=== PATIENT | male | born 1960 | race Caucasian/White ===

== ENCOUNTER 2019-01-23 01:47 | Outpatient (CLI) | payer MEDICAID, SELFPAY ==
[2019-01-23 07:59] LABS: HCT 40.9 % (40.0-50.0); HGB 13.8 g/dL (13.5-17.5); Mean Corp. HGB Concentration 33.7 g/dL (32.0-36.0); Mean Corpuscular Hemoglobin 29.7 pg (27.0-33.0); Platelet Count 353 x1000/uL (130-400); RBC 4.65 m/cumm (4.50-6.00); RBC Distribution Width 12.8 % (11.8-14.1); White Blood Cell Count 6.07 k/cumm (4.4-10.8)
[2019-01-23 09:28] LABS: Hemoglobin A1C 6.3 % (4.5-6.2)
[2019-01-23 10:13] LABS: ALT 30 U/L (12-78); AST 17 U/L (15-37); Albumin 3.8 g/dL (3.4-5.0); Alkaline Phosphatase 75 U/L (46-116); Anion Gap 8.6 mmol/L (3-11); BUN 21 mg/dL (7-18); Bilirubin, Total 0.2 mg/dL (0.2-1.0); CO2 28.4 mmol/L (21.0-32.0); CREATININE 0.87 mg/dL (0.70-1.30); Calcium 8.9 mg/dL (8.5-10.1); Calculated LDL 123 mg/dL; Chloride 105 mmol/L (98-107); Cholesterol 199 mg/dL (50-200); Glucose 112 mg/dL (70-100); HDL Cholesterol 61 mg/dL (40-60); Potassium 4.5 mmol/L (3.5-5.1); Sodium 142 mmol/L (136-145); TSH 1.73 uIU/mL (0.36-3.74); Total Protein 6.9 g/dL (6.4-8.2); Triglyceride 77 mg/dL (30-150)
[2019-01-24 10:11] LABS: PSA, Screening 0.4 ng/ml (0-3.5)
== END 2019-01-23 02:07 ==
PROVIDERS: Physician Assistant Medical; PCP Family Medicine; Visit Provider Family Medicine
DX: E78.5 Hyperlipidemia, unspecified (principal); E11.9 Type 2 diabetes mellitus without complications; R39.11 Hesitancy of micturition
CPT/HCPCS: 36415; 80053; 80061; 83721; 84153; 85027; 83036; 84443

== ENCOUNTER 2019-08-16 16:47 | Emergency (ER) | payer OTHER, SELFPAY ==
[2019-08-16 16:53] VITALS: BP 122/63; PULSE 65; RESP 18; TEMP 36.6; O2SAT 98
[2019-08-16] MEDS: Acetaminophen 500 MG TAB 1000 MG PO (17:20)
--- NOTE | 2019-08-16 17:22 | ED.GENADUL_ITS ---
Discharge Plan Disposition Patient Disposition: HOME Condition: Stable Discharge Details Chief Complaint: Orthopedic Clinical Impression: Knee sprain Primary Care Provider: Eddie Hills ED Provider: Sharon Maxwell Home Meds and New Rx's Prescriptions: No Action lamotrigine 200 mg tablet 200 mg PO DAILY RF: 0 atorvastatin 10 mg tablet 10 mg PO DAILY RF: 0 metoprolol succinate 50 mg tablet extended release 24 hr 25 mg PO DAILY RF: 0 methylphenidate HCl 20 mg tablet 20 mg PO TID RF: 0 enalapril maleate 20 mg tablet 20 mg PO .COMPLEX RF: 0 pantoprazole 40 mg tablet,delayed release (DR/EC) 40 mg PO DIRECTED RF: 0 gabapentin 300 mg capsule 300 mg PO .COMPLEX RF: 0 ibuprofen 600 mg tablet 600 mg PO .As directed PRNRF: 0 oxycodone 10 mg tablet 10 mg PO Q6H RF: 0 Discharge Instructions Instructions: Knee Sprain (ED) Additional Instructions: Rest. Activities as tolerated. Elevate injury to prevent swelling. Ice to the area of discomfort for 15 min. 3-5 times daily. Motrin every 8 hours with food or Tylenol every 6 hours for soreness if needed over the counter for comfort. Followup with orthopedic doctor as discussed if not improving in one week. Return for any worsening or concerns sooner if needed. Stand Alone Forms: Work Release Referrals: Mohsen Monroe MD [ [facility] STAFF PHYSICIAN] - Discharge Data Discharge Date/Time-TO BE ENTERED AT DEPARTURE: 08/16/19 18:07 Medical Decision Making 58-year-old patient status post trip and fall. Patient reports he tripped over a large hose and twisted his right knee beneath his body when it fell. Patient denies striking his head or his neck. He does report striking his back as well as injuring his right knee and does report mild pain to his left second digit. Patient reports he is only concerned with right knee pain. Patient does not have midline tenderness of his back or focal tenderness of his finger. He declines x-rays or evaluation of these areas. Patient would like imaging of the right knee. Obvious knee effusion present. Patient has some limitation to flexion on exam. Straight leg raise intact. No obvious weakness. No distal injury noted on exam. X-ray reveals total knee replacement with no acute abnormality identified. Discussed x-rays findings with the patient. Patient declines any bracing but will consent to an Eriberto wrap. Offered crutches and he reports he has assistive devices at home which he can use. [place] encouraged for 1 week. 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 Patient would prefer local referral, local referral provided for any persistence of symptoms. Patient reports his understanding and agrees with plan of care. HPI General Date/Time Provider Initiated Documentation: 08/16/19 17:16 . HPI Narrative: Is a 58-year-old patient who is years status post a total knee replacement on the right who yesterday tripped over a hose and fell twisting his right knee underneath him. Patient reports persistent knee pain since that time. Patient also notes a moderate right knee effusion. Patient reports mild clicking with range of motion and limited flexion of the knee. Patient did report a baseline of some limitation to range of motion on his right leg however increase in limitation of flexion reported. No obvious laxity. Patient denies any other concerns or complaints at this time. Patient does note he struck his back as well as his left second finger examination of these areas do not reveal any bony tenderness. Patient does not feel x-rays are required of these complaints at this time only the right knee. Patient does report mild tingling in the foot after injuring knee. Sensation is intact distally. No obvious weakness distally. X-rays ordered. Tylenol provided for discomfort. Patient is on daily oxycodone. Related Data Home Medications Medication Instructions Recorded Confirmed atorvastatin 10 mg tablet 10 mg PO DAILY 04/26/18 08/16/19 enalapril maleate 20 mg tablet 20 mg PO .COMPLEX 04/26/18 08/16/19 gabapentin 300 mg capsule 300 mg PO .COMPLEX 04/26/18 08/16/19 ibuprofen 600 mg tablet 600 mg PO .As directed PRN tab 04/26/18 08/16/19 lamotrigine 200 mg tablet 200 mg PO DAILY 04/26/18 08/16/19 methylphenidate HCl 20 mg tablet 20 mg PO TID 04/26/18 08/16/19 metoprolol succinate 50 mg 25 mg PO DAILY 04/26/18 08/16/19 tablet,extended release 24 hr oxycodone 10 mg tablet 10 mg PO Q6H tab 04/26/18 08/16/19 pantoprazole 40 mg tablet,delayed 40 mg PO DIRECTED tab 04/26/18 08/16/19 release Allergies Allergy/AdvReac Type Severity Reaction Status Date / Time No Known Allergies Allergy Unverified 08/16/19 17:00 General Stated Complaint: Orthopedic EDD: 4 Review of Systems All systems reviewed & are unremarkable except as noted in HPI and below Constitutional Constitutional: Denies frequent falls and Denies headache(s) ENT Ears, Nose, Mouth, and Throat: Denies headache(s) and Denies neck pain Musculoskeletal Musculoskeletal: Reports back pain, Denies deformity, Reports joint swelling, Reports limited range of motion, Denies neck pain, Denies numbness and Reports tingling Integumentary/Breasts Skin/Breast: Denies wounds Neurologic Neurologic: Denies frequent falls, Denies headache(s), Denies numbness and Reports tingling [facility] Medical History Abscess of hand (Acute) ADHD (Chronic) Anemia (Chronic) Carpal tunnel syndrome of right wrist (Acute) Cervical radiculopathy (Chronic) Closed fracture of proximal phalanx of finger (Acute) Complication of internal prosthetic device (Acute) Causing pain Depressive disorder (Chronic) Derangement of knee (Acute) Epidermoid cyst of skin (Acute) Hyperlipidemia (Chronic) Hypertensive disorder (Chronic) Knee pain (Acute) Osteoarthritis of knee (Chronic) Otitis media, purulent (Acute) Pain in right knee (Acute) Pneumonia (Acute) Primary localized osteoarthritis (Chronic) Restless legs (Chronic) Shoulder injury (Acute) Shoulder joint pain (Acute) Strain of tendon of upper extremity (Acute) Type 2 diabetes mellitus without complication (Chronic) Urinary hesitancy (Chronic) Wrist joint effusion (Acute) Family History (Updated 04/26/18 @ 11:01 by Malou Lopez) Father DVT (deep vein thrombosis) in Hypertension Social History Smoking/Tobacco Use Status: Never Alcohol Intake: current Alcohol Intake frequency: holidays/special occasions only Substance use type: does not use Do you feel safe at home: Yes Exam Narrative Exam Narrative: CONST: Healthy appearing patient, in no acute distress. Well hydrated. Alert and oriented. NECK: Normal visual inspection. FROM. Trachea midline. No Midline tenderness. CHEST: Normal insepection of the chest. RESP: Normal respiratory effort. Speaking full sentences. No cough. No audible wheezing. No retractions. MUSCULOSKELETAL: Limping gait. Right leg. No hip pain with palpation and, thigh pain with palpation. Straight leg raise intact. Obvious right knee effusion with medial and lateral joint line tenderness as well as posterior knee pain. Posterior swelling present consistent with Tyson's cyst. No significant patella tendon tenderness. Patella motion is smooth. Patella midline. No obvious laxity. No pain distal to the knee. No foot drop. Sensation intact distally. Left leg exam benign SKIN: Normal. Dry. No rashes. No wounds NEURO: Alert and awake. Speech clear. PSYCH: Normal affect. Cooperative. Course Vital Signs Vital signs: Vital Signs Temperature 36.6 C 08/16/19 16:53 Pulse 65 08/16/19 16:53 Respiratory Rate 18 08/16/19 16:53 Blood Pressure 122/63 08/16/19 16:53 Pulse Oximetry 98 08/16/19 16:53 Temperature 36.6 C 08/16/19 16:53 Temperature Source Skin 08/16/19 16:53 Pulse 65 08/16/19 16:53 Respiratory Rate 18 08/16/19 16:53 Respiratory Effort Non-Labored 08/16/19 16:58 Blood Pressure 122/63 08/16/19 16:53 Blood Pressure Position Sitting 08/16/19 16:53 Pulse Oximetry 98 08/16/19 16:53 Oxygen Delivery Method Room Air 08/16/19 16:53 Oxygen Flow Rate 0 08/16/19 16:53 Pain Level 6 08/16/19 16:53
--- NOTE | 2019-08-16 17:33 | DI.RAD_ITS ---
EXAM: XR KNEE RT 4V AP,LAT,XIOMARA,PAT INDICATION: pain, injury. COMPARISON: XR KNEE COMPLETE MIN 4V RT from 09/26/2016 TECHNIQUE: 2D digital imaging was performed. FINDINGS: Patient has a right total knee replacement. No evidence of hardware failure is seen. No acute fract ure or dislocation is present. There is mild soft tissue swelling about the knee. IMPRESSION: No acute fracture or dislocation.
--- NOTE | 2019-08-16 17:42 | DI.VRAD_ITS ---
PROCEDURE INFORMATION: Exam: XR Left Knee Exam date and time: 08/16/2019 5:33 PM Age: 58 years old Clinical indication: Other: Pain, injury; Prior surgery; Surgery date: 6+ months; Surgery type: S/P knee replacement TECHNIQUE: Imaging protocol: XR Left knee. Views: 4 or more views. COMPARISON: No relevant prior studies available. FINDINGS: Bones/joints: Total knee arthroplasty. No evidence for acute bony injury. No significant joint effusion. Soft tissues: Soft tissue swelling over the medial aspect of the knee. Soft tissue swelling in the infrapatellar region. IMPRESSION: Total knee arthroplasty. Dictated and Authenticated by: Bettye Ji MD. Ordering:DYLAN Herrera MD
[2019-08-16 17:57] VITALS: BP 107/68; PULSE 84; RESP 15; TEMP 36.9; O2SAT 98
--- NOTE | 2019-08-16 18:04 | NUR.NOTE ---
Nursing Note: Eriberto wrap applied to right knee.
== END 2019-08-16 18:07 | disposition home or self-care (01) ==
PROVIDERS: Emergency Provider Physician Assistant; PCP Family Medicine
DX: S83.8X1A Sprain of other specified parts of right knee, initial encounter (principal); W01.0XXA Fall on same level from slipping, tripping and stumbling without subsequent striking against object, initial encounter; Z96.651 Presence of right artificial knee joint; I10 Essential (primary) hypertension; E11.9 Type 2 diabetes mellitus without complications
CPT/HCPCS: 99283; 73564

== ENCOUNTER 2022-02-05 03:36 | Emergency (ER) | payer MEDICAID, SELFPAY ==
[2022-02-05 03:41] VITALS: BP 125/71; PULSE 72; RESP 16; TEMP 36.5; O2SAT 99
--- OUTSIDE RECORDS SUMMARY | 2022-02-05 03:42 | XMS_ITS | Encounter Summary ---
:1960 Author Organization [facility] [place] [address] Care Team Providers Name Role Phone Florina Thomas Primary Care Provider Encounter Details Date Type Department Care Team Description 12/19/2021 [place] [facility] [place] Granda Pain in right hip; [address] [facility] [address] Ana Paula MD Status post total knee replacement, unsp ecified laterality [facility] [id number] [place] [phone] ORTHOPAEDIC SURGERY [place] [id number] Social History Tobacco Use Types Packs/Day Years Used Date Never Smoker Smokeless Tobacco: Never Used Alcohol Use Standard Drinks/Week Comments Yes 3 (1 standard drink = 0.6 oz pure alcoho l) Sex Assigned at Date Recorded Not on file documented as of this encounter Medications at Time of Discharge Medication Sig Dispensed Refills Start Date End Date gabapentin (NEURONTIN) 600 as needed. 0 1 mg Tablet oxyCODONE (Roxicodone) 5 mg TAKE 1 TABLET BY 0 Tablet MOUTH FOUR TIMES DAILY FOR 7 DAYS celecoxib (CeleBREX) 400 mg TAKE 1 CAPSULE BY 0 0 07/14/2020 Capsule MOUTH EVERY DAY acetaminophen (Tylenol) 500 Take 2 tablets by 0 0 03/29/2020 mg Tablet mouth every 8 hours. Continue the Tylenol around the clock for 10 days after surgery, (04/05/2020). Then may take if needed per package insert. Do not take more than 3,000 mg of Tylenol in 24 hours. lamoTRIgine (LaMICtal) 200 Take 200 mg by mouth 0 11/23/2019 mg Tablet daily. atorvastatin (LIPITOR) 10 take 1 tablet by 0 12/31 mg Tablet mouth once daily enalapril (VASOTEC) 20 mg take 1 tablet by 0 12/31 Tablet mouth once daily methylphenidate HCl take 1 tablet by 0 01/30/2019 (RITALIN) 20 mg Tablet mouth three times a day metoprolol succinate take 1 tablet by 0 9 (TOPROL-XL) 50 mg Tablet mouth once daily Sustained Release 24 hr pantoprazole (PROTONIX) 40 Take 40 mg by mouth 0 mg Tablet, Delayed Release Daily. (E.C.) documented as of this encounter Plan of Treatment Not on filedocumented as of this encounter Procedures Procedure Name Priority Date/Time Associated Diagnosis Comme nts XR KNEE AP & LAT Routine 12/19/2021 1:30 PM Status post total Results for this RIGHT EDT knee replacement, procedure are in unspecified the results laterality section. XR PELVIS AND HIP 2 Routine 12/19/2021 1:30 PM Pain in right h ip Results for this VIEWS RIGHT EDT procedure are i n the results section. documented in this encounter Results XR Knee 1-2 Views Right (Generic) (12/19/2021 1:30 PM EDT) Anatomical Region Laterality Modality Knee Right Digital Radiography Specimen (Source) Anatomical Location Collection Method / Collectio n Time Received Time / Laterality Volume Impressions 12/19/2021 1:34 PM EDT Similar appearance and alignment of right total knee arthroplasty. Thank you for letting us participate in the care of this patient. ??If you are a health care provider and have any questi ons regarding this report, please contact the number below. ??For patients who have questions please contact the health school child care attendant that requested your imaging first. ? Electronically signed by: Patel Santamaria MD , [facility] ([phone]), at 12/19/2021 1:34 PM Narrative 12/19/2021 1:34 PM EDT EXAMINATION: XR KNEE 1-2 VIEWS RIGHT (GENERIC) CLINICAL HISTORY: AP And Lateral TECHNIQUE: 3 views of the right knee COMPARISON: 10/11/2021 FINDINGS: There is a right total knee arthroplasty with a small joint effusion. Alignment is unchanged. Thin lucency adjacent to t he tibial trays and the femoral stem are unchanged compared to prior. No peripros thetic fracture. Frontal and sunrise views of the left kn ee demonstrates a bipartite patella and marginal osteophytes and mild narrowing at the medial compartment joint space. Procedure Note Patel Santamaria MD - 12/19/2021Formatting o f this note might be different from the original. EXAMINATION: XR KNEE 1-2 VIEWS RIGHT (GE NERIC) CLINICAL HISTORY: AP And Lateral TECHNIQUE: 3 views of the right knee COMPARISON: 10/11/2021 FINDINGS: There is a right total knee arthroplasty with a small joint effusion. Alignment is unchanged. Thin lucency adjacent to t he tibial trays and the femoral stem are unchanged compared to prior. No peripros thetic fracture. Frontal and sunrise views of the left kn ee demonstrates a bipartite patella and marginal osteophytes and mild narrowing at the medial compartment joint space. IMPRESSION Similar appearance and alignment of righ t total knee arthroplasty. Thank you for letting us participate in the care of this patient. If you are a health care provider and have any questi ons regarding this report, please contact the number below. For patients w ho have questions please contact the health school child care attendant that requested your imaging first. Electronically signed by: Patel Santamaria MD , [facility] ([phone]), at 12/19/2021 1:34 PM Stehpen Granda MD IMG DX ORDERABLES XR Pelvis and Hip 2 Views Right (12/19/2021 1:30 PM EDT) Anatomical Region Laterality Modality Pelvis, Hip Right Digital Radiography Specimen (Source) Anatomical Location Collection Method / Collectio n Time Received Time / Laterality Volume Impressions 12/19/2021 1:37 PM EDT Moderate right and mild left hip osteoarthropathy. Thank you for letting us participate in the care of this patient. ??If you are a health care provider and have any questi ons regarding this report, please contact the number below. ??For patients who have questions please contact the health school child care attendant that requested your imaging first. ? Electronically signed by: Patel Santamaria MD , [facility] ([phone]), at 12/19/2021 1:37 PM Narrative 12/19/2021 1:37 PM EDT EXAMINATION: XR PELVIS AND HIP 2 VIEWS RIGHT CLINICAL HISTORY: Eval for hip DJD. TECHNIQUE: 3 views of the pelvis and hips COMPARISON: None FINDINGS: No visible pelvic fracture. No fracture or dislocation of the right hip. There are osteophytes of both hips. There is m ild left hip and moderate right hip central joint space narrowing. Procedure Note Patel Santamaria MD - 12/19/2021Formatting o f this note might be different from the original. EXAMINATION: XR PELVIS AND HIP 2 VIEWS R IGHT CLINICAL HISTORY: Eval for hip DJD. TECHNIQUE: 3 views of the pelvis and hips COMPARISON: None FINDINGS: No visible pelvic fracture. No fracture or dislocation of the right hip. There are osteophytes of both hips. There is m ild left hip and moderate right hip central joint space narrowing. IMPRESSION Moderate right and mild left hip osteoar thropathy. Thank you for letting us participate in the care of this patient. If you are a health care provider and have any questi ons regarding this report, please contact the number below. For patients w ho have questions please contact the health school child care attendant that requested your imaging first. Electronically signed by: Patel Santamaria MD , [facility] ([phone]), at 12/19/2021 1:37 PM Stephen Granda MD IMG DX ORDERABLES documented in this encounter Visit Diagnoses Diagnosis Pain in right hip Pain in joint, pelvic region and thigh Status post total knee replacement, unsp ecified laterality documented in this encounter Care Teams Home Health Care Physician Relationship Specialty Start Date End Date Florina Thomas PA PCP - General Family Medicine 02/03/19 [address] [place] [address] documented as of this encounter
--- OUTSIDE RECORDS SUMMARY | 2022-02-05 03:42 | XMS_ITS | Encounter Summary ---
:1960 Author Organization [facility] [place] [address] Care Team Providers Name Role Phone Florina Thomas Primary Care Provider Reason for Visit Reason Onset Date Comments Questions 12/19/2021 Encounter Details Date Type Department Care Team Description 12/19/2021 Telephone Orthopaedics at [facility] [place] Stephen Granda MD Questions [facility] [place] [address] ORTHOPAEDIC SURGERY [phone] [place] [id number] (Wo rk) Social History Tobacco Use Types Packs/Day Years Used Date Never Smoker Smokeless Tobacco: Never Used Alcohol Use Standard Drinks/Week Comments Yes 3 (1 standard drink = 0.6 oz pure alcoho l) Sex Assigned at Date Recorded Not on file documented as of this encounter Miscellaneous Notes Telephone Encounter - Melody Shay RN - 12/19/2021 1:12 PM EDT Contacted the patient at this time. He is currently at XR. Nothing further needed. Telephone Encounter - Antonio Colon - 12/19/2021 11:09 AM EDT Name of person calling: Patient What is the question: Patient is having car problems and is waiting for his transmission to cool down. He is concerned he may miss the XR appt before his appt with Jesus Alberto. If so he is wondering if the XR will be required before appt if he has to cancel it. He is going to try to make it for the XR. Best number to reach the caller: [phone] documented in this encounter Plan of Treatment Not on filedocumented as of this encounter Visit Diagnoses Not on filedocumented in this encounter Care Teams Continuing Education Instructor Relationship Specialty Start Date End Date Florina Thomas PA PCP - General Family Medicine 02/03/19 [address] [place] [address] documented as of this encounter
--- OUTSIDE RECORDS SUMMARY | 2022-02-05 03:42 | XMS_ITS | Encounter Summary ---
:1960 Author Organization [facility] Address [address] [place] [address] Care Team Providers Name Role Phone Florina Thomas Primary Care Provider Encounter Details Date Type Department Care Team Description 12/19/2021 [place] [facility] [place], 03/26/2020 S/P revision [facility] PT of right total knee Drive (Dr. Ortiz) [place] [phone] Social History Tobacco Use Types Packs/Day Years Used Date Never Smoker Smokeless Tobacco: Never Used Alcohol Use Standard Drinks/Week Comments Yes 3 (1 standard drink = 0.6 oz pure alcoho l) Sex Assigned at Date Recorded Not on file documented as of this encounter Miscellaneous Notes Initial Evaluation - Siomara Vaughan, PT - 12/19/2021 2:30 PM EDT PHYSICAL THERAPY INITIAL EVALUATION Date of Initial Evaluation: 12/19/2021 Referring Provider: Stephen Granda MD Referring Diagnosis: left Total Knee replacement followed by revision ICD-10-CM 1. 03/26/2020 S/P revision of right total knee (Dr. Ortiz) Z96.651 History of Present Illness: Yg Leal is a 61 y.o. male with continued left knee pain following a TKR and revision. He c/o pain along the posterior knee which he refers to as nerve pain. The pain is shooting in nature and shoots from the posterior knee to the lower leg into the toes - primarily the lateral toes but notes that it progresses to all the toes. PMHx: Patient Active Problem List Diagnosis Code ??? Sprain of right knee S83.91XA ??? Type 2 diabetes mellitus, without long-term current use of insulin E11.9 ??? HLD (hyperlipidemia) E78.5 ??? Anemia D64.9 ??? Depression F32.A ??? ADHD (attention deficit hyperactivity disorder), combined type F90.2 ??? Restless legs G25.81 ??? HTN (hypertension) I10 ??? Cervical radiculopathy M54.12 ??? Chronic prescription opiate use Z79.891 ??? Presence of right artificial knee joint Z96.651 ??? Postoperative stiffness of total knee replacement T84.89XA, M25.669, Z96.659 ??? 03/26/2020 S/P revision of right total knee (Dr. Ortiz) Z96.651 ??? Postoperative anemia due to acute blood loss D62 ??? Status post total right knee replacement Z96.651 ??? 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 Pain: at best: 0/10; at worst: 9/10 Primary Complaints: - Decreased ROM, states constant pain, decreased stability, stairs, getting out of his car, golfing, playing basketball Alleviating factors: - rest, gentle motion Patient Goals: - Return to PLOF CLINICAL FINDINGS: Gait: -mild deviation only due to decreased knee extension at mid stance Lower Extremity PROM: Knee Flexion ~90 Knee Extension ~10 Patellar Mobility: Severe hypomobility in all directions Lower Extremity Manual Muscle Testing: Hip flexion in siting 5 Iliopsoas in supine 4+ Hip abduction 4+ Hip IR 5 Hip ER 5 Knee flexion 4- with pain Knee extension 5 DF 5 PF 5 Special Testing: SLR for sciatic nerve involvement: negative Ant drawer/post drawer: negative for laxity at the tib/fem joint Varus stress test 0/30: neg/neg Valgus stress test 0/30: neg/neg Palpation: Tender to Palpation: Generalized joint line tenderness ASSESSMENT: Pt is a 61 y.o. male presenting with left knee pain following a total knee replacement and revision surgery. Significant limitation in ROM as well as severe hypomobility of the patella. He does demonstrate good strength. No laxity of the joint. He continues to complain of nerve pain in the posteriorknee into the lower leg and into the toes. SLR testing was negative. He will be following up with neurology. Pt to continue with an independent HEP at this time and follow up with formal PT at a clinicof his choice. INITIAL TREATMENT INCLUDED: Seated Nerve glides Seated hamstring stretch Gastroc/Soleus stretch Supine SLRs Bridges Sustained wall sit GOALS: Therapy Short Term Goals (4 wks): 1. Pt will demonstrate independence with home exercise program 2. Increase strength in all limited planes by 1/2 mm grade 3. Perform all transfers and bed mobility without compensatory mechanics or pain Therapy Acid Loader Goals (8 wks): 1. Be able to return to a full work day with less than 5/10 pain 2. Be able to walk on level surfaces without restriction from pain 3 Be able to perform all ADLs without pain PLAN: Frequency and duration: 1 -2x per week for 6-10 weeks Treatment: Manual Techniques, Soft Tissue Mobilization, Stretching, Therapeutic Exercise, Patient/Family Education, Body Mechanics, Posture, Home Exercise Program, Aquatic Program, Balance and Gait Training and Pain Science Education Total Treatment time: 30 minutes Timed Code Time: 0 min The plan has been discussed with the patient and Yg Leal has agreed with the planned treatment. Siomara Vaughan PT documented in this encounter Plan of Treatment Not on filedocumented as of this encounter Visit Diagnoses Diagnosis 03/26/2020 S/P revision of right total kn ee (Dr. Ortiz) documented in this encounter Care Teams Security Operations Manager Relationship Specialty Start Date End Date Florina Thomas PA PCP - General Family Medicine 02/03/19 [address] [place] [address] documented as of this encounter
--- OUTSIDE RECORDS SUMMARY | 2022-02-05 03:42 | XMS_ITS | Encounter Summary ---
:1960 Author Organization [facility] [place] [address] Care Team Providers Name Role Phone Florina Thomas Primary Care Provider Reason for Visit Consultation (Routine) - Closed Specialty Diagnoses / Procedures Referred By Contact Refer red To Contact Neurology Diagnoses Status post total right knee replacement Eddie Batista PA [facility] Neurology 3c [facility] D R [facility] [place] [address] [place] [address] Referral ID Status Reason Start Date Expiration Date Visits V isits Requested Authorized [id number] Closed Consult, 10/11/2021 10/11/2022 1 1 Test & Treat Encounter Details Date Type Department Care Team Description 01/23/2022 Office Visit Neurology at [facility] Sung Boss MD [facility] [place] [address] 03/26/2020 S/P revision of right total kn ee (Dr. Ortiz); [facility] Kev Lee MD [facility] [place] [address] Injury of right sciatic nerve[place] [address] Social History Tobacco Use Types Packs/Day Years Used Date Never Smoker Smokeless Tobacco: Never Used Alcohol Use Standard Drinks/Week Comments Yes 3 (1 standard drink = 0.6 oz pure alcoho l) Sex Assigned at Date Recorded Not on file documented as of this encounter Last Filed Vital Signs Vital Sign Reading Time Taken Comments Blood Pressure 136/86 01/23/2022 2:25 PM EDT Pulse 68 01/23/2022 2:25 PM EDT Temperature - - Respiratory Rate - - Oxygen Saturation - - Inhaled Oxygen Concentration - - Weight 75 kg (165 lb 4.8 oz) 01/23/2022 2:25 PM EDT Height 170.2 cm (5' 7) 01/23/2022 2:25 PM EDT Body Mass Index 25.89 01/23/2022 2:25 PM EDT documented in this encounter Progress Notes Kev Lee MD - 01/23/2022 2:30 PM EDT Patient name: Yg Leal Date of : 1960 CC: Behind the Knee pain on Rt HPI: 61 yom pmh of TKA per patient 20 months ago of the rt knee comes for persistent Behind the knee painsince the procedure. Patient mentions the sx started since the surgery and are persistent since. Mentions they got slightly better initially but now they are about the same. Mentions tingling as well on the back and numbness. Mentions the front portions seems fairly without any issues to him. Mentionsthe sx limits his activities. Says he feels this clunky/ popping feeling in the rt knee. Sees ortho for the complaint. No other neurological sx in other extremities. Past Medical History: Diagnosis Date ??? Anemia 02/19/2020 ??? Gastroesophageal reflux i take meds for this to control ??? Heart valve disease murmur - i've had test for this and it was fine ??? High blood pressure on medication ??? Mental health problem i take meds for depression bipolar2 ??? Motion sickness in the ocean [place] a [place] No family history on file. Social History Social History Narrative ??? Not on file Outpatient Encounter Medications as of 01/23/2022 Medication Sig Dispense Refill ??? gabapentin (NEURONTIN) 600 mg Tablet as needed. ??? oxyCODONE (Roxicodone) 5 mg Tablet TAKE 1 TABLET BY MOUTH FOUR TIMES DAILY FOR 7 DAYS ??? celecoxib (CeleBREX) 400 mg Capsule TAKE 1 CAPSULE BY MOUTH EVERY DAY ??? acetaminophen (Tylenol) 500 mg Tablet Take 2 tablets by mouth every 8 hours. Continue the Tylenol around the clock for 10 days after surgery, (04/05/2020). Then may take if needed per package insert. Do not take more than 3,000 mg of Tylenol in 24 hours. (Patient not taking: Reported on 12/19/2021) ??? lamoTRIgine (LaMICtal) 200 mg Tablet Take 200 mg by mouth daily. ??? atorvastatin (LIPITOR) 10 mg Tablet take 1 tablet by mouth once daily 0 ??? enalapril (VASOTEC) 20 mg Tablet take 1 tablet by mouth once daily 0 ??? methylphenidate HCl (RITALIN) 20 mg Tablet take 1 tablet by mouth three times a day 0 ??? metoprolol succinate (TOPROL-XL) 50 mg Tablet Sustained Release 24 hr take 1 tablet by mouth once daily 0 ??? pantoprazole (PROTONIX) 40 mg Tablet, Delayed Release (E.C.) Take 40 mg by mouth Daily. No facility-administered encounter medications on file as of 01/23/2022. No Known Allergies Review of systems: Constitutional: No fevers or chills Eyes: No vision changes, no diplopia, no blurry vision ENT: No rhinorrhea or pharyngitis, no meningismus CV: No chest pain or palpitations Resp: No cough, no shortness of breath GI: No nausea, vomiting, diarrhea or constipation : No dysuria, no incontinence Heme: No bleeding or bruising Endo: No diabetes or thyroid disease Neuro: See HPI Psych: No depression, normal sleep [x] Review of systems otherwise negative Objective: Vitals: Temp: -- Heart Rate: -- Resp: -- BP: ()/() SpO2: -- Heart Rate from SpO2: -- Constitutional: Patient of apparent stated age, well nourished, well developed, no acute distress Neck: Supple, no meningismus, no carotid bruit CV: RRR, S1, S2, no murmur Resp: CTAB Abd: Soft, nontender, nondistended Ext: No edema. No bony deformity Neuro: MS: Alert, oriented, clear language, no dysarthria CN: PERRL, EOMI, visual atwood full, trigeminal sensation intact, no facial asymmetry, hearing intact to whisper, palate elevates symmetrically, tongue protrudes midline, SCM and trap strength intact Motor: Normal bulk and tone. 5/5 strength in bilateral upper and lower extremities Sensation:decreased to light touch/pinprick on the back side of right knee, mildly decreased on medial and lateral aspect of front of leg. Normal sensation on thigh Reflexes: 1+ Achilles b/l. 1+ patellar left, absent rt 2/2 surgery, downgoing toes. Coordination: Finger to nose intact, rapid alternating movements intact and symmetric Gait: Stable, steady Diagnostic Tests and Images: EMG done today 01/23: no radiculopathic findings or distal nerve neuropathic findings. Assessment: 61 yom pmh of TKA per patient 20 months ago of the rt knee comes for persistent Behind the knee painsince the procedure. Nerve conduction/EMG done today were not consistent with any radiculopathic findings, or any neuropathic findings. It is possible there is a local sensory nerve branch damage after the surgery which would not be able to picked up on NCS or other structural knee issues. Recommend taking gabapentin daily instead of prn and if feasible to decreased opioid intake and follow up with Orthopedics for other possible structural issues Plan: - Recommend taking gabapentin daily instead of PRN - Follow up with ortho - Follow up in neurology as needed Neurology Staff Note I have reviewed the above fellows's history during the visit and I agree with the details as written. My physical examination confirms the fellow's findings. The assessment and plan were formulated in discussion with me at the time of the visit and I agree with them as documented. I participated in the EDX studies. Sung Boss MD documented in this encounter Plan of Treatment Scheduled Referrals Name Type Priority Associated Diagnoses Order S chedule Referral to Outpatient Referral Routine Status post total Ord ered: Neurology right knee 10/11/2021 replacement documented as of this encounter Visit Diagnoses Diagnosis 03/26/2020 S/P revision of right total kn ee (Dr. Ortiz) Injury of right sciatic nerve, initial e ncounter documented in this encounter Care Teams Speeder Hand Relationship Specialty Start Date End Date Florina Thomas PA PCP - General Family Medicine 02/03/19 [address] [place] [address] documented as of this encounter
--- OUTSIDE RECORDS SUMMARY | 2022-02-05 03:42 | XMS_ITS | Encounter Summary ---
:1960 Author Organization [facility] [place] [address] Care Team Providers Name Role Phone Florina Thomas Primary Care Provider Reason for Visit Reason Onset Date Comments Questions 12/20/2021 Encounter Details Date Type Department Care Team Description 12/20/2021 Telephone Orthopaedics at [facility] Stephen Granda MD Questions [facility] [place] [address] ORTHOPAEDIC SURGERY [phone] [place] [id number] (Wo rk) Social History Tobacco Use Types Packs/Day Years Used Date Never Smoker Smokeless Tobacco: Never Used Alcohol Use Standard Drinks/Week Comments Yes 3 (1 standard drink = 0.6 oz pure alcoho l) Sex Assigned at Date Recorded Not on file documented as of this encounter Miscellaneous Notes Telephone Encounter - Praful Osorio - 12/22/2021 3:44 PM EDT LVM for patient stating that the XRs were reviewed again and it was confirmed that here are no findings in the radiographs that indicate any problems with the implants. I advised the patient to cointinue conservative management of rest and encouraged him to strengthen the muscles above and below the knee in an effort to better stabilize the joint. I also left our office number if he continues to have any additional questions or concerns or if any new problems arise. Telephone Encounter - Praful Osorio - 12/20/2021 3:54 PM EDT Patient called back to discuss his concerns further. Patient states that his knee is loose and is uncomfortable to walk up and down hills. He was recently seen in clinic by dr. Granda and had updated XRs. He is curious as to whether or not Dr. Granda evaluated the space in the joint as he believes this is the root of the problem. He asked may times if Dr. Granda looked at all of his knee imaging since the most recent revision surgery. I assured the patient that all radiographs were reviewed. Patient would like Dr. Pisano to weigh in on his XRays at his convenience to see if there has been anything that the radiologists or Dr. Granda have missed. I advised that a physical evaluation is more important and that I'd be happy to help arrange this visit for a 2nd opinion, so that a physical exam could be completed along with reviews of the XRs. Patient states that he would just like to have Dr. Granda speak with Dr. Pisano to see if there is anything that may indicate a problem with his implant. Patient went on to talk about how he was able to walk 18 holes of golf last fall and is now having difficulty walking 4. Patient reports clunking and shifting that wasn't there before and feels like his tendons are loose. I reiterated the importance of a physical evaluation for this as an xray will not be able to show joint laxity. I advised the patient that I would speak with Dr. Granda as to how he would recommend the patientproceed. In the mean time, I encouraged the patient to continue to do Physical Therapy exercises to aid in regaining the stability of the knee. He appreciates the time and awaits my call with how Dr. Granda would like to proceed. Telephone Encounter - Praful Osorio - 12/20/2021 1:28 PM EDT LVM on identifiable VMB passing information along from Dr. Granda. After close examination of theXR imaging, Dr. granda does not see any indication of hardware changes or any indication of failure. I encouraged him to call if he would like to discuss any of his concerns further. I left the office phone number with instructions to ask for me and I will take the call if I am available. Telephone Encounter - Beckie Shea - 12/20/2021 8:20 AM EDT Name of person calling: Patient What is the question: Patient called in requesting clarification on the findings on his right knee XRAY. He stated that his right knee feels loose. He also requested to have Dr. Pisano take a look at the xrays. Please speak to patient Best number to reach the caller: [phone] documented in this encounter Plan of Treatment Not on filedocumented as of this encounter Visit Diagnoses Not on filedocumented in this encounter Care Teams Radiographer Cardiac Catheterization Relationship Specialty Start Date End Date Florina Thomas PA PCP - General Family Medicine 02/03/[address] [place] [id number] documented as of this encounter
--- OUTSIDE RECORDS SUMMARY | 2022-02-05 03:42 | XMS_ITS | Clinical Summary ---
:1960 Author Organization [facility] [place] [address] Care Team Providers Name Role Phone Florina Thomas Primary Care Provider Allergies No known active allergies Medications Medication Sig Dispensed Refills Start Date End Date Status atorvastatin (LIPITOR) take 1 tablet by 0 01/22/2019 Active 10 mg Tablet mouth once daily enalapril (VASOTEC) 20 take 1 tablet by 0 01/27/2019 Active mg Tablet mouth once daily methylphenidate HCl take 1 tablet by 0 01/30/2019 Active (RITALIN) 20 mg Tablet mouth three times a day metoprolol succinate take 1 tablet by 0 02/09/2019 Active (TOPROL-XL) 50 mg Tablet mouth once daily Sustained Release 24 hr pantoprazole (PROTONIX) Take 40 mg by 0 Active 40 mg Tablet, Delayed mouth Daily. Release (E.C.) lamoTRIgine (LaMICtal) Take 200 mg by 0 11/23/2019 Active 200 mg Tablet mouth daily. acetaminophen (Tylenol) Take 2 tablets 0 03/29/2020 Active 500 mg Tablet by mouth every 8 hours. Continue the Tylenol around the clock for 10 days after surgery, (04/05/2020). Then may take if needed per package insert. Do not take more than 3,000 mg of Tylenol in 24 hours. Additional Information Patient taking differently: 1,000 mg Oral EVERY 8 HOURS, Continue the Tylenol around the clock for 10 days after surgery, (04/05/2020). Then may take if needed per package insert. Do not take more than 3,000 mg of Tylenol in 24 hours. , Reported on 01/23/2022 celecoxib (CeleBREX) 400 mg TAKE 1 CAPSULE BY MOUTH EVERY 0 07/14/2020 Active Capsule DAY oxyCODONE (Roxicodone) 5 mg TAKE 1 TABLET BY MOUTH FOUR 0 12/06/2020 Active Tablet TIMES DAILY FOR 7 DAYS gabapentin (NEURONTIN) 600 mg as needed. 0 1 Active Tablet Active Problems Problem Noted Date Pain due to total right knee replacement 12/19/2021 Status post total right knee replacement 10/11/2021 03/26/2020 S/P revision of right total knee (Dr. Hill ar) 03/29/2020 Postoperative anemia due to acute blood loss 0 Postoperative stiffness of total knee replacement 01/31 Type 2 diabetes mellitus, without long-term current us e of insulin 02/19/2020 HLD (hyperlipidemia) 02/19/2020 Anemia 02/19/2020 Depression 02/19/2020 ADHD (attention deficit hyperactivity disorder), combi guanako type 02/19/2020 Overview: Per PDMP Feb 19, 2020: methylphenidate 2 0 mg tid prescribed by his PCP. Restless legs 02/19/2020 HTN (hypertension) 02/19/2020 Cervical radiculopathy 02/19/2020 Chronic prescription opiate use 02/19/2020 Overview: Per PDMP Feb 19, 2020: Oxycodone 10 mg q id prescribed by his PCP. Presence of right artificial knee joint 02/19/2020 Sprain of right knee 09/04/2019 Encounters Date Type Specialty Care Team Description 01/23/2022 Office Visit Neurology Sung Boss, 03/26/2020 S/P revision of right total knee (Dr. Ortiz); Injury of right sciatic nerve, initial e Kev Chu MD 01/23/2022 External Results Neurology Sung Boss MD 12/20/2021 Telephone Orthopaedics Stephen Granda, Question s 12/19/2021 Office Visit Orthopaedics Siomara Vaughan, PT 0 S/P revision of right total knee (Dr. Ortiz) 12/19/2021 Office Visit Orthopaedics Stephen Granda, Status p ost total knee replacement, unspecified laterality; 03/26/2020 S/P r evision of right total knee (Dr. Ortiz); Pain due to tot al right knee replacement, initial encounter 12/19/2021 Hospital Encounter Radiology Stephen Granda Pa in in right hip; Status post tot al knee replacement, unspecified laterality 12/19/2021 Telephone Orthopaedics Stephen Granda Question s 11/17/2021 Telephone Orthopaedics Eddie Batista PA 11/09/2021 Hospital Encounter Radiology Ghulam Amos MD 11/09/2021 Hospital Encounter Radiology Ghulam Amos, St atus post total right MD knee replacemen t from Last 3 Months Social History Tobacco Use Types Packs/Day Years Used Date Never Smoker Smokeless Tobacco: Never Used Alcohol Use Standard Drinks/Week Comments Yes 3 (1 standard drink = 0.6 oz pure alcoho l) Sex Assigned at Date Recorded Not on file Last Filed Vital Signs Vital Sign Reading Time Taken Comments Blood Pressure 136/86 01/23/2022 2:25 PM EDT Pulse 68 01/23/2022 2:25 PM EDT Temperature 36.8 ??C (98.2 ??F) 03/29/2020 11:49 AM EDT Respiratory Rate 17 03/29/2020 11:49 AM EDT Oxygen Saturation 98% 03/29/2020 11:49 AM EDT Inhaled Oxygen Concentration - - Weight 75 kg (165 lb 4.8 oz) 01/23/2022 2:25 PM EDT Height 170.2 cm (5' 7) 01/23/2022 2:25 PM EDT Body Mass Index 25.89 01/23/2022 2:25 PM EDT Plan of Treatment Health Maintenance Due Date Last Done Comments Covid-19 Vaccine (#1) 10/05/1967 Pneumococcal Vaccine: At-Risk 1968 5-64yrs (1 - PCV) DM Hemoglobin A1c 1972 DM Opthalmology Exam 1972 DM Urine Microalbumin yearly 1972 HIV screen 1980 Hepatitis C Screening 1980 Tdap adult 1981 Tetanus vaccine 1981 Colonoscopy 10/05/2007 Zoster vaccine (1 of 2) 2012 Advance Directive 2017 DM Creatinine yearly 03/29/2021 03/29/2020, 03/28/2020, 03/27/2020, Additional history exists Influenza (Flu) vaccine (1 of - 03/02/2022 Influenza standard series) Medical Devices Implanted Type Area Central Sterile Technician Device Identifier Shelf Model / Expiration Serial / Date Lot Insert,Gale Raman,12mm,S ([id number]) (Autoreq) - [id number] IMPLANTS Right: [employer] [facility] - [id number] 08/25/2023 [id number] / Implanted: Qty: 1 on 03/26/2020 by Eddie Ortiz MD at [facility] Knee [employer] / [id number] Procedures Procedure Name Priority Date/Time Associated Diagnosis Comme nts EMG WITH F-WAVE Routine 01/23/2022 XR KNEE AP & LAT Routine 12/19/2021 1:30 PM Status post total Results for this RIGHT EDT knee replacement, procedure are in unspecified the results laterality section. XR PELVIS AND HIP 2 Routine 12/19/2021 1:30 PM Pain in right h ip Results for this VIEWS RIGHT EDT procedure are i n the results section. NM BONE SCAN 3 Routine 11/09/2021 12:59 PM Status post total R esults for this PHASE EDT right knee procedure are i n replacement the results section. from Last 3 Months Results EMG WITH F-WAVE (01/23/2022) Narrative This result has an attachment that is no t available. Sung Boss MD NEUROLOGY ORDERABLES XR Knee 1-2 Views Right (Generic) (12/19/2021 [...] who have questions please contact the health care transitions manager that requested your imaging first. ? Electronically signed by: Patel Santamaria MD , [facility] ([phone]), at 12/19/2021 1:34 PM Narrative 12/19/2021 1:34 [...] ho have questions please contact the health care transitions manager that requested your imaging first. Electronically signed by: Patel Santamaria MD , [facility] ([phone]), at 12/19/2021 1:34 PM Stephen Granda MD IMG DX ORDERABLES XR Pelvis [...] who have questions please contact the health care transitions manager that requested your imaging first. ? Electronically signed by: Patel Santamaria MD , [facility] ([phone]), at 12/19/2021 1:37 PM Narrative 12/19/2021 1:37 [...] ho have questions please contact the health care transitions manager that requested your imaging first. Electronically signed by: Patel Santamaria MD , [facility] ([phone]), at 12/19/2021 1:37 PM Stephen Granda MD IMG DX ORDERABLES NM Bone Scan 3 Phase (11/09/2021 12:59 PM EDT) Anatomical Region Laterality Modality Nuclear Medicine Specimen (Source) Anatomical Location Collection Method / Collectio n Time Received Time / Laterality Volume Impressions 11/10/2021 4:20 PM EDT 1. ??Moderate degree of periprosthetic activity adjacent to the tibial tray and distal aspect of the tibial stem are guy picious for prosthetic loosening. 2. ??Moderate degree of periprosthetic a ctivity along the lateral side of the condylar component, is of questionable s ignificance. 3. ??Diffusely increased activity in the patella may represent a problem related to the patellofemoral joint. Please dickson elate with clinical exam. I have personally reviewed the image(s) and the resident's interpretation and agree with the findings, Tiffany Hughes at 11/10/2021 4:20 PM Thank you for letting us participate in the care of this patient. ??If you are a health care provider and have any questi ons regarding this report, please contact the number below. ??For patients who have questions please contact the health care transitions manager that requested your imaging first. ? Electronically signed by: Silviano Negrete MD, [facility] ([phone]), at 11/10/2021 4:20 PM Narrative 11/10/2021 4:20 PM EDT EXAMINATION: NM BONE SCAN 3 PHASE CLINICAL HISTORY: Orthopedic implant, kn ee, complication suspected (adult). Continued pain in revision right total k nee arthroplasty. Revision TKA performed 03/26/2020 TECHNIQUE: Immediately following the intravenous ad ministration of 26 mCi of Tc-99m MDP, sequential images of perfusion to the kn ees were obtained at 2 second intervals for 60 seconds in the anterior and poste rior projections. Five minutes later, blood pool images we re obtained of the knees in the anterior, posterior and lateral projecti ons. Three hours later, a bone scan of the kn ees was performed with images obtained in the anterior, posterior and lateral p rojections. COMPARISON: Radiographs 10/11/2021 FINDINGS: Early flow and blood flow phase images: Normal. Delayed bone phase images: Right knee prosthesis: Moderately increased MDP uptake adjacent to the medial and lateral tibial tray as well as the distal aspect of the tibi al stem. Moderately increased MDP uptake adjacent along the lateral side of the condylar component is of questionable significanc e. Diffusely increased MDP uptake in the pa tella. Procedure Note Silviano Negrete MD - 11/10/2021Formatti ng of this note might be different from the original. EXAMINATION: NM BONE SCAN 3 PHASE CLINICAL HISTORY: Orthopedic implant, kn ee, complication suspected (adult). Continued pain in revision right total k nee arthroplasty. Revision TKA performed 03/26/2020 TECHNIQUE: Immediately following the intravenous ad ministration of 26 mCi of Tc-99m MDP, sequential images of perfusion to the kn ees were obtained at 2 second intervals for 60 seconds in the anterior and poste rior projections. Five minutes later, blood pool images we re obtained of the knees in the anterior, posterior and lateral projecti ons. Three hours later, a bone scan of the kn ees was performed with images obtained in the anterior, posterior and lateral p rojections. COMPARISON: Radiographs 10/11/2021 FINDINGS: Early flow and blood flow phase images: Normal. Delayed bone phase images: Right knee prosthesis: Moderately increased MDP uptake adjacent to the medial and lateral tibial tray as well as the distal aspect of the tibi al stem. Moderately increased MDP uptake adjacent along the lateral side of the condylar component is of questionable significanc e. Diffusely increased MDP uptake in the pa tella. IMPRESSION 1. Moderate degree of periprosthetic act ivity adjacent to the tibial tray and distal aspect of the tibial stem are guy picious for prosthetic loosening. 2. Moderate degree of periprosthetic act ivity along the lateral side of the condylar component, is of questionable s ignificance. 3. Diffusely increased activity in the p atella may represent a problem related to the patellofemoral joint. Please dickson elate with clinical exam. I have personally reviewed the image(s) and the resident's interpretation and agree with the findings, Tiffany Hughes at 11/10/2021 4:20 PM Thank you for letting us participate in the care of this patient. If you are a health care provider and have any questi ons regarding this report, please contact the number below. For patients w ho have questions please contact the health care transitions manager that requested your imaging first. Electronically signed by: Silviano Negrete MD, [facility] ([phone]), at 11/10/2021 4:20 PM Ghulam Amos MD IMG NM ORDERABLES from Last 3 Months Insurance Payer Benefit Plan / Subscriber ID Effective Phone Address T ype Group Dates [facility] [id number] 2019-Pres [phone] [address] [facility] [address] [place] [address] [place] [id number] 2019-Prese [phone] [address] [facility] [place] [id number] [address] (Home) [place] [phone] [id number] Workers Comp Employer 1960 [address] [place] (Home) [place] [id number] Advance Directives Documents on File Type Date Recorded 

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
--- OUTSIDE RECORDS SUMMARY | 2022-02-05 03:43 | XMS_ITS | Encounter Summary ---
:1960 Author Organization [facility] [address] Care Team Providers Name Role Phone Florina Thomas Primary Care Provider Reason for Visit Reason Onset Date Comments Physical Therapy 04/01/2020 Encounter Details Date Type Department Care Team Description 04/01/2020 Telephone Orth[place] [facility] [place] Ortiz MD Physical Therapy [facility] [place] [address] ORTHOPAEDICS [phone] [place] [phone] (Wo rk) Social History Tobacco Use Types Packs/Day Years Used Date Never Smoker Smokeless Tobacco: Never Used Alcohol Use Standard Drinks/Week Comments Yes 3 (1 standard drink = 0.6 oz pure alcoho l) Sex Assigned at Date Recorded Not on file documented as of this encounter Miscellaneous Notes Telephone Encounter - Allie Keyes - 04/05/2020 8:44 AM EDT Requested a PT referral be sent to [facility] in [place], [place]. A referral was generated and faxed via [employer] at 8:44 AM on 04/05/2020 No further questions/concerns. Telephone Encounter - Linsey Zayas - 04/01/2020 4:33 PM EDT Mr. Leal is not getting Home PT He is going to [facility] in [facility] and has his assessment on SundayApril 06. They do not have the referral or PT instructions. documented in this encounter Plan of Treatment Not on filedocumented as of this encounter Visit Diagnoses Not on filedocumented in this encounter Care Teams Pumper Gager Relationship Specialty Start Date End Date Florina Thomas PA PCP - General Family Medicine 02/03/[address] [place] [id number] documented as of this encounter
--- OUTSIDE RECORDS SUMMARY | 2022-02-05 03:43 | XMS_ITS | Encounter Summary ---
:1960 Author Organization [place] [address] Care Team Providers Name Role Phone Florina Thomas Primary Care Provider Reason for Visit Reason Comments Follow-up 03/26/20 R TKA Rev Encounter Details Date Type Department Care Team Description 06/17/2020 Office Visit Orthopaedics at [facility] Jose Cruz Foster, 03/26/2020 S/P [facility] revision of right Drive [address] [place] [address] ORTHOPAEDIC SURGERY Jevsevar) [phone] [place] [address] (Wo rk) Social History Tobacco Use Types Packs/Day Years Used Date Never Smoker Smokeless Tobacco: Never Used Alcohol Use Standard Drinks/Week Comments Yes 3 (1 standard drink = 0.6 oz pure alcoho l) Sex Assigned at Date Recorded Not on file documented as of this encounter Last Filed Vital Signs Vital Sign Reading Time Taken Comments Blood Pressure 132/83 06/17/2020 11:24 AM EST Pulse 63 06/17/2020 11:24 AM EST Temperature - - Respiratory Rate - - Oxygen Saturation - - Inhaled Oxygen Concentration - - Weight 74.8 kg (164 lb 14.5 oz) 06/17/2020 11:24 AM EST Height 170.2 cm (5' 7.01) 06/17/2020 11:24 AM EST Body Mass Index 25.82 06/17/2020 11:24 AM EST documented in this encounter Progress Notes Jose Cruz Foster MD - 06/17/2020 11:30 AM EST Arthroplasty/Orthopaedic History: 1. Right TKA 2016 ([facility]) 2. Right revision TKA 03/26 ([facility]) HPI: Yg Leal is a very pleasant 59 y.o. year-old male who is approximately 3 months status post his right revision total knee arthroplasty. He presents today for scheduled follow-up. He statesthat overall he is doing well. He continues to work with physical therapy. He is seeing improvement in his range of motion. He does have some discomfort along the posterior aspect of his knee with certain movements. However, he does feel this is been improving as well with time and physical therapy exercises. He denies any numbness or tingling in his right lower extremity. He denies any other recent acute changes in his health. He did have some concern for wound drainage immediately subsequent to his surgery, and was on a short course of Keflex. His wound has gone on to heal without further difficulty or issue. He has no concerns about the wound at this time. ROS: Denies: fever, chills, night sweats, nausea, or vomiting BP 132/83 Pulse 63 Ht 170.2 cm (5' 7.01) Wt 74.8 kg (164 lb 14.5 oz) BMI 25.82 kg/m?? Physical Exam: Well-appearing male in no acute distress. Alert and Oriented x 3 and answers all questions appropriately. The incision is well healed, with no signs of infection. Post Op Right Knee Exam: Knee ROM: Extension:0 Flexion: 100 Alignment: 0-4 degrees Neutral Stability: A/P Translation <5mm. Varus <5mm Valgus <5mm Extension La degrees or less Patella Tracking: Normal Pulses Palpable: Right PT: Yes Right DP:Yes Motor/Sensory: Distal Motor: Normal Distal Sensory: Normal Quadriceps Strength: 5 X-RAYS: Multiple radiographic views were obtained at my request and reviewed with the patient. X-rays show a well-placed prosthesis with no evidence of fracture, subsidence, loosening, or periprosthetic complication. Questionnaire Responses: [facility] Surgical Postop Visit 06/17/2020 PROMIS-10 General Health Good PROMIS-10 Quality of Life Good PROMIS-10 Physical Health Good PROMIS-10 Mental Health Good PROMIS-10 Social Activity Good PROMIS-10 Everyday Activities Mostly PROMIS-10 Pain 5 PROMIS-10 Fatigue Mild PROMIS-10 Social Roles Good PROMIS-10 Anxious or Depressed Sometimes PROMIS PHYSICAL HEALTH SCORE 44.9 PROMIS MENTAL HEALTH SCORE 43.5 KOOS JR Scores - Problems with surgical incision/wound after surgery Yes Problems with incision Discharge or drainage Prescribed antibiotics Yes Caregiver after your surgical incision problem Other doctor Gone to ER since knee surgery No Admitted to hospital since recent ortho surgery - Additional surgery on same body part - TKA Grade 6 Pain in other KNEE None Back pain at this moment None Satisfaction with Treatment Satisfied Choose Same Treatment Again Definitely yes Orthope[facility] Response 03/23/2020 KOOS JR Scores 42.28 Spine [facility] Response 03/23/2020 KOOS JR Scores 42.28 ASSESSMENT/PLAN: Mr. Leal is a 59 y.o. year old male status post right revision total knee arthroplasty. He is doing well overall. He still does have some stiffness, and some pain with certain movements, however both of these do appear to be improving. I discussed with him at length that it is not entirely unexpected that he would have some stiffness and mild discomfort at this point. I discussed that the recovery after a revision arthroplasty is often more difficult and recovery after primary arthroplasty. I further discussed that he can likely expect to continue to see some improvements in motion, function, and pain up to a year to 18 months after surgery. He expressed understanding. His Worker's Compensation forms were completed for him today. We will plan to have him follow-up in approximately 3 months. No new imaging will be present at that time. If Yg has any changes in health status we recommend he contact our office prior to dental procedures for updated recommendations All questions were answered. Signed: Jose Cruz Foster MD 06/17/2020 documented in this encounter Plan of Treatment Not on filedocumented as of this encounter Visit Diagnoses Diagnosis 03/26/2020 S/P revision of right total kn ee (Dr. Ortiz) documented in this encounter Care Teams Lean Leader Relationship Specialty Start Date End Date Florina Thomas PA PCP - General Family Medicine 02/03/19 [address] [place] [address] documented as of this encounter
--- OUTSIDE RECORDS SUMMARY | 2022-02-05 03:43 | XMS_ITS | Encounter Summary ---
:1960 Author Organization [facility] [place] [address] Care Team Providers Name Role Phone Florina Thomas Primary Care Provider Reason for Referral Diagnostic Test (Routine) - Closed Specialty Diagnoses / Procedures Referred By Contact Refer red To Contact Radiology Diagnoses Status post total right knee replacement Eddie Batista PA [facility] Rad Nuclear Med Procedures NM Bone Scan 3 [facility] [place] [address] [place] [address] Referral ID Status Reason Start Date Expiration Date Visits V isits Requested Authorized [id number] Closed Specialty 10/11/2021 04/12/2023 1 1 Service Requested Consultation (Routine) - Closed Specialty Diagnoses / Procedures Referred By Contact Refer red To Contact Neurology Diagnoses Status post total right knee replacement Eddie Batista PA [facility] [place] [address] [place] [address] Referral ID Status Reason Start Date Expiration Date Visits V isits Requested Authorized [id number] Closed Consult, 10/11/2021 10/11/2022 1 1 Test & Treat Reason for Visit Reason Comments Follow-up Right TKA rev 03/26/2020 Encounter Details Date Type Department Care Team Description 10/11/2021 Office Visit Orthopaedics at [facility] Eddie Batista, Status post total [facility] right knee [address] [facility] ([place] [id number] Choi) [phone] ORTHOPAEDIC SURGERY [place], [place] [address] Social History Tobacco Use Types Packs/Day Years Used Date Never Smoker Smokeless Tobacco: Never Used Alcohol Use Standard Drinks/Week Comments Yes 3 (1 standard drink = 0.6 oz pure alcoho l) Sex Assigned at Date Recorded Not on file documented as of this encounter Last Filed Vital Signs Vital Sign Reading Time Taken Comments Blood Pressure 138/70 10/11/2021 11:08 AM EDT Pulse 54 10/11/2021 11:08 AM EDT Temperature - - Respiratory Rate - - Oxygen Saturation - - Inhaled Oxygen Concentration - - Weight 74.8 kg (165 lb) 10/11/2021 11:08 AM EDT Height 170.2 cm (5' 7) 10/11/2021 11:08 AM EDT Body Mass Index 25.84 10/11/2021 11:08 AM EDT documented in this encounter Progress Notes Eddie Batista, PA - 10/11/2021 11:20 AM EDT Arthroplasty/Orthopaedic History: 1. Right TKA 2017 ([facility]) 2. Right revision TKA 03/26/2020??([facility]) HPI: Yg Leal is a very pleasant 61 y.o. year-old male and is now 19 months post right totalknee revision. The patient has been doing poorly, with continued pain. Which is intermittent. He notes this continued catching, this intense and sharp burning pain from the back of the knee down the go. He notes his knee is fine in full extension, it is fine in knee flexion, but it is symptomatic throughout the flexion arc, and something is catching or pinching in the back of the knee. He denies any F/C/NS. He denies any incision site changes, redness, or opening and drainage. He denies any instability. This symptom was not present prior to the revision, and has been present since his most recent knee surgery. He presents today for routine follow up. He has full control and function of his go and foot. Pain is controlled without any medications.. No fevers, chills, nausea, vomiting, or symptoms of infection. Yg has been ambulating with no assistive device. He inquires if anything can be done for this knee pain. ROS: Denies: fever, chills, night sweats, nausea, or vomiting BP 138/70 Pulse 54 Ht 170.2 cm (5' 7) Wt 74.8 kg (165 lb) BMI 25.84 kg/m?? Physical Exam: Well-appearing male in no acute distress. Alert and Oriented x 3 and answers all questions appropriately. The incision is well healed, with no signs of infection. Post Op Right Knee Exam: Knee ROM: Extension:0 Flexion: 120 Alignment: 0-4 degrees Neutral Stability: A/P Translation [...] of fracture, subsidence, loosening, or periprosthetic complication. No evidence of interval change. Questionnaire Responses: [facility] Surgical Postop Visit 09/09/2020 PROMIS-10 General Health Very Good PROMIS-10 Quality of Life Fair PROMIS-10 Physical Health Good PROMIS-10 Mental Health Fair PROMIS-10 Social Activity Fair PROMIS-10 Everyday Activities Moderately PROMIS-10 Pain 3 PROMIS-10 Fatigue Moderate PROMIS-10 Social Roles Fair PROMIS-10 Anxious or Depressed Sometimes PROMIS PHYSICAL HEALTH SCORE 42.3 PROMIS MENTAL HEALTH SCORE 36.3 KOOS JR Scores 61.58 Problems with surgical incision/wound after surgery Yes Problems with incision Discharge or drainage Prescribed antibiotics Yes Caregiver after your surgical incision problem Other doctor Gone to ER since knee surgery No Admitted to hospital since recent ortho surgery No Additional surgery on same body part No TKA Grade 6 Pain in other KNEE None Back pain at this moment Very mild Satisfaction with Treatment Satisfied Choose Same Treatment Again Definitely yes Orthopeadics [facility] Response 09/09/2020 KOOS JR Scores 61.58 [facility] Response 09/09/2020 KOOS JR Scores 61.58 ASSESSMENT/PLAN: Mr. Leal is a 61 y.o. year old male status post right total knee revision. Postoperative course complicated by continued pain. Consider tibial neuropathy vs, impingement of posterior TKA.. We discussed that this point postoperatively, he should be fully improved from his knee revision. Wediscussed that he is still having pain. His pain is intermittent, and seems really positional. In extension, his knee is fine, in deep flexion, his knee is fine. Where he notes problems is throughout the arc of flexion, and this does not occur every time, but he will have a sharp stab of pain that starts in the back of his knee on the right side which radiates down the back of his go. It is sharp, it is severe, and it is short-lived. He notes an accompanying burning sensation with this. He denies any mechanical catching or locking in his knee or instability. He just notes pain which is intermittent throughout the flexion arc. There is concern if this is densely neuropathic. This is a possibility, but a low likelihood. I would defer to him having a consultation with a neurologist where they would consider EMGs or any other imaging that they can think of to evaluate his tibial nerve to make sureit is competent. If normal, I would entertain the thought of a painful total knee replacement work-up with labs: CBC, ESR, CRP, and a bone scan. The bone scan is hot, which I do not suspect it is loosewe can have him have a consultation with one of our orthopedic surgeons is Dr. Ortiz has recentlyleft the practice. We discussed the bone scan skull, we can continue his work-up with a CT scan. An M RI could help look at the soft tissue in the back of the knee, but I would only consider this if he has had a negative bone scan and CT scan and work-up today. He is back to work, and is overall doing well, but he is limited by this pain and overall frustrated with this after his knee revision as he was not having this symptom preoperatively. All questions were answered. Signed: MIKE CAMARILLO 10/11/2021 documented in this encounter Plan of Treatment Scheduled Orders Name Type Priority Associated Diagnoses Order S chedule CBC (with Diff) Lab STAT Status post total right E xpected: 10/11/2021, knee replacement Expires: CRP, acute inflammation Lab STAT Status post total right Expected: 10/11/2021, knee replacement Expires: Sedimentation rate Lab STAT Status post total righ t Expected: 10/11/2021, knee replacement Expires: Scheduled Referrals Name Type Priority Associated Diagnoses Order S chedule Referral to Outpatient Referral Routine Status post total Ord ered: Neurology right knee 10/11/2021 replacement documented as of this encounter Results NM Bone Scan 3 Phase (11/09/2021 12:59 [...] who have questions please contact the health career and technology education teacher that requested your imaging first. ? Electronically signed by: Silviano Negrete MD, [facility] ([phone]), at 11/10/2021 4:20 PM Narrative 11/10/2021 4:20 [...] ho have questions please contact the health career and technology education teacher that requested your imaging first. Electronically signed by: Silviano Negrete MD, [facility] ([phone]), at 11/10/2021 4:20 PM Ghulam Amos MD IMG NM ORDERABLES XR Knee 1-2 Views Right (Generic) (10/11/2021 10:31 AM EDT) Anatomical Region Laterality Modality Knee Right Digital Radiography Specimen (Source) Anatomical Location Collection Method / Collectio n Time Received Time / Laterality Volume Addenda Addendum by Rosy Rangel MD on 09/30 1:28 PM EDT --------ADDENDUM #1-------- The report is revised to reflect the cor rection of typographic error(s). The correction is indicated by. IMPRESSION: Unchanged and Uncomplicated RIGHT total *knee* arthroplasty Thank you for letting us participate in the care of this patient. ??If you are a health care provider and have any questi ons regarding this report, please contact the number below. ??For patients who have questions please contact the health career and technology education teacher that requested your imaging first. ? Electronically signed by: Rosy Rangel MD, [facility] ([phone]), at 10/11/2021 1:23 PM --------ORIGINAL REPORT -------- EXAMINATION: XR KNEE 1-2 VIEWS RIGHT (GE NERIC) CLINICAL HISTORY: S/P TKA TECHNIQUE: 2 views RIGHT knee Standing AP both knees and lateral view of RIGHT knee COMPARISON: Examinations since March 2020. FINDINGS: RIGHT A constrained total knee arthroplasty is present. Alignment: The prosthesis is unchanged i n alignment. Complication: There is no loosening or f racture. ??A 1.8 mm radiolucency surrounding the femoral stem is unchange d from March 2021, representing evolving postsurgical change. Soft tissues: There is a small RIGHT kne e effusion. LEFT knee, one view Bipartite patella redemonstrated. The kn ee joint space is preserved. IMPRESSION: Unchanged and Uncomplicated RIGHT total hip arthroplasty Thank you for letting us participate in the care of this patient. ??If you are a health care provider and have any questi ons regarding this report, please contact the number below. ??For patients who have questions please contact the health career and technology education teacher that requested your imaging first. ? Electronically signed by: Rosy Rangel MD, [facility] ([phone]), at 10/11/2021 11:00 AM Impressions 10/11/2021 11:00 AM EDT Unchanged and Uncomplicated RIGHT total hip arthroplasty Thank you for letting us participate in the care of this patient. ??If you are a health care provider and have any questi ons regarding this report, please contact the number below. ??For patients who have questions please contact the health career and technology education teacher that requested your imaging first. ? Electronically signed by: Rosy Rangel MD, [facility] ([phone]), at 10/11/2021 11:00 AM Narrative 10/11/2021 11:00 AM EDT EXAMINATION: XR KNEE 1-2 VIEWS RIGHT (GENERIC) CLINICAL HISTORY: S/P TKA TECHNIQUE: 2 views RIGHT knee Standing AP both knees and lateral view of RIGHT knee COMPARISON: Examinations since March 2020. FINDINGS: RIGHT A constrained total knee arthroplasty is present. Alignment: The prosthesis is unchanged i n alignment. Complication: There is no loosening or f racture. ??A 1.8 mm radiolucency surrounding the femoral stem is unchange d from March 2021, representing evolving postsurgical change. Soft tissues: There is a small RIGHT kne e effusion. LEFT knee, one view Bipartite patella redemonstrated. The kn ee joint space is preserved. Procedure Note Rosy Rangel MD - 10/11/2021Formatt ing of this note might be different from the original. EXAMINATION: XR KNEE 1-2 VIEWS RIGHT (GE NERIC) CLINICAL HISTORY: S/P TKA TECHNIQUE: 2 views RIGHT knee Standing AP both knees and lateral view of RIGHT knee COMPARISON: Examinations since March 2020. FINDINGS: RIGHT A constrained total knee arthroplasty is present. Alignment: The prosthesis is unchanged i n alignment. Complication: There is no loosening or f racture. A 1.8 mm radiolucency surrounding the femoral stem is unchange d from March 2021, representing evolving postsurgical change. Soft tissues: There is a small RIGHT kne e effusion. LEFT knee, one view Bipartite patella redemonstrated. The kn ee joint space is preserved. IMPRESSION Unchanged and Uncomplicated RIGHT total hip arthroplasty Thank you for letting us participate in the care of this patient. If you are a health care provider and have any questi ons regarding this report, please contact the number below. For patients w ho have questions please contact the health career and technology education teacher that requested your imaging first. Electronically signed by: Rosy Rangel MD, [facility] ([phone]), at 10/11/2021 11:00 AM Neptali Sousa MD IMG DX ORDERABLES documented in this encounter Visit Diagnoses Diagnosis Status post total right knee replacement - Primary Status post total right knee replacement Status post total right knee replacement documented in this encounter Care Teams Mutton Puncher Relationship Specialty Start Date End Date Florina Thomas PA PCP - General Family Medicine 02/03/[address] [place] [id number] documented as of this encounter
--- OUTSIDE RECORDS SUMMARY | 2022-02-05 03:43 | XMS_ITS | Encounter Summary ---
:1960 Author Organization [facility] [place] [address] Care Team Providers Name Role Phone Florina Thomas Primary Care Provider Encounter Details Date Type Department Care Team Description 03/10/2021 Hospital Encounter XRay at [facility] Stephen Granda S/P revision of [address] Ana Paula MD total knee, right [facility] [address] [place] [phone] [place] [address] Social History Tobacco Use Types Packs/Day Years [...] 0 1 mg Tablet oxyCODONE (Roxicodone) 5 TAKE 1 TABLET BY 0 12/06 mg Tablet MOUTH FOUR TIMES DAILY FOR 7 DAYS celecoxib (CeleBREX) 400 TAKE 1 CAPSULE BY 0 07/02 mg Capsule MOUTH EVERY DAY acetaminophen (Tylenol) Take 2 tablets by 0 03/29 500 mg Tablet mouth every 8 hours. Continue the Tylenol around the clock for 10 days after surgery, (04/05/2020). Then may take if needed per package insert. Do not take more than 3,000 mg of Tylenol in 24 hours. lamoTRIgine (LaMICtal) 200 Take 200 mg by 0 11/22 mg Tablet mouth daily. atorvastatin (LIPITOR) 10 take 1 tablet [...] 0 mg Tablet, Delayed Release Daily. (E.C.) cephALEXin (Keflex) 500 mg TK 1 C PO QID FOR 0 10/11/2021 Capsule 10 DAYS promethazine (PHENERGAN) TK 1 TO 2 TS PO Q 6 0 10/11/2021 12.5 mg Tablet H FOR 5 DAYS aspirin EC 81 mg Tablet, Take 1 tablet by 60 tablet 0 03/2910/11/2021 Delayed Release (E.C.) mouth 2 times daily. Take with food for 30 days after surgery. Last day = 04/25/2020. naproxen (NAPROSYN) 500 mg Take 1 tablet by 84 tablet 0 10/11/2021 Tablet mouth 2 times daily (with meals). Take with food for up to 6 weeks after surgery. polyethylene glycoL Take 17 g by mouth 0 03/29/20 20 10/11/2021 (Miralax) 17 gram Powder 2 times daily. in Packet senna-docusate Take 2 tablets by 0 03/29/202006/2022 (Pericolace) 8.6-50 mg mouth 2 times Tablet daily. documented as of this encounter Plan of Treatment Not on filedocumented as of this encounter Procedures Procedure Name Priority Date/Time Associated Diagnosis Comme nts XR KNEE AP & LAT Routine 03/10/2021 4:02 PM S/P revision of Re sults for this RIGHT EDT total knee, right procedure are in the results section. documented in this encounter Results XR Knee 1-2 Views Right (Generic) (03/10/2021 4:02 PM EDT) Anatomical Region Laterality Modality Knee Right Digital Radiography Specimen (Source) Anatomical Location Collection Method / Collectio n Time Received Time / Laterality Volume Impressions 03/10/2021 4:36 PM EDT New thin lucency adjacent to the stems of the revised right total knee arthroplasty. Attention on future follow -up. Alignment remains normal. I have personally reviewed the image(s) and the resident's interpretation and agree with the findings, Patel Santamaria MD at 03/10/2021 4:36 PM Thank you for letting us participate in the care of this patient. ??If you are a health care provider and have any questi ons regarding this report, please contact the number below. ??For patients who have questions please contact the health cardiac care nurse that requested your imaging first. ? Electronically signed by: Patel Santamaria MD , [facility] ([phone]), at 03/10/2021 4:36 PM Narrative 03/10/2021 4:36 PM EDT EXAMINATION: XR KNEE 1-2 VIEWS RIGHT (GENERIC) CLINICAL HISTORY: s/p RIGHT TKA w/ mag marker, please. TECHNIQUE: 2 views RIGHT knee COMPARISON: 06/17/2020, 04/22/2020 FINDINGS: There is a revised right total knee arth roplasty. On the lateral view there is new thin lucency, 1 to 2 mm, adjacent to the femoral stem and the tibial stem. Alignment is normal. Small joint effusio n. No fracture. Frontal evaluation of the left knee demonstrates preserved rocco nt space. Procedure Note Patel Santamaria MD - 03/10/2021Formatting o f this note might be different from the original. EXAMINATION: XR KNEE 1-2 VIEWS RIGHT (GE NERIC) CLINICAL HISTORY: s/p RIGHT TKA w/ mag marker, please. TECHNIQUE: 2 views RIGHT knee COMPARISON: 06/17/2020, 04/22/2020 FINDINGS: There is a revised right total knee arth roplasty. On the lateral view there is new thin lucency, 1 to 2 mm, adjacent to the femoral stem and the tibial stem. Alignment is normal. Small joint effusio n. No fracture. Frontal evaluation of the left knee demonstrates preserved rocco nt space. IMPRESSION New thin lucency adjacent to the stems o f the revised right total knee arthroplasty. Attention on future follow -up. Alignment remains normal. I have personally reviewed the image(s) and the resident's interpretation and agree with the findings, Patel Santamaria MD at 03/10/2021 4:36 PM Thank you for letting us participate in the care of this patient. If you are a health care provider and have any questi ons regarding this report, please contact the number below. For patients w ho have questions please contact the health cardiac care nurse that requested your imaging first. Electronically signed by: Patel Santamaria MD , [facility] ([phone]), at 03/10/2021 4:36 PM Stephen Granda MD IMG DX ORDERABLES documented in this encounter Visit Diagnoses Diagnosis S/P revision of total knee, right documented in this encounter Care Teams Fabric Stretcher Relationship Specialty Start Date End Date Florina Thomas PA PCP - General Family Medicine 02/03/[address] [place] [address] documented as of this encounter
--- OUTSIDE RECORDS SUMMARY | 2022-02-05 03:43 | XMS_ITS | Encounter Summary ---
:1960 Author Organization [facility] [place] [address] Care Team Providers Name Role Phone Florina Thomas Primary Care Provider Reason for Visit Diagnostic Test (Routine) - Closed Specialty Diagnoses / Procedures Referred By Contact Refer red To Contact Radiology Diagnoses Status post total right knee replacement Eddie Batista PA [facility] Rad Nuclear Med Procedures NM Bone Scan 3 [facility] [place] [address] [place] [address] Referral ID Status Reason Start Date Expiration Date Visits V isits Requested Authorized [id number] Closed Specialty 10/11/2021 04/12/2023 1 1 Service Requested Encounter Details Date Type Department Care Team Description 11/09/2021 Hospital Encounter Nuclear Medicine at [facility], Chely Osullivan MD [facility] [place] [address] ORTHOPAEDIC SURGERY [phone] [place], [place] [address] (Wo rk) Social History Tobacco Use Types [...] Name Priority Date/Time Associated Diagnosis Comme nts NM BONE SCAN 3 Routine 11/09/2021 12:59 PM Status post total R esults for this PHASE EDT right knee procedure are i n replacement the results section. documented in this encounter Results NM Bone Scan 3 [...] who have questions please contact the health wound care rn that requested your imaging first. ? Electronically signed by: Silviano Negrete MD, [facility] ([phone]), at 11/10/2021 4:20 PM Narrative 11/10/2021 4:20 [...] ho have questions please contact the health wound care rn that requested your imaging first. Electronically signed by: Silviano Negrete MD, [facility] ([phone]), at 11/10/2021 4:20 PM Ghulam Amos MD [facility] NM ORDERABLES documented in this encounter Visit Diagnoses Not on filedocumented in this encounter Care Teams Surfacing Machine Operator Relationship Specialty Start Date End Date Florina Thomas PA PCP - General Family Medicine 02/03/19 [address] [place] [address] documented as of this encounter
--- OUTSIDE RECORDS SUMMARY | 2022-02-05 03:43 | XMS_ITS | Encounter Summary ---
:1960 [place] [address] Care Team Providers Name Role Phone Florina Thomas Primary Care Provider Reason for Visit Reason Comments Follow-up Right TKA Revision WC DOI 08.15.19 Encounter Details Date Type Department Care Team Description 09/09/2020 Office Visit Orthopaedics at [facility] Jose Cruz Foster, 03/26/2020 S/P [facility] MD revision of right Drive [address] [place] [address] ORTHOPAEDIC SURGERY [place]) [phone] [place] [address] (Wo rk) Social History Tobacco Use Types Packs/Day Years Used Date Never Smoker Smokeless Tobacco: Never Used Alcohol Use Standard Drinks/Week Comments Yes 3 (1 standard drink = 0.6 oz pure alcoho l) Sex Assigned at Date Recorded Not on file documented as of this encounter Last Filed Vital Signs Vital Sign Reading Time Taken Comments Blood Pressure 129/68 09/09/2020 9:57 AM EST Pulse 58 09/09/2020 9:57 AM EST Temperature - - Respiratory Rate - - Oxygen Saturation - - Inhaled Oxygen Concentration - - Weight 74.4 kg (164 lb) 09/09/2020 9:57 AM EST reported Height 170.2 cm (5' 7.01) 09/09/2020 9:57 AM EST repor ravindra Body Mass Index 25.68 09/09/2020 9:57 AM EST documented in this encounter Progress Notes Jose Cruz Foster MD - 09/09/2020 10:00 AM EST Arthroplasty/Orthopaedic History: 1. Right TKA 2016 ([facility]) 2. Right revision [facility]KA 03/26 [facility] HPI: Yg Leal is a very pleasant 59 y.o. year-old male and is now 6 months status post revision right total knee arthroplasty. Overall he is doing quite well. He has been working with physical therapy and has been making impressive improvements in his strength and function. He still does report some discomfort in the back of the knee. He states this is sharp and precipitated by certain motions such as deep flexion. He does state this has been getting better somewhat but there is persistent. He says this is frustrating, as he otherwise feels he is making very good progress. He denies any recent or acute changes in his health. He denies any other acute concerns ROS: Denies: fever, chills, night sweats, nausea, or vomiting BP 129/68 (BP Location (NBP): Right arm, Patient Position: Sitting, BP Cuff Sizes: Adult (25-34 cm)) Pulse 58 Ht 170.2 cm (5' 7.01) Comment: reported Wt 74.4 kg (164 lb) Comment: reported BMI25.68 kg/m?? Physical Exam: Well-appearing male in no acute distress. Alert and Oriented x 3 and answers all questions appropriately. The incision is well healed, with no signs of infection. Post Op Right Knee Exam: ?? Mild tenderness to deep palpation in the popliteal fossa Knee ROM: Extension:0 Flexion: 100 Alignment: 0-4 degrees Neutral Stability: A/P Translation <5mm. Varus <5mm Valgus <5mm Extension La degrees or less Patella Tracking: Normal Pulses Palpable: Right PT: Yes Right DP:Yes Motor/Sensory: Distal Motor: Normal Distal Sensory: Normal Quadriceps Strength: 5 ?? X-RAYS: Multiple radiographic views were obtained at my request and reviewed with the patient. X-rays show a well-placed prosthesis with no evidence of fracture, subsidence, loosening, or periprosthetic complication. Questionnaire Responses: [facility] Surgical Postop Visit 09/09/2020 PROMIS-10 General Health [...] Treatment Again Definitely yes [facility] Response 09/09/2020 KOOS JR Scores 61.58 Spine [facility] Response 09/09/2020 KOOS JR Scores 61.58 ASSESSMENT/PLAN: Mr. Leal is a 59 y.o. year old male status post Right revision total knee arthroplasty. Overall, he is doing quite well. His progress with physical therapy is very good. I discussedwith him that he will likely continue to see some progress over the next 6 months to a year, as it is quite common for people after this kind of procedure to continue to improve up to that far out after their surgery With regard to the intermittent pain in the posterior aspect of his knee, the etiology of this is somewhat unclear at this time. It seems to bother him only with deep squatting. I would advise that he continue to squatting, particularly repetitive deep squatting as it seems to increase the pain the most per his report. Fortunately, this issue does appear to be improving at this point I would recommend continuing to observe and continue to work with physical therapy with the hope that this will resolve without issue. He was in agreement with this plan. All questions were answered satisfactorily. Worker's Compensation forms were completed and were returned to the patient. We will plan to see her back in approximately 3 months. She has any questions, issues, concerns in the interim he may contact the clinic anytime and arrange to be seen in clinic sooner. According to the AAOS Appropriate Use Criteria we do not recommend antibiotic use prior to dental procedures for Yg. If Yg has any changes in health status we recommend he contact our office prior to dental procedures for updated recommendations All questions were answered. Signed: Jose Cruz Foster MD 09/09/2020 documented in this encounter Plan of Treatment Not on filedocumented as of this encounter Visit Diagnoses Diagnosis 03/26/2020 S/P revision of right total kn ee (Dr. Ortiz) documented in this encounter Care Teams Medication Aid Relationship Specialty Start Date End Date Florina Thomas PA PCP - General Family Medicine 02/03/[address] [place] [address] documented as of this encounter
--- OUTSIDE RECORDS SUMMARY | 2022-02-05 03:43 | XMS_ITS | Encounter Summary ---
:1960 [place] [address] Care Team Providers Name Role Phone Florina Thomas Primary Care Provider Reason for Referral Physical Therapy (Routine) - Closed Specialty Diagnoses / Procedures Referred By Contact Refer red To Contact Physical Therapy Diagnoses Presence of right artificial knee joint Postoperative stiffness of total knee replacement, initial encounter Pain due to total right knee replacement, initial encounter Jose Cruz Foster MD [facility] [place] [address] Referral ID Status Reason Start Date Expiration Date Visits V isits Requested Authorized [id number] Closed Evaluate and 04/05/2020 10/02/2020 12 12 Treat Encounter Details Date Type Department Care Team Description 04/05/2020 Orders Only Orthopaedics at [facility] Jose Cruz Foster, Presence of right artificial knee joint; [facility] Postoperative stiffness of total knee re placement, initial encounter; [address] Pain due to total right knee replacement , [place] [address] ORTHOPAEDIC [phone] [place] [address] Social History Tobacco Use Types Packs/Day Years Used Date Never Smoker Smokeless Tobacco: Never Used Alcohol Use Standard Drinks/Week Comments Yes 3 (1 standard drink = 0.6 oz pure alcoho l) Sex Assigned at Date Recorded Not on file documented as of this encounter Plan of Treatment Scheduled Referrals Name Type Priority Associated Diagnoses Order S chetiffanyle Referral to Outpatient Referral Routine Presence of right Ord ered: Physical Therapy artificial knee 04/05/20 20 joint Postoperative stiffness of total knee replacement, initial encounte r Pain due to total right knee replacement, initial encounter documented as of this encounter Visit Diagnoses Diagnosis Presence of right artificial knee joint Knee joint replacement by other means Postoperative stiffness of total knee re placement, initial encounter Pain due to total right knee replacement , initial encounter documented in this encounter Care Teams Dermatology Physician Assistant Relationship Specialty Start Date End Date Florina Thomas PA PCP - General Family Medicine 02/03/[address] [place] [address] documented as of this encounter
--- OUTSIDE RECORDS SUMMARY | 2022-02-05 03:43 | XMS_ITS | Encounter Summary ---
:1960 Author Organization [facility] [place] [address] Care Team Providers Name Role Phone Florina Thomas Primary Care Provider Reason for Visit Reason Onset Date Comments Disability Paperwork 04/21/2020 Encounter Details Date Type Department Care Team Description 04/21/2020 Telephone Orthopaedics at [facility] Rudy, Joanna Allen Disability Paperwork [facility] [place] [address] [facility] [phone] DR ORTHOPAEDIC SURG [place], [place] [address] (Wo rk) Social History Tobacco Use Types Packs/Day Years Used Date Never Smoker Smokeless Tobacco: Never Used Alcohol Use Standard Drinks/Week Comments Yes 3 (1 standard drink = 0.6 oz pure alcoho l) Sex Assigned at Date Recorded Not on file documented as of this encounter Miscellaneous Notes Telephone Encounter - Susi Subramanian - 05/03/2020 9:21 AM EST Completed by: SUSI To provider for review/signature: N/A Faxed/Mailed/MY PORTAL/Pick-up Date: FAXED Telephone Encounter - Susi Subramanian - 04/21/2020 10:03 AM EDT Date Received: 04/21/20 Insurance/Disability Company Name: [employer] documented in this encounter Plan of Treatment Not on filedocumented as of this encounter Visit Diagnoses Not on filedocumented in this encounter Care Teams Precision Lens Generator Relationship Specialty Start Date End Date Florina Thomas PA PCP - General Family Medicine 02/03/19 [address] [place] [address] documented as of this encounter
--- OUTSIDE RECORDS SUMMARY | 2022-02-05 03:43 | XMS_ITS | Encounter Summary ---
:1960 Author Organization [facility] [place] [address] Care Team Providers Name Role Phone Florina Thomas Primary Care Provider Reason for Visit Reason Comments Follow-up R TKA Rev 03/26/20 W/C DOI 08/15/19 Encounter Details Date Type Department Care Team Description 03/10/2021 Office Visit Orthopaedics at [facility] Eddie Batista, S/P revision of total [facility]KE knee, right ([address] [facility] [place] [place] [address] CENTER [phone] ORTHOPAEDIC SURGERY [place] [id number] Social History Tobacco Use Types Packs/Day Years Used Date Never Smoker Smokeless Tobacco: Never Used Alcohol Use Standard Drinks/Week Comments Yes 3 (1 standard drink = 0.6 oz pure alcoho l) Sex Assigned at Date Recorded Not on file documented as of this encounter Last Filed Vital Signs Vital Sign Reading Time Taken Comments Blood Pressure 123/74 03/10/2021 4:10 PM EDT Pulse 59 03/10/2021 4:10 PM EDT Temperature - - Respiratory Rate - - Oxygen Saturation - - Inhaled Oxygen Concentration - - Weight 74.4 kg (164 lb 0.4 oz) 03/10/2021 4:10 PM EDT Height 170.2 cm (5' 7.01) 03/10/2021 4:10 PM EDT Body Mass Index 25.68 03/10/2021 4:10 PM EDT documented in this encounter Progress Notes Eddie Batista PA - 03/10/2021 4:00 PM EDT Arthroplasty/Orthopaedic History: 1. Right TKA 2017 ([facility]) 2. Right revision TKA 03/26/2020 [facility] HPI: Yg Leal is a very pleasant 60 y.o. year-old male and is now 1 year post right total knee revision The patient has been doing overall well, however does have some persistent pain in the posterior aspect of the knee. He appreciates continued stabbing of a knife pain in the back of the knee during certain positions. This is when he hyperflexes the knee such as during a squat, so he typically avoids these positions. Pain is controlled without any medications.. No fevers, chills, nausea, vomiting, or symptoms of infection. Yg has been ambulating with no assistive device. ROS: Denies: fever, chills, night sweats, nausea, or vomiting BP 123/74 Pulse 59 Ht 170.2 cm (5' 7.01) Wt 74.4 kg (164 lb 0.4 oz) BMI 25.68 kg/m?? Physical Exam: Well-appearing male in no [...] Normal Distal Sensory: Normal Quadriceps Strength: 5 No TTP to deep palpation about the posterior knee. No palpable mass. No reproduction of knee pain with resisted knee flexion. X-RAYS: Multiple radiographic views were obtained at my request and reviewed with the patient. X-rays show a well-placed prosthesis with no evidence of fracture, subsidence, loosening, or periprosthetic complication. Consider new lucencies: femoral and tibial stems, with no subsidence of the femoral or tibial components. Otherwise stable films. Questionnaire Responses: [facility] Surgical Postop Visit 09/09/2020 PROMIS-10 General Health [...] Scores 61.58 ASSESSMENT/PLAN: Mr. Leal is a 60 y.o. year old male status post right total knee revision. Postoperative course complicated by continued pain s/p TKA Revision 1 year out. Continue weightbearing as tolerated and working on range of motion. We will see him back in 6 months for repeat examination. X-rays will be needed at that time. Patient may return to normal activities as his pain and function allow. We had a lengthy discussion today in regards to his history, his clinical exam today, and his radiographs. Overall, his radiographs show stable alignment of his knee revision components. No evidence ofsubsidence. You could consider some new interval progression of lucencies about the femoral and tibial stems of uncertain significance. We discussed that he is having pain in the posterior knee, not about his proximal go or tibia, or his distal thigh, nor does he have any weightbearing pain. His pain seems to be upon impingement when he is hyperflexing his knee in a dynamic manner. I am unable to reproduce it today, nor do I appreciate any pain generators posteriorly about the knee. We discussed he could be impinging on his poly-, there could be some scar tissue, or there could be even be some involvement of the tibial nerve as he describes a sharp and searing knifelike pain with radiation of pain down his whole leg into his foot and ankle. We discussed working his knee up at the 18-month apolinar with labs: CBC, ESR, CRP, and a bone scan to evaluate for any pain generators. If negative, we would likely said the knee is not the source of this pain we can consider a work-up with neurology. Could also consider a CT scan to evaluate alignment of the components if the bone scan is negative. If he is still having pain, he will follow up at the 18-month postop apolinar which we would expect him to be fully recovered after the surgery. We discussed the concept of a painful total knee, and that the revisions can sometimes continue with pain and limitations. Overall he endorses that his knee is functional and does well, just has issues with certain maneuvers. This very well could persist, as it has not improved since our last follow up despite continued RICES, NSAID, and PT. We discussed the appropriate precautions surrounding dental prophylaxis; according to the AAOS Appropriate Use Criteria we do not recommend antibiotic use prior to dental procedures for Yg. Recommended antibiotic: N/A If Yg has any changes in health status we recommend he contact our office prior to dental procedures for updated recommendations We also discussed maintaining good foot care and giving prompt attention to any source of infection throughout the body including foot ulcers and urinary tract infections. All questions were answered. Signed: MIKE CAMARILLO 03/10/2021 documented in this encounter Plan of Treatment Not on filedocumented as of this encounter Results XR Knee 1-2 Views [...] who have questions please contact the health outdoor emergency care technician that requested your imaging first. ? Electronically signed by: Patel Santamaria MD , [facility] ([phone]), at 03/10/2021 4:36 PM Narrative 03/10/2021 4:36 [...] ho have questions please contact the health outdoor emergency care technician that requested your imaging first. Electronically signed by: Patel Santamaria MD , [facility] ([phone]), at 03/10/2021 4:36 PM Stephen Granda MD IMG DX ORDERABLES documented in this encounter Visit Diagnoses Diagnosis S/P revision of total knee, right - Prim xiomara S/P revision of total knee, right documented in this encounter Care Teams Fire Chief'S Aide Relationship Specialty Start Date End Date Flornia Thomas PA PCP - General Family Medicine 02/03/[address] [place] [phone] documented as of this encounter
--- OUTSIDE RECORDS SUMMARY | 2022-02-05 03:43 | XMS_ITS | Encounter Summary ---
:1960 [place] [address] Care Team Providers Name Role Phone Florina Thomas Primary Care Provider Encounter Details Date Type Department Care Team Description 11/17/2021 Telephone Orthopaedics at [facility] Eddie Batista [place] [address] ORTHOPAEDIC SURGERY [phone] [place], [place] [address] (Wo rk) Social History Tobacco Use Types Packs/Day Years Used Date Never Smoker Smokeless Tobacco: Never Used Alcohol Use Standard Drinks/Week Comments Yes 3 (1 standard drink = 0.6 oz pure alcoho l) Sex Assigned at Date Recorded Not on file documented as of this encounter Miscellaneous Notes Telephone Encounter - Yudi Crum - 11/17/2021 10:34 AM EDT Pt scheduled. Telephone Encounter - Eddie Batista PA - 11/17/2021 10:20 AM EDT I did call the patient to review his most recent study. He had a bone scan in regards to his right knee. In short, this patient had a right knee replacement in 2016. There was concern for loosening after this knee replacement as he was having continued pain. This was revised by Dr. Ortiz in March 2020. He has had nothing but pain and problems with his knee since it was put in. He was hoping itwould get better, we given this 18 months, yet he is still having symptoms. His bone scan shows increasing up take specifically about the tibial component circumferentially. This is concerning for potential loosening. We discussed there is also increasing uptake about the patella, and a mild degree oftracer activity in the femur. Most certainly, the tibial uptake is most concerning. We discussed work-up at this point time, he should be seen by one of our surgical providers with labs prior. We wouldconsider an aspiration with a local anesthetic challenge. Of note, he also has right hip osteoarthritis, it would not be unreasonable to consider a diagnostic and therapeutic injection into his hip andsee if any of his knee pain improves. Regardless, he would like to talk about his options before we do any intervention, which I think is reasonable. I will set him up with a follow-up with one of our surgeons documented in this encounter Plan of Treatment Not on filedocumented as of this encounter Results XR Pelvis and Hip 2 Views Right [...] who have questions please contact the health animal care assistant that requested your imaging first. ? Electronically signed by: Patel Santamaria MD , [facility] ([phone]), at 12/19/2021 1:37 PM Narrative 12/19/2021 1:37 [...] ho have questions please contact the health animal care assistant that requested your imaging first. Stephen Granda MD IMG DX ORDERABLES documented in this encounter Visit Diagnoses Diagnosis Pain in right hip - Primary Pain in joint, pelvic region and thigh Pain in right hip Pain in joint, pelvic region and thigh Status post total knee replacement, unsp ecified laterality documented in this encounter Care Teams Customer Service Cashier Relationship Specialty Start Date End Date Florina Thomas PA PCP - General Family Medicine 02/03/19 [address] [place] [address] documented as of this encounter
--- OUTSIDE RECORDS SUMMARY | 2022-02-05 03:43 | XMS_ITS | Encounter Summary ---
:1960 Author Organization [place] [address] Care Team Providers Name Role Phone Florina Thomas Primary Care Provider Reason for Visit Reason Comments Medication Refill Encounter Details Date Type Department Care Team Description 05/07/2020 Refill Orth[place] [facility] [place] Jerome APRN [facility] D [facility] [place] [address] ORTHOPAEDIC SURGERY [phone] [place] [address] (Wo rk) Social History Tobacco Use Types [...] on filedocumented in this encounter Care Teams Perinatal Social Worker Relationship Specialty Start Date End Date Florina Thomas PA PCP - General Family Medicine 02/03/19 [address] [place], [place] [id number] documented as of this encounter
--- OUTSIDE RECORDS SUMMARY | 2022-02-05 03:43 | XMS_ITS | Encounter Summary ---
:1960 Author Organization [place] [address] Care Team Providers Name Role Phone Florina Thomas Primary Care Provider Reason for Visit Reason Onset Date Comments Appointment 10/13/2021 Encounter Details Date Type Department Care Team Description 10/13/2021 Telephone [place] [facility] [place] Batista [place] Appointment [facility] [place] [address] ORTHOPAEDIC SURGERY [phone] [place] [id number] (Wo rk) Social History Tobacco Use Types Packs/Day Years Used Date Never Smoker Smokeless Tobacco: Never Used Alcohol Use Standard Drinks/Week Comments Yes 3 (1 standard drink = 0.6 oz pure alcoho l) Sex Assigned at Date Recorded Not on file documented as of this encounter Miscellaneous Notes Telephone Encounter - Moon Kinney - 10/13/2021 4:01 PM EDT Left detailed message, ok per batch scheduling instructions, for patient to arrive at location 3 for their Bone scan scheduled on 10/27/21 with an arrival time of 7:45AM. Left [phone] as a call back if date and time does not work. documented in this encounter Plan of Treatment Not on filedocumented as of this encounter Visit Diagnoses Not on filedocumented in this encounter Care Teams Aircraft Maintenance Manager Relationship Specialty Start Date End Date Florina Thomas PA PCP - General Family Medicine 02/03/19 [address] [place] [address] documented as of this encounter
--- OUTSIDE RECORDS SUMMARY | 2022-02-05 03:43 | XMS_ITS | Encounter Summary ---
:1960 Author Organization [facility] [place] [address] Care Team Providers Name Role Phone Florina Thomas Primary Care Provider Reason for Visit Reason Comments Follow-up Right TKA revision DOS W/C DOI 08.15.19 Encounter Details Date Type Department Care Team Description 04/22/2020 Office Visit Orthopaedics at [facility] Status post revision of One [facility] total knee replacement, [place] [address] unspecified laterality [phone] Social History Tobacco Use Types Packs/Day Years Used Date Never Smoker Smokeless Tobacco: Never Used Alcohol Use Standard Drinks/Week Comments Yes 3 (1 standard drink = 0.6 oz pure alcoho l) Sex Assigned at Date Recorded Not on file documented as of this encounter Last Filed Vital Signs Vital Sign Reading Time Taken Comments Blood Pressure 117/66 04/22/2020 3:57 PM EDT Pulse 53 04/22/2020 3:57 PM EDT Temperature - - Respiratory Rate - - Oxygen Saturation - - Inhaled Oxygen Concentration - - Weight 74.8 kg (165 lb) 04/22/2020 3:57 PM EDT reported Height 170.2 cm (5' 7) 04/22/2020 3:57 PM EDT reported Body Mass Index 25.84 04/22/2020 3:57 PM EDT documented in this encounter Patient Instructions Patient InstructionsRudolph Bhat MD - 04/22/2020 3:45 PM EDT Orthopaedic Discharge Instructions Below are general guidelines. You will need to be aware that these guidelines are only general, eachperson???s recovery may vary. If you have any questions after reading this sheet, please call us. 1. Problem: Wound check 2. Recommendations: ?? We examined your incision today and it is healing well. Please continue to take your antibiotic course to completion and let us know if you have any increasing redness around your incision, pus/drainage from your incision, or you start having increased pain in your knee. ?? You are Weight bearing as tolerated in the right lower extremity. 3. Precautions: ?? Please contact your physician or present to the emergency department if you have any of the following: Fevers, redness, drainage, excessive pain, new numbness, new, weakness 4. Follow-up: ?? You will follow up in 2 months for your next appointment. We will contact you to set up this follow up. 5. Contact Info: ?? If you have any questions or concerns, please call the following: Orthopaedic Clinic Sunday thru Sunday 8am - 5pm: [phone] Orthopaedic Physician reconciliation coordinator - After 5pm and Weekends: [phone] Your care today was provided by Rudolph Bhat MD documented in this encounter Progress Notes Rudolph Bhat MD - 04/22/2020 3:45 PM EDT Images from the original note were not included. ORTHOPAEDIC SURGERY CLINIC NOTE ATTENDING: Dr. Ortiz CHIEF COMPLAINT: Right revision TKA wound check, follow up HPI: Yg Leal is a 59 y.o. male s/p Revision TKA 03/26/20 ([facility]) who presents today for wound check. Patient says that he has been progressing well after surgery, and has been surprising his physical therapist with how fast he has improved. He denies wound drainage, pus, erythema, wound breakdown. He denies fevers, chills, nausea/vomiting. He has been ambulating without excessive pain. He was previously prescribed oral Keflex due to some concerns about wound drainage, which he is taking as prescribed. There has been no further drainage since he started antibiotics. FOCUSED REVIEW OF SYSTEMS: as above. FAMILY HISTORY: Negative for bleeding/clotting disorders or anesthetic complications. SOCIAL HISTORY: Social History Tobacco Use Smoking Status Never Smoker Smokeless Tobacco Never Used Social History Substance and Sexual Activity Alcohol Use Yes ??? Alcohol/week: 3.0 standard drinks ??? Types: 3 Cans of beer per week MEDICATIONS: ??? cephALEXin (Keflex) 500 mg Capsule ??? promethazine (PHENERGAN) 12.5 mg Tablet ??? oxyCODONE (ROXICODONE) 15 mg Tablet ??? aspirin EC 81 mg Tablet, Delayed Release (E.C.) ??? naproxen (NAPROSYN) 500 mg Tablet ??? lamoTRIgine (LaMICtal) 200 mg Tablet ??? atorvastatin (LIPITOR) 10 mg Tablet ??? enalapril (VASOTEC) 20 mg Tablet ??? methylphenidate HCl (RITALIN) 20 mg Tablet ??? metoprolol succinate (TOPROL-XL) 50 mg Tablet Sustained Release 24 hr ??? pantoprazole (PROTONIX) 40 mg Tablet, Delayed Release (E.C.) ??? acetaminophen (Tylenol) 500 mg Tablet ??? polyethylene glycoL (Miralax) 17 gram Powder in Packet ??? senna-docusate (Pericolace) 8.6-50 mg Tablet ??? gabapentin (NEURONTIN) 300 mg Capsule OBJECTIVE: Body mass index is 25.84 kg/m??. PHYSICAL EXAM: Gen: NAD, resting comfortably, AOx3 HEENT: NC, AT CV: RRR assessed peripherally Pulm: No incr WOB on RA Skin: Intact Psych: Nl mood and affect Right Lower Extremity Exam: Incision without drainage, without surrounding erythema, healing well (see photo) No TTP pelvis, hip, femur, knee, tib/fib, ankle, foot Painless range of motion of Hip / knee / ankle. Patient 20 degrees from full knee extension. No effusion in knee / ankle No ecchymosis, erythema, or overlying skin changes. Sensation intact to light touch in Saphenous/Sural/LFC/Femoral/MP/LP/T/DP/SP distributions Motor intact (5/5) hip flexion/extension, knee flexion/extension, ankle flexion/extension, EHL/FHL/TA Brisk capillary refill distally 2+ DP/PT pulses LABS: Lab Results Component Value Date NA 137 03/29/2020 K 4.9 03/29/2020 CL 100 03/29/2020 CO2 28 03/29/2020 BUN 12 03/29/2020 CREATININE 0.84 03/29/2020 GLUCOSE 166 03/29/2020 CALCIUM 9.4 03/29/2020 Lab Results Component Value Date WBC 7.1 03/29/2020 HGB 9.2 (L) 03/29/2020 HCT 28.0 (L) 03/29/2020 MCV 87.5 03/29/2020 PLATELET 208 03/29/2020 Lab Results Component Value Date INR 1.0 02/19/2020 Lab Results Component Value Date CRP 1.3 02/19/2020 IMAGING: XR Knee Standing AP Lat Alignment 04/22/20: S/p R TKA Revision. No evidence of complication. Right mechanical axis with normal alignment. ASSESSMENT/RECOMMENDATIONS: 59 y.o. male who presents with 1 month s/p R TKA revision for follow up XR and wound check. He is progressing well. -Incision healing well, routine postop course -Recommend patient continue course of antibiotics to completion -Patient doing well with PT, will continue sessions -He may follow up as regularly scheduled in 2 months - Activity- WBAT RLE - Antibiotics: Keflex 500 mg qid - Follow-up- 2 months with x-rays prior to appt Ariane Bhat MD P. [phone] 04/22/20 11:49 PM documented in this encounter Plan of Treatment Not on filedocumented as of this encounter Results XR Knee Standing Alignment & 1-2 views Bilat (06/17/2020 11:08 AM EST) Anatomical Region Laterality Modality Knee Bilateral Digital Radiography Specimen (Source) Anatomical Location Collection Method / Collectio n Time Received Time / Laterality Volume Impressions 06/17/2020 11:13 AM EST 1. ??No complication or change involving the right knee prosthesis. 2. ??Mild osteoarthritis of the left kne e. Thank you for letting us participate in the care of this patient. For questions regarding this report, please contact e number below. ? Electronically signed by: Tiffany Frank, [facility] ([phone]), at 06/17/2020 11:13 AM Narrative 06/17/2020 11:13 AM EST EXAMINATION: XR KNEE STANDING ALIGNMENT AND 1-2 VIEWS BILAT CLINICAL HISTORY: S/p Revision TKA TECHNIQUE: Separate images of the pelvis , knees and feet were acquired in the AP projection with the patient standing. Th sabra images were stitched together to form a composite image of the pelvis and legs allowing for evaluation of lower extremity alignment in the weight bearin g position. Also taken or AP and lateral views of each knee. COMPARISON: April 22, 2020 FINDINGS: Right knee There is a long stemmed, constrained rev ision total right knee prosthesis. The prosthesis is well-positioned without, s ubsidence, periprosthetic lucency or fracture. There is no change in appearan ce of the prosthesis since the prior study. Left knee There is mild narrowing of the medial brice int compartment. The appearance is unchanged. 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 Standing alignment Both legs are normally aligned. Procedure Note Carl Aden MD - 06/17/2020 EXAMINATION: XR KNEE STANDING ALIGNMENT AND 1-2 VIEWS BILAT CLINICAL HISTORY: S/p Revision TKA TECHNIQUE: Separate images of the pelvis , knees and feet were acquired in the AP projection with the patient standing. Th sabra images were stitched together to form a composite image of the pelvis and legs allowing for evaluation of lower extremity alignment in the weight bearin g position. Also taken or AP and lateral views of each knee. COMPARISON: April 22, 2020 FINDINGS: Right knee There is a long stemmed, constrained rev ision total right knee prosthesis. The prosthesis is well-positioned without, s ubsidence, periprosthetic lucency or fracture. There is no change in appearan ce of the prosthesis since the prior study. Left knee There is mild narrowing of the medial brice int compartment. The appearance is unchanged. 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 Standing alignment Both legs are normally aligned. IMPRESSION 1. No complication or change involving t he right knee prosthesis. 2. Mild osteoarthritis of the left knee. Thank you for letting us participate in the care of this patient. For questions regarding this report, please contact e number below. Electronically signed by: Tiffany Frank, [facility] ([phone]), at 06/17/2020 11:13 AM Eddie Ortiz MD IMG DX ORDERABLES documented in this encounter Visit Diagnoses Diagnosis Status post revision of total knee repla cement, unspecified laterality Status post revision of total knee repla cement, unspecified laterality documented in this encounter Care Teams Long Term Care Administrator Relationship Specialty Start Date End Date Florina Thomas PA PCP - General Family Medicine 02/03/[address] [place] [id number] documented as of this encounter
--- OUTSIDE RECORDS SUMMARY | 2022-02-05 03:43 | XMS_ITS | Encounter Summary ---
:1960 Author Organization [facility] [place] [address] Care Team Providers Name Role Phone Florina Thomas Primary Care Provider Reason for Visit Reason Comments Follow-up 03/26/20 RIGHT TKA REVISION, W/C DOI 08/15/19 Encounter Details Date Type Department Care Team Description 12/09/2020 Office Visit Orthopaedics at [facility] Eddie Batista, 03/26/2020 S/P [facility] MIKE revision of right Drive [facility] [place] [address] [place] [address] DR Ortiz) [phone] ORTHOPAEDIC SURGERY [place], [place] [address] Social History Tobacco Use Types Packs/Day Years Used Date Never Smoker Smokeless Tobacco: Never Used Alcohol Use Standard Drinks/Week Comments Yes 3 (1 standard drink = 0.6 oz pure alcoho l) Sex Assigned at Date Recorded Not on file documented as of this encounter Last Filed Vital Signs Vital Sign Reading Time Taken Comments Blood Pressure 130/75 12/09/2020 10:06 AM EDT Pulse 53 12/09/2020 10:06 AM EDT Temperature - - Respiratory Rate - - Oxygen Saturation - - Inhaled Oxygen Concentration - - Weight 74.4 kg (164 lb 0.4 oz) 12/09/2020 10:06 AM EDT Height 170.2 cm (5' 7.01) 12/09/2020 10:06 AM EDT Body Mass Index 25.68 12/09/2020 10:06 AM EDT documented in this encounter Progress Notes Eddie Batista PA - 12/09/2020 10:00 AM EDT Arthroplasty/Orthopaedic History: 1. Right [facility]KA 2017 ([facility] 2. [facility] HPI: Yg Leal is a very pleasant 60 y.o. year-old male and is now 9 months post right total knee revision The patient has been doing okay, as he notes he is overall improving, but feels a little set back after returning to work. He notes pain with deep knee flexion exercises, such as deep squats, getting down on his left knee. He denies instability, but feels the knee clicking and clunking. He has stopped out-patient PT. He denies swelling, redness. He denies any wound problems. He notes nerve pain the front of his knee, and in the back of the knee. It is really only bothersome during thesedeep squats. Pain is managed with activity modfication. No fevers, chills, nausea, vomiting, or symptoms of infection. Yg has been ambulating with no assistive device. ROS: Denies: fever, chills, night sweats, nausea, or vomiting BP 130/75 Pulse 53 Ht 170.2 cm (5' 7.01) Wt 74.4 [...] Distal Sensory: Normal Quadriceps Strength: 5 X-RAYS: None new. Questionnaire Responses: [facility] Surgical Postop Visit 09/09/2020 PROMIS-10 General Health [...] male status post right total knee revision. Doingwell postoperatively. Continue weightbearing as tolerated and working on range of motion. We will see him back in 3 months for repeat examination. X-rays will be needed at that time. Patient may returnto normal activities as his pain and function allow. Reassurance provided today. His clinical exam appears stable when reviewing his last clinic note, and discussing with him, as this has been a problem for him for quite some time. We reviewed RICES, NSAID, activity modification, stretching would be recommended. For the nerve pain, I would consider gabapentin, but he is already on this. Otherwise, a referral to neurology vs. A geniculate nerve block could be considered. I would however wait, as we reviewed it can take 12-18 months to fully recover after a knee revision. Worker's compensation notes filled out today. We discussed the appropriate precautions surrounding dental [...] All questions were answered. Signed: MIKE CAMARILLO 12/09/2020 documented in this encounter Plan of Treatment Not on filedocumented as of this encounter Visit Diagnoses Diagnosis 03/26/2020 S/P revision of right total kn ee (Dr. Ortiz) documented in this encounter Care Teams Training Technician Relationship Specialty Start Date End Date Florina Thomas PA PCP - General Family Medicine 02/03/[address] [place] [id number] documented as of this encounter
--- OUTSIDE RECORDS SUMMARY | 2022-02-05 03:43 | XMS_ITS | Encounter Summary ---
:1960 Author Organization [facility] Address [address] [place] [address] Care Team Providers Name Role Phone Florina Thomas Primary Care Provider Encounter Details Date Type Department Care Team Description 10/11/2021 Hospital Encounter XRay at [facility] [place] Neptali Pressley, Status post total [address] MUNGUIA [facility] [phone], [place] [address] Social History Tobacco Use Types [...] (LIPITOR) 10 take 1 tablet by 0 2 09/2018 mg Tablet mouth once daily enalapril (VASOTEC) [...] nts XR KNEE AP & LAT Routine 10/11/2021 10:31 AM Status post total Results for this RIGHT EDT right knee procedure are i n replacement the results section. documented in this encounter Results XR Knee 1-2 Views Right (Generic) (10/11/2021 [...] who have questions please contact the health customer care specialist that requested your imaging first. ? --------ORIGINAL REPORT -------- EXAMINATION: XR KNEE 1-2 [...] who have questions please contact the health customer care specialist that requested your imaging first. ? Impressions 10/11/2021 11:00 AM EDT Unchanged and Uncomplicated RIGHT total hip arthroplasty Thank you for letting us participate in the care of this patient. ??If you are a health care provider and have any questi ons regarding this report, please contact the number below. ??For patients who have questions please contact the health customer care specialist that requested your imaging first. ? Narrative 10/11/2021 11:00 AM EDT EXAMINATION: XR [...] ho have questions please contact the health customer care specialist that requested your imaging first. Neptali Sousa MD IMG DX ORDERABLES documented in this encounter Visit Diagnoses Diagnosis Status post total right knee replacement documented in this encounter Care Teams Harbor Tug Captain Relationship Specialty Start Date End Date Florina Thomas PA PCP - General Family Medicine 02/03/[address] [place] [id number] documented as of this encounter
--- OUTSIDE RECORDS SUMMARY | 2022-02-05 03:43 | XMS_ITS | Encounter Summary ---
:1960 Author Organization [facility] Address [address] [place] [address] Care Team Providers Name Role Phone Florina Thomas Primary Care Provider Encounter Details Date Type Department Care Team Description 04/22/2020 [place] [facility] [place]iz Presence of right [address] [facility] [address] Koby MD artificial knee [place], [place] [facility] [id number] [place] [phone] [place] [address] Social History Tobacco Use Types Packs/Day Years Used Date Never Smoker Smokeless Tobacco: Never Used Alcohol Use Standard Drinks/Week Comments Yes 3 (1 standard drink = 0.6 oz pure alcoho l) Sex Assigned at Date Recorded Not on file documented as of this encounter Medications at Time of Discharge Medication Sig Dispensed Refills Start Date End Date acetaminophen (Tylenol) Take 2 tablets by 0 [...] 12.5 mg Tablet H FOR 5 DAYS oxyCODONE (ROXICODONE) 15 Take 1 tablet by 45 tablet 0 03/0312/09/2020 mg Tablet mouth every 4 hours as needed for Pain (acute post-op surgical pain). aspirin EC 81 mg Tablet, Take 1 [...] 8.6-50 mg mouth 2 times Tablet daily. gabapentin (NEURONTIN) 300 TAKE 1 TO 3 0 01/30/20 19 03/10/2021 mg Capsule CAPSULES BY MOUTH AT BEDTIME NEEDED documented as of this encounter Plan of Treatment Not on filedocumented as of this encounter Procedures Procedure Name Priority Date/Time Associated Diagnosis Comme nts XR KNEE STANDING Routine 04/22/2020 3:42 PM Presence of right Results for this ALIGNMENT AP LAT EDT artificial knee procedur e are in SKYLINE RIGHT joint the results section. documented in this encounter Results XR Knee Standing Alignment AP Lat [place] Right (04/22/2020 3:42 PM EDT) Anatomical Region Laterality Modality Knee Right Digital Radiography Specimen (Source) Anatomical Location Collection Method / Collectio n Time Received Time / Laterality Volume Impressions 04/22/2020 3:54 PM EDT As noted previously, post RIGHT total knee arthroplasty. No evidence of complication. Trace joint effusion. Standing alignment views: Normal alignment of RIGHT mechanical axi s. Slight medial displacement of LEFT mechanical axis. Thank you for letting us participate in the care of this patient. For questions regarding this report, please contact e number below. ? Electronically signed by: Graham durham MD, [facility] ([phone]), at 04/22/2020 3:54 PM Narrative 04/22/2020 3:54 PM EDT EXAMINATION: XR KNEE STANDING ALIGNMENT AP LAT SKYLINE RIGHT CLINICAL HISTORY: S/P right TKA TECHNIQUE: Separate images of the pelvis , knees and feet were acquired in the AP projection with the patient standing. Th sabra images were stitched together to form a composite image of the pelvis and legs allowing for evaluation of lower extremity alignment in the weight bearin g position. Standing alignment views COMPARISON: 03/26/2020 FINDINGS: As noted previously, post RIGHT total kn ee arthroplasty. No evidence of complication. Trace joint effusion. Standing alignment views: Normal alignment of RIGHT mechanical axi s. Slight medial displacement of LEFT mechanical axis. Procedure Note Graham Green MD - 04/22/2020Form atting of this note might be different from the original. EXAMINATION: XR KNEE STANDING ALIGNMENT AP LAT SKYLINE RIGHT CLINICAL HISTORY: S/P right TKA TECHNIQUE: Separate images of the pelvis , knees and feet were acquired in the AP projection with the patient standing. Th sabra images were stitched together to form a composite image of the pelvis and legs allowing for evaluation of lower extremity alignment in the weight bearin g position. Standing alignment views COMPARISON: 03/26/2020 FINDINGS: As noted previously, post RIGHT total kn ee arthroplasty. No evidence of complication. Trace joint effusion. Standing alignment views: Normal alignment of RIGHT mechanical axi s. Slight medial displacement of LEFT mechanical axis. IMPRESSION As noted previously, post RIGHT total kn ee arthroplasty. No evidence of complication. Trace joint effusion. Standing alignment views: Normal alignment of RIGHT mechanical axi s. Slight medial displacement of LEFT mechanical axis. Thank you for letting us participate in the care of this patient. For questions regarding this report, please contact e number below. Electronically signed by: Graham durham MD, [facility] ([phone]), at 04/22/2020 3:54 PM Eddie Ortiz MD IMG DX ORDERABLES documented in this encounter Visit Diagnoses Diagnosis Presence of right artificial knee joint Knee joint replacement by other means documented in this encounter Care Teams Pellet Post Inspector Relationship Specialty Start Date End Date Florina Thomas PA PCP - General Family Medicine 02/03/[address] [place] [address] documented as of this encounter
--- OUTSIDE RECORDS SUMMARY | 2022-02-05 03:43 | XMS_ITS | Encounter Summary ---
:1960 Author Organization [facility] [place] [address] Care Team Providers Name Role Phone Florina Thomas Primary Care Provider Reason for Visit Reason Onset Date Comments Bumped Appointment 2020 Encounter Details Date Type Department Care Team Description 2020 Telephone Orthopa[place] [facility] [place] Cruz Foster MD Bumped Appointment [address] [phone] ORTHOPAEDIC SURGERY [phone] [place], [place] [address] (Wo rk) Social History Tobacco Use Types Packs/Day Years Used Date Never Smoker Smokeless Tobacco: Never Used Alcohol Use Standard Drinks/Week Comments Yes 3 (1 standard drink = 0.6 oz pure alcoho l) Sex Assigned at Date Recorded Not on file documented as of this encounter Miscellaneous Notes Telephone Encounter - Toshia Blanchard - 2020 1:28 PM EDT LM #1 to call to reschedule bued 12/[address] Foster-reschedule to clinic on , 12/02 Telephone Encounter - Toshia Blanchard - 2020 1:28 PM EDT Patient rescheduled. documented in this encounter Plan of Treatment Not on filedocumented as of this encounter Visit Diagnoses Not on filedocumented in this encounter Care Teams Electrician Helper Relationship Specialty Start Date End Date Florina Thomas PA PCP - General Family Medicine 02/03/19 [address] [place] [address] documented as of this encounter
--- OUTSIDE RECORDS SUMMARY | 2022-02-05 03:43 | XMS_ITS | Encounter Summary ---
:1960 Author Organization [facility] [place] [address] Care Team Providers Name Role Phone Florina Thomas Primary Care Provider Encounter Details Date Type Department Care Team Description 06/17/2020 Hospital Encounter [place] [facility] [place] Eddie Status post revision [address] Koby MD of total knee [place], [place] [facility], [id number] prajapati [phone] [place] [address] Social History Tobacco Use Types Packs/Day Years [...] Diagnosis Comme nts XR KNEE STANDING Routine 06/17/2020 11:08 AM Status post chirag ion Results for this ALIGNMENT AND 1-2 EST of total knee procedure are in VIEWS BILAT replacement, the results unspecified section. laterality documented in this encounter Results XR Knee [...] below. ? Electronically signed by: Tiffany Frank, [facility] ([phone]), at 06/17/2020 11:13 AM Narrative 06/17/2020 11:13 [...] For questions regarding this report, please contact th e number below. Electronically signed by: Tiffany Frank, [facility] ([phone]), at 06/17/2020 11:13 AM Eddie Ortiz MD IMG DX ORDERABLES documented in this encounter Visit Diagnoses Diagnosis Status post revision of total knee repla cement, unspecified laterality documented in this encounter Care Teams Steward/Stewardess Third Relationship Specialty Start Date End Date Florina Thomas PA PCP - General Family Medicine 02/03/19 [address] [place] [address] documented as of this encounter
--- OUTSIDE RECORDS SUMMARY | 2022-02-05 03:44 | XMS_ITS | Encounter Summary ---
:1960 Author Organization [place] [address] Care Team Providers Name Role Phone Florina Thomas Primary Care Provider Reason for Visit Reason Onset Date Comments Pre Procedure Call 11/05/2019 Encounter Details Date Type Department Care Team Description 11/05/2019 Telephone Orthopaedics at [facility] [place] Delfin Pisano [place] [address] ORTHOPAEDIC SURG [place] [phone] (Wo rk) Social History Tobacco Use Types Packs/Day Years Used Date Never Smoker Smokeless Tobacco: Never Used Alcohol Use Standard Drinks/Week Comments Yes 3 (1 standard drink = 0.6 oz pure alcoho l) Sex Assigned at Date Recorded Not on file documented as of this encounter Miscellaneous Notes Telephone Encounter - Yudi Candelario - 11/05/2019 2:15 PM EDT I called and left a message for patient to call [phone] directly and schedule surgery with Dr. Pisano. documented in this encounter Plan of Treatment Not on filedocumented as of this encounter Visit Diagnoses Not on filedocumented in this encounter Care Teams Oil Dipper Relationship Specialty Start Date End Date Florina Thomas PA PCP - General Family Medicine 02/03/19 [address] [place], [place] [id number] documented as of this encounter
--- OUTSIDE RECORDS SUMMARY | 2022-02-05 03:44 | XMS_ITS | Encounter Summary ---
:1960 [place] [address] Care Team Providers Name Role Phone Florina Thomas Primary Care Provider Reason for Visit Reason Onset Date Comments Triage 02/23/2020 COVID pre-op Encounter Details Date Type Department Care Team Description 02/23/2020 Telephone [facility] Tricia Banerjee Triag e (COVID pre-op) [place] [address] Social History Tobacco Use Types Packs/Day Years Used Date Never Smoker Smokeless Tobacco: Never Used Alcohol Use Standard Drinks/Week Comments Yes 3 (1 standard drink = 0.6 oz pure alcoho l) Sex Assigned at Date Recorded Not on file documented as of this encounter Miscellaneous Notes Telephone Encounter - Tricia Banerjee RN - 02/23/2020 10:41 AM EDT Pt called, re: COVID testing pre-op. Pt lives 2+ hours away and is having surgery 02/25/[address] Delfin Pisano. Pt did not receive call last week to schedule pre-op testing. Email sent to [facility]Op scheduling to see if this is possible. Pt aware, and vocalized understanding of and agreement with thisplan. documented in this encounter Plan of Treatment Not on filedocumented as of this encounter Visit Diagnoses Not on filedocumented in this encounter Care Teams Restorative Rehab Aide Relationship Specialty Start Date End Date Florina Thomas PA PCP - General Family Medicine 02/03/19 [address] [place] [address] documented as of this encounter
--- OUTSIDE RECORDS SUMMARY | 2022-02-05 03:44 | XMS_ITS | Encounter Summary ---
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 Procedures PRO REVISE KNEE JOINT REPLACE, ALL PARTS @TOTAL KNEE REVISION ARTHROPLASTY, COMPLETE (WRVU 27.11) MODIFIER TC3 ROTATING PLATFORM DEPUY Referral ID Status Reason Start Date Expiration Date Visits Requ ested Visits Authorized [id number] 1 1 Encounter Details Date Type Department Care Team Description 02/25/2020 Anesthesia Event Main Operating Room Graham Kc MD [facility] [place] [address] [facility] Joanna Reagan CRNA [facility] [place] [address] [place] [address] Anesthesia Record Procedure Summary Procedure Name Responsible Anesthesia Start Anesthesia Stop Time Anesthesiologist Time @TOTAL KNEE REVISION ARTHROPLASTY, COMPLETE (WRVU 27.11) (Right Knee) Events Date Time Event Comment 02/25/2020 0922 No medications on file. Agents No agents on file. Blood No blood administrations on file. Lines, Drains, and Airways Type Details Placement Removal Incision 03/26/20; knee 03/26/20 0000 by Siomara Pandey RN documented in this encounter Social History Tobacco Use Types Packs/Day Years Used Date Never Smoker Smokeless Tobacco: Never Used Alcohol Use Standard Drinks/Week Comments Yes 3 (1 standard drink = 0.6 oz pure alcoho l) Sex Assigned at Date Recorded Not on file documented as of this encounter OR Notes Anesthesia Preprocedure Evaluation - Graham Hendrix MD - 02/25/2020 9:16 AM EDT Pre-Anesthesia Evaluation for: Yg Leal a 59 y.o. male. Procedure(s): @TOTAL KNEE REVISION ARTHROPLASTY, COMPLETE (WRVU 27.11) MODIFIER TC3 ROTATING PLATFORM DEPUY Patient Active Problem List Diagnosis ??? Type 2 diabetes mellitus, without long-term current use of insulin ??? HLD (hyperlipidemia) ??? Anemia ??? Depression ??? ADHD (attention deficit hyperactivity disorder), combined type Per PDMP Feb 19, 2020: methylphenidate 20 mg tid prescribed by his PCP. ??? Restless legs ??? HTN (hypertension) ??? Cervical radiculopathy ??? Chronic prescription opiate use Per PDMP Feb 19, 2020: Oxycodone 10 mg qid prescribed by his PCP. ??? Presence of right artificial knee joint ??? Sprain of right knee Past Medical History: Diagnosis Date ??? Anemia 02/19/2020 ??? Gastroesophageal reflux i take meds for this to control ??? Heart valve disease murmur - i've had test for this and it was fine ??? High blood pressure on medication ??? Mental health problem i take meds for depression bipolar2 ??? Motion sickness in the ocean on a [place] Past Surgical History: Procedure Laterality Date ??? JOINT REPLACEMENT right knee - revision scheduled to be done here Social History Tobacco Use ??? Smoking status: Never Smoker ??? Smokeless tobacco: Never Used Substance Use Topics ??? Alcohol use: Yes Alcohol/week: 3.0 standard drinks Types: 3 Cans of beer per week Social History Substance and Sexual Activity Drug Use Yes ??? Types: Opioids No Known Allergies Medications: MAR and/or home medications have been reviewed. Physical Exam: Patient Vitals for the past 24 hrs: Temp Pulse Resp BP SpO2 02/25/20 0852 37 ??C (98.6 ??F) 53 18 138/87 98 % Body mass index is 25.82 kg/m??. Weight: 74.8 kg (164 lb 14.5 oz) Airway Assessment: Mallampati: I TM distance: >3 FB Neck ROM: full Cardiovascular Assessment: cardiovascular exam normal Pulmonary Assessment: pulmonary exam normal Dental Assessment: - normal exam Misc Assessment: IV access: Peripheral line Anesthesia Plan: ASA 3 spinal, with a(n) intravenous induction 59 yo presents for RIGHT revision total knee replacement Chronic pain 10mg oxycodone 1-4 per day BP 2 (lamictal) S/p Cervical spine surgery with retained FROM GERD well controlled HLD RLS Hx of motion sickness NPO No hx of anesthesia complications Denies recent CP SOB URI ECG: SB at 44, took beta ronal this am Discussed GA, spinal and block Patient is in agreement with peripheral block and spinal with GA back-up (He was informed that spinal with sedation is not GA and he may have recall of the OR) GRAHAM HENDRIX MD Region - Other Informed Consent: Anesthetic plan and risks discussed with patient. Plan discussed with FIXED INCOME MANAGER. PAT Clinic Note documented in this encounter Plan of Treatment Not on filedocumented as of this encounter Visit Diagnoses Not on filedocumented in this encounter Care Teams Ve Teacher Relationship Specialty Start Date End Date Florina Thomas PA PCP - General Family Medicine 02/03/[address] [place] [address] documented as of this encounter
--- OUTSIDE RECORDS SUMMARY | 2022-02-05 03:44 | XMS_ITS | Encounter Summary ---
:1960 [place] [address] Care Team Providers Name Role Phone Florina Thomas Primary Care Provider Encounter Details Date Type Department Care Team Description 03/18/2020 [facility] [place] [address] Social History Tobacco Use Types Packs/Day Years Used Date Never Smoker Smokeless Tobacco: Never Used Alcohol Use Standard Drinks/Week Comments Yes 3 (1 standard drink = 0.6 oz pure alcoho l) Sex Assigned at Date Recorded Not on file documented as of this encounter Miscellaneous Notes Telephone Encounter - Price, Catrachita Tanner - 03/18/2020 1:43 PM EDT 1. ASK: TRAVEL ???Have you travelled outside of [place] ([place], [place], [place], [place], [place], [place]) in the past 14 days??? 2. ASK: EXPOSURE Have you been in contact with anyone suspected or confirmed to have COVID-19 in the past 14 days??? 3. ASK: SYMPTOMS Do you have any new or worsening symptoms on this list that are not related to another medical condition? Fever or chills ?? Cough ?? Shortness of breath or difficulty breathing ?? Fatigue ?? Muscle or body aches ?? Headache ?? Loss of taste or smell ?? Sore throat ?? Congestion or runny nose ?? Nausea or vomiting ?? Diarrhea If 'Yes' to any of the questions above Transfer patient to the Covid-19 Hotline Number ([phone]) for further instructions. If 'No' to all of the questions above Is this the first test for Covid 19 Yes If no, please list date of previous test, result, and type of test (Molecular, Antigen, Antibody or unknown): Resides in congregate care setting No Employee or Household Member of Employee No Healthcare Worker No Schedule appointment: Give directions to testing facility. Please advise patient that all passengersin the vehicle must wear a mask and to please either leave their dogs at home or have them crated/behind a net. Telephone call placed/received to schedule Covid 19 testing with patient. Ordering provider: Dr Patel Testing Facility: [facility] Date of Testin/22 Time of Testin:00am Symptoms: no Telephone Encounter - Ana Marina - 03/18/2020 8:55 AM EDT Left message to schedule preop covid 19 test for procedure 03/26 documented in this encounter Plan of Treatment Not on filedocumented as of this encounter Visit Diagnoses Not on filedocumented in this encounter Care Teams Synthetic Soil Blocks Pulper Relationship Specialty Start Date End Date Florina Thomas PA PCP - General Family Medicine 02/03/[address] [place] [id number] documented as of this encounter
--- OUTSIDE RECORDS SUMMARY | 2022-02-05 03:44 | XMS_ITS | Encounter Summary ---
:1960 Author Organization [facility] Address [facility] [place] [address] Care Team Providers Name Role Phone Florina Thomas Primary Care Provider Encounter Details Date Type Department Care Team Description 10/09/2019 TH Visit Orthopaedics at [facility] Delfin Pisano, Postoperative (TeleHealth) [facility] stiffness of total Drive [facility], [facility] initial encounter [id number] ORTHOPAEDIC [phone] [place] [address] Social History Tobacco Use Types Packs/Day Years Used Date Never Smoker Smokeless Tobacco: Never Used Alcohol Use Standard Drinks/Week Comments Yes 3 (1 standard drink = 0.6 oz pure alcoho l) Sex Assigned at Date Recorded Not on file documented as of this encounter Progress Notes Delfin Pisano MD - 10/09/2019 8:30 AM EDT Telephone consult okayed by patient for billing this is a Workmen's Comp. conversation Interval history: Patient is a 59-year-old male well-known to me who had a work- related fall onto his right knee in the setting of a right total knee arthroplasty. This is certainly exacerbated his underlying right knee symptoms. He has a history of right knee performed in November 2016. His knee was wellfor a period of time and then he developed stiffness and pain. He had a work-up that showed loosening of the tibial component and possibly the femoral component. Since his fall his knee has become unbearable. His pain is significantly worse. He has been working with PT his motion is still about 0 to 90 degrees. He is 8 weeks out from his recent injury. At this point, I think he has certainly failed conservative management with regards to his right knee aseptic loosening. Has been worked up for infection with a very reassuring cell count of 200 on knee aspiration. I discussed with him today at length the role of revision total knee for aseptic loosening with possible tibial versus complete revision. I discussed the risks and benefits of surgery including infection, bleeding, damage of blood vesselnerves, fracture, stiffness, implant loosening, wearing way or failing. I discussed the potential for further surgery. I discussed medical and anesthetic risk including heart attack, stroke, allergic reaction medicines, pneumonia, , blood clots. Patient certainly understands all these risk. He feels that he cannot continue on the way his knee is functioning currently. He like to get back to workand golf with his dad. I discussed that we will get him scheduled and on the schedule for after the COVID 19 and epidemic will allow us to move forward. Of note, patient has Moshe knee implants we will obtain stickers. This was a 10-minute telephone conversation. documented in this encounter Plan of Treatment Not on filedocumented as of this encounter Procedures Procedure Name Priority Date/Time Associated Diagnosis Comme nts TOTAL KNEE REVISION Routine 10/09/2019 8:57 AM Postoperative s tiffness ARTHROPLASTY, EDT of total knee COMPLETE replacement, initial encounter documented in this encounter Results Sedimentation rate (02/19/2020 1:26 PM EDT) P athologist Signature Sed Rate 10 2 - 37 [facility] mm/hr [facility] Comment: Effective June 11, 2019 new capillar y photometric technology has resulted in a change in reference ranges. It is r ecommended that each ESR result be reviewed with its own age appropriate re ference range. Specimen Anatomical Collection Method Collection Time Receive d Time (Source) Location / / Volume Laterality Blood specimen 02/19/2020 1:26 PM 020 1:34 (specimen) EDT PM EDT Resulting Agency Comment Spec In Lab Delfin Pisano MD HEMATOLOGY ORDERABLES Performing Organization Address City/State/[place] [address] CRP, acute inflammation (02/19/2020 1:26 PM EDT) athologist Signature CRP 1.3 <=4.9 mg/L [facility] Specimen Anatomical Collection Method Collection Time Receive d Time (Source) Location / / Volume Laterality Blood specimen 02/19/2020 1:26 PM 020 1:34 (specimen) EDT PM EDT Resulting Agency Comment Spec In Lab Delfin Pisano MD CHEMISTRY ORDERABLES Performing Organization Address City/[facility]/ZIP Code Phon e Number [address] APTT (02/19/2020 1:26 PM EDT) athologist Signature PTT 34 25 - 37 sec [facility] Comment: The PTT is NOT appropriate for heparin m onitoring. Use the Anti-Xa level for heparin monitoring (HEP UFH) or LMWH mon itoring (HEP LMW). A PTT less than 37 seconds generally indicates adequate hem ostasis. Specimen Anatomical Collection Method Collection Time Receive d Time (Source) Location / / Volume Laterality Blood specimen 02/19/2020 1:26 PM 020 1:34 (specimen) EDT PM EDT Resulting Agency Comment Spec In Lab Delfin Pisano MD HEMATOLOGY ORDERABLES Performing Organization Address City/[facility]/[place] [address] Prothrombin Time (02/19/2020 1:26 PM EDT) athologist Signature PT 11.1 9.4 - 12.5 [facility] LABORATORY INR 1.0 [facility] Comment: An INR <2.0 indicates adequate procoagul ant activity for hemostasis in most patients without underlying bleeding dis orders, though the INR may not adequately reflect hemostatic capacity i n patients with liver disease and synthetic impairment. The recommended ta rget INR range for therapeutic anticoagulation is 2.0 ? 3.0 for most applications, though lower and higher ranges may be appropriate depending on c linical circumstances. Specimen Anatomical Collection Method Collection Time Receive d Time (Source) Location / / Volume Laterality Blood specimen 02/19/2020 1:26 PM 020 1:34 (specimen) EDT PM EDT Resulting Agency Comment Spec In Lab Delfin Pisano MD HEMATOLOGY ORDERABLES Performing Organization Address City/State/[place] [address] Basic Metabolic Panel (non-fasting) (02/19/2020 1:26 PM EDT) athologist Signature Glucose Lvl 129 65 - 199 [facility] mg/dL [facility] Comment: Diabetes: >=200 mg/dL plus symp toms BUN 19 10 - 20 mg/dL [facility] Creatinine 0.90 0.80 - 1.50 mg/dL [facility] Sodium 137 135 - 145 mmol/L [facility] Potassium 4.5 3.5 - 5.0 mmol/L [facility] Comment: Please note: ??Patients with WBC >100,00 0 may have falsely elevated Potassium levels. ??For accurate Potassium quantif ication in these patients send serum separator tube (gold top) for subsequent determinations. ??Contact the Clinical Chemistry Laboratory if there are any qu estions. Chloride 100 98 - 107 mmol/L [facility] CO2 27 22 - 31 mmol/L [facility] Anion Gap 10 5 - 15 mmol/L [facility] Calcium 9.6 8.5 - 10.5 mg/dL [facility] Estimated GFR 94 >=60 mL/min/1.73 m?? [facility] Comment: The eGFR was calculated using the CKD-EP I equation. As with all creatinine based estimates of kidney function, eGFR values calculated with the CKD-EPI equation are not accurate in patients wi th acute kidney failure, extremes of body mass or the acutely ill. [email or web address] eGFR 110 >=60 mL/min/1.73 m?? [facility] Comment: The eGFR was calculated using the CKD-EP I equation. As with all creatinine based estimates of kidney function, eGFR values calculated with the CKD-EPI equation are not accurate in patients wi th acute kidney failure, extremes of body mass or the acutely ill. [email or web address] Specimen Anatomical Collection Method Collection Time Receive d Time (Source) Location / / Volume Laterality Blood specimen 02/19/2020 1:26 PM 020 1:34 (specimen) EDT PM EDT Resulting Agency Comment Spec In Lab Delfin Pisano MD CHEMISTRY ORDERABLES Performing Organization Address City/State/[facility] [place] [address] documented in this encounter Visit Diagnoses Diagnosis Postoperative stiffness of total knee re placement, initial encounter documented in this encounter Care Teams Store Detective Relationship Specialty Start Date End Date Florina Thomas PA PCP - General Family Medicine 02/03/[address] [place] [id number] documented as of this encounter
--- OUTSIDE RECORDS SUMMARY | 2022-02-05 03:44 | XMS_ITS | Encounter Summary ---
:1960 Author Organization [facility] [place] [address] Care Team Providers Name Role Phone Florina Thomas Primary Care Provider Encounter Details Date Type Department Care Team Description 02/19/2020 Office Visit Orthopaedics at [facility] Delfin Pisano, Presence of right [facility] [address] [place] [address] ORTHOPAEDIC SURGERY [place] [address] Social History Tobacco Use Types Packs/Day Years Used Date Never Smoker Smokeless Tobacco: Never Used Alcohol Use Standard Drinks/Week Comments Yes 3 (1 standard drink = 0.6 oz pure alcoho l) Sex Assigned at Date Recorded Not on file documented as of this encounter Last Filed Vital Signs Vital Sign Reading Time Taken Comments Blood Pressure 144/79 02/19/2020 2:29 PM EDT Pulse 61 02/19/2020 2:29 PM EDT Temperature - - Respiratory Rate - - Oxygen Saturation 96% 02/19/2020 2:29 PM EDT Inhaled Oxygen Concentration - - Weight 74.8 kg (165 lb) 02/19/2020 2:29 PM EDT Height 170.2 cm (5' 7.01) 02/19/2020 2:29 PM EDT Body Mass Index 25.84 02/19/2020 2:29 PM EDT documented in this encounter Progress Notes Delfin Pisano MD - 02/19/2020 2:30 PM EDT Arthroplasty History/Previous Orthopaedic Surgery: 1. Right TKA 12/18/16 Dr. Alfonso This note is recorded by RICHIE [place] [facility], [facility] acting as a scribe for Dr. Dover. PREOPERATIVE VISIT Interval History: Yg Leal is a pleasant 59 y.o. year old male being seen today to discuss a right total knee revision . His history was once again discussed and is outlined in a previous note. They have reviewed their options and at this point are expressing a desire to proceed with surgery. Physical Exam: Exam is previously documented in a note and is essentially unchanged. Knee Exam: Range of motion 0-90o. Inspection of his skin on the operative side demonstrates No skin breakdown or open wounds. Significant Medical Comorbidities Patient Active Problem List Diagnosis Code ??? Sprain of right knee S83.91XA ??? Type 2 diabetes mellitus, without long-term current use of insulin E11.9 ??? HLD (hyperlipidemia) E78.5 ??? Anemia D64.9 ??? Depression F32.9 ??? ADHD (attention deficit hyperactivity disorder), combined type F90.2 ??? Restless legs G25.81 ??? HTN (hypertension) I10 ??? Cervical radiculopathy M54.12 ??? Chronic prescription opiate use Z79.891 VITALS: BP Readings from Last 1 Encounters: 02/19/20 144/79 Pulse Readings from Last 1 Encounters: 02/19/20 61 There is no height or weight on file to calculate BMI. Relevant Lab Studies Lab Results Component Value Date WBC 7.6 03/04/2019 HGB 12.7 (L) 03/04/2019 HCT 38.8 (L) 03/04/2019 PLATELET 318 03/04/2019 CRP 1.1 03/04/2019 SEDRATE 7 03/04/2019 No results for input(s): HA1C in the last 7068 hours. No results for input(s): ALBUMIN in the last 168 hours. CrCl cannot be calculated (No successful lab value found.). TJA Assessment and Plan: This is a pleasant 59 y.o. year-old male who presents for a preoperative appointment today for consideration of a right total knee revision . We had a discussion regarding the risks and benefits of surgery. I indicated that in my opinion, this is a treatment option most likely to restore a more normal, pain- free level of function and that we have exhausted reasonable non-operative alternatives. I discussed how I perform the procedure and all of their questions were answered. We discussed the risks of a total knee arthroplasty: Bleeding, infection, scar formation, dislocation, leg length inequality, persistent pain, stiffness, bursitis, failure/wear/loosening/breakage of implants, implant malposition, need for additional/future surgery, fracture, clot formation, embolus, stroke, nerve palsy, blood vessel injury, skin numbness, anesthetic and/or medical complications, . We reviewed options for postoperative DVT prophylaxis, based on AAOS guidelines. We discussed the pros and cons of different anticoagulants in terms of effectiveness and clot / embolus preventions vs. risks of bleeding and wound complications. We also reviewed their preferences regarding use of blood products and confirmed that while we wouldendeavor to minimize the risks of needing any transfusions, if circumstances were such that one or more were indeed required, he would NOT refuse a blood transfusion. Yg Leal will be prescribed a prescription opioid for the treatment of acute post-operative pain related to orthopedic surgery. Yg Leal was advised to take the smallest dose possible to control their pain and as their pain improves to take smaller doses and increase the time between doses. Patient has a chronic opioid agreement signed with Florina Thomas PA-C, and post operative pain management plan has been discussed with the patient and prescriber. The Acute Opioid Therapy Informed Consent form has been completed and sent to medical records for scanning to chart. No flowsheet data found. In addition to this medication, non-opioid medications will be prescribed for adjunct treatment of their pain. Non-pharmacological treatment such as ice, elevation and activity modification was recommended as appropriate. Yg Leal was instructed to administer Mupirocin into the nares twice daily starting 5 days prior to surgical date. Additional instructions were given to him at the time the medication was dispensed. He was also given chlorhexidine soap to use the night before and the morning of surgery. We discussed with the patient the possible discharge scenarios. The patient will require VNA services post-op: yes, patient/caregivers were educated about their right to choose where referrals are placed patient lives in [place], no preference on VNA. The patient prefers two-wheeled walker to help with post-operative ambulation. The patient has a walker and will bring it to surgery. Recommendations from Alonso Lazaro PA-C: pending Post operative orthopaedic anti-coagulation plan: ASA 81 mg BID for 30 days Chronic anti-coagulation: no Does patient have metal allergy? No Expedited Discharge Candidate?: NO We discussed using Celebrex while in house. Upon discharge we will give the patient Naprosyn to takefor 6 weeks after surgery for post-operative pain management. Any remaining questions were solicited from the patient and answered. Mr. Leal wishes to proceed accordingly and informed consent was subsequently obtained for a right total knee revision . I have personally evaluated the patient and agree with the above note as recorded by RICHIE Minor, [place] [facility] KMD Malachi 02/19/2020 Natalia Castro - 02/19/2020 2:30 PM EDT TJA Clotting and Bleeding Assessment Genetic predisposition or history of DVT or PE: No Hypercoaguable state?: No History of bleeding disorder?: No GI bleed or history of hemorrhagic stroke within the past 2 years: No Patient on lifelong anticoagulant for other reasons: No Discharge anticoagulation plan: ASA 81mg BID for 30 days Infection Prevention Patient demonstrated appropriate skin integrity/infection knowledge level after instructions provided: Yes Patient demonstrated appropriate dental prophylaxis knowledge level after instructions provided: Yes Patient demonstrated appropriate understanding of chlorhexideine wash and mupirocin ointment: Yes General Assessment Total joint preparedness for surgery: Force Online Patient understands when to call the office pre-op and post-op: Verbalizes understanding Assistive device(s) used pre-op: None Patient currently on narcotics: Yes Patient has narcotic agreement signed: Yes (see comment for prescriber information)(Florina Thomas PA-C) Prep for Surgery Advance Directive: Would like to complete at another time Recommend referral to Patient Financial Services: No(billed under w/c) Living arrangement: Apartment Home layout: One level, Stairs to enter w/ rails Number of stairs within home: 3 Who will provide post-op care and support: GF: Radha Who will provide transportation home: GF: Radha Patient's desired discharge disposition: home Top 3 nursing choice facilities: n/a VNA preference: no preference [facility] [place], [place] Discharge barriers and challenges: none Natalia Castro - 02/19/2020 2:30 PM EDT I spoke with Florina Thomas PA-C, PCP who prescribes his baseline pain medication. [facility] Ortho will prescribe post op meds for the first 7 days after surgery, and then it will be takenback over by Florina Thomas PA-C. documented in this encounter Plan of Treatment Not on filedocumented as of this encounter Visit Diagnoses Diagnosis Presence of right artificial knee joint Knee joint replacement by other means documented in this encounter Care Teams Building Components Designer Relationship Specialty Start Date End Date Florina Thomas PA PCP - General Family Medicine 02/03/[address] [place] [id number] documented as of this encounter
--- OUTSIDE RECORDS SUMMARY | 2022-02-05 03:44 | XMS_ITS | Encounter Summary ---
:1960 [place] [address] Care Team Providers Name Role Phone Florina Thomas Primary Care Provider Encounter Details Date Type Department Care Team Description 03/23/2020 Public [facility] [place] COVID-[place] [address] Social History Tobacco Use Types Packs/Day [...] Name Priority Date/Time Associated Diagnosis Comme nts COVID-19 PCR STAT 03/23/2020 1:36 PM Results f or this EDT procedure are i n the results section . documented in this encounter Results COVID-19 PCR (03/23/2020 1:36 PM EDT) [facility] Method Time Signature SARS-CoV-2 Not Detected Not Detected [facility] Comment: This result should be interpreted in com bination with the clinical observations, patient history and epidem iological information in making a final diagnosis. For testing of asymptomatic i ndividuals, assay performance characteristics and clinical utility hav e not been evaluated. Testing for SARS-CoV-2 (Severe acute respiratory syn drome coronavirus 2, formerly known as 2019 novel coronavirus or 2019-nCoV) to aid in the diagnosis of COVID-19 is performed using the [employer] RealTime SARS -CoV-2 Assay as authorized by the FDA Emergency Use Authorization (EUA). This EUA assay is intended for In-vitro Diagnostic (IVD) use with respiratory sp ecimens such as nasopharyngeal swabs collected from individuals during the ac jamie phase of infection. This assay is performed based on the instructions for use provided by [employer] and additional guidance provided by CDC and FDA. Testing is performed in the Clinical Genomics and Advanced Technolog y Laboratory within the Department of Pathology and Laboratory Medicine at [facility], certified under the Clinical Laboratory Improvement Amendments of 1988 (CLIA), 42 U.S.C. 263a, to perform high complexi ty tests. Assay performance has been verified according to clinical laborator y regulatory requirements for use with specimens collected from individuals guy pected of COVID-19. Test results are provided above. A result of ? Not Detected? indicates that the viral RNA target is not present above the limit of detect ion, but does not preclude SARS-CoV-2 infection. False negative results may oc cur if a specimen is improperly collected, transported or handled; if am plification inhibitors are present; or if inadequate numbers of viral particles are present in the specimen. When a diagnostic test is negative, the possibi lity of a false negative result should be considered in the context of a patien t? s recent exposures and the presence of clinical signs and symptoms consisten t with COVID-19. A result of ? Detected? indicates that RNA from SARS-CoV-2 was d etected and the patient is infected. As required or requested by public health a uthorities, positive specimens may be sent for additional testing. Positive an d negative predictive values for this test are highly dependent on disease pre valence. A result of ? Invalid? indicates that neither the viral RNA tar gets nor the internal control target was detected. An invalid result suggests the presence of inhibitors. Recollection and re-testing is recommend ed in the case of an invalid result. CDC COVID-19 criteria for testing on hum an specimens and clinical management guidance information are available at th e CDC Coronavirus Disease 2019 (COVID-19) webpage under ? Information for Healthcare Professionals? (https://www.cdc.gov/coronavirus/2019-nc ov/hcp/index.html) Additional information about this and ot her EUA tests can be found in provider and patient fact sheets at the following FDA website: https://www.fda.gov/medical-devices/tgvsgwougbu-earsbhm-1459-rmexz-06-fuunhvkqm- lbn-mdrzgkzmyquwdi-crpzwut-devices/hnxty-mvipibuvryt-homo SARS-Cov-2 RNA Source ASSISTANT PROFESSOR OF ARCHAEOLOGY Swab [facility] Specimen (Source) Anatomical Collection Method Collection Time Re ceived Time Location / / Volume Laterality Nasopharyngeal swab Other / Unknown 03/23/2020 1:36 (specimen) PM EDT 1:36 PM EDT Comment: Symptoms->Asymptomatic Resulting Agency Comment Spec In Lab Eddie Ortiz MD MICROBIOLOGY - GENERAL ORDER RADHA Performing Organization Address City/State/[place] [address] documented in this encounter Visit Diagnoses Diagnosis COVID-19 ruled out documented in this encounter Care Teams Leaf Blender Relationship Specialty Start Date End Date Florina Thomas PA PCP - General Family Medicine 02/03/[address] [place] [id number] documented as of this encounter
--- OUTSIDE RECORDS SUMMARY | 2022-02-05 03:44 | XMS_ITS | Encounter Summary ---
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 Ortiz) [facility] [place] [id number] [phone] Social History Tobacco Use Types Packs/Day Years Used Date Never Smoker Smokeless Tobacco: Never Used Alcohol Use Standard Drinks/Week Comments Yes 3 (1 standard drink = 0.6 oz pure alcoho l) Sex Assigned at Date Recorded Not on file documented as of this encounter Last Filed Vital Signs Vital Sign Reading Time Taken Comments Blood Pressure 108/66 03/29/2020 11:49 AM EDT Pulse 73 03/29/2020 11:49 AM EDT Temperature 36.8 ??C (98.2 ??F) 03/29/2020 11:49 AM EDT Respiratory Rate 17 03/29/2020 11:49 AM EDT Oxygen Saturation 98% 03/29/2020 11:49 AM EDT Inhaled Oxygen Concentration - - Weight 74.8 kg (165 lb) 03/26/2020 9:46 AM EDT Height 170.2 cm (5' 7) 03/26/2020 9:46 AM EDT Body Mass Index 25.84 03/26/2020 9:46 AM EDT documented in this encounter Discharge Summaries Diana Jerome P, [employer] - 03/26/2020 3:58 PM EDT Discharge Summary Patient Name: Yg Leal Patient Age: 59 y.o. Language: Hebrew Race: White Ethnicity: Not nor Admit date: 03/26/2020 Discharge date and time: 03/29/2020 Attending Physician: Eddie Ortiz MD Discharge Physician: Eddie Ortiz MD Follow-up Recommendations for Providers: 1. Has an appointment with his PCP for 03/31/2020 for a post-hospital check. See discharge instructions for additional details. Future Appointments Date Time Provider Department Center 04/22/2020 12:00 PM [facility] DX ROOM 1 Xray [facility] Rad 04/22/2020 1:00 PM Rudy, MIKE Dee [facility] ORTH 3D [facility] Inpatient Provider Contact Information: Eddie Ortiz MD Orthopedics: [phone] After hours and weekends, call [facility] [employer], , and have the Orthopedic resident paged. Discharge Diagnoses (Hospital Problems) and Secondary Diagnoses (Chronic Problems): Active Hospital Problems Diagnosis ??? 03/26/2020 S/P revision of right total knee (Dr. Ortiz) ??? Postoperative anemia due to acute blood loss ??? Postoperative stiffness of total knee replacement Resolved Hospital Problems No resolved problems to display. Active Non-Hospital Problems Diagnosis ??? Type 2 diabetes mellitus, without long-term current use of insulin ??? HLD (hyperlipidemia) ??? Anemia ??? Depression ??? ADHD (attention deficit hyperactivity disorder), combined type ??? Restless legs ??? HTN (hypertension) ??? Cervical radiculopathy ??? Chronic prescription opiate use ??? Presence of right artificial knee joint ??? Sprain of right knee Operations/Major Procedures: 03/26/2020 Surgeon(s) and Role: * Eddie Ortiz MD - Primary * Jose Cruz Foster MD - Fellow Procedure(s): RIGHT TOTAL KNEE REVISION ARTHROPLASTY, COMPLETE MODIFIER,GMK REVISION KNEE,MEDACTA Findings: Loose tibial and femoral component, no gross purulence, extensive synovitis. Femoral and tibial components removed. Revision TKA performed. ?? History of Presentation: Yg Leal is a 59 y.o. male who presents with??Right knee pain and physical exam indicative of aseptic loosening. ??After discussing treatment options the patient desired to proceed with surgery. A detailed conversation regarding the risks and benefits of knee REVISION arthroplasty was had withthe patient. The risks discussed included but were not limited to: bleeding (which may or may not require transfusion), infection, damage to nerves or blood vessels, deep venous thrombosis, pulmonary embolus, prosthetic failure, loosening, prosthetic fracture, femur patella or tibia fracture, persistent pain, need for future surgery, medical complications (including cardiac, respiratory and neurologic complications), anesthetic complications, and . ??Subsequent to this conversation, all of the patient???s questions were answered in great detail and informed consent was obtained for a??left??total knee arthroplasty revision. ??He??received preoperative medical clearance and was felt optimized for surgery. ??Today, the patient identified the Right knee as the correct operative side. ?? Hospital Course: The patient was admitted via Same Day Surgery for the above operation. DVT prophylaxis: ASA 81mg BIDfor 30 days . Patient began rehab on POD#1 w/ weight bearing as tolerated of right leg remembering to use protection at all times for balance and protection. The patient was voiding spontaneously without difficulty. The right knee silver Mepilex dressing to remain in place 7 days, was inspected on POD#3 and was dry and intact. Pain was well controlled with oral pain medications. The patient is on oxycodone 10 mg 4 times a day at baseline, followed by his PCP. Orthopaedics will prescribe his oxycodone for one week after surgery. He will then be referred back to his PCP for ongoing pain management. He has an appointment on 03/31/2020. Patient did have a bowel movement prior to discharge and was passing flatus and taking PO without difficulty . Prior to discharge, the patient's hemoglobin was 9.2 down from 12.9 on 02/19/2020 pre-op, indicating hemoglobin drop associated with anemia from a combination of acute blood loss from surgeryand hemodilution as expected. The patient was monitored with no intervention warranted.By POD#3 the patient was medically stable and was cleared for safe discharge to home. Of Note: In PACU the patient had a vaso-vagal episode with associated chest pain and c/o visual fuzziness. Resolution after a few minutes. He received a bolus. Troponin neg X 3. EKG showed SB with no changes. He was placed on telemetry. Hospital Medicine was consulted and suspected dehydration in setting of . He had an echo done on POD#3 and will f/u with his PCP on 03/31/2020. Hospital Medicine Note: 03/27/2020 Attestation signed by Clinton Payton DO at 03/28/2020 9:11 AM (Updated) Hospital Medicine Attending Attestation: Patient seen and examined independently. Available diagnostic testing reviewed. Management and plan for today reviewed with Dr. Pace. I agree with the findings and plans as documented in their note with any additions and/or corrections noted below. Suspected dehydration in setting of causing presyncope. Improved today. Troponins negative. TTE to better assess current . Unclear to me the indication for B-blockers as BP could be managed with other agents without chronotropic depression. Clinton Payton DO Pager [phone] 03/27/2020 4:53 PM Assessment: Mr. Leal is a 59 yo male who seeks routine medical care w/ PMH to include bipolar T2 (well controlled on Lamictal), ADHD (on Ritalin TID), NIDDMT2, GERD,??cardiac valvulopathy NOS in our system, HTNand DJD s/p R TKA 11/2016 requiring multiple revisions since who presented for planned R total knee re vision today and 3 hours post operatively had pre-syncopal event for which medicine has been asked to??further clarify and work-up. His story seems most consistent with a vagal episode vs orthostasis due to dehydration. The later isfurther supported by the fact that his symptoms resolved with positional changes and fluid administration. Furthermore his history of aortic stenosis puts him a higher risk for hypotension during a dehy drated state as he is likely to be pre-load dependent. The chest pressure during the episode is certainly concerning but 3 negative troponins are very reassuring against any ischemic event. I wonder ifthe chest pressure may have been GERD as the episode occurred immediately after the patient ate dinner and he was tipped into trendelenburg for his hypotension.?? Recommendations: - recommend TTE (inpatient or outpatient to evaluate degree of valvular pathology) - encourage good PO - obtain orthostatic vital signs Nereida Pace MD Internal Medicine - PGY3 Medicine Consults #[phone] X Recommendations discussed with primary treating team. Medicine Consult service will continue to follow. ?? Recommendations are above. Medicine Consult service will sign off. If clinical changes occur or new questions arise, page [phone]. Case discussed with Dr. Dr. Payton Vital Signs at Discharge: Weight: Wt Readings from Last 1 Encounters: 03/26/20 74.8 kg (165 lb) Height: Ht Readings from Last 1 Encounters: 03/26/20 170.2 cm (5' 7) HC: HC Readings from Last 1 Encounters: No data found for HC BMI: Body mass index is 25.84 kg/m??. Last value Range last 24 hrs Temperature Temp: 36.8 ??C (98.2 ??F) Temp: [36.8 ??C (98.2 ??F)-37 ??C (98.6 ??F)] Heart Rate Heart Rate: 73 Heart Rate: [69-73] Blood Pressure BP: 108/66 BP: (103-131)/(55-69) Respiratory Rate Resp: 17 Resp: [16-18] SpO2 SpO2: 98 % SpO2: [95 %-99 %] Functional and Cognitive Status: Patient mobilizing with a walker, cognitively intact at baseline mental status at time of discharge. Important Lab Data: Last 3 wbc, hgb, hct plt Recent Labs 03/29/20 0519 03/28/20 0502 03/27/20 0213 WBC 7.1 6.7 6.4 HGB 9.2* 9.4* 10.0* HCT 28.0* 29.0* 29.8* PLATELET 208 202 215 Last 3 Lytes Recent Labs 03/29/20 0519 03/28/20 0502 03/27/20 0213 NA 137 140 140 K 4.9 4.1 4.1 CL 100 106 105 CO2 28 28 25 BUN 12 14 15 CREATININE 0.84 0.89 0.90 Last 3 LFTs No results for input(s): AST, ALT, ALKPHOS, BILITOT, BILIDIR in the last 7068 hours. Last Ca, Mg, Phos Recent Labs 03/29/20 05 CALCIUM 9.4 Important Lab Data: Last 3 ProBNP, Trop, CK Recent Labs 03/27/20 0828 03/27/20 0213 03/26/20 1949 TROPONINT <0.01 <0.01 <0.01 Studies: Echocardiogram: 03/28/2020 SUMMARY: 1. The left ventricular chamber size is normal. There is normal global left ventricular systolic function. The quantitative left ventricular ejection fraction by biplane Watts's method is 58%. There are no left ventricular segmental wall motion abnormalities. 2. The aortic valve is not well visualized. The mean trans-valvular gradient across the aortic valve is 12 mmHg (sclerosis without significant stenosis). There is no evidence of aortic regurgitation. 3. There is trace mitral regurgitation present. 4. Other details as below. Xray Knee 1-2 Views Right (generic) Result Date: 03/26/2020 EXAMINATION: XR KNEE 1-2 VIEWS RIGHT (GENERIC) CLINICAL HISTORY: s/p revision R TKA. Need AP and lateral. Thanks! TECHNIQUE: 2 views knee COMPARISON: 08/16/2019 FINDINGS: Since the prior study the RIGHTtotal knee arthroplasty has been removed and replaced with one with long stemmed tibial and femoral components and interlocking bar. This is in appropriate position and alignment with no evidence of immediate periprocedural complication. Expected postoperative changes within the soft tissues. No largeeffusion Expected postoperative appearance Thank you for letting us participate in the care of this patient. For questions regarding this report, please contact the number below. Pending Studies and Lab Data at Discharge: None Transfusions: No Discharge Conditions/Prognosis: Stable, awake, and alert. Mobilizing as noted above, pain controlledon oral medications. Discharge to: Home with VNA. Updated Allergies/ADRs: No Known Allergies Immunizations Given this Hospitalization: There is no immunization history on file for this patient. Discharge Medications: Your Medications New Medications Dose Details acetaminophen 500 mg Tab Commonly known as: Tylenol Take 2 tablets by mouth every 8 hours. Continue the Tylenol around the clock for 10 days after surgery, (04/05/2020). Then may take if needed per package insert. Do not take more than 3,000 mg of Tylenol in 24 hours. 1,000 mg Refills: 0 aspirin EC 81 mg Tbec Take 1 tablet by mouth 2 times daily. Take with food for 30 days after surgery. Last day = 04/25/2020. 81 mg Quantity: 60 tablet Refills: 0 naproxen 500 mg Tab Commonly known as: NAPROSYN Take 1 tablet by mouth 2 times daily (with meals). Take with food for up to 6 weeks after surgery. 500 mg Quantity: 84 tablet Refills: 0 polyethylene glycoL 17 gram Pwpk Commonly known as: Miralax Take 17 g by mouth 2 times daily. 17 g Refills: 0 senna-docusate 8.6-50 mg Tab Commonly known as: Pericolace Take 2 tablets by mouth 2 times daily. 2 tablet Refills: 0 Continued medications with new dosing Dose Details oxyCODONE 15 mg Tab Commonly known as: ROXICODONE Take 1 tablet by mouth every 4 hours as needed for Pain (acute post-op surgical pain). What changed: ?? medication strength ?? how much to take ?? when to take this ?? reasons to take this 15 mg Quantity: 45 tablet Refills: 0 Continued medications, unchanged Dose Details atorvastatin 10 mg Tab Commonly known as: Lipitor take 1 tablet by mouth once daily Refills: 0 enalapriL 20 mg Tab Commonly known as: VASOTEC take 1 tablet by mouth once daily Refills: 0 gabapentin 300 mg Cap Commonly known as: Neurontin TAKE 1 TO 3 CAPSULES BY MOUTH AT BEDTIME NEEDED Refills: 0 lamoTRIgine 200 mg Tab Commonly known as: LaMICtal Take 200 mg by mouth daily. 200 mg Refills: 0 methylphenidate 20 mg Tab Commonly known as: RITALIN take 1 tablet by mouth three times a day Refills: 0 metoprolol succinate XL 50 mg Tablet sr Commonly known as: Toprol-XL take 1 tablet by mouth once daily Refills: 0 pantoprazole EC 40 mg Tbec Commonly known as: Protonix Take 40 mg by mouth Daily. 40 mg Refills: 0 STOPPED Medications ibuprofen 600 mg Tab Commonly known as: Advil;Motrin Smoking Status at Discharge: Social History Tobacco Use Smoking Status Never Smoker Smokeless Tobacco Never Used Instructions Given to Patient at Discharge: Patient Instructions Activity: 1. Your weight-bearing status is - weight bearing as tolerated of right leg. 2. Remember to use a walker or crutches at all times for balance and protection. Your physical therapist may progress you to using a cane when appropriate. 3. Flexion AND extension are important to work on at home. You should NOT place a pillow under your operative knee. To help with extension you can place a pillow under your heel or lower leg or placed lengthwise along the operative leg. Again DO NOT place a pillow under the operated knee for comfort. Anticoagulation: Aspirin - You are being discharged on enteric-coated Aspirin 81 mg by mouth twice aday. Continue this for 30 days after surgery. After your dose on 04/25/2020 stop the Aspirin, unlessyou are told otherwise by your Orthopedic surgeon. Take this medication with food or large amounts (240 mL) of water or milk to minimize GI irritation. Diet: Resume your usual carb control diet but increase your intake of fluids and fiber while you areon narcotic pain meds to prevent constipation. Driving: None until you are cleared to do so by your Orthopedic surgeon. You should not drive while you are on narcotic pain meds as they can affect your judgment and reaction time. Call your surgeon with any questions/concerns. Medications: 1. The pain medication you are on can cause constipation so increase your intake of fluids and fiberwhile you are on them. The stool softener, Pericolace, that has been prescribed can also be taken tofacilitate a bowel movement. You can also take an oxub-rak-oqskwrh medication, Miralax if needed to combat constipation. 2. If you need a renewal on your narcotic pain medication, you need to give the Orthopedic clinic enough time to process your request. This can take up to three days, so plan accordingly. 3. Continue acetaminophen (Tylenol) 1,000mg every 8 hours around the clock until 04/05/2020 (for ten days after your surgery). This can be effective in controlling pain along with your other medications. After that you can take Tylenol as needed per package insert. Do not take more than 3,000mg of aceta minophen in a 24 hour period. 4. You have been discharged on a short acting narcotic, oxycodone. You will be on this medication for a limited period of time only. Take only enough pain medication to control your pain. As your pain lessens, taper down and off this medication as tolerated. Orthopaedics will prescribe narcotics/oxycodone for the first week. You will then need to follow-up with your Primary Care Provider, Jarad Thomas, for ongoing pain management. 5. You are being discharged on prescription strength naproxen (Aleve). This medication is a type of nonsteroidal anti-inflammatory (NSAID). This will help with your pain and inflammation. Take this twice a day for the next 6 weeks. Your last dose will be on 05/07/2020. If you no longer are requiring the narcotic pain medication you may change the way you take the prescribed naproxen and instead take twice a day as needed. 6. You are being discharged on your usual proton pump inhibitor (Protonix). This will decrease stomach irritation that may be caused by NSAIDs-naproxen. Take this daily for the next 6 weeks while you are taking naproxen. 7. You are being discharged on your usual prescription gabapentin (Neurontin), a non-narcotic medication that will help with your pain at night and allow you to sleep better. 8. Prior to taking your lisinopril and metoprolol, take your blood pressure. If your blood pressure systolic (top number) is less than 105, do not take your medication. If you need to hold your medication because your blood pressure is too low for 2 days in a row, contact your Primary Care Provider for further evaluation and management. Shower (ellis/sutures): 1. You can shower but remember your activity limitations and always have a chair available for balance and protection. DO NOT submerge the dressing/incision. 2. (Mepilex) Do not let water run over the operative dressing. If it becomes wet lightly pat the dressing dry. DO NOT submerge the incision. 3. You have ellis/sutures. Always cover them with a waterproof dressing or plastic bag when showering until they are removed. 4. After ellis/sutures are removed you can let water run gently over the incision. Wound (Mepilex): 1. Staple/suture removal 2 weeks after surgery (approximately 04/09/2020). This can be done by the VNA. 2. Do not lift the edge of the Mepilex dressing to inspect the incision, it will not re-adhere. Remove your operative dressing 7 days from your surgery (04/02/2020). When it is removed you can leave theincision open to air or cover it with a light dressing. 3. If you have lots of drainage when you get home (and it is before 04/02/2020), remove this operative dressing and replace it with dry sterile gauze. Continue with daily dressing changes (and as needed) until the drainage stops, then remove the dressing and leave the incision open to air or lightly covered. Misc: Remember that ICE and elevation are very important after surgery to help decrease swelling andcontrol pain. Use ICE for 20-30 minutes at a time and keep your leg elevated as much as possible. Call your doctor ([phone]) if you develop: 1. Fever greater than 100.5 2. Severe nausea or vomiting 3. Increasing pain that is not controlled by pain medications 4. Increasing redness, swelling, or drainage from incisions 5. Change in sensation FOLLOW-UP APPOINTMENTS: 1. Because you had chest pain and were feeling light-headed after surgery, you will need to follow-up with your Primary Care Provider for an after hospital check. Keep your appointment as scheduled. 2. Orthopaedics will prescribe narcotics/oxycodone for the first week. You will then need to follow-up with your Primary Care Provider, Jarad Thomas, for ongoing pain management. 3. You will have follow-up appointments at [facility] as indicated below in Future Appointment and Orders. 4 You will need to have x-rays prior to your follow-up appointment on 04/22/2020. Please come to Radiology, desk 3T, 1 hour BEFORE that appointment for those x-rays. Future Appointments Date Time Provider Department Center 04/22/2020 12:00 PM [facility] DX ROOM 1 Xray [facility] Rad 04/22/2020 1:00 PM RudyJoanna PA [facility] ORTH 3D [facility] If you have questions or concerns: Sunday through Sunday, 8 AM - 5 PM, please call Dr. Eddie Ortiz MD's office at . If it is after 5 PM, the weekend, or holidays, please call and ask to speak with the Orthopedic resident on-call. General Instructions None Future Appointments and Orders Future Appointments and Orders Future Appointments Provider Department Dept Phone 04/22/2020 12:00 PM [facility] DX ROOM 1 XRay at [facility] Arrive at: Information Strategist Area 3T [phone] Please go to Information Strategist Area 3T ([place] Location). 04/22/2020 1:00 PM RudyJoanna PA Orthopaedics at [facility] Arrive at: Information Strategist Area 3D [phone] Future Orders Complete By Expires Referral to Home Health - at DISCHARGE [XFT4364 CPT(R)] As directed Process Instructions: Scheduling Instructions: Comments: DOCUMENTATION FOR VNA SERVICES (INCLUDING THOSE PATIENTS WITH MEDICARE COVERAGE REQUIRING HOME VNA SERVICES AND/OR HOSPICE SERVICES) PATIENT'S LOCATION: Yg Leal [address] [facility] [phone] (home) Cell: Telephone Information: Mail Weigher's Name: Self In discussion with the attending physician, it is certified that this patient is under their care and that they, or a Nurse Practitioner,Clinical Nurse specialist or Physician Judicial Clerk who is working directly with them, had a face to face encounter that meets the physician face to face encounter requirements with this patient on 03/29/20. The encounter with the patient was in whole, or in part, for the following medical condition, which is the primary reason for home health care services: Right total knee arthroplasty revision 03/26/2020. In discussion with the provider, it is certified that, based on their findings, the following services are medically necessary for home health services. To provide the following care/treatments with the clinical findings supporting the need for servicesas follows: HOME CARE ORDERS: VNA please remove ellis 14 days after surgery ~04/09/2020 PT ORDERS: Continue rehab for endurance, gait stability and strength with mobility and transfers. Home safety evaluation. Home exercise program if appropriate. OT: assess and continue rehab for managing ADL's. HOME HEALTH CARE AGENCY: [facility] PHONE: [phone] FAX: [phone] Start of care: 24-48 hours In discussion with the attending physician, it is certified that the clinical findings support that this patient is homebound because absences from home require considerable and taxing effort due to: Absence from home would require considerable and taxing effort due to mobility. Please note that any additional orders needs or changes will need to be obtained from this patient'sPCP: MIKE Vargas [address] [facility] [id number] All VNA agencies which cover the area of patient's residence have been reviewed, either verbally or in writing, and patient/family have chosen the home health care agency noted Questions: Agency name and contact information: [facility] Patient location post discharge: Home What services are requested: Physical Therapy Occupational Therapy Start date: 03/30/2020 Responsible MD post discharge contact info: PCP Primary Care Provider: MIKE Vargas [phone] Discharge References/Attachments None documented in this encounter Discharge Instructions Patient InstructionsSaDiana cota, [employer] - 03/26/2020 3:59 PM EDT Activity: 1. Your weight-bearing status is - weight bearing as tolerated of right leg. 2. Remember to use a walker or crutches at all times for balance and protection. Your physical therapist may progress you to using a cane when appropriate. 3. Flexion AND extension are important to work on at home. You should NOT place a pillow under your operative knee. To help with extension you can place a pillow under your heel or lower leg or placed lengthwise along the operative leg. Again DO NOT place a pillow under the operated knee for comfort. Anticoagulation: Aspirin - You are being discharged on enteric-coated Aspirin 81 mg by mouth twice aday. Continue this for 30 days after surgery. After your dose on 04/25/2020 stop the Aspirin, unlessyou are told otherwise by your Orthopedic surgeon. Take this medication with food or large amounts (240 mL) of water or milk to minimize GI irritation. Diet: Resume your usual carb control diet but increase your intake of fluids and fiber while you areon narcotic pain meds to prevent constipation. Driving: None until you are cleared to do so by your Orthopedic surgeon. You should not drive while you are on narcotic pain meds as they can affect your judgment and reaction time. Call your surgeon with any questions/concerns. Medications: 1. The pain medication you are on can cause constipation so increase your intake of fluids and fiberwhile you are on them. The stool softener, Pericolace, that has been prescribed can also be taken tofacilitate a bowel movement. You can also take an tnwa-zai-lmnmopr medication, Miralax if needed to combat constipation. 2. If you need a renewal on your narcotic pain medication, you need to give the Orthopedic clinic enough time to process your request. This can take up to three days, so plan accordingly. 3. Continue acetaminophen (Tylenol) 1,000mg every 8 hours around the clock until 04/05/2020 (for ten days after your surgery). This can be effective in controlling pain along with your other medications. After that you can take Tylenol as needed per package insert. Do not take more than 3,000mg of aceta minophen in a 24 hour period. 4. You have been discharged on a short acting narcotic, oxycodone. You will be on this medication for a limited period of time only. Take only enough pain medication to control your pain. As your pain lessens, taper down and off this medication as tolerated. Orthopaedics will prescribe narcotics/oxycodone for the first week. You will then need to follow-up with your Primary Care Provider, Jarad Thomas, for ongoing pain management. 5. You are being discharged on prescription strength naproxen (Aleve). This medication is a type of nonsteroidal anti-inflammatory (NSAID). This will help with your pain and inflammation. Take this twice a day for the next 6 weeks. Your last dose will be on 05/07/2020. If you no longer are requiring the narcotic pain medication you may change the way you take the prescribed naproxen and instead take twice a day as needed. 6. You are being discharged on your usual proton pump inhibitor (Protonix). This will decrease stomach irritation that may be caused by NSAIDs-naproxen. Take this daily for the next 6 weeks while you are taking naproxen. 7. You are being discharged on your usual prescription gabapentin (Neurontin), a non-narcotic medication that will help with your pain at night and allow you to sleep better. 8. Prior to taking your lisinopril and metoprolol, take your blood pressure. If your blood pressure systolic (top number) is less than 105, do not take your medication. If you need to hold your medication because your blood pressure is too low for 2 days in a row, contact your Primary Care Provider for further evaluation and management. Shower (ellis/sutures): 1. You can shower but remember your activity limitations and always have a chair available for balance and protection. DO NOT submerge the dressing/incision. 2. (Mepilex) Do not let water run over the operative dressing. If it becomes wet lightly pat the dressing dry. DO NOT submerge the incision. 3. You have ellis/sutures. Always cover them with a waterproof dressing or plastic bag when showering until they are removed. 4. After ellis/sutures are removed you can let water run gently over the incision. Wound (Mepilex): 1. Staple/suture removal 2 weeks after surgery (approximately 04/09/2020). This can be done by the [facility]. 2. Do not lift the edge of the Mepilex dressing to inspect the incision, it will not re-adhere. Remove your operative dressing 7 days from your surgery (04/02/2020). When it is removed you can leave theincision open to air or cover it with a light dressing. 3. If you have lots of drainage when you get home (and it is before 04/02/2020), remove this operative dressing and replace it with dry sterile gauze. Continue with daily dressing changes (and as needed) until the drainage stops, then remove the dressing and leave the incision open to air or lightly covered. Misc: Remember that ICE and elevation are very important after surgery to help decrease swelling andcontrol pain. Use ICE for 20-30 minutes at a time and keep your leg elevated as much as possible. Call your doctor ([phone]) if you develop: 1. Fever greater than 100.5 2. Severe nausea or vomiting 3. Increasing pain that is not controlled by pain medications 4. Increasing redness, swelling, or drainage from incisions 5. Change in sensation FOLLOW-UP APPOINTMENTS: 1. Because you had chest pain and were feeling light-headed after surgery, you will need to follow-up with your Primary Care Provider for an after hospital check. Keep your appointment as scheduled. 2. Orthopaedics will prescribe narcotics/oxycodone for the first week. You will then need to follow-up with your Primary Care Provider, Jarad Thomas, for ongoing pain management. 3. You will have follow-up appointments at [facility] as indicated below in Future Appointment and Orders. 4 You will need to have x-rays prior to your follow-up appointment on 04/22/2020. Please come to Radiology, desk , 1 hour BEFORE that appointment for those x-rays. Future Appointments Date Time Provider Department Center 04/22/2020 12:00 PM [facility] DX ROOM 1 Xray [facility] Rad 04/22/2020 1:00 PM Rudy, MIKE Dee [facility] ORTH [address] [place] [address] If you have questions or concerns: Sunday through Sunday, 8 AM - 5 PM, please call Dr. Eddie Ortiz MD's office at . If it is after 5 PM, the weekend, or holidays, please call and ask to speak with the Orthopedic resident on-call. documented in this encounter Medications at Time of Discharge [...] 0 mg Tablet, Delayed Release Daily. (E.C.) oxyCODONE (ROXICODONE) 15 Take 1 tablet by [...] BEDTIME NEEDED documented as of this encounter Progress Notes Diana Johnson RN - 03/29/2020 2:41 PM EDT Patient assessed at start of shift, assessment WNL. Pt R knee drsg - no change. Pain controlled withscheduled Tylenol and Oxycodone 15mg - last admin at 1340. Pt ambulating with crutches, independently to BR and SBA in hallway. Pt with adequate UOP, +BM overnight and has good appetite and PO intake. AVS/Summary reviewed, questions answered, pt stated understanding. PIV removed by LAURA Ellison. [facility]faxed to [facility], pt d/c Home with services. Pt escorted via w/c by [facility] to meet personal transportation, pt stated he had all personal belongings. Report called [phone]. Gianni Hermosillo - 03/29/2020 10:35 AM EDT Regional Anesthesia Progress Note Patient is 59 y.o. male s/p TKA revision who received AC block. Block has worn off appropriately, normal motor and sensory function. Pain adequately controlled. Regional team will sign off. Gianni Hermosillo MD 03/29/20 Jose Cruz Foster MD - 03/29/2020 7:23 AM EDT ORTHOPAEDIC SURGERY INPATIENT PROGRESS NOTE Patient Name: Yg Leal Age: 59 y.o. Surgery/Issue: Right Total Knee Arthroplasty, revision Attending: Eddie Ortiz MD Date of surgery: 03/26/2020 SUBJECTIVE / INTERVAL HISTORY: No acute events overnight. AFVSS this AM. Pain well controlled with current regimen. No numbness or tingling in RLE this AM. Has been working with PT, reports this has been going well. Does report a sensation of clunking in the knee with some movements. No other acute concerns or complaints. FOCUSED REVIEW OF SYSTEMS: as above. Active Hospital Problems Diagnosis ??? Postoperative stiffness of total knee replacement Resolved Hospital Problems No resolved problems to display. Active Non-Hospital Problems Diagnosis ??? Type 2 diabetes mellitus, without long-term current use of insulin ??? HLD (hyperlipidemia) ??? Anemia ??? Depression ??? ADHD (attention deficit hyperactivity disorder), combined type ??? Restless legs ??? HTN (hypertension) ??? Cervical radiculopathy ??? Chronic prescription opiate use ??? Presence of right artificial knee joint ??? Sprain of right knee MEDICATIONS: ??? BUpivacaine (PF) (MARCAINE) 0.25 % (2.5 mg/mL) injection ??? atorvastatin (Lipitor) tablet 10 mg ??? enalapriL (Vasotec) tablet 20 mg ??? lamoTRIgine (LaMICtal) tablet 200 mg ??? methylphenidate (Ritalin) tablet 20 mg ??? metoprolol succinate XL (Toprol-XL) tablet 50 mg ??? pantoprazole EC (Protonix) tablet 40 mg ??? sodium chloride 0.9 % (flush) flush 5 mL ??? sodium chloride 0.9 % (flush) flush 5-20 mL ??? lidocaine (XYLOCAINE) 10 mg/mL (1 %) injection 3 mg ??? polyethylene glycoL (Miralax) packet 17 g ??? senna-docusate (Pericolace) 8.6-50 mg per tablet 2 tablet ??? lactulose (Chronulac) (0.67 gram/mL) oral liquid 10 g ??? bisacodyl EC (Dulcolax) tablet 10 mg ??? bisacodyL (Dulcolax) suppository 10 mg ??? acetaminophen (Tylenol) tablet 1,000 mg ??? [COMPLETED] gabapentin (Neurontin) capsule 600 mg FOLLOWED BY gabapentin (Neurontin) [id number] mg ??? celecoxib (CeleBREX) capsule 200 mg ??? ondansetron (Zofran) tablet 4 mg OR ondansetron (ZOFRAN) injection 4 mg ??? aspirin EC tablet 81 mg ??? oxyCODONE (Roxicodone) tablet 15 mg OBJECTIVE: Temp: [36.9 ??C (98.4 ??F)-37 ??C (98.6 ??F)] Heart Rate: [72] Resp: [16-18] BP: (95-131)/(55-67) Intake/Output Summary (Last 24 hours) at 03/29/2020 0723 Last data filed at 03/29/2020 0300 Gross per 24 hour Intake 1090 ml Output 875 ml Net 215 ml Body mass index is 25.84 kg/m??. Exam: General: NAD, awake/alert CV: regular rate assessed peripherally Resp: Breathing comfortably on RA RLE: Mepilex with mild SS staining at inferior aspect but no further saturation. R leg moderately edematous Motor intact to EHL, FHL, TA. Sensation intact in foot/calf. Diminished in saph distribution. Brisk capillary refill distally. Lab Results Component Value Date NA 137 03/29/2020 K 4.9 03/29/2020 CL 100 03/29/2020 CO2 28 03/29/2020 BUN 12 03/29/2020 CREATININE 0.84 03/29/2020 GLUCOSE 166 03/29/2020 CALCIUM 9.4 03/29/2020 Lab Results Component Value Date WBC 7.1 03/29/2020 HGB 9.2 (L) 03/29/2020 HCT 28.0 (L) 03/29/2020 MCV 87.5 03/29/2020 PLATELET 208 03/29/2020 Lab Results Component Value Date INR 1.0 02/19/2020 Radiology: No interval ortho imaging ASSESSMENT / PLAN: Yg Leal is a 59 y.o. male 3 Days Post-Op s/p R TKA revision. Progressingwell with stable vitals this am. Pre-syncopal episode in PACU. Work up for cardiac event negative sofar. Appreciate medicine recs. TTE ordered, to be completed here vs outpatient. Continue to work with PT/OT. Hgb this AM 9.2 which likely represents a combination of acute surgical blood loss anemia and hemodilution - patient asymptomatic, will continue to monitor. Activity: WBAT Closure: Ellis (remove 14-21days) Dressing: Mepilex Ag x 7 days Anticoagulation: ASA 81 mg BID for 30 days Antibiotics: Periop ancef Consults: PT/OT Dispo: Home vs rehab per PT Follow-up: as scheduled Jose Cruz Foster MD 03/29/2020 Future Appointments Date Time Provider Department Center 04/22/2020 12:00 PM [facility] DX ROOM 1 MH Xray [facility] Rad 04/22/2020 1:00 PM Rudy, MIKE Dee [facility] ORTH 3D [facility] Nereida Pace MD - 03/28/2020 9:31 AM EDT Medicine Consults Progress Note Consult Team/Pager: ID: Mr. Leal is a 59 yo male who seeks routine medical care w/ PMH to include bipolar T2 (well controlled on Lamictal), ADHD (on Ritalin TID), NIDDMT2, GERD, cardiac valvulopathy NOS in our system, HTN and DJD s/p R TKA 11/2016 requiring multiple revisions since who presented for planned R total knee revision today and 3 hours post operatively had pre-syncopal event for which medicine has been asked tofurther clarify and work-up. 24 Hour Events/Subjective: - troponins negative x3 - no repeat pre-syncopal/syncopal events - orthostatic vital signs negative Lying - BP - 122/63, HR - 78, RR- 18, O2 sat 97% room air Sitting - BP - 129/69; HR - 75, RR- 18, O2sat 95% room air Standing - BP - 113/69, HR - 91, RR- 18, O2 sat 95% room air Vitals: Patient Vitals for the past 24 hrs: Temp Heart Rate From SP02 Pulse Resp BP SpO2 O2 Device 03/27/20 1203 36.9 ??C (98.4 ??F) 80 bpm 81 20 100/54 96 % RA 03/27/20 1512 36.9 ??C (98.4 ??F) 72 bpm -- 20 108/49 97 % RA 03/27/20 1725 -- 78 bpm -- 18 122/63 97 % RA 03/27/20 1729 -- 75 bpm -- 18 129/69 95 % RA 03/27/20 1732 -- 91 bpm -- 18 113/69 95 % -- 03/27/202015 37.1 ??C (98.8 ??F) -- -- 17 131/73 -- RA 03/27/20 2143 -- 77 bpm -- -- -- 97 % -- 03/27/209 37.1 ??C (98.8 ??F) 75 bpm -- 16 139/69 -- RA 03/28/20 0436 36.6 ??C (97.9 ??F) 63 bpm -- 17 140/70 98 % RA 03/28/20 0722 36.5 ??C (97.7 ??F) 78 bpm 78 18 116/72 95 % RA Ins/Outs: Intake/Output Summary (Last 24 hours) at 03/28/2020 0931 Last data filed at 03/28/2020 0727 Gross per 24 hour Intake 2986 ml Output 3350 ml Net -364 ml Weights: Admit weight: 74.84 kg Patient Vitals for the past 168 hrs: Weight 03/26/20 0946 74.8 kg (165 lb) Physical Exam: General: Pleasant, alert, appropriate, in NAD. HEENT: EOMI, nonicteric. Oropharynx clear w/o erythema, plaques or exudates or other lesions. No thrush; MMMs Neck: No LAD. JVD ~ not visualized Cardiac: Normal S1 and S2, Regular rate and rhythm; late paking 3/6 holosystolic murmor heard at LUSB that radiated to carotids. Respiratory: Nonlabored. Clear to auscultation bilaterally; No wheezes or crackles Abd: + BS; soft, non-tender, non-distended, no masses, no HSM Ext: No edema, cyanosis, clubbing, Radial and distal pedal pulses 2+ bilaterally Neuro: II-XII grossly intact. Alert and orientated, no-focal deficits, sensation intact to crude touch, motor strength 5/5 throughout Skin: No rashs, no lesions, no petechiae Labs: Recent Labs 03/28/20 0502 03/27/2021203/26/201948 WBC 6.7 6.4 11.7* HGB 9.4* 10.0* 11.2* HCT 29.0* 29.8* 34.0* PLATELET 202 215 273 Recent Labs 03/28/20 0502 03/27/2021203/26/201948 NA 140 140 142 K 4.1 4.1 4.1 CL 106 105 107 CO2 28 25 26 BUN 14 15 12 CREATININE 0.89 0.90 1.03 No results for input(s): AST, ALT, ALKPHOS, BILITOT, BILIDIR in the last 168 hours. Recent Labs 03/28/20 0502 03/27/2021203/26/201948 CALCIUM 8.7 8.6 8.9 No results for input(s): INR, PT, PTT in the last 168 hours. Recent Labs 03/27/20 0828 03/27/20 0213 03/26/20 1949 TROPONINT <0.01 <0.01 <0.01 Recent Labs 03/26/20 1632 POCGLU 94 Microbiology: Microbiology Results (Last 30 days) Procedure Component Value Units Date/Time Prosthetic Joint Culture, Extended Hold Joint Fluid; Knee, Right [[id number]] Collected: 03/26/20 1245 Lab Status: Preliminary result Specimen: Joint Fluid from Knee, Right Updated: 03/27/20 1438 Joint Culture [[id number]] Collected: 03/26/20 124 Lab Status: Preliminary result Specimen: Joint Fluid from Knee, Right Updated: 03/27/20 0735 Joint Culture -- No growth to date. Incubation time extended to 14 days. Gram Stain -- Cytocentrifuge Gram Stain performed No Neutrophils seen. No microorganisms seen. Anaerobic Culture [[id number]] Collected: 03/26/20 124 Lab Status: Preliminary result Specimen: Joint Fluid from Knee, Right Updated: 03/27/20 1438 Anaerobic Culture No anaerobic organisms isolated to date COVID-19 PCR [[id number]] Collected: 03/23/20 1336 Lab Status: Final result Specimen: Nasopharyngeal Swab Updated: 03/24/20 1708 SARS-CoV-2 RNA Not Detected Comment: This result should be interpreted in combination with the clinical observations, patient history and epidemiological information in making a final diagnosis. For testing of asymptomatic individuals, assay performance characteristics and clinical utility have not been evaluated. Testing for SARS-CoV-2 (Severe acute respiratory syndrome coronavirus 2, formerly known as 2019 novel coronavirus or 2019-nCoV) to aid in the diagnosis of COVID-19 is performed using the [employer] RealTime SARS-CoV-2 Assay as authorized by the FDA Emergency Use Authorization (EUA). This EUA assay is intended for In-vitro Diagnostic (IVD) use with respiratory specimens such as nasopharyngeal swabs collected from individuals during the acute phase of infection. This assay is performed based on the instructions for use provided by [employer] and additional guidance provided by CDC and FDA. Testing is performed in the [facility] within the Department of Pathology and Laboratory Medicine at [facility], certified under the Clinical Laboratory Improvement Amendments of 1988 (CLIA), 42 U.S.C. 263a, to perform high complexity tests. Assay performance has been verified according to clinical laboratory regulatory requirements for use with specimens collected from individuals suspected of COVID-19. Test results are provided above. A result of ???Not Detected?? indicates that the viral RNA target is not present above the limit of detection, but does not preclude SARS-CoV-2 infection. False negative results may occur if a specimen is improperly collected, transported or handled; if amplification inhibitors are present; or if inadequate numbers of viral particles are present in the specimen. When a diagnostic test is negative, the possibility of a false negative result should be considered in the context of a patient???s recent exposures and the presence of clinical signs and symptoms consistent with COVID-19. A result of ???Detected?? indicates that RNA from SARS-CoV-2 was detected and the patient is infected. As required or requested by public health authorities, positive specimens may be sent for additional testing. Positive and negative predictive values for this test are highly dependent on disease prevalence. A result of ???Invalid?? indicates that neither the viral RNA targets nor the internal control target was detected. An invalid result suggests the presence of inhibitors. Recollection and re-testing is recommended in the case of an invalid result. CDC COVID-19 criteria for testing on human specimens and clinical management guidance information are available at the CDC Coronavirus Disease 2019 (COVID-19) webpage under ???Information for Healthcare Professionals?? (https://www.cdc.gov/coronavirus/2019-ncov/hcp/index.html) Additional information about this and other EUA tests can be found in provider and patient fact sheets at the following FDA website: https://www.fda.gov/medical-devices/fvmiwhhxjan-psaziqb-5902-viqre-88-pcnsgvplj- dns-lmtdyoizhhkcjl-ifbvjmv-devices/jnrph-ztantvjolpl-nilg SARS-Cov-2 RNA Source [employer] Swab Diagnostic Studies: EKG Sinus bradycardia Inpatient Medications: Scheduled Meds: ??? atorvastatin 10 mg Oral QPM ??? enalapriL 20 mg Oral Daily ??? lamoTRIgine 200 mg Oral Daily ??? methylphenidate 20 mg Oral TID WC ??? metoprolol succinate XL 50 mg Oral Daily ??? pantoprazole EC 40 mg Oral Daily ??? sodium chloride 0.9 % (flush) 5 mL Intravenous BID ??? polyethylene glycoL 17 g Oral BID ??? senna-docusate 2 tablet Oral BID ??? acetaminophen 1,000 mg Oral Q8H GEORGE ??? gabapentin 300 mg Oral Nightly ??? celecoxib 200 mg Oral BID ??? aspirin EC 81 mg Oral BID Continuous Infusions: PRN Meds: BUpivacaine (PF), sodium chloride 0.9 % (flush), lidocaine, lactulose, bisacodyl EC, bisacodyL, ketorolac, ondansetron OR ondansetron, oxyCODONE Assessment: Mr. Leal is a 59 yo male who seeks routine medical care w/ PMH to include bipolar T2 (well controlled on Lamictal), ADHD (on Ritalin TID), NIDDMT2, GERD, cardiac valvulopathy NOS in our system, HTN and DJD s/p R TKA 11/2016 requiring multiple revisions since who presented for planned R total knee revision today and 3 hours post operatively had pre-syncopal event for which medicine has been asked tofurther clarify and work-up. His story seems most consistent with a vagal episode vs orthostasis due to dehydration. The later isfurther supported by the fact that his symptoms resolved with positional changes and fluid administration. Furthermore his history of aortic stenosis puts him a higher risk for hypotension during a dehy drated state as he is likely to be pre-load dependent. The chest pressure during the episode is certainly concerning but 3 negative troponins are very reassuring against any ischemic event. I wonder ifthe chest pressure may have been GERD as the episode occurred immediately after the patient ate dinner and he was tipped into trendelenburg for his hypotension. He has been eating and drinking well, has not had any recurrence of lightheadedness/dizziness. Her has been working with PT and his orthostatic vital signs are negative. He should have an echo to follow-up on his aortic stenosis, this can be done inpatient if he will still be in the hospital on or outpatient if he is discharged before then. Recommendations: - recommend TTE (inpatient or outpatient to evaluate degree of valvular pathology) - continue good PO intake and appropriate hydration Nereida Pace MD Internal Medicine - PGY3 Medicine Consults #[id number] Recommendations discussed with primary treating team. Medicine Consult service will continue to follow. X Recommendations are above. Medicine Consult service will sign off. If clinical changes occur or new questions arise, page [phone]. Case discussed with Dr. Dr. Payton Associated attestation - Clinton Payton DO - 03/28/2020 2:04 PM EDT Hospital Medicine Attending Attestation: Patient seen and examined independently. Available diagnostic testing reviewed. Management and plan for today reviewed with Dr. Pace. I agree with the findings and plans as documented in their note with any additions and/or corrections noted below. Doing well overall and pushing himself too hard after surgery. Needs to be more careful with recently placed hardware as overexerting himself so soon after surgery. No further presyncope symptoms and orthostatics now negative. Will sign off today. Please do not hesitate to call if further or new questions arise. Thank you. Clinton Payton DO Pager [phone] 03/28/2020 2:02 PM Lopez Rainey MD - 03/28/2020 6:39 AM EDT ORTHOPAEDIC SURGERY INPATIENT PROGRESS NOTE Patient Name: Yg Leal Age: 59 y.o. Surgery/Issue: Right Total Knee Arthroplasty, revision Attending: Eddie Ortiz MD Date of surgery: 03/26/2020 SUBJECTIVE / INTERVAL HISTORY: Presyncopal episode in PACU worked up by anesthesia/medicine - appreciate recs. Low likelihood of ischemia given negative trops x 3. Will plan TTE to further eval his . Doing well this am. Was able to work with PT yesterday, but will require additional session to clear stairs today. No f/c/cp/sob. No dizziness. AVSS o/n. FOCUSED REVIEW OF SYSTEMS: as above. Active Hospital Problems Diagnosis ??? Postoperative stiffness of total knee replacement Resolved Hospital Problems No resolved problems to display. Active Non-Hospital Problems Diagnosis ??? Type 2 diabetes mellitus, without long-term current use of insulin ??? HLD (hyperlipidemia) ??? Anemia ??? Depression ??? ADHD (attention deficit hyperactivity disorder), combined type ??? Restless legs ??? HTN (hypertension) ??? Cervical radiculopathy ??? Chronic prescription opiate use ??? Presence of right artificial knee joint ??? Sprain of right knee MEDICATIONS: ??? BUpivacaine (PF) (MARCAINE) 0.25 % (2.5 mg/mL) injection ??? atorvastatin (Lipitor) tablet 10 mg ??? enalapriL (Vasotec) tablet 20 mg ??? lamoTRIgine (LaMICtal) tablet 200 mg ??? methylphenidate (Ritalin) tablet 20 mg ??? metoprolol succinate XL (Toprol-XL) tablet 50 mg ??? pantoprazole EC (Protonix) tablet 40 mg ??? sodium chloride 0.9 % (flush) flush 5 mL ??? sodium chloride 0.9 % (flush) flush 5-20 mL ??? lidocaine (XYLOCAINE) 10 mg/mL (1 %) injection 3 mg ??? polyethylene glycoL (Miralax) packet 17 g ??? senna-docusate (Pericolace) 8.6-50 mg per tablet 2 tablet ??? lactulose (Chronulac) (0.67 gram/mL) oral liquid 10 g ??? bisacodyl EC (Dulcolax) tablet 10 mg ??? bisacodyL (Dulcolax) suppository 10 mg ??? acetaminophen (Tylenol) tablet 1,000 mg ??? [COMPLETED] gabapentin (Neurontin) capsule 600 mg FOLLOWED BY gabapentin (Neurontin) mg ??? ketorolac (TORADOL) injection 15 mg ??? celecoxib (CeleBREX) capsule 200 mg ??? ondansetron (Zofran) tablet 4 mg OR ondansetron (ZOFRAN) injection 4 mg ??? aspirin EC tablet 81 mg ??? oxyCODONE (Roxicodone) tablet 15 mg OBJECTIVE: Temp: [36.6 ??C (97.9 ??F)-37.1 ??C (98.8 ??F)] Heart Rate: [67-81] Resp: [16-20] BP: (100-140)/(49-73) Intake/Output Summary (Last 24 hours) at 03/28/2020 0639 Last data filed at 03/28/2020 0500 Gross per 24 hour Intake 3995 ml Output 2975 ml Net 1020 ml Body mass index is 25.84 kg/m??. Exam: General: NAD, awake/alert CV: regular rate assessed peripherally Resp: Breathing comfortably on RA RLE: In cryocuff. Mepilex with mild SS staining at inferior aspect but no further saturation. R leg edematous comparedto contralateral side Motor intact to EHL, FHL, TA. Sensation intact in foot/calf. Diminished in saph distribution. Brisk capillary refill distally. Lab Results Component Value Date NA 140 03/28/2020 K 4.1 03/28/2020 CL 106 03/28/2020 CO2 28 03/28/2020 BUN 14 03/28/2020 CREATININE 0.89 03/28/2020 GLUCOSE 164 03/28/2020 CALCIUM 8.7 03/28/2020 Lab Results Component Value Date WBC 6.7 03/28/2020 HGB 9.4 (L) 03/28/2020 HCT 29.0 (L) 03/28/2020 MCV 89.5 03/28/2020 PLATELET 202 03/28/2020 Lab Results Component Value Date INR 1.0 02/19/2020 Radiology: No interval ortho imaging ASSESSMENT / PLAN: Yg Leal is a 59 y.o. male 2 Days Post-Op s/p R TKA revision. Progressingwell with stable vitals this am. Pre-syncopal episode in PACU. Work up for cardiac event negative sofar. Appreciate medicine recs. TTE ordered. Will complete here vs outpatient pending progress with PT and ability to dc. PT/OT. dispo planning. Activity: WBAT Closure: [place] (remove 14-21days) Dressing: Mepilex Ag x 7 days Anticoagulation: ASA 81 mg BID for 30 days Antibiotics: Periop ancef Consults: PT/OT Dispo: Home vs rehab per PT Follow-up: as scheduled Lopez Rainey MD 03/28/2020 Future Appointments Date Time Provider Department Center 04/22/2020 12:30 PM [facility] DX ROOM 3 MH Xray [facility] Rad 04/22/2020 1:30 PM Delfin Pisano MD [facility] [place] ORTH 3C [facility] [place] Chayito Rodriguez RN - 03/27/2020 5:37 PM EDT @1737 Orthostatic vital signs Lying - BP - 122/63, HR - 78, RR- 18, O2 sat 97% room air Sitting - BP - 129/69; HR - 75, RR- 18, O2 sat 95% room air Standing - BP - 113/69, HR - 91, RR- 18, O2 sat 95% room air Nereida Pace MD - 03/27/2020 4:14 PM EDT Medicine Consults Progress Note Consult Team/Pager: ID: Mr. Leal is a 59 yo male who seeks routine medical care w/ PMH to include bipolar T2 (well controlled on Lamictal), ADHD (on Ritalin TID), NIDDMT2, GERD, cardiac valvulopathy NOS in our system, HTN and DJD s/p R TKA 11/2016 requiring multiple revisions since who presented for planned R total knee revision today and 3 hours post operatively had pre-syncopal event for which medicine has been asked tofurther clarify and work-up. 24 Hour Events/Subjective: - consult received - troponins negative x3 Vitals: Patient Vitals for the past 24 hrs: Temp Heart Rate From SP02 Pulse Resp BP SpO2 O2 Device 03/26/20 1630 -- (!) 45 bpm (!) 44 11 123/70 100 % -- 03/26/20 1645 36.7 ??C (98.1 ??F) (!) 47 bpm (!) 46 16 139/68 100 % RA 03/26/20 1700 -- 55 bpm 56 17 -- 100 % -- 03/26/20 1800 -- (!) 48 bpm (!) 44 16 116/74 100 % -- 03/26/20 1900 -- 56 bpm -- -- 118/64 100 % -- 03/26/201932 -- 53 bpm -- -- (!) 61/32 100 % -- 03/26/201934 -- (!) 49 bpm -- -- 97/52 100 % -- 03/26/201938 -- 54 bpm -- -- 94/54 100 % -- 03/26/201944 -- 52 bpm (!) 49 -- 98/53 100 % -- 03/26/201954 -- 54 bpm 50 -- 109/61 99 % -- 03/26/201999 -- 50 bpm 50 -- 107/62 100 % -- 03/26/202014 -- 52 bpm (!) 48 -- 108/58 100 % -- 03/26/202029 -- (!) 49 bpm (!) 49 -- 113/59 99 % -- 03/26/202044 -- 67 bpm 68 -- 108/69 98 % -- 03/26/202099 -- 61 bpm 61 -- 107/59 99 % -- 03/26/202114 -- 61 bpm 62 -- 133/64 99 % -- 03/26/202148 36.8 ??C (98.2 ??F) 67 bpm -- 18 116/55 98 % RA 03/27/20 0004 36.9 ??C (98.4 ??F) 64 bpm -- 16 104/59 98 % RA 03/27/20 0250 -- 61 bpm -- 16 101/50 98 % RA 03/27/20 0341 36.9 ??C (98.4 ??F) 60 bpm -- 14 95/51 97 % RA 03/27/20 0738 36.7 ??C (98.1 ??F) 64 bpm 67 20 113/63 97 % RA 03/27/20 0841 -- -- -- -- 110/61 -- -- 03/27/20 0844 -- 66 bpm 67 -- 110/61 -- -- 03/27/20 1203 36.9 ??C (98.4 ??F) 80 bpm 81 20 100/54 96 % RA 03/27/20 1512 36.9 ??C (98.4 ??F) 72 bpm -- 20 108/49 97 % RA Ins/Outs: Intake/Output Summary (Last 24 hours) at 03/27/2020 1614 Last data filed at 03/27/2020 1300 Gross per 24 hour Intake 3506 ml Output 425 ml Net 3081 ml Weights: Admit weight: 74.84 kg Patient Vitals for the past 168 hrs: Weight 03/26/20 0946 74.8 kg (165 lb) Physical Exam: General: Pleasant, alert, appropriate, in NAD. HEENT: EOMI, nonicteric. Oropharynx clear w/o erythema, plaques or exudates or other lesions. No thrush; MMMs Neck: No LAD. JVD ~ not visualized Cardiac: Normal S1 and S2, Regular rate and rhythm; late paking 3/6 holosystolic murmor heard at LUSB that radiated to carotids. Respiratory: Nonlabored. Clear to auscultation bilaterally; No wheezes or crackles Abd: + BS; soft, non-tender, non-distended, no masses, no HSM Ext: No edema, cyanosis, clubbing, Radial and distal pedal pulses 2+ bilaterally Neuro: II-XII grossly intact. Alert and orientated, no-focal deficits, sensation intact to crude touch, motor strength 5/5 throughout Skin: No rashs, no lesions, no petechiae Labs: Recent Labs 03/27/2021203/26/201948 WBC 6.4 11.7* HGB 10.0* 11.2* HCT 29.8* 34.0* PLATELET 215 273 Recent Labs 03/27/2021203/26/201948 NA 140 142 K 4.1 4.1 CL 105 107 CO2 25 26 BUN 15 12 CREATININE 0.90 1.03 No results for input(s): AST, ALT, ALKPHOS, BILITOT, BILIDIR in the last 168 hours. Recent Labs 03/27/2021203/26/201948 CALCIUM 8.6 8.9 No results for input(s): INR, PT, PTT in the last 168 hours. Recent Labs 03/27/20 0828 03/27/2021203/26/201948 TROPONINT <0.01 <0.01 <0.01 Recent Labs 03/26/20 1632 POCGLU 94 Microbiology: Microbiology Results (Last 30 days) Procedure Component Value Units Date/Time Prosthetic Joint Culture, Extended Hold Joint Fluid; Knee, Right [[id number]] Collected: 03/26/20 1245 Lab Status: Preliminary result Specimen: Joint Fluid from Knee, Right Updated: 03/27/20 1438 Joint Culture [[id number]] Collected: 03/26/20 1245 Lab Status: Preliminary result Specimen: Joint Fluid from Knee, Right Updated: 03/27/20 0735 Joint Culture -- No growth to date. Incubation time extended to 14 days. Gram Stain -- Cytocentrifuge Gram Stain performed No Neutrophils seen. No microorganisms seen. Anaerobic Culture [[id number]] Collected: 03/26/20 1245 Lab Status: Preliminary result Specimen: Joint Fluid from Knee, Right Updated: 03/27/20 1438 Anaerobic Culture No anaerobic organisms isolated to date COVID-19 PCR [[id number]] Collected: 03/23/20 1336 Lab Status: Final result Specimen: Nasopharyngeal Swab Updated: 03/24/20 1708 SARS-CoV-2 RNA Not Detected Comment: This result should be interpreted in combination with the clinical observations, patient history and epidemiological information in making a final diagnosis. For testing of asymptomatic individuals, assay performance characteristics and clinical utility have not been evaluated. Testing for SARS-CoV-2 (Severe acute respiratory syndrome coronavirus 2, formerly known as 2019 novel coronavirus or 2019-nCoV) to aid in the diagnosis of COVID-19 is performed using the [employer] RealTime SARS-CoV-2 Assay as authorized by the FDA Emergency Use Authorization (EUA). This EUA assay is intended for In-vitro Diagnostic (IVD) use with respiratory specimens such as nasopharyngeal swabs collected from individuals during the acute phase of infection. This assay is performed based on the instructions for use provided by [employer] and additional guidance provided by CDC and FDA. Testing is performed in the [facility] within the Department of Pathology and Laboratory Medicine at [facility], certified under the Clinical Laboratory Improvement Amendments of 1988 (CLIA), 42 U.S.C. 263a, to perform high complexity tests. Assay performance has been verified according to clinical laboratory regulatory requirements for use with specimens collected from individuals suspected of COVID-19. Test results are provided above. A result of ???Not Detected?? indicates that the viral RNA target is not present above the limit of detection, but does not preclude SARS-CoV-2 infection. False negative results may occur if a specimen is improperly collected, transported or handled; if amplification inhibitors are present; or if inadequate numbers of viral particles are present in the specimen. When a diagnostic test is negative, the possibility of a false negative result should be considered in the context of a patient???s recent exposures and the presence of clinical signs and symptoms consistent with COVID-19. A result of ???Detected?? indicates that RNA from SARS-CoV-2 was detected and the patient is infected. As required or requested by public health authorities, positive specimens may be sent for additional testing. Positive and negative predictive values for this test are highly dependent on disease prevalence. A result of ???Invalid?? indicates that neither the viral RNA targets nor the internal control target was detected. An invalid result suggests the presence of inhibitors. Recollection and re-testing is recommended in the case of an invalid result. CDC COVID-19 criteria for testing on human specimens and clinical management guidance information are available at the CDC Coronavirus Disease 2019 (COVID-19) webpage under ???Information for Healthcare Professionals?? (https://www.cdc.gov/coronavirus/2019-ncov/hcp/index.html) Additional information about this and other EUA tests can be found in provider and patient fact sheets at the following FDA website: https://www.fda.gov/medical-devices/dqhshriqqul-uzyiqsl-5520-hgwuy-74-bjgceydwu- kna-axsynweobwefpe-funukjd-devices/bowfn-ptityrjbzsf-nibz SARS-Cov-2 RNA Source [employer] Swab Diagnostic Studies: EKG Sinus bradycardia Inpatient Medications: Scheduled Meds: ??? atorvastatin 10 mg Oral QPM ??? enalapriL 20 mg Oral Daily ??? lamoTRIgine 200 mg Oral Daily ??? methylphenidate 20 mg Oral TID WC ??? metoprolol succinate XL 50 mg Oral Daily ??? pantoprazole EC 40 mg Oral Daily ??? sodium chloride 0.9 % (flush) 5 mL Intravenous BID ??? polyethylene glycoL 17 g Oral BID ??? senna-docusate 2 tablet Oral BID ??? acetaminophen 1,000 mg Oral Q8H GEORGE ??? gabapentin 600 mg Oral Nightly Followed by ??? [START ON 03/28/2020] gabapentin 300 mg Oral Nightly ??? celecoxib 200 mg Oral BID ??? aspirin EC 81 mg Oral BID Continuous Infusions: PRN Meds: BUpivacaine (PF), sodium chloride 0.9 % (flush), lidocaine, lactulose, bisacodyl EC, bisacodyL, ketorolac, ondansetron OR ondansetron, oxyCODONE Assessment: Mr. Leal is a 59 yo male who seeks routine medical care w/ PMH to include bipolar T2 (well controlled on Lamictal), ADHD (on Ritalin TID), NIDDMT2, GERD, cardiac valvulopathy NOS in our system, HTN and DJD s/p R TKA 11/2016 requiring multiple revisions since who presented for planned R total knee revision today and 3 hours post operatively had pre-syncopal event for which medicine has been asked tofurther clarify and work-up. His story seems most consistent with a vagal episode vs orthostasis due to dehydration. The later isfurther supported by the fact that his symptoms resolved with positional changes and fluid administration. Furthermore his history of aortic stenosis puts him a higher risk for hypotension during a dehy drated state as he is likely to be pre-load dependent. The chest pressure during the episode is certainly concerning but 3 negative troponins are very reassuring against any ischemic event. I wonder ifthe chest pressure may have been GERD as the episode occurred immediately after the patient ate dinner and he was tipped into trendelenburg for his hypotension. Recommendations: - recommend TTE (inpatient or outpatient to evaluate degree of valvular pathology) - encourage good PO - obtain orthostatic vital signs Nereida Pace MD Internal Medicine - PGY3 Medicine Consults #[phone] X Recommendations discussed with primary treating team. Medicine Consult service will continue to follow. Recommendations are above. Medicine Consult service will sign off. If clinical changes occur or newquestions arise, page [phone]. Case discussed with Dr. Dr. Payton Associated attestation - Clinton Payton DO - 03/28/2020 9:11 AM EDT Hospital Medicine Attending Attestation: Patient seen and examined independently. Available diagnostic testing reviewed. Management and plan for today reviewed with Dr. Pace. I agree with the findings and plans as documented in their note with any additions and/or corrections noted below. Suspected dehydration in setting of causing presyncope. Improved today. Troponins negative. TTE to better assess current . Unclear to me the indication for B-blockers as BP could be managed with other agents without chronotropic depression. Clinton Payton DO Pager [phone] 03/27/2020 4:53 PM Leonard thompsonuel - 03/27/2020 3:13 PM EDT [facility] Encounter Note Patient Name: Yg Leal : [id number] MR#: [id number] Admit Date: 03/26/2020 9:18 AM Hospital Day 1 day Narrative: Visited to introduce and assess acceptance of [facility] services. Pt was not available for visit and I will visit an other time as pt on cell phone. Assessment: Intervention and Outcome Follow-up: Time in Direct Care: Jose Cruz Morel 03/27/2020 Lopez Rainey MD - 03/27/2020 7:27 AM EDT ORTHOPAEDIC SURGERY INPATIENT PROGRESS NOTE Patient Name: Yg Leal Age: 59 y.o. Surgery/Issue: Right Total Knee Arthroplasty, revision Attending: Eddie Ortiz MD Date of surgery: 03/26/2020 SUBJECTIVE / INTERVAL HISTORY: Presyncopal episode in PACU post-op yesterday worked up by anesthesia/medicine - appreciate recs. Doing well this am. No f/c/cp/sob. No dizziness. AVSS Troponin negative x 2, third pending FOCUSED REVIEW OF SYSTEMS: as above. Active Hospital Problems Diagnosis ??? Postoperative stiffness of total knee replacement Resolved Hospital Problems No resolved problems to display. Active Non-Hospital Problems Diagnosis ??? Type 2 diabetes mellitus, without long-term current use of insulin ??? HLD (hyperlipidemia) ??? Anemia ??? Depression ??? ADHD (attention deficit hyperactivity disorder), combined type ??? Restless legs ??? HTN (hypertension) ??? Cervical radiculopathy ??? Chronic prescription opiate use ??? Presence of right artificial knee joint ??? Sprain of right knee MEDICATIONS: ??? BUpivacaine (PF) (MARCAINE) 0.25 % (2.5 mg/mL) injection ??? atorvastatin (Lipitor) tablet 10 mg ??? enalapriL (Vasotec) tablet 20 mg ??? lamoTRIgine (LaMICtal) tablet 200 mg ??? methylphenidate (Ritalin) tablet 20 mg ??? metoprolol succinate XL (Toprol-XL) tablet 50 mg ??? pantoprazole EC (Protonix) tablet 40 mg ??? sodium chloride 0.9 % (flush) flush 5 mL ??? sodium chloride 0.9 % (flush) flush 5-20 mL ??? lidocaine (XYLOCAINE) 10 mg/mL (1 %) injection 3 mg ??? polyethylene glycoL (Miralax) packet 17 g ??? senna-docusate (Pericolace) 8.6-50 mg per tablet 2 tablet ??? lactulose (Chronulac) (0.67 gram/mL) oral liquid 10 g ??? bisacodyl EC (Dulcolax) tablet 10 mg ??? bisacodyL (Dulcolax) suppository 10 mg ??? acetaminophen (Tylenol) tablet 1,000 mg ??? gabapentin (Neurontin) capsule 600 mg FOLLOWED BY [START ON 03/28/2020] gabapentin (Neurontin) capsule 300 mg ??? ketorolac (TORADOL) injection 15 mg ??? celecoxib (CeleBREX) capsule 200 mg ??? sodium chloride 0.9% infusion ??? ceFAZolin (Ancef) 2 g in dextrose 5% 100 mL infusion ??? ondansetron (Zofran) tablet 4 mg OR ondansetron (ZOFRAN) injection 4 mg ??? aspirin EC tablet 81 mg ??? oxyCODONE (Roxicodone) tablet 15 mg ??? PHENYLephrine HCl in NS 0.8 mg/10 mL (80 mcg/mL) Syrg ??? sodium chloride 0.9% 100 mL/hr (03/26/20 5901) OBJECTIVE: Temp: [36.3 ??C (97.3 ??F)-36.9 ??C (98.4 ??F)] Heart Rate: [44-68] Resp: [11-22] BP: (61-142)/(32-88) Intake/Output Summary (Last 24 hours) at 03/27/2020 0727 Last data filed at 03/27/2020 0219 Gross per 24 hour Intake 2637 ml Output 1150 ml Net 1487 ml Body mass index is 25.84 kg/m??. Exam: General: NAD, awake/alert CV: regular rate assessed peripherally Resp: Breathing comfortably on RA RLE: In cryocuff. Mepilex with mild SS staining at inferior aspect but no saturation or susie drainage. Motor intact to EHL, FHL, TA. Sensation intact in foot/calf. Brisk capillary refill distally. Lab Results Component Value Date NA 140 03/27/2020 K 4.1 03/27/2020 CL 105 03/27/2020 CO2 25 03/27/2020 BUN 15 03/27/2020 CREATININE 0.90 03/27/2020 GLUCOSE 115 03/27/2020 CALCIUM 8.6 03/27/2020 Lab Results Component Value Date WBC 6.4 03/27/2020 HGB 10.0 (L) 03/27/2020 HCT 29.8 (L) 03/27/2020 MCV 87.9 03/27/2020 PLATELET 215 03/27/2020 Lab Results Component Value Date INR 1.0 02/19/2020 Radiology: No interval ortho imaging ASSESSMENT / PLAN: Yg Leal is a 59 y.o. male 1 Day Post-Op s/p R TKA revision. Progressing well with stable vitals this am. Pre-syncopal episode yesterday in PACU. Work up for cardiac event negative so far. Appreciate medicine recs. Will trial OOB w/ PT today. Activity: WBAT Closure: [place] (remove 14-21days) Dressing: Mepilex Ag x 7 days Anticoagulation: ASA 81 mg BID for 30 days Antibiotics: Periop ancef Consults: PT/OT Dispo: Home vs rehab per PT Follow-up: as scheduled Lopez Rainey MD 03/27/2020 Future Appointments Date Time Provider Department Center 04/22/2020 12:30 PM [facility] DX ROOM 3 MH Xray [facility] Rad 04/22/2020 1:30 PM Delfin Pisano MD [facility] [place] ORTH 3C [facility] [place] Thomas Bonilla MD - 03/26/2020 8:04 PM EDTSummary: Stat anesthesia page summary Brief Event Note Subjective Stat anesthesia page at 7:30pm due to patient having abrupt onset dizziness and vision change. Just prior to event, patient was eating and sitting up. BP at this time were 60/30s. Fluids were opened,he was repositioned supine, and recheck BP after these interventions was 90/50s. Please see note from Kelsie Rai RN for additional detail. Objective S1 S2 faint pansystolic murmur loudest at apex, no radiation to neck Breath sounds clear, equal bilaterally Cap refill brisk Alert, conversational Assessment and plan 59M with NIDDM, HTN, GERD, bipolar, h/o motion sickness, anemia who is 3hrs s/p knee revision surgery today with spinal at 12noon who had acute onset most likely vagal episode vs r/o cardiac event. Discussed with primary team ECG obtained: consistent with prior from 02/19/2020 CBC Troponin BMP Thomas Bonilla MD 03/26/2020 8:10pm Kelsie Rai RN - 03/26/2020 8:01 PM EDT RN Break Coverage 193 - Pt was sitting up eating supper when he became dizzy, pale and c/o loss of vision. Pt was laid flat, BP 61/32. Stat anesthesia paged, to bedside to assess. Pt c/o chest pressure, Labs drawn, stat EKG and one time dose of ASA given. BP recovered on its own. 1949 - pt states he is feeling better. Appears anxious. Ortho paged and updated on patient condition. 1999- Patients vitals back to baseline and feeling much better. Marielle Solorio RN - 03/26/2020 7:40 PM EDT Patient reports pain is adequately controlled. Denies nausea, chest pressure, and dizziness. Small amount of drainage on R knee mepilex. Cold cuff in use. Report called to SHANNON Leonardo. Patient transported to [facility] by 2RNs. Shelley Martinez MD - 03/26/2020 6:43 PM EDT ORTHOPAEDIC SURGERY INPATIENT PROGRESS NOTE Patient Name: Yg Leal Age: 59 y.o. Surgery/Issue: Right Total Knee Arthroplasty, revision Attending: Eddie Ortiz MD Date of surgery: 03/26/2020 SUBJECTIVE / INTERVAL HISTORY: Denies CP, SOB, nausea, vomiting, numbness/weakness. Endorses pain that is escalating and admits he will be difficult to control from pain perspective d/t chronic narcotics at baseline (10mg oxycodone QID at home). FOCUSED REVIEW OF SYSTEMS: as above. Active Hospital Problems Diagnosis ??? Postoperative stiffness of total knee replacement Resolved Hospital Problems No resolved problems to display. Active Non-Hospital Problems Diagnosis ??? Type 2 diabetes mellitus, without long-term current use of insulin ??? HLD (hyperlipidemia) ??? Anemia ??? Depression ??? ADHD (attention deficit hyperactivity disorder), combined type ??? Restless legs ??? HTN (hypertension) ??? Cervical radiculopathy ??? Chronic prescription opiate use ??? Presence of right artificial knee joint ??? Sprain of right knee MEDICATIONS: ??? sodium chloride 0.9 % (flush) flush 5-20 mL ??? lidocaine (XYLOCAINE) 10 mg/mL (1 %) injection 3 mg ??? lactated ringers infusion ??? midazolam (PF) (VERSED) injection 1 mg ??? fentaNYL (PF) 50 mcg/mL injection ??? fentaNYL (PF) 50 mcg/mL injection ??? acetaminophen (Tylenol) tablet 1,000 mg ??? gabapentin (Neurontin) capsule 300 mg ??? BUpivacaine (PF) (MARCAINE) 0.25 % (2.5 mg/mL) injection ??? sodium chloride 0.9 % (flush) flush 5 mL ??? sodium chloride 0.9 % (flush) flush 5-20 mL ??? lidocaine (XYLOCAINE) 10 mg/mL (1 %) injection 3 mg ??? acetaminophen (Tylenol) tablet 1,000 mg ??? ketorolac (TORADOL) injection 15 mg ??? sodium chloride 0.9% infusion ??? ceFAZolin (Ancef) 2 g in dextrose 5% 100 mL infusion ??? ondansetron (Zofran) tablet 4 mg OR ondansetron (ZOFRAN) injection 4 mg ??? oxyCODONE (Roxicodone) tablet 15 mg ??? lactated Ringers 1,000 mL (03/26/20 1000) ??? sodium chloride 0.9% 100 mL/hr (03/26/20 1621) OBJECTIVE: Temp: [36.3 ??C (97.3 ??F)-36.7 ??C (98.1 ??F)] Heart Rate: [44-65] Resp: [11-22] BP: (70-142)/(49-88) Intake/Output Summary (Last 24 hours) at 03/26/2020 1827 Last data filed at 03/26/2020 1541 Gross per 24 hour Intake 1100 ml Output 1000 ml Net 100 ml Body mass index is 25.84 kg/m??. Exam: General: NAD, awake/alert CV: RRR assessed peripherally Resp: Breathing comfortably on RA RLE: In cryocuff. Mepilex with mild SS staining at inferior aspect but no saturation or susie drainage. Motor intact to EHL, FHL, TA. Sensation intact in foot/calf. Brisk capillary refill distally. Lab Results Component Value Date NA 137 02/19/2020 K 4.5 02/19/2020 CL 100 02/19/2020 CO2 27 02/19/2020 BUN 19 02/19/2020 CREATININE 0.90 02/19/2020 GLUCOSE 129 02/19/2020 CALCIUM 9.6 02/19/2020 Lab Results Component Value Date WBC 5.6 02/19/2020 HGB 12.9 (L) 02/19/2020 HCT 39.3 (L) 02/19/2020 MCV 89.3 02/19/2020 PLATELET 323 02/19/2020 Lab Results Component Value Date INR 1.0 02/19/2020 Radiology: XR Knee 2 view R: S/p new Revision R TKA with no evidence of immediate hardware complications. ASSESSMENT / PLAN: Yg Leal is a 59 y.o. male Day of Surgery s/p R TKA revision. Progressingwell with stable vitals. Will change medication from dilaudid here to 15mg oxycodone q4h PRN as homeregimen is 10mg q6h daily and he feels dilaudid isn't as helpful. Activity: WBAT Closure: [place] (remove 14-21days) Dressing: Mepilex Ag x 7 days Anticoagulation: ASA 81 mg BID for 30 days Antibiotics: Periop ancef Consults: PT/OT Dispo: Home vs rehab per PT Follow-up: as scheduled Shelley Martinez MD 03/26/2020 Future Appointments Date Time Provider Department Center 04/22/2020 12:30 PM [facility] DX ROOM 3 MH Xray [facility] Rad 04/22/2020 1:30 PM Delfin Pisano MD [facility] ORTH 3C [facility] documented in this encounter H&P Notes Jose Cruz Foster MD - 03/26/2020 11:06 AM EDT PRE-OPERATIVE HISTORY AND PHYSICAL for ADMISSION, OBSERVATION OR PROCEDURE Date of : 1960 Age: 59 y.o. PCP: MIKE Vargas Presenting Diagnosis/Chief Complaint: No chief complaint on file. History of Present Illness: Yg Leal is a 59 y.o. male who presents for pre-operative examination. Please see Dr. Ortiz note for full details of the patient's specific problem. PMHx: Patient Active Problem List Diagnosis Code [...] of total knee replacement T84.89XA, M25.669, Z96.659 Past Medical History: Diagnosis Date ??? Anemia [...] - revision scheduled to be done here Home Medications: Facility-Administered Medications Prior to Admission Medication Dose Route Frequency Provider Last Rate Last Dose ??? mupirocin (BACTROBAN) 2 % ointment 1 each 1 each Topical (Top) BID Eddie Ortiz MD Medications Prior to Admission Medication Sig Dispense Refill Last Dose ??? atorvastatin (LIPITOR) 10 mg Tablet take 1 tablet by mouth once daily 0 03/26/2020 at Unknown time ??? methylphenidate HCl (RITALIN) 20 mg Tablet take 1 tablet by mouth three times a day 0 03/26/2020 at Unknown time ??? metoprolol succinate (TOPROL-XL) 50 mg Tablet Sustained Release 24 hr take 1 tablet by mouth once daily 0 03/26/2020 at Unknown time ??? lamoTRIgine (LaMICtal) 200 mg Tablet Take 200 mg by mouth daily. ??? enalapril (VASOTEC) 20 mg Tablet take 1 tablet by mouth once daily 0 ??? gabapentin (NEURONTIN) 300 mg Capsule TAKE 1 TO 3 CAPSULES BY MOUTH AT BEDTIME NEEDED 0 ??? ibuprofen (ADVIL;MOTRIN) 600 mg Tablet Take 600 mg by mouth every 8 hours as needed. 4 ??? oxyCODONE (ROXICODONE) 10 mg Tablet Take by mouth 4 times daily as needed. ??? pantoprazole (PROTONIX) 40 mg Tablet, Delayed Release (E.C.) Take 40 mg by mouth Daily. Allergies: No Known Allergies Family History: Non contributory No family history on file. Social History: Social History Socioeconomic History ??? Marital status: Single Spouse name: Not on file ??? Number of children: Not on file ??? Years of education: Not on file ??? Highest education level: Not on file Occupational History ??? Not on file Social Needs ??? Financial resource strain: Not on file ??? Food insecurity Worry: Not on file Inability: Not on file ??? Transportation needs Medical: Not on file Non-medical: Not on file Tobacco Use ??? Smoking status: Never Smoker ??? Smokeless tobacco: Never Used Substance and Sexual Activity ??? Alcohol use: Yes Alcohol/week: 3.0 standard drinks Types: 3 Cans of beer per week ??? Drug use: Yes Types: Opioids ??? Sexual activity: Not on file Lifestyle ??? Physical activity Days per week: Not on file Minutes per session: Not on file ??? Stress: Not on file Relationships ??? Social connections Talks on phone: Not on file Gets together: Not on file Attends latter-day service: Not on file Active member of club or organization: Not on file Attends meetings of clubs or organizations: Not on file Relationship status: Not on file ??? Intimate partner violence Fear of current or ex partner: Not on file Emotionally abused: Not on file Physically abused: Not on file Forced sexual activity: Not on file Other Topics Concern ??? Not on file Social History Narrative ??? Not on file Review of Systems: Negative except as reported in HPI Physical Exam: VITALS: Temperature Temp: 36.5 ??C (97.7 ??F) Heart Rate Heart Rate: 59 Blood Pressure BP: 126/68 Respiratory Rate Resp: 19 SpO2 SpO2: 100 % No intake/output data recorded. General: alert, appears stated age and cooperative Pulmonary: Normal, equal, clear breath sounds bilaterally and no crepitus Cardiovascular: Regular rate and rhythm Assessment and Plan: 59 y.o. male with the above problem, plan to proceed to OR with Dr. Ortiz for revision Right total knee arthroplasty. documented in this encounter Miscellaneous Notes Plan of Care - Alonso Erickson, PT - 03/29/2020 2:48 PM EDT Physical Therapy Note Treatment Number PT: 3 Patient profile: Per Ortho MD: Yg Danielle Leal is a 59 y.o. male 1 Day Post-Op s/p R TKA revision.Progressing well with stable vitals this am. Pre-syncopal episode yesterday in PACU. Work up for cardiac event negative so far. Appreciate medicine recs. Social History: Home set-up: Lives with his girlfriend and son (27 y.o) in a 2 level home with 4 TIEN (no rails). Plans to stay on the 1st level. Bathroom Set-up: refer to OT note Baseline Mobility: Independent without an AD. Was working (now on [employer] comp). Drives. Equipment at home: FWW (from prior knee surgery) Precautions/Special Considerations: WBAT RLE Mobility and Positioning Recommendations: ?? Pt. to utilize FWW or crutches for transfers with nursing. ?? Ambulate in siegel with FWW vs crutches with supervision for safety while here ?? Please encourage up to chair for meal times as able. ?? Apply ice frequently to R knee. Encourage elevation while in bed and chair. ?? Pt encouraged to ambulate frequently with staff, getting into the bathroom for toileting and walking out in the siegel >/= 3 times daily as able. Subjective: ???I still get lightheaded The knee feels loose Objective: Pt seen for PT treatment and continuation of POC today and demonstrated the following: Pain: tolerable, refilled cryocuff with new ice and applied to knee after treatment Vital Signs: BP taken sitting EOB 114/65 with HR Mental Status: alert, oriented to person, place, and time. Easily distracted and tangential, reluctant to heed cues Skin: R knee dressing CDI, swollen Bed Mobility: Supine to Sit: indep Sit to supine: indep Transfers: Sit to Stand: indep with crutches Stand to Sit: indep with crutches Gait: Distance: 150' Device used: FWW then crutches Level of assist: capable of indep Stairs: ascended/descended 4 steps with bilat crutches, no cues needed, with supervision Balance: Sitting Static: good Sitting Dynamic: good Standing Static:good Standing Dynamic / Gait: Good with crutches Education: importance of assistive device, use of ice, compliance with HEP, elevation, positioning, stairs and safety Patient status, treatment, and mobility recommendations discussed with nursing. Assessment: Yg Leal was seen today for physical therapy treatment. Pt continues to mobilizegenerally well with fairly good stability, no appreciable LOB today. Presents with pain, swelling, dec ROM, impulsivitiy, reluctance to heed cues, all impacting his functional mobility, ambulation, safety, and ability to manage his own needs. Recommend assist at home for first few days and home PT. Discharge Recommendations: Based on the current findings, Anticipated Discharge Disposition: home with assist, home with home health when medically ready for hospital discharge. Consult Recommendations: No other consults recommended at this time. Equipment needs: Patient has all necessary equipment Goals: To be achieved by 03/29: 1. Pt. to demonstrate knowledge of safety limitations and precautions and will appropriately requestassistance for functional activities and to mobilize. 2. Pt. to demonstrate understanding of appropriate RLE exercises. 3. Pt. to perform bed mobility independently. 4. Pt. to perform ALL transfers with modified independence using a front wheeled walker and or LRAD. 5. Pt. to ambulate 160 feet with supervision using a a front wheeled walker and or LRAD. 6. Pt. to ambulate up/down 4 step/stairs using axillary crutches with supervision. 7. Family or caregiver to demonstrate understanding of therapeutic interventions to support the careof the patient. Plan: Therapy Frequency: monitor for as outlined in initial evaluation. Patient agrees with plan as stated. Time IN / OUT: 2332-8776 Total Evaluation Minutes, Physical Therapy: 25(2 TA) Alonso Erickson, PT Pager: [phone] Physical Therapy Inpatient Rehabilitation Department Plan of Care - Shaniqua Steel RN - 03/29/2020 3:20 AM EDT OUTCOME EVALUATION NOTE: OUTCOME SUMMARY: Yg had a decent night. VSS on RA, A&Ox4. Pain controlled with scheduled and PRN meds q4 hours. Pt voiding in BR, pt reminded to use urinal so that staff can measure urine output. One BM this shift, pt stated it was very loose. Pt c/o nausea around 0030, zofran given. Dressing for incision to right knee, c/d/i w/ some swelling. Pt ambulating in room with crutches independently. Q4 hour neurovascular checks remain unchanged. Will continue to monitor. PLAN MOVING FORWARD: Pain management Encourage fluid and nutritional intake INDIVIDUALIZED FALL PREVENTION INTERVENTIONS: Patient-specific fall risk factors per assessment: [current deficits]: Recent knee surgery Assistance [level of assistance required for transfers and ambulation]: Stand by Supervision [direct monitoring required during toileting and ADLs]: independent Surveillance [continuous indirect monitoring]: Masimo, telemetery, safety checks Patient-specific fall prevention interventions for sensory deficits provided, if applicable: [X] N/A CPG GOAL OUTCOME EVALUATION: Ongoing Plan of Care - Nena Mendieta RN - 03/28/2020 3:28 PM EDT Problem: Fall Risk, (Adult,Obstetrics,Pediatric) Goal: Identify Related Risk Factors and Signs and Symptoms Related risk factors and signs and symptoms are identified upon initiation of Human Response Clinical Practice Guideline (CPG) Outcome: Ongoing (Interventions Implemented as Appropriate) OUTCOME EVALUATION NOTE: OUTCOME SUMMARY: Pt had a good day. A&Ox4. VSS. Afebrile. RA, Pt denies nausea. Pain well controlled with PRN andscheduled meds. Pt voiding adequate amounts. Pt passing gas; pt had no BM this shift. Incision to right knee dressing CDI. Pt ambulated in halls with physical therapy. Will continue to monitor. PLAN MOVING FORWARD: Encourage independence. Encourage ambulation. Encourage fluids/nutrition. Maintain pain control. INDIVIDUALIZED FALL PREVENTION INTERVENTIONS: Patient-specific fall risk factors per assessment: [current deficits]: Recent knee surgery Assistance [level of assistance required for transfers and ambulation]: Stand by Supervision [direct monitoring required during toileting and ADLs]: independent Surveillance [continuous indirect monitoring]: Masimo, purposeful rounding, call bass in reach Patient-specific fall prevention interventions for sensory deficits provided, if applicable: [X] Yes, environmental modifications, lights adjusted to task, non- skid socks CPG GOAL OUTCOME EVALUATION: Ongoing Initial Assessments - Maggie Calvo RN - 03/28/2020 2:34 PM EDT Office of Care Management Initial Assessment Maggie Calvo RN reviewed record and discussed patient with Care Team. Source of Information: Patient Introduced self/reviewed role; services accepted. Reason for Hospitalization: Right total knee arthroplasty. Past Medical History: Diagnosis Date ??? Anemia 02/19/2020 ??? Gastroesophageal reflux i take meds for this to control ??? Heart valve disease murmur - i've had test for this and it was fine ??? High blood pressure on medication ??? Mental health problem i take meds for depression bipolar2 ??? Motion sickness in the ocean on a boat Hospitalizations Within the Past 30 Days: No Anticipated Length Of Stay (If known): 2-3 days Current Decision-Making Capacity: Independent Advance Care Planning: No advance directives on file. If AD's have not been completed then surrogate decision maker per [place] would be surrogate decision making law. Any patient receiving care at [facility] must abide by [place] law. The hierarchy for surrogate decision making is: (a) Patient???s spouse, or civil union partner or common law spouse unless there is a divorce proceeding, separation agreement, or restraining order limiting that person???s relationship with the patient. (b) Any adult son or daughter of the patient. (c) Either parent of the patient. (d) Any adult brother or sister of the patient. (e) Any adult grandchild of the patient. (f) Any grandparent of the patient. (g) Any adult aunt, uncle, niece, or nephew of the patient. (h) A close friend of the patient. (i) The agent with financial power of erisa attorney or a conservator appointed in accordance with RSA 464-A. (j) The guardian of the patient???s estate. Current Coping/Education/Information Needs: Family support Current Functional Ability: Ambulates with FWW and also has crutches for stairs. Functional Status Prior to Admission: Was independent prior to admission was able to drive. Currently out of work and on workers compensation. Home Environment: Lives in two story home with 4 steps to enter. He can live on the main floor if needed for a little while. He does not have a railing on the steps but will have his son add one for him. Social & Family Supports/Community Resources: Lives with girlfriend of 29 years and 27 year old son. Behavioral Health History: History of ADHD, anxiety. Substance Use/Abuse: Non smoker, drinks approx 3 beers a week. Denies illegal drugs. Other Pertinent/Service Specific Information: Patient currently out of work on workers compensation Health/Prescription Coverage: Primary Insurance: JOSSIE DARNELL Secondary Insurance: N/A Prescription Coverage: Yes [facility]erred Pharmacy: [facility] ID Other: N/A Primary Care Provider: MIKE Vargas [phone] Patient/Caregiver Goals of Treatment: To have improved mobility, return to work when able. Potential Needs for Transition of Care: Rehab/SNF: N/A Home Health: [facility] DME: [facility], bird - patient has own Dialysis: N/A Community Resources: N/A Transportation: GF or son to transport home. Other: N/A Anticipated Barriers to Discharge/Special Considerations: Patient to see if son can assist putting up a rail going into the house. Assessment: Patient is anxious to go home. He lives with his girlfriend of 29 years and son who is 27 years old[address] He does drive and was independent prior to coming to hospital. He comes for right total knee arthroplasty. He will go home with walker and crutches. He has a two story home but states he can stay on the first floor for a little while until he is able to do stairs better. He said he is out of work at this time and is out on workers comp. His family will come to hospital to transport him home once he is medically cleared. Plan: Patient is agreeable to home PT as recommended by therapy. Referral placed Discussed with patient a list of Home Health Agencies which serve their preferred geographic area. Patient requests referral to [facility] Expected date of discharge: 03/29/20. Referral routed to the [employer] Assistant Teacher for matching with agency/vendor and to provide any required information. A member of the Care Management team will continue to monitor progress, follow for continuity of care and assist with transition of care planning. Maggie Calvo RN Pager: [phone] Plan of Care - Tatum Yen, PLANT INSPECTOR - 03/28/2020 10:05 AM EDT Physical Therapy Note Treatment Number PT: 2 Patient profile: Per Ortho MD: Yg Leal is a 59 y.o. male 1 Day Post-Op s/p R TKA revision.Progressing well with stable vitals this am. Pre-syncopal episode yesterday in PACU. Work up for cardiac event negative so far. Appreciate medicine recs. Interval History: LAVERN, orthostatics negative Social History: Home set-up: Lives with his girlfriend and son (27 y.o) in a 2 level home with 4 TIEN (no rails). Plans to stay on the 1st level. Bathroom Set-up: refer to OT note Baseline Mobility: Independent without an AD. Was working (now on work[employer] comp). Drives. Equipment at home: FWW (from prior knee surgery) Fall history: none Precautions/Special Considerations: WBAT RLE; high fall risk, impulsive, anxious; monitor BP (soft) Lines: peripheral IV Mobility and Positioning Recommendations: ?? Pt. to utilize FWW vs crutches and Ax1 for transfers with nursing. ?? Ambulate in siegel with FWW vs crutches, Ax1 ?? Please encourage up to chair for meal times as able. ?? Apply ice frequently to R knee. Encourage elevation while in bed and chair. ?? Pt encouraged to ambulate frequently with staff, getting into the bathroom for toileting and walking out in the siegel >/= 3 times daily as able. Subjective: ???My knee feels clunky. and I think I overdid it yesterday. I was doing the exercisesand pulling on it a little Objective: Pt seen for PT treatment and continuation of POC today and demonstrated the following: Pain: tolerable throughout, did not impair mobility -assessed clunky knee, no apparent laxity with gentle assessment while supine but clunkiness palpable with movement. Pt reports and observation reported to RN following visit. Per pt clunkiness notpainful. Vital Signs: stable Mental Status: alert, oriented to person, place, and time. Follows 1 step commands ~50-75% of the time. Impulsive. Anxious, easily distracted and tangential. Vision: WFL, wearing contacts Skin: R knee dressing CDI, swollen, warm to touch Musculoskeletal: ROM: R hip limited by knee pain, knee flexion up to ~95-100 degrees, lacks full knee extension by ~10 deg, ankle WFL; LLE WFL, BUE WFL Strength: RLE grossly 3/5, LLE WFL. BUE WFL Sensation: R thigh numbness, reports down to toes Bed Mobility: Supine to Sit: SBA towards R. Impulsive. Repeatedly attempts to or does stand without an AD in frontof him requiring cues for safety. Transfers: Sit to Stand: CGA progressed to close supervision with FWW in place. Performed from EOB and toilet. Stand to Sit: Close supervision with FWW Gait: Distance: 150' X2 Device used: FWW then crutches Level of assist: Close supervision Gait mechanics: more normalized keshia although intermittently increases his pace requiring cues toslow down for safety; cues for more equalized step length to normalize pattern requiring extensive cues and repetition of education as well as demo for proper carryover. Slight R knee flexion. No buckling or LOB. Stairs: ascended/descended 4 steps with bilat crutches CGA, no rail, extensive cues for safety and sequencing throughout. Mildly unsteady with descent but without overt LOB. Recommended CGA of second person at home for safety, verbalized understanding. Education reinforced second time at end of tx. Balance: Sitting Static: good Sitting Dynamic: good Standing Static: good, at start of tx pt found in bathroom getting cleaned up, was standing unsupported to use sink and reach into his duffel bag, no appreciable LOB although impulsive and quick with movements Standing Dynamic / Gait: Fair+ with fww/crutches Education: Extensive education on safety and activity pacing, pt very impulsive and with ~50% returndemo. Verbalizes understanding, though will need reinforcement 2/2 impulsive behavior and poor ability to demonstrate understanding. RN aware and attempting to reinforce as well. Provided with handout on proper techniques for stair negotiation with crutches. Patient status, treatment, and mobility recommendations discussed with nursing. Pt left in bathroom continuing his self care, RN aware. Assessment: Yg Leal was seen today for physical therapy treatment. Pt continues to mobilizegenerally well with fairly good stability, no appreciable LOB today. Continues to be very impulsive and quick, poor attention throughout for education and repetition needed throughout for continued carryover. Anticipate will need support of family for safety. Issued crutches for stair negotiation today, was able to manage with CGA. Pt has RW at home and anticipate could use either walker or crutches for mobility. May benefit from 1 more treatment if for CG training due to safety concerns, otherwise can mobilize with nsg on the unit and appropriate for d/c to home when MR with home PT. Discharge Recommendations: Based on the current findings, Anticipated Discharge Disposition: home with assist, home with home health when medically ready for hospital discharge. Consult Recommendations: No other consults recommended at this time. Equipment needs: Patient has all necessary equipment Goals: To be achieved by 03/29: 1. Pt. to demonstrate knowledge of safety limitations and precautions and will appropriately requestassistance for functional activities and to mobilize. 2. Pt. to demonstrate understanding of appropriate RLE exercises. 3. Pt. to perform bed mobility independently. MET 4. Pt. to perform ALL transfers with modified independence using a front wheeled walker and or LRAD. 5. Pt. to ambulate 160 feet with supervision using a a front wheeled walker and or LRAD. 6. Pt. to ambulate up/down 4 step/stairs using axillary crutches with supervision. 7. Family or caregiver to demonstrate understanding of therapeutic interventions to support the careof the patient. Plan: Therapy Frequency: 1-3 more visits for as outlined in initial evaluation. Patient agrees with plan as stated. Time IN / OUT: 9103-0552 Total Evaluation Minutes, Physical Therapy: 55(TEF 4) Tatum Yen PTA Pager: [phone] Physical Therapy Inpatient Rehabilitation Department Plan of Care - Chayito Rodriguez RN - 03/27/2020 6:50 PM EDT OUTCOME EVALUATION NOTE: OUTCOME SUMMARY: Pt right leg swelling got worst this morning. Pt also reported feeling numbness and tingling. Incision with old bloody drainage.Dr. Fall was at bedside this afternoon, reassuring the pt that it is not compartment syndrome. Pt got anxious when in pain, lifting his right leg up and down. RN advised the ptto let his leg rested. Pt ambulated with PT/OT at the hallway, 2 assist with a walker, no issue. Pt UO via urinal, adequate amount. Pt pain controlled with oxycodone. VSS, afebrile. AO x4. Cryocuff in place. No BM this shift. Will continue to monitor PLAN MOVING FORWARD: Pain management, encourage ambulation INDIVIDUALIZED FALL PREVENTION INTERVENTIONS: Patient-specific fall risk factors per assessment: [current deficits]: Pain, right leg impairment, narcotics, impulsive Assistance [level of assistance required for transfers and ambulation]: 2 assist with walker Supervision [direct monitoring required during toileting and ADLs]: Hands on Surveillance [continuous indirect monitoring]: Bed alarm, call bass in reach, purposeful rounding Patient-specific fall prevention interventions for sensory deficits provided, if applicable: [X] Yes Bed alarm, call bass CPG GOAL OUTCOME EVALUATION: On going Plan of Care - Randy Tejada OT - 03/27/2020 3:01 PM EDT Occupational Therapy Evaluation Patient profile: Yg Leal is a 59 y.o. male admitted on 03/26/2020 for s/p R TKA revision. ??Progressing well with stable vitals this am. ??Pre- syncopal episode yesterday in PACU. ??Work up for cardiac event negative so far. Past Medical History: Diagnosis Date ??? Anemia [...] revision scheduled to be done here Social History: Patient lives with his girlfriend and son (27 y/o) who does not work. Home Setup: 2 level home with 4 TIEN (no rails). Plans to stay on the 1st floor. Tub/shower with 1 step up and then step up and over into the tub/shower. Plans to install a grab bar. 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 Independent with mobility without a device and ADL's. Difficulty managing the stairs due to inability to bend R knee. Precautions/Special Considerations: WBAT R LE; high risk to fall; extremely impulsive; anxious; monitor BP (soft); bed and chair alarm Subjective: I know I need to slow down. I think it is because I was anxious. Objective: Seen today for OT evaluation and ADL instruction in collaboration with PT. Cognitive Status/Behavior: ?? Behavior / Mood: alert, cooperative and anxious ?? Alert and oriented to: person, place, time and situation ?? Follows commands: 1 step, 50% of the time, 75% of the time and requires repetition ?? Attention: distractible ?? Safety awareness: impulsive Vision & Perception: ?? WNL/WFL Communication: WFL Range of motion, strength, coordination: Hand dominance: right Bilateral UEs are within functional limitations LE limitations: Decreased ROM and strength R knee; swollen and warm to touch Sensation: intact UE's; R thigh numbness down to toes per pt report Activities of Daily Living: Self-feeding: independent Grooming: set-up at bedside Dressing: instructed in dressing techniques; pt demonstrated ability to don shorts and socks seated EOB with v cues for safety due to impulsivity Bathing: instructed in shower transfer; rec. (S) for transfer and shower using a seat; reviewed options to use for a seat Toileting: Transfer: (S) Hygiene: (I) Functional Mobility: Supine to sit: supervision going to R; v cues due to impulsivity Sit to stand: supervision and v cues for hand placement with FWW Ambulation: close supervision with v cues for walker management Stand to sit: supervision and v cues for hand placement Sit to supine: NT; had pt sit in recliner in reclined position with chair alarm Balance: Sitting balance: good Standing balance:fair dynamic with FWW Vitals: RA; stable throughout Pain: 5/10 Skin: dressing intake R knee; swollen and warm to touch Education: patient have been educated on Role of occupational therapy/rehabilitation, Transfers, Assistive device/technique, ADL, Safety, Precautions/Protocol, Functional Mobility, Home Management, Balance, Recommendations and Discharge planning and verbalize understanding. Patient status, treatment, and mobility recommendations discussed with nursing. Assessment: Pt has been seen for occupational therapy evaluation. Yg Leal presents with thefollowing performance skill deficits and client factors: increased pain, decreased activity tolerance, decreased flexibility/ROM, decreased strength, decreased sitting/standing balance and impulsivity.These performance deficits have led to activity limitations and participation restrictions in the following areas of occupation: dressing, bathing, grooming, toileting, transfers/mobility, home management, leisure and community mobility. However, despite the deficits listed above pt demonstrates the ability to perform ADL's seated with the use of adaptive techniques. Pt will require (S) with showering at home due to impulsivity and need for a seat. Pt reports his son and SO will be able to provide assistance with all IADL's and showering. He is aware where he can borrow a shower seat or other alternatives in the home. Anticipate that pt will return home with assistance once medically ready. Do notanticipate further OT needs while hospitalized and post discharge. Equipment needs at discharge: shower seat Anticipated Discharge Disposition: home with assist Other Recommendations: ?? Utilize upright chair position using bed features or transfer to recliner chair as appropriate with FWW and (S), ambulate as tolerated ?? Encourage participation in ADL's by providing set up A on tray table and physical assist only as needed; encourage ambulating with (S) with FWW to the bathroom for toileting Other Recommendations: No other consults recommended at this time Goals: n/a Plan: OT: Therapy Frequency: evaluation only Planned OT interventions: Discharge planning. Total Evaluation Minutes, Occupational Therapy: 25(evaluation & SCHM x 1) 2017 OT Evaluation Code Rationale: ?? Diagnosis & Pertinent Co-Morbidities affecting Plan of Care: see PMHx ?? Occupational Profile & Client History: Brief Expanded Extensive x ?? Assessment of Occupational Performance: 1-3 performance deficits 3-5 performance deficits x 5 + performance deficits ?? Clinical Decision Making: Low Moderate High x Clinical decision making of low complexity using standardized patient assessment instrument and measurable assessment of functional outcome. Pager: [phone] RANDY TEJADA OT 03/27/2020 Occupational Therapy Rehabilitation Department Plan of Care - Yvette Whitman, PT - 03/27/2020 12:31 PM EDT Physical Therapy Evaluation Patient profile: Per Ortho MD: Yg Leal is a 59 y.o. male 1 Day Post-Op s/p R TKA revision.Progressing well with stable vitals this am. Pre-syncopal episode yesterday in PACU. Work up for cardiac event negative so far. Appreciate medicine recs. Patient with the following active problems: Past Medical History: Diagnosis Date ??? Anemia [...] - revision scheduled to be done here Active Non-Hospital Problems Diagnosis ??? Type 2 diabetes mellitus, without long-term current use of insulin ??? HLD (hyperlipidemia) ??? Anemia ??? Depression ??? ADHD (attention deficit hyperactivity disorder), combined type ??? Restless legs ??? HTN (hypertension) ??? Cervical radiculopathy ??? Chronic prescription opiate use ??? Presence of right artificial knee joint ??? Sprain of right knee Social History: Home set-up: Lives with his girlfriend and son (27 y.o) in a 2 level home with 4 TIEN (no rails). Plans to stay on the 1st level. Bathroom Set-up: refer to OT note Baseline Mobility: Independent without an AD. Was working (now on workman's comp). Drives. Equipment at home: FWW (from prior knee surgery) Fall history: none Precautions/Special Considerations: WBAT RLE; high fall risk, impulsive, anxious; monitor BP (soft) Lines: peripheral IV Mobility and Positioning Recommendations: ?? Pt. to utilize FWW and Ax1 for transfers with nursing. ?? Ambulate in siegel with FWW, Ax1 + chair follow 3x/day ?? Please encourage up to chair for meal times as able. ?? Apply ice frequently to R knee. Encourage elevation while in bed and chair. ?? Pt encouraged to ambulate frequently with staff, getting into the bathroom for toileting and walking out in the siegel >/= 3 times daily as able. Subjective: ???I'm sorry, I know I need to slow down. I get anxious?? - repeatedly t/o Objective: Pt seen for evaluation today with OT . Pain: tolerable at rest, sore with activity Vital Signs: At Rest With Activity SpO2 (RA) 95% 94% BP (MAP) 100/53mmHg HR 77bpm 88bpm Mental Status: alert, oriented to person, place, and time. Follows 1 step commands ~50-75% of the time. Impulsive. Anxious. Vision: WFl Skin: R knee dressing CDI, swollen, warm to touch Musculoskeletal: ROM: R hip limited by knee pain, knee flexion up to 90 degrees, lacks full knee extension, ankle WFL; LLE WFL, BUE WFL Strength: RLE grossly 3/5, LLE WFL. BUE WFL Sensation: R thigh numbness, reports down to toes Bed Mobility: Supine to Sit: SBA towards R. Impulsive., attempted to stand without an AD in front of him requiringcues for safety. Transfers: Sit to Stand: CGA progressed to close supervision with FWW in place. Performed from EOB and toilet. Stand to Sit: Close supervision with FWW Gait: Distance: 10 ft (bed-toilet), 170 ft (in siegel, stopped 2x for pacing/impuslivity) Device used: FWW Level of assist: Close supervision Gait mechanics: decreased keshia, minimal step through on R d/t pain. Slight R knee flexion. No buckling or LOB. Intermittently increases his pace requiring frequent cues to slow down for safety. Stairs: NT today d/t impulsivity Balance: Sitting Static: good Sitting Dynamic: good Standing Static: good with fww Standing Dynamic / Gait: Fair+ with fww Therex: reviewed LE exercises (glute sets, quad sets, hip abd/add, heel slides, LAQ), applying ice, precautions/safety with mobility Education: patient has been educated on Bed mobility, Transfers, Assistive device/technique, Exercise, Positioning, Safety , Precautions/protocol, Gait , Activity pacing/Energy conservation, Home program, Role of therapy, Balance and Discharge planning and verbalizes understanding, though may need reinforcement 2/2 impulsive behavior. Patient status, treatment, and mobility recommendations discussed with nursing. Pt left in recliner chair with chair alarm active. Assessment: Yg Leal was seen today for physical therapy evaluation. Presents with post-op pain, decreased strength ,decreased ROM, decreased activity tolerance, impulsivity, anxiety, impaired balance, impaired mobility and new precautions. Pleasant and cooperative, though very impulsive at times. Extensively educated on precautions and to use a FWW with mobility at all times for safety. He was able to perform transfers and ambulate long distances with very little assist; however deferred stairs today d/t safety concerns/impulsivity (? baseline behavior, as he reports he gets anxious and und erstands he needs to slow down). Anticipate he will progress to d/c to home, but would benefit from 1 more session to review stairs and safety with mobility prior to d/c. The pt would benefit from skilled therapy services while in the hospital to maximize functional abilities. Discharge Recommendations: Based on the current findings, Anticipated Discharge Disposition: home with assist, home with home health(would recommend 24/7 S for a few days, home PT) when medically ready for hospital discharge. Consult Recommendations: No other consults recommended at this time. Equipment needs: Patient has all necessary equipment Goals: To be achieved by 03/29: 1. Pt. to demonstrate knowledge of safety limitations and precautions and will appropriately requestassistance for functional activities and to mobilize. 2. Pt. to demonstrate understanding of appropriate RLE exercises. 3. Pt. to perform bed mobility independently. 4. Pt. to perform ALL transfers with modified independence using a front wheeled walker and or LRAD. 5. Pt. to ambulate 160 feet with supervision using a a front wheeled walker and or LRAD. 6. Pt. to ambulate up/down 4 step/stairs using axillary crutches with supervision. 7. Family or caregiver to demonstrate understanding of therapeutic interventions to support the careof the patient. Plan: Therapy Frequency: 1-3 more visits for therapy including balance training, bed mobility training, gait training, home exercise program, patient/family education, stair training, strengthening andtransfer training. Patient/family understand and agree with plan as stated above. 2017 PT Evaluation Code Rationale: ?? Diagnosis & Pertinent Co-Morbidities, personal factors, and present illness affecting Plan ofCare: (see above); Additional personal factors or co- morbidities that impact plan: ?? Total # of Factors: 0 1-2 3+ x ?? Examination of body system impairments, functional limitations and behaviors, and/or participation restrictions. Addressing 1-2 elements Addressing 3 + elements Addressing 4 + elements x ?? Clinical presentation: See assessment above. Stable/Uncomplicated Evolving/Fluctuating Symptoms Unstable/Unpredictable x ?? Clinical decision making of moderate complexity based on pt's functional performance as outlined in this evaluation. Time IN / OUT: 8245-5639 Total Evaluation Minutes, Physical Therapy: 30(duke, gt) Yvette Whitman PT Pager: [phone] Physical Therapy Inpatient Rehabilitation Department Consult Note - AmbrosejhonRinku E - 03/26/2020 8:50 PM EDT Images from the original note were not included. Internal Medicine Initial Consult Note Admit date: Hospital day: Service: Primary Attending Consult Attending 03/26/[address] Javier Pereira MD Reason for Consult: Post operative pre-syncope HPI: Mr. Leal is a 59 yo male who seeks routine medical care w/ PMH to include bipolar T2 (well controlled on Lamictal), ADHD (on Ritalin TID), NIDDMT2, GERD, cardiac valvulopathy NOS in our system,HTN and DJD s/p R TKA 11/2016 requiring multiple revisions since who presented for planned R total knee revision today and 3 hours post operatively had pre-syncopal event for which medicine has been asked to further clarify and work-up. Pt reports he was in his usual state of health through presentation this morning for the TKR. As instructed he did not take ACEi but did take his am Ritalin, metoprolol and Lamictal per his regular routine. Aside from chronic R knee pain he denies any other symptoms as reviewed below prior to today. Per report and documentation the procedure was without complication and EBL was 250 cc. He was recovering in the pacu well, and around 2 hours post op was given 15 mg po oxycodone (regularly takes 10 mg QID PRN for pain). Around the 3 hours post-op apolinar he was finishing dinner when the nurse describes his as becoming very wan and the pt endorsed feeling woozy, and lightheaded. This lasted for the better part of a minute and progressed to include complete fuzziness of his visual [place]. He denies anysensation of a curtain closing over his vision, and it was around this time that DIRECTOR HEARTbar staff laid pt back in trendelenburg and administered a small bolus of fluid. Vitals at this time were as follows: HR 40s, BP 60/30, sating > 95% ORA, afebrile. He notes that as his dizziness and visual fogginess improved he felt as if someone was pushing on his chest, and he had associated SOB. This discomfortlasted a minute or so, and abated to leave him with residual knee pain as his only lingering symptoms. On my interview, 2 hours after his event, pt remains in usual state of health. He affirms the above to be true, and joseph notes that he has never had any symptoms of lightheadedness, dizziness, visualchange, CP, SOB, palpitations, exertional symptoms prior. He denies family history fo [place] or early cardiac . He further notes never having seen a control panel operator, just his PCP obtaining routine echo'sto track his known valvular condition (unsure exactly what it is). At time of this note pt is in NSRon bedside monitor w/ rate in mid 60's, and BP was 120s over 60s on repeat cuff measurements. During this event anesthesia was paged, and workup per them included EKG which showed SB without regional ischemic changes, ASA load of 325, BMP, CBC and troponin (reviewed below, all WNL aside from mild leukocytosis and mild drop in Hgb to 11.2 from 12.9 1 mo prior). ROS: Positive findings are BOLDED. GEN: Fever, chills, fatigue HEENT: Change in vision, hearing, smell, taste. Pharyngodynia, rhinorrhea. CV: chest pain, palpitations, orthopnea, paroxysmal noctural dyspnea, claudication PULM: dyspnea, cough, wheezing, sputum production ABD: abdominal pain, dysphagia, odynophagia, nausea, vomiting, diarrhea, constipation, melena, hematochezia. : dysuria, hematuria NEURO: anesthesia, paresthesia, asymmetric weakness, headache, photophobia, or phonophobia. SKIN: rashes, ulcers HEM: Bleeding, bruising, history of blood clots MSK: arthralgia, arthritis, myalgia Past Medical History/Problem List Patient Active Problem List Diagnosis Code ??? [...] of total knee replacement T84.89XA, M25.669, Z96.659 Past Medical History: Diagnosis Date ??? Anemia 02/19/2020 ??? Gastroesophageal reflux i take meds for this to control ??? Heart valve disease murmur - i've had test for this and it was fine ??? High blood pressure on medication ??? Mental health problem i take meds for depression bipolar2 ??? Motion sickness in the ocean on a boat Meds: No current facility-administered medications on file prior to encounter. Current Outpatient Medications on File Prior to Encounter Medication Sig Dispense Refill ??? atorvastatin (LIPITOR) 10 mg Tablet take 1 tablet by mouth once daily 0 ??? methylphenidate HCl (RITALIN) 20 mg Tablet take 1 tablet by mouth three times a day 0 ??? metoprolol succinate (TOPROL-XL) 50 mg Tablet Sustained Release 24 hr take 1 tablet by mouth once daily 0 ??? lamoTRIgine (LaMICtal) 200 mg Tablet Take 200 mg by mouth daily. ??? enalapril (VASOTEC) 20 mg Tablet take 1 tablet by mouth once daily 0 ??? gabapentin (NEURONTIN) 300 mg Capsule TAKE 1 TO 3 CAPSULES BY MOUTH AT BEDTIME NEEDED 0 ??? ibuprofen (ADVIL;MOTRIN) 600 mg Tablet Take 600 mg by mouth every 8 hours as needed. 4 ??? oxyCODONE (ROXICODONE) 10 mg Tablet Take by mouth 4 times daily as needed. ??? pantoprazole (PROTONIX) 40 mg Tablet, Delayed Release (E.C.) Take 40 mg by mouth Daily. Allergies: No Known Allergies Past Surgical History Past Surgical History: Procedure Laterality Date ??? JOINT REPLACEMENT right knee - revision scheduled to be done here Family History: No family history on file. Social History: Social History Tobacco Use ??? Smoking status: Never Smoker ??? Smokeless tobacco: Never Used Substance Use Topics ??? Alcohol use: Yes Alcohol/week: 3.0 standard drinks Types: 3 Cans of beer per week ??? Drug use: Yes Types: Opioids Social History Social History Narrative ??? Not on file Vitals: Last value Range last 24 hrs Temperature Temp: 36.7 ??C (98.1 ??F) Temp: [36.3 ??C (97.3 ??F)-36.7 ??C (98.1 ??F)] Heart Rate Heart Rate: (!) 48 Heart Rate: [44-65] Blood Pressure BP: 108/58 BP: (61-142)/(32-88) Respiratory Rate Resp: 16 Resp: [11-22] SpO2 SpO2: 100 % SpO2: [98 %-100 %] I/O last 3 completed shifts: In: 1100 [I.V.:1100] Out: 1000 [Urine:750; Blood:250] Examination: General: Pleasant, alert, appropriate, in NAD. HEENT: EOMI, nonicteric. Oropharynx clear w/o erythema, plaques or exudates or other lesions. No thrush; MMMs Neck: No LAD. JVD ~ not visualized Cardiac: Normal S1 and S2, Regular rate and rhythm; late paking 3/6 holosystolic murmor heard at LUSB that radiated to carotids. Respiratory: Nonlabored. Clear to auscultation bilaterally; No wheezes or crackles Abd: + BS; soft, non-tender, non-distended, no masses, no HSM Ext: No edema, cyanosis, clubbing, Radial and distal pedal pulses 2+ bilaterally Neuro: II-XII grossly intact. Alert and orientated, no-focal deficits, sensation intact to crude touch, motor strength 5/5 throughout Skin: No rashs, no lesions, no petechiae Laboratory: Recent Labs 03/26/201948 WBC 11.7* HGB 11.2* HCT 34.0* PLATELET 273 Recent Labs 03/26/201948 NA 142 K 4.1 CL 107 CO2 26 BUN 12 CREATININE 1.03 No results for input(s): AST, ALT, ALKPHOS, BILITOT, BILIDIR in the last 168 hours. Recent Labs 03/26/201948 CALCIUM 8.9 No results for input(s): INR, PT, PTT in the last 168 hours. Recent Labs 03/26/201948 TROPONINT <0.01 Recent Labs 03/26/20 1632 POCGLU 94 Microbiology: Microbiology Results (Last 30 days) Procedure Component Value Units Date/Time Prosthetic Joint Culture, Extended Hold Joint Fluid; Knee, Right [[id number]] Collected: 03/26/201244 Lab Status: In process Specimen: Joint Fluid from Knee, Right Updated: 03/26/201708 Joint Culture [[id number]] Collected: 03/26/201244 Lab Status: Preliminary result Specimen: Joint Fluid from Knee, Right Updated: 03/26/201708 Gram Stain -- Cytocentrifuge Gram Stain performed No Neutrophils seen. No microorganisms seen. COVID-19 PCR [[id number]] Collected: 03/23/20 1336 Lab Status: Final result Specimen: Nasopharyngeal Swab Updated: 03/24/201707 SARS-CoV-2 RNA Not Detected Comment: This result should be interpreted in combination with the clinical observations, patient history and epidemiological information in making a final diagnosis. For testing of asymptomatic individuals, assay performance characteristics and clinical utility have not been evaluated. Testing for SARS-CoV-2 (Severe acute respiratory syndrome coronavirus 2, formerly known as 2019 novel coronavirus or 2019-nCoV) to aid in the diagnosis of COVID-19 is performed using the [employer] RealTime SARS-CoV-2 Assay as authorized by the FDA Emergency Use Authorization (EUA). This EUA assay is intended for In-vitro Diagnostic (IVD) use with respiratory specimens such as nasopharyngeal swabs collected from individuals during the acute phase of infection. This assay is performed based on the instructions for use provided by [employer] and additional guidance provided by CDC and FDA. Testing is performed in the [facility] within the Department of Pathology and Laboratory Medicine at [facility], certified under the Clinical Laboratory Improvement Amendments of 1988 (CLIA), 42 U.S.C. 263a, to perform high complexity tests. Assay performance has been verified according to clinical laboratory regulatory requirements for use with specimens collected from individuals suspected of COVID-19. Test results are provided above. A result of ???Not Detected?? indicates that the viral RNA target is not present above the limit of detection, but does not preclude SARS-CoV-2 infection. False negative results may occur if a specimen is improperly collected, transported or handled; if amplification inhibitors are present; or if inadequate numbers of viral particles are present in the specimen. When a diagnostic test is negative, the possibility of a false negative result should be considered in the context of a patient???s recent exposures and the presence of clinical signs and symptoms consistent with COVID-19. A result of ???Detected?? indicates that RNA from SARS-CoV-2 was detected and the patient is infected. As required or requested by public health authorities, positive specimens may be sent for additional testing. Positive and negative predictive values for this test are highly dependent on disease prevalence. A result of ???Invalid?? indicates that neither the viral RNA targets nor the internal control target was detected. An invalid result suggests the presence of inhibitors. Recollection and re-testing is recommended in the case of an invalid result. CDC COVID-19 criteria for testing on human specimens and clinical management guidance information are available at the CDC Coronavirus Disease 2019 (COVID-19) webpage under ???Information for Healthcare Professionals?? 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 On interview pt denies confounding cardiopulmonary history, family history, prior episodes of similar symptoms all aligning with this being a vasovagal event. He did take a slightly higher dose of oxycodone prior to this episode, but this would be very atypical to be an adverse medication effect. The fact that his symptoms and hemodynamics responded to recruitment maneuvers (trendelenberg) and IV fluids also point to this theory. He was in sinus liset at the time of event, and took his metoprolol today, this coupled with being volume down (dry on my exam, 250 EBL recorded) and mild/moderate auscultated clinically (and pt endorses historically of having known stable valvular disease) also correlates as he is more preload dependant than an average 57 yo male. He likely had post prandial splanchnic dilation, pain and relative hypovolemia all contributing to this event. Regardless will watch him closely overnight on tele, and if ssx reoccur readdress this above theory with more scrutiny. Other consideration to consider that would explain some but not the whole constellation of symptoms include vestibular pathology which provoked initial lightheadedness, but again the other symptoms/hemodynamic changes with resolution as such makes this theory less likely. He did not have carotid bruit on my ascultation, and b/l visual change without any other FND or exam findings would not be caused by an occlusive vascular process/stroke. He returned to neurologic baseline, so seizure is also less likel, but if this were to repeat EEG and head CT to further work this theory up would be indicated. Another thought is iatrogenic, and while his LA metoprolol likely did not help I do not think he is in BB overdose as he responded so quickly. The only other routine medication he is missing aside from ACEi is his Ritalin, but typically absence of this in long time users manifests as depression given primary BRAKE SPECIALIST stimulant effect. Recommendations: - Maintain hydration post op as relative hypovolemia likely augmented vasovagal episode - Monitor on telemetry through discharge - Trend trop x 3 Case was discussed with medicine consult attending, Dr. Herrera. X Consult service will continue to follow patient. Recommendations are above, please page if further consultation required. Rinku Cabrera, DO Internal Medicine, PGY3 ANISH Pager # [phone] Associated attestation - Ehsan Herrera MD - 03/28/2020 9:16 PM EDT Please see Dr. Cabrera's note for details of the patient history of presentation and data. I have discussed, reviewed and agree with the documented history with ROS, social and family history, medication list, physical findings, labs/studies, Assessment and Plan of care. 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 Drains: * No LDAs found * Surgical Closure: Primary Closure - skin incision is completely closed without any wires, juan, drains or other devices Disposition: awakened from anesthesia, extubated and taken to the recovery room in a stable condition, having suffered no apparent untoward event. Condition: doing well without problems (Please see the Surgical Encounter Summary for any Implant and Specimen details pertinent to this patient.) HPI/Surgical Indications: Yg Leal is a 59 y.o. male who presents with Right knee pain and physical exam indicative ofaseptic loosening. After discussing treatment options the patient desired to proceed with surgery. Adetailed conversation regarding the risks and benefits of knee REVISION arthroplasty was had with the patient. The risks discussed included but were not limited to: bleeding (which may or may not require transfusion), infection, damage to nerves or blood vessels, deep venous thrombosis, pulmonary embolus, prosthetic failure, loosening, prosthetic fracture, femur patella or tibia fracture, persistent pain, need for future surgery, medical complications (including cardiac, respiratory and neurologic co mplications), anesthetic complications, and . Subsequent to this conversation, all of the patient???s questions were answered in great detail and informed consent was obtained for a right total knee arthroplasty revision. He received preoperative medical clearance and was felt optimized for surgery. Today, the patient identified the Right knee as the correct operative side. Procedure Description: The patient was then brought to the operating room on a stretcher and transferred to the OR table where the above anesthetic was administered. Venodynes were applied to the non-operative leg. A non-sterile tourniquet was applied high around the operative leg. A foot post and thigh post were placed to aid in intra-op leg positioning. A clinical time-out was held confirming the correct patient name, MRN, , planned procedure, site, antibiotic start time and agent, and outline of any surgical concerns. All in attendance were in agreement to proceed. Weight based dosing of tranexamic acid was administered prior to making an incision. Skin Preparation: The skin of the lower extremity was prepped using hibiclens, alcohol, and chloraprep. The prep was allowed to fully dry and sterile drapes were applied. Surgical Approach: The leg was exsanguinated using a sterile Esmarch/BROWN bandage. Incision was made through site of prior surgical scar. Hemostasis was obtained using electrocautery and full thickness skin flaps were elevated medial and lateral to identify the extensor mechanism. A medial parapatellar arthrotomy was performed leaving a 2mm cuff of tendon for later repair. Electrocautery was used to cauterize bleeders. A medial peel was then performed around the tibia to the mid coronal line. A lateral release was performed. Patella: With the knee in extension the patella was everted and inspected. The patella button was noted to bewell fixed to the bone and did not demonstrate any indication of loosening. Decision was made to maintain the patella in place Femur: With the knee in flexion the femoral component was inspected. The interfaces between the implant andbone were scrutinized. There were no visible sign of loosening. The anterior flange of the femoral component was then tapped with a bone tamp and a mallet. The component was easily loosened and removedwith gentle mallet taps. The removed component was observed, minimal bone loss was seen.. Tibia: A PCL retractor was then placed behind the tibia and it was subluxed anterior. We continued the synovectomy so that the entire tibial tray could be visualized. The interfaces between the implant and bone were scrutinized. There were no visible sign of loosening. The anterior medial aspect of the tibial component was then tapped with a bone tamp. The component was easily loosened and removed with gentle mallet taps. The component was evaluated. The tibia was observed and minimal bone loss was noted. At this time cultures were taken from the tibia and sent for Ortho extended 14 day incubation. Femoral and tibial preparation: The femur and tibia were prepped by sequential reaming. And the tibia was also reamed and broached for a cone. The tibia was recut using the appropriate cut guide. The tibia was reamed and broached forcone placement. The femur was recut using a notch cutting guide of an appropriate size. Trials: Trials were assembled on the back table, inserted and adjusted to as appropriate. Offset stems were used for the tibia and femur. Fully assembled trials were placed and the knee was then brought through a full range of motion. At that point the knee was found to be stable and we were happy with our imp lant selection. The trials were then removed. Final Implants: The knee was then copiously irrigated with pulse lavage to clear all bony surfaces of debris and blood. Drill holes were placed on the exposed bone to increase cement penetration. The implants were opened on the back table and assembled using the appropriate assembly tools. In a cement gun 2 bags of medium viscosity cement with antibiotics was mixed using a vacuum. Cement was placed on the back surface of all implants avoiding the porous surfaces and then pressurized into the exposed bone on the tibia first. The tibial cone and tibial implant was placed in the appropriate orientation and impacted into the bone. Excess cement was removed. The tibia was then reduced under the femur. Cement was placed onto the exposed femoral bony surfaces and then the femoral component was aligned with the bony cuts and impacted. Excess cement was removed. The tibial polyethylene trial was inserted and impacted into place.The knee was brought into extension and loaded. The knee was flexed and any remaining cement that had been expressed was removed. Once the cement was hardened the knee was irrigated one last time. The knee was brought through a final range of motion which demonstrated varus/valgus and anterior/posterior stability with appropriate patella tracking. The trial poly was removed and the final implant poly was opened, inserted and noted to seat fully. The screw for the constrained poly was screwedin using the torque limiting screw trash collector truck driver The tibia was then reduced under the femur. The knee was then copiously irrigated with pulse lavage once again. The remaining francisco-capsular injection was injected into the periosteum and soft tissues. The knee was brought through a final range of motion which demonstrated varus/valgus and anterior/posterior stability with appropriate patella tracking. Closure: The knee was placed in 60 degrees of flexion and the arthrotomy was closed initially with 0 vicryl tacking sutures which was over sewn with a #2 barbed running suture. The deep layers were closed with 0 vicryl. The superficial layers were closed with 2-0 vicryl. The skin was closed with ellis. A sterile Mepilex Ag dressing was applied. A cryocuff was applied. The needle, sponge and instrument counts were correct at the end of the procedure. The patient was awakened from anesthesia. The patient was transferred from the operating table to the hospital bed. The patient was taken to the postoperative recovery area having suffered no apparent complication of the procedure. Implant Name Type Inv. Item Serial No. Engine Room Operator Lot No. LRB No. Used Action CEMEN,GENTA,VISC,MED ([id number]) (AUTOREQ) - [id number] IMPLANTS CEMEN,GENTA,VISC,MED ([id number]) (AutoReq) MOODY [employer] [facility] [id number] Right 2 Implanted TRAY,TIBIAL,RVSN,RIGHT,S4 ([id number]) (AUTOREQ) - [id number] IMPLANTS TRAY,TIBIAL,RVSN,RIGHT,S4 ([id number]) (AutoReq) MEDACT[employer] - MEDACTA [place] [id number] Right 1 Implanted CONNECTOR,OFFSET,5MM ([id number]) (AUTOREQ) - [id number] IMPLANTS CONNECTOR,OFFSET,5MM ([id number]) (AutoReq) MEDACTA [place] - MEDACTA [place] [id number] Right 1 Implanted STEM,EXT,CMNTLESS,,??22MM-L065M ([id number]) (AUTOREQ) - [id number] IMPLANTS STEM,EXT,CMNTLESS,,??22mM-L065m ([id number]) (AutoReq) MEDACTA [place] - MEDACTA [place] [id number] Right 1 Implanted STEM,EXT,CMNTLESS,,??16MM-L065M ([id number]) (AUTOREQ) - [id number] IMPLANTS STEM,EXT,CMNTLESS,,??16mM-L065m ([id number]) (AutoReq) [employer]ACT[employer] [place] - MEDACT[employer] [place] [id number] Right 1 Implanted CONNECTOR,OFFSET,3MM ([id number]) (AUTOREQ) - [id number] IMPLANTS CONNECTOR,OFFSET,3MM ([id number]) (AutoReq) [employer]ACT[employer] [place] - MEDACTA [place] [id number] Right 1 Implanted FEMUR,REVSN,POST,STAB,CMNT,RT, ([id number]) (AUTOREQ) - [id number] IMPLANTS FEMUR,REVSN,POST,STAB,CMNT,RT, ([id number]) (AutoReq) [employer]ACT[employer] [place] - MEDACT[place] [id number] Right 1 Implanted CONE,TIB,3D,MTL,CTR,RVSN,SM,H2 ([id number]) (AUTOREQ) - [id number] IMPLANTS CONE,TIB,3D,MTL,CTR,RVSN,SM,H2 ([id number]) (AutoReq) MEDACT[employer] [place] - MEDACTA US [id number] Right 1 Implanted INSERT,SEMICNSTRND,RVSN,12MM,S ([id number]) (AUTOREQ) - [id number] IMPLANTS INSERT,SEMICNSTRND,RVSN,12MM,S ([id number]) (AutoReq) MEDACT[employer] [place] - MEDACTA [place] [id number] Right 1 Implanted Infection Bundle used? 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 Femoral and tibial components removed. Revision TKA performed. Complications: None Intake: Intraprocedure Crystalloid Total Intake lactated ringers infusion 1100.00 mL Total Intake 1100 mL Output Urine Output 750 mL Blood Loss 250 mL Total Output 1000 mL Net Net Volume 100 mL Transfusion No data found in the last 1 encounters. Output: Estimated Blood Loss: * No values recorded between 03/26/2020 12:34 PM and 03/26/2020 3:32 PM * Urine Output:: 700 mL Other Output: (no other output recorded) Drains: None Specimens removed during surgery: Femoral, tibial and polyethylene components removed and sent to the [place] lab for evaluation Disposition: awakened from anesthesia, extubated and taken to the recovery room in a stable condition, having suffered no apparent untoward event. Condition: doing well without problems (Please see the Surgical Encounter Summary for any Implant and Specimen details pertinent to this patient.) Infection Bundle used? N/A documented in this encounter Plan of Treatment Not on filedocumented as of this encounter Procedures Procedure Name Priority Date/Time Associated Diagnosis Comme nts ECHOCARDIOGRAM Routine 03/29/2020 10:34 Syncope, unspecified R esults for this COMPLETE AM EDT syncope type procedure are i n the results section. HEMOGRAM Routine 03/29/2020 5:19 Results for this AM EDT procedure are i n the results section. DIFFERENTIAL, Routine 03/29/2020 5:19 Results for this AUTOMATED AM EDT procedure are i n the results section. HC VENIPUNCTURE Routine 03/29/2020 5:19 AM EDT BASIC METABOLIC PANEL Routine 03/29/2020 5:19 Res ults for this (NON-FASTING) AM EDT procedure are in the results section. HEMOGRAM Routine 03/28/2020 5:02 Results for this AM EDT procedure are i n the results section. DIFFERENTIAL, Routine 03/28/2020 5:02 Results for this AUTOMATED AM EDT procedure are i n the results section. HC CBC,PLT & AUTO DIFF Routine 03/28/2020 5:02 AM EDT BASIC METABOLIC PANEL Routine 03/28/2020 5:02 Res ults for this (NON-FASTING) AM EDT procedure are in the results section. HC VENIPUNCTURE STAT 03/27/2020 8:28 Results f or this AM EDT procedure are i n the results section. HEMOGRAM Routine 03/27/2020 2:13 Results for this AM EDT procedure are i n the results section. DIFFERENTIAL, Routine 03/27/2020 2:13 Results for this AUTOMATED AM EDT procedure are i n the results section. HC CBC,PLT & AUTO DIFF Routine 03/27/2020 2:13 AM EDT HC TROPONIN T STAT 03/27/2020 2:13 Results for this AM EDT procedure are i n the results section. BASIC METABOLIC PANEL Routine 03/27/2020 2:13 Res ults for this (NON-FASTING) AM EDT procedure are in the results section. HEMOGRAM Routine 03/26/2020 7:49 Results for this PM EDT procedure are i n the results section. DIFFERENTIAL, Routine 03/26/2020 7:49 Results for this AUTOMATED PM EDT procedure are i n the results section. HC CBC,PLT & AUTO DIFF Routine 03/26/2020 7:49 PM EDT HC TROPONIN T STAT 03/26/2020 7:49 Results for this PM EDT procedure are i n the results section. BASIC METABOLIC PANEL Routine 03/26/2020 7:49 Res ults for this (NON-FASTING) PM EDT procedure are in the results section. EKG 12-LEAD STAT 03/26/2020 7:45 Anemia, unspecified Resul ts for this PM EDT type procedure are i n the results section. XR KNEE AP & LAT RIGHT Routine 03/26/2020 6:09 Re sults for this PM EDT procedure are i n the results section. POCT GLUCOSE Routine 03/26/2020 4:32 Results for this PM EDT procedure are i n the results section. HC CONC. FOR Routine 03/26/2020 12:45 INFECTIOUS AGENTS PM EDT JOINT CULTURE Routine 03/26/2020 12:45 Results fo r this PM EDT procedure are i n the results section. ANAEROBIC CULTURE Routine 03/26/2020 12:45 Result s for this PM EDT procedure are i n the results section. MODIFIER,GMK REVISION 03/26/2020 11:58 Postoperative KNEE,MEDACTA AM EDT stiffness of total knee replacement, initial encounter @TOTAL KNEE REVISION 03/26/2020 11:58 Postoperative ARTHROPLASTY, COMPLETE AM EDT stiffness of total (WRVU 27.11) knee replacement, initial encounter documented in this encounter Results ECHOCARDIOGRAM COMPLETE (03/29/2020 10:34 AM EDT) P athologist Signature EF 58 HEARTLAB SYSTEM Specimen (Source) Anatomical Location Collection Method / Collectio n Time Received Time / Laterality Volume 03/29/2020 Narrative HEARTLAB SYSTEM - 03/29/2020 11:36 AM ED T Procedure: ?Transthoracic Echocardiogram Patient: ?NOE Santos ?(Age): 1960(59y) Med Rec#: ? [id number] ?Sex: ?M ? Site Loc: ? [facility] ?Ht / Wt: ??170(cm)/75(kg) Pt. Loc: ?Adult Floor ? BSA: ?1.86 Study Date: ?? 03/29/2020 ?Pt. Type: Inpatient Tape: ? Referring: JARAD THOMAS Referring: Eddie Ortiz Reading: Lyle Foreman ([id number]) Performance Makeup Artist: Lala Miller Diagnosis: *Syncope and collapse (R55) Rhythm: ? Sinus BP: ? 103/55 HR: ? 61 SUMMARY: 1. The left ventricular chamber size is normal. ??There is normal global left ventricular systolic function. ??Th e quantitative left ventricular ejection fraction by biplane Watts's m ethod is 58%. ??There are no left ventricular segmental wall motion abnorm alities. 2. The aortic valve is not well visualiz ed. ??The mean trans-valvular gradient across ??the aortic valve is 12 mmHg (sclerosis without significant stenosis). ??There is no daphney dence of aortic regurgitation. 3. There is trace mitral regurgitation p resent. 4. Other details as below. Findings ? : Study Quality: ? Adequate Left Ventricle: ? The left ventricul ar chamber size is normal. ?Left ventricular wall thickness is normal. ?There is no evidence of LVOT obstr uction. ?No ventricular septal defect is vi sualized. ?There is normal global left ventri cular systolic function. ?The quantitative left ventricular ejection fraction by biplane Watts's method is 58%. ?There are no left ventricular segm ental wall motion abnormalities. Left Atrium: ? The left atrium is no rmal in size. ?No atrial septal defect is visuali zed. ?There is no patent foramen ovale v isualized. Right Ventricle: ? The right ventric le is normal in size. ?Right ventricular global systolic function is normal. ?The estimated pulmonary artery sys tolic pressure is 23 mmHg. Right Atrium: ? The right atrium is normal in size. Aortic Valve: ? The aortic valve is not well visualized. ?The aortic valve leaflets are mild ly thickened. ?Systolic excursion of the aortic v alve cusps is reduced. ?There is aortic annular calcificat ion. ?The peak instantaneous trans-valvu lar gradient across ??the aortic valve is 22 mmHg. ?The mean trans-valvular gradient a cross ??the aortic valve is 12 mmHg. ?The calculated aortic valve area i s 2 cm2. ?There is no evidence of aortic reg urgitation. Mitral Valve: ? The mitral valve tracee flets appear normal. ?There is no evidence of mitral tien nosis. ?There is trace mitral regurgitatio n present. Tricuspid Valve: ? The tricuspid brady ve leaflets are morphologically normal. ?There is trace tricuspid regurgita tion present. Pulmonic Valve: ? The pulmonic valve is not well visualized. ?There is no evidence of pulmonic r egurgitation. Pericardium: ? There is no pericardi al effusion. Aorta: ? The aortic root is normal i n size. ?The ascending aorta is normal in s ize. Pulmonary Artery: ? The main pulmona ry artery is not well visualized. Venous: ? The inferior vena cava lópez ears normal in size. ?There is a greater than 50% respir atory change in the inferior vena cava dimension. Misc: ? Two-dimensional echo, spectr al Doppler and color Doppler performed. Chambers 2D ?Value ?Units (Range) ? IVSd (2D) ? 0.91 ? cm ? LVPWd (2D) ?0.84 ? cm ? IVS:LVPW ratio (2D) 1.09 ? ratio ? RWT (2D) ?0.35 ? ratio ? RWT PW (2D) ? 0.33 ? ratio ? LVIDd (2D) ?5.04 ? cm ? LVIDs (2D) ?2.99 ? cm ? LVIDd (2D) index ?2.7 ?cm/m2 ? LVIDs (2D) index ?1.6 ?cm/m2 ? LV FS (2D) ?40.67 ?% ? EF Teichholz (2D) ?? 71.18 ?% ? Ao root diameter (2D3 ?cm (2.1 - 3.6) ? Ascending Ao ?3.1 ?cm (2 - 3.5) ? Volumes/Mass ?Value ?Units (Range) ? LA Area 4 CH ?19 ? cm2 (<21) ? RA AREA 4CH ? 15 ? cm2 ? LA ESV BP (MOD) inde33 ? ml/m2 ? LV ESV SP 4CH (MOD) 32 ? ml ? LV ESV SP 2CH (MOD) 41 ? ml ? LV EDV BP ? 90 ? ml ? LV ESV BP ? 38 ? ml ? LV EDV BP index ? 48.29 ?ml/m2 ? LV ESV BP index ? 20.39 ?ml/m2 ? BP EF (MOD) ? 57.78 ?% ? LV mass (2D) ?153.85 ? g ? LV mass (2D) index ??82.56 ?g/m2 ? Diastolic/Systolic Function ?Value ?Units (Range) ? MV E-wave Vmax ?0.93 ? m/sec ? MV deceleration itqc617 ?msec ? MV A-wave Vmax ?0.69 ? m/sec ? MV E:A ratio ?1.34 ? ratio ? LV septal e' Vmax ?? 0.1 ?m/sec ? LV lateral e' Vmax ??0.13 ? m/sec ? LV average e' Vmax ??0.11 ? m/sec ? LV E:e' septal ratio9.68 ? ratio ? LV E:e' lateral rati6.98 ? ratio ? LV average E:e' rati8.11 ? ratio ? Aortic Valve ?Value ?Units (Range) ? AV Vmax ? 2.32 ? m/sec ? AV VTI ?49.2 ? cm ? AV peak gradient ?22 ? mmHg ? AV mean gradient ?12 ? mmHg ? LVOT diameter ? 2 ?cm ? LVOT Vmax ? 1.53 ? m/sec ? LVOT VTI ?32.3 ? cm ? LVOT peak gradient ??9 ?mmHg ? LVOT mean gradient ??5 ?mmHg ? DOI (VTI) ? 0.66 ? ratio ? DOI (Vmax) ?0.66 ? ratio ? SV LVOT ? 101.42 ? ml ? CO LVOT ? 6.19 ? l/min ? Cardiac index ? 3.32 ? l/min/m2 ? DEIDRA (continuity Vmax2 ?cm2 ? DEIDRA (continuity Vmax1.11 ? cm2/m2 ? DEIDRA (continuity VTI)2.06 ? cm ? DEIDRA (continuity VTI)1.11 ? cm2/m2 ? Tricuspid Valve ?Value ?Units (Range) ? TR Vmax ? 2.08 ? m/sec ? TR peak gradient ?17.31 ?mmHg ? RVSP ?23 ? mmHg ? Wall Motion: Segment Name ?Rest ? Base-Anteroseptal ?? Normal ? Base-Anterior ? Normal ? Base-Anterolateral ??Normal ? Base-Posterolateral Normal ? Base-Inferior ? Normal ? Base-Inferoseptal ?? Normal ? Mid-Anteroseptal ?Normal ? Mid-Anterior ?Normal ? Mid-Anterolateral ?? Normal ? Mid-Posterolateral ??Normal ? Mid-Inferior ?Normal ? Mid-Inferoseptal ?Normal ? [place]-Septal ? Normal ? [place]-Anterior ? Normal ? [place]-Lateral ?Normal ? [place]-Inferior ? Normal ? [place]-Tip ?Normal ? This report has been electronically sign ed by: _ Lyle Foreman MD ? 03/29/2020 11:35:55 Images reviewed and interpretation verif ied [facility] Cardiac Ultrasound Laboratory Procedure Note Lyle Foreman MD - 03/29/2020Forma tting of this note might be different from the original. Procedure: Transthoracic Echocardiogram Patient: NOE Santos DOB(Age): 10/1960(59y) Med Rec#: [id number] Sex: M Site Loc: [facility] [place] Ht / Wt: 170(cm)/75(kg) Pt. Loc: Adult Floor BSA: 1.86 Study Date: 03/29/2020 Pt. Type: Inpatie nt Tape: Referring: JARAD THOMAS Referring: Eddie Ortiz Reading: Lyle Foreman ([id number]) Performance Makeup Artist: Lala Miller Diagnosis: *Syncope and collapse (R55) Rhythm: Sinus BP: 103/55 HR: 61 SUMMARY: 1. The left ventricular chamber size is normal. There is normal global left ventricular systolic function. The quantitative left ventricular ejection fraction by biplane Watts's m ethod is 58%. There are no left ventricular segmental wall motion abnorm alities. 2. The aortic valve is not well visualiz ed. The mean trans-valvular gradient across the aortic valve is 12 m mHg (sclerosis without significant stenosis). There is no evide nce of aortic regurgitation. 3. There is trace mitral regurgitation p resent. 4. Other details as below. Findings : Study Quality: Adequate Left Ventricle: The left ventricular rosalie mber size is normal. Left ventricular wall thickness is norm al. There is no evidence of LVOT obstructio n. No ventricular septal defect is visuali zed. There is normal global left ventricular systolic function. The quantitative left ventricular eject ion fraction by biplane Watts's method is 58%. There are no left ventricular segmental wall motion abnormalities. Left Atrium: The left atrium is normal i n size. No atrial septal defect is visualized. There is no patent foramen ovale visual ized. Right Ventricle: The right ventricle is normal in size. Right ventricular global systolic funct ion is normal. The estimated pulmonary artery systolic pressure is 23 mmHg. Right Atrium: The right atrium is normal in size. Aortic Valve: The aortic valve is not we ll visualized. The aortic valve leaflets are mildly th ickened. Systolic excursion of the aortic valve cusps is reduced. There is aortic annular calcification. The peak instantaneous trans-valvular g radient across the aortic valve is 22 mmHg. The mean trans-valvular gradient across the aortic valve is 12 mmHg. The calculated aortic valve area is 2 c m2. There is no evidence of aortic regurgit ation. Mitral Valve: The mitral valve leaflets appear normal. There is no evidence of mitral stenosis . There is trace mitral regurgitation pre sent. Tricuspid Valve: The tricuspid valve tracee flets are morphologically normal. There is trace tricuspid regurgitation present. Pulmonic Valve: The pulmonic valve is no t well visualized. There is no evidence of pulmonic regurg itation. Pericardium: There is no pericardial eff usion. Aorta: The aortic root is normal in size . The ascending aorta is normal in size. Pulmonary Artery: The main pulmonary art soco is not well visualized. Venous: The inferior vena cava appears n ormal in size. There is a greater than 50% respiratory change in the inferior vena cava dimension. Misc: Two-dimensional echo, spectral Dop pler and color Doppler performed. Chambers 2D Value Units (Range) IVSd (2D) 0.91 cm LVPWd (2D) 0.84 cm IVS:LVPW ratio (2D) 1.09 ratio RWT (2D) 0.35 ratio RWT PW (2D) 0.33 ratio LVIDd (2D) 5.04 cm LVIDs (2D) 2.99 cm LVIDd (2D) index 2.7 cm/m2 LVIDs (2D) index 1.6 cm/m2 LV FS (2D) 40.67 % EF Teichholz (2D) 71.18 % Ao root diameter (2D3 cm (2.1 - 3.6) Ascending Ao 3.1 cm (2 - 3.5) Volumes/Mass Value Units (Range) LA Area 4 CH 19 cm2 (<21) RA AREA 4CH 15 cm2 LA ESV BP (MOD) inde33 ml/m2 LV ESV SP 4CH (MOD) 32 ml LV ESV SP 2CH (MOD) 41 ml LV EDV BP 90 ml LV ESV BP 38 ml LV EDV BP index 48.29 ml/m2 LV ESV BP index 20.39 ml/m2 BP EF (MOD) 57.78 % LV mass (2D) 153.85 g LV mass (2D) index 82.56 g/m2 Diastolic/Systolic Function Value Units (Range) MV E-wave Vmax 0.93 m/sec MV deceleration [id number] msec MV A-wave Vmax 0.69 m/sec MV E:A ratio 1.34 ratio LV septal e' Vmax 0.1 m/sec LV lateral e' Vmax 0.13 m/sec LV average e' Vmax 0.11 m/sec LV E:e' septal ratio9.68 ratio LV E:e' lateral rati6.98 ratio LV average E:e' rati8.11 ratio Aortic Valve Value Units (Range) AV Vmax 2.32 m/sec AV VTI 49.2 cm AV peak gradient 22 mmHg AV mean gradient 12 mmHg LVOT diameter 2 cm LVOT Vmax 1.53 m/sec LVOT VTI 32.3 cm LVOT peak gradient 9 mmHg LVOT mean gradient 5 mmHg DOI (VTI) 0.66 ratio DOI (Vmax) 0.66 ratio SV LVOT 101.42 ml CO LVOT 6.19 l/min Cardiac index 3.32 l/min/m2 DEIDRA (continuity Vmax2 cm2 DEIDRA (continuity Vmax1.11 cm2/m2 DEIDRA (continuity VTI)2.06 cm DEIDRA (continuity VTI)1.11 cm2/m2 Tricuspid Valve Value Units (Range) TR Vmax 2.08 m/sec TR peak gradient 17.31 mmHg RVSP 23 mmHg Wall Motion: Segment Name Rest Base-Anteroseptal Normal Base-Anterior Normal Base-Anterolateral Normal Base-Posterolateral Normal Base-Inferior Normal Base-Inferoseptal Normal Mid-Anteroseptal Normal Mid-Anterior Normal Mid-Anterolateral Normal Mid-Posterolateral Normal Mid-Inferior Normal Mid-Inferoseptal Normal [place]-Septal Normal [place]-Anterior Normal [place]-Lateral Normal [place]-Inferior Normal [place]-Tip Normal This report has been electronically sign ed by: _ Lyle Foreman MD 03/29/2020 11:35: 55 Images reviewed and interpretation verif ied [facility] Cardiac Ultrasound Laboratory Eddie Ortiz MD ECHO ORDERABLES Performing Organization Address City/State/ZIP Code Phon e Number [facility] Differential, Automated (03/29/2020 5:19 AM EDT) P athologist Signature Neutrophils % 66.7 % [facility] Neutr Abs (ANC) 4.75 1.70 - [facility] 6.10 [facility] x10(3)/[facility] LABORATORY Lymphocytes % 17.9 % [facility] Lymphocytes Abs 1.3 0.9 - 3.2 [facility] x10(3)/[facility] LABORATORY Monocytes % 12.0 % [facility] Monocyte Abs 0.8 0.3 - 0.9 [facility] x10(3)/[facility] LABORATORY Eosinophils % 2.7 % [facility] Eosinophils Abs 0.2 0.0 - 0.4 [facility] x10(3)/[facility] LABORATORY Basophils % 0.3 % [facility] Basophils Abs 0.0 0.0 - 0.1 [facility] x10(3)/[facility] LABORATORY Immature Gran % 0.40 % [facility] Comment: Immature granulocytes(IG's)percentage an d absolute count will include metamyelocytes, myelocytes, and promyelo cytes. Blood smears from CBCs yielding IG's will be scanned manually for concor dance. If this scan disagrees with the automated IG or if promyelocytes are not ed, a manual differential will be performed. Yudelka Gran Abs 0.03 0.00 - 0.04 x10(3)/[facility] LABORATORY Specimen Anatomical Collection Method Collection Time Receive d Time (Source) Location / / Volume Laterality Blood specimen 03/29/2020 5:19 AM 020 5:35 (specimen) EDT AM EDT Resulting Agency Comment Spec In Lab Jose Cruz Foster MD HEMATOLOGY ORDERABLES Performing Organization Address City/State/[place] [address] (ABNORMAL) Hemogram (03/29/2020 5:19 AM EDT) Analysis Performed At Patho logist Time Signature WBC 7.1 4.0 - 9.5 [facility] x10(3)/[facility] LABORATORY RBC 3.20 (L) 4.58 - [facility] x10(6)/[facility] LABORATORY Hemoglobin 9.2 (L) 13.7 - [facility] 16[facility] gm/dL [facility] LAB[facility]ORY Hematocrit 28.0 (L) 40.5 - [facility] 48.5 % [facility] LABOR[facility]ORY MCV 87.5 82.9 - [facility] 93.1 [facility] LABORATORY MCH 28.8 27.5 - [facility] 32.1 pg [facility] LAB[facility]ATORY MCHC 32.9 32.0 - [facility] 35.7 gm/dL [facility] LABOR[facility]ORY Platelets 208 145 - 357 [facility] x10(3)/[facility] LABORATORY RDWSD 40.9 36.0 - [facility] 45.0 [facility] LABORATORY RDWCV 12.8 11.4 - [facility] 13.8 % [facility] LABORATORY MPV 9.2 7.6 - 12.9 [facility] LABORATORY nRBC % Auto 0.0 % [facility] nRBC Abs Auto 0.000 0.000 - [facility] 0.000 [facility] x10(3)/[facility] LABORATORY Specimen Anatomical Collection Method Collection Time Receive d Time (Source) Location / / Volume Laterality Blood specimen 03/29/2020 5:19 AM 020 5:35 (specimen) EDT AM EDT Resulting Agency Comment Spec In Lab Jose Cruz Foster MD HEMATOLOGY ORDERABLES Performing Organization Address City/State/[place] [address] Basic Metabolic Panel (non-fasting) (03/29/2020 5:19 AM EDT) P athologist Signature Glucose Lvl 166 65 - 199 [facility] mg/dL [facility] LABORATORY Comment: Diabetes: >=200 mg/dL plus symp toms BUN 12 10 - 20 mg/dL [facility] LABORATORY Creatinine 0.84 0.80 - 1.50 mg/dL [facility] LABOR[facility]ORY Sodium 137 135 - 145 mmol/L [facility] Potassium 4.9 3.5 - 5.0 mmol/L [facility] Comment: Please note: ??Patients with WBC >100,00 0 may have falsely elevated Potassium levels. ??For accurate Potassium quantif ication in these patients send serum separator tube (gold top) for subsequent determinations. ??Contact the Clinical Chemistry Laboratory if there are any qu estions. Chloride 100 98 - 107 mmol/L [facility] CO2 28 22 - 31 mmol/L [facility] Anion Gap 9 5 - 15 mmol/L [facility] Calcium 9.4 8.5 - 10.5 mg/dL [facility] LAB[facility] Estimated GFR 97 >=60 mL/min/1.73 m?? [facility] Comment: The eGFR was calculated using the CKD-EP I equation. As with all creatinine based estimates of kidney function, eGFR values calculated with the CKD-EPI equation are not accurate in patients wi th acute kidney failure, extremes of body mass or the acutely ill. [email or web address] eGFR 113 >=60 mL/min/1.73 m?? [facility] Comment: The eGFR was calculated using the CKD-EP I equation. As with all creatinine based estimates of kidney function, eGFR values calculated with the CKD-EPI equation are not accurate in patients wi th acute kidney failure, extremes of body mass or the acutely ill. [email or web address] [place] Specimen Anatomical Collection Method Collection Time Receive d Time (Source) Location / / Volume Laterality Blood specimen 03/29/2020 5:19 AM 020 5:35 (specimen) EDT AM EDT Resulting Agency Comment Spec In Lab Jose Cruz Foster MD CHEMISTRY ORDERABLES Performing Organization Address City/State/[place] [address] Differential, Automated (03/28/2020 5:02 AM EDT) P athologist Signature Neutrophils % 63.4 % [facility] Neutr Abs (ANC) 4.23 1.70 - [facility] 6.10 [facility] x10(3)/[facility] LABORATORY Lymphocytes % 18.6 % [facility] Lymphocytes Abs 1.2 0.9 - 3.2 [facility] x10(3)/[facility] LABORATORY Monocytes % 13.8 % [facility] Monocyte Abs 0.9 0.3 - 0.9 [facility] x10(3)/[facility] LABORATORY Eosinophils % 3.6 % [facility] Eosinophils Abs 0.2 0.0 - 0.4 [facility] x10(3)/[facility] LABORATORY Basophils % 0.3 % [facility] Basophils Abs 0.0 0.0 - 0.1 [facility] x10(3)/[facility] LABORATORY Immature Gran % 0.30 % [facility] Comment: Immature granulocytes(IG's)percentage an d absolute count will include metamyelocytes, myelocytes, and promyelo cytes. Blood smears from CBCs yielding IG's will be scanned manually for concor dance. If this scan disagrees with the automated IG or if promyelocytes are not ed, a manual differential will be performed. Yudelka Gran Abs 0.02 0.00 - 0.04 x10(3)/[facility] Y [facility] LABORATORY Specimen Anatomical Collection Method Collection Time Receive d Time (Source) Location / / Volume Laterality Blood specimen 03/28/2020 5:02 AM 020 5:14 (specimen) EDT AM EDT Resulting Agency Comment Spec In Lab Jose Cruz Foster MD HEMATOLOGY ORDERABLES Performing Organization Address City/State/ZIP Code Phon e Number [address] (ABNORMAL) Hemogram (03/28/2020 5:02 AM EDT) Analysis Performed At Patho logist Time Signature WBC 6.7 4.0 - 9.5 [facility] x[facility](3[facility] LABORATORY RBC 3.24 (L) 4.58 - [facility] 5.54 [facility] x10(6)/[facility] LABORATORY Hemoglobin 9.4 (L) 13.7 - [facility] 16[facility] gm/dL [facility] LABORATORY Hematocrit 29.0 (L) 40.5 - [facility] 48.5 % [facility] LABORATORY MCV 89.5 82.9 - [facility] 93.1 [facility] LABORATORY MCH 29.0 27.5 - [facility] 32.1 pg [facility] LABORATORY MCHC 32.4 32.0 - [facility] 35.7 gm/dL [facility] LABORATORY Platelets 202 145 - 357 [facility] x10(3)/[facility] LABORATORY RDWSD 41.6 36.0 - [facility] [place] 45.0 [facility] LABORATORY RDWCV 12.7 11.4 - [facility] [place] 13.8 % [facility] LABORATORY MPV 9.0 7.6 - 12.9 [facility] LABORATORY nRBC % Auto 0.0 % [facility] nRBC Abs Auto 0.000 0.000 - [facility] [place] 0.000 [facility] x10(3)/[facility] LABORATORY Specimen Anatomical Collection Method Collection Time Receive d Time (Source) Location / / Volume Laterality Blood specimen 03/28/2020 5:02 AM 020 5:14 (specimen) EDT AM EDT Resulting Agency Comment Spec In Lab Jose Cruz Foster MD HEMATOLOGY ORDERABLES Performing Organization Address City/State/[place] [address] Basic Metabolic Panel (non-fasting) (03/28/2020 5:02 AM EDT) P athologist Signature Glucose Lvl 164 65 - 199 [facility] mg/dL [facility] LABORATORY Comment: Diabetes: >=200 mg/dL plus symp toms BUN 14 10 - 20 mg/dL [facility] LABORATORY Creatinine 0.89 0.80 - 1.50 mg/dL [facility] LABORATORY Sodium 140 135 - 145 mmol/L [facility] LABOR[facility]ORY Potassium 4.1 3.5 - 5.0 mmol/L [facility] LABORATORY Comment: Please note: ??Patients with WBC >100,00 0 may have falsely elevated Potassium levels. ??For accurate Potassium quantif ication in these patients send serum separator tube (gold top) for subsequent determinations. ??Contact the Clinical Chemistry Laboratory if there are any qu estions. Chloride 106 98 - 107 mmol/L [facility] CO2 28 22 - 31 mmol/L [facility] Anion Gap 6 5 - 15 mmol/L [facility] LABOR[facility]ORY Calcium 8.7 8.5 - 10.5 mg/dL [facility] LABORATORY Estimated GFR 95 >=60 mL/min/1.73 m?? [facility] Comment: The eGFR was calculated using the CKD-EP I equation. As with all creatinine based estimates of kidney function, eGFR values calculated with the CKD-EPI equation are not accurate in patients wi th acute kidney failure, extremes of body mass or the acutely ill. [email or web address] [place] eGFR 110 >=60 mL/min/1.73 m?? [facility] Comment: The eGFR was calculated using the CKD-EP I equation. As with all creatinine based estimates of kidney function, eGFR values calculated with the CKD-EPI equation are not accurate in patients wi th acute kidney failure, extremes of body mass or the acutely ill. [email or web address] [place] [place] Specimen Anatomical Collection Method Collection Time Receive d Time (Source) Location / / Volume Laterality Blood specimen 03/28/2020 5:02 AM 020 5:14 (specimen) EDT AM EDT Resulting Agency Comment Spec In Lab Jose Cruz Foster MD CHEMISTRY ORDERABLES Performing Organization Address City/[facility]/ZIP Code Phon e Number [address] Troponin (03/27/2020 8:28 AM EDT) athologist Signature Troponin-T <0.01 0.00 - 0.00 [facility] ng/mL [facility] LABORATORY Comment: The 99th percentile for Troponin T is le ss than 0.01 ng/mL, any detectable cTnT concentration using this assay should be considered elevated. According to the third universal definit ion of myocardial infarction the following criteria with a clinical prese ntation consistent with acute myocardial ischemia meets the diagnosis for a myocardial infarction ([place]). Detection of a rise and/or fall of cTnT, with at least one value greater than the 99th percentile (> or = 0.01) and wi th at least one of the following ?? Symptoms of ischemia ?? New or presumed new significant ST-se gment-T wave (ST-T) changes or new left bundle branch block (LBBB) ?? Development of pathologic Q waves in the ECG ?? Imaging evidence of new loss of viabl e myocardium or new regional wall motion abnormality ?? Identification of an intracoronary th rombus by angiography or autopsy Samples for cTnT testing should be obtai guanako serially upon first assessment and again 3 to 6 hours later. If the clinica l suspicion is high and previous samples have been negative an additional sample may be indicated. Reference: Third Sutherland Definition of Myocardial Infarction. Journal of the [place] [employer] 2012;60:1581-98 Specimen Anatomical Collection Method Collection Time Receive d Time (Source) Location / / Volume Laterality Blood specimen 03/27/2020 8:28 AM 020 8:43 (specimen) EDT AM EDT Resulting Agency Comment Spec In Lab Eddie Ortiz MD CHEMISTRY ORDERABLES Performing Organization Address City/[facility]/ZIP Code Phon e Number [address] Differential, Automated (03/27/2020 2:13 AM EDT) athologist Signature Neutrophils % 66.0 % [facility] Neutr Abs (ANC) 4.20 1.70 - [facility] 6.10 [facility] x10(3)/[facility] LABORATORY Lymphocytes % 20.4 % [facility] Lymphocytes Abs 1.3 0.9 - 3.2 [facility] x10(3)/[facility] LABORATORY Monocytes % 11.3 % [facility] Monocyte Abs 0.7 0.3 - 0.9 [facility] x10(3)/[facility] LABORATORY Eosinophils % 1.7 % [facility] Eosinophils Abs 0.1 0.0 - 0.4 [facility] x10(3)/[facility] LABORATORY Basophils % 0.3 % [facility] Basophils Abs 0.0 0.0 - 0.1 [place] 776760(3)/[facility] LABORATORY Immature Gran % 0.30 % [facility] Comment: Immature granulocytes(IG's)percentage an d absolute count will include metamyelocytes, myelocytes, and promyelo cytes. Blood smears from CBCs yielding IG's will be scanned manually for concor dance. If this scan disagrees with the automated IG or if promyelocytes are not ed, a manual differential will be performed. Yudelka Gran Abs 0.02 0.00 - 0.04 x10(3)/[facility] LABORATORY Specimen Anatomical Collection Method Collection Time Receive d Time (Source) Location / / Volume Laterality Blood specimen 03/27/2020 2:13 AM 020 2:19 (specimen) EDT AM EDT Resulting Agency Comment Spec In Lab Jose Cruz Foster MD HEMATOLOGY ORDERABLES Performing Organization Address City/State/[place] [address] (ABNORMAL) Hemogram (03/27/2020 2:13 AM EDT) Analysis Performed At Patho logist Time Signature WBC 6.4 4.0 - 9.5 [facility] x10(3)/[facility] LABORATORY RBC 3.39 (L) 4.58 - [facility] 5.54 [facility] x10(6)/[facility] LABORATORY Hemoglobin 10.0 (L) 13.7 - [facility] 16.5 gm/dL [facility] LABORATORY Hematocrit 29.8 (L) 40.5 - [facility] 48.5 % [facility] LABORATORY MCV 87.9 82.9 - [facility] 93.1 [facility] LABORATORY MCH 29.5 27.5 - [facility] 32.1 pg [facility] LABORATORY MCHC 33.6 32.0 - [facility] 35.7 gm/dL [facility] LABORATORY Platelets 215 145 - 357 [facility] x10(3)/[facility] LABORATORY RDWSD 40.7 36.0 - [facility] 45.0 [facility] LABORATORY RDWCV 12.8 11.4 - [facility] 13.8 % [facility] LABORATORY MPV 8.8 7.6 - 12.9 [facility] LABORATORY nRBC % Auto 0.0 % [facility] nRBC Abs Auto 0.000 0.000 - [facility] 0.000 [facility] x10(3)/[facility] LABORATORY Specimen Anatomical Collection Method Collection Time Receive d Time (Source) Location / / Volume Laterality Blood specimen 03/27/2020 2:13 AM 020 2:19 (specimen) EDT AM EDT Resulting Agency Comment Spec In Lab Jose Cruz Foster MD HEMATOLOGY ORDERABLES Performing Organization Address City/State/[place] [address] Troponin (03/27/2020 2:13 AM EDT) P athologist Signature Troponin-T <0.01 0.00 - 0.00 [facility]ORY Comment: The 99th percentile for Troponin T is le ss than 0.01 ng/mL, any detectable cTnT concentration using this assay should be considered elevated. According to the third universal definit ion of myocardial infarction the following criteria with a clinical prese ntation consistent with acute myocardial ischemia meets the diagnosis for a myocardial infarction ([place]). Detection of a rise and/or fall of cTnT, with at least one value greater than the 99th percentile (> or = 0.01) and wi th at least one of the following ?? Symptoms of ischemia ?? New or presumed new significant ST-se gment-T wave (ST-T) changes or new left bundle branch block (LBBB) ?? Development of pathologic Q waves in the ECG ?? Imaging evidence of new loss of viabl e myocardium or new regional wall motion abnormality ?? Identification of an intracoronary th rombus by angiography or autopsy Samples for cTnT testing should be obtai guanako serially upon first assessment and again 3 to 6 hours later. If the clinica l suspicion is high and previous samples have been negative an additional sample may be indicated. Reference: Third Sutherland Definition of Myocardial Infarction. Journal of the [place] [employer] 2012;60:1581-98 Specimen Anatomical Collection Method Collection Time Receive d Time (Source) Location / / Volume Laterality Blood specimen 03/27/2020 2:13 AM 020 2:19 (specimen) EDT AM EDT Resulting Agency Comment Spec In Lab Eddie Ortiz MD CHEMISTRY ORDERABLES Performing Organization Address City/State/[place] [address] Basic Metabolic Panel (non-fasting) (03/27/2020 2:13 AM EDT) P athologist Signature Glucose Lvl 115 65 - 199 [facility] mg/dL [facility] LABORATORY Comment: Diabetes: >=200 mg/dL plus symp toms BUN 15 10 - 20 mg/dL [facility] LABORATORY Creatinine 0.90 0.80 - 1.50 mg/dL [facility] LABORATORY Sodium 140 135 - 145 mmol/L [facility]OR[facility]ORY Potassium 4.1 3.5 - 5.0 mmol/L [facility] LABOR[facility]ORY Comment: Please note: ??Patients with WBC >100,00 0 may have falsely elevated Potassium levels. ??For accurate Potassium quantif ication in these patients send serum separator tube (gold top) for subsequent determinations. ??Contact the Clinical Chemistry Laboratory if there are any qu estions. Chloride 105 98 - 107 mmol/L [facility] CO2 25 22 - 31 mmol/L [facility] Anion Gap 10 5 - 15 mmol/L [facility]OR[facility]ORY Calcium 8.6 8.5 - 10.5 mg/dL [facility]ORY Estimated GFR 94 >=60 mL/min/1.73 m?? [facility] Comment: The eGFR was calculated using the CKD-EP I equation. As with all creatinine based estimates of kidney function, eGFR values calculated with the CKD-EPI equation are not accurate in patients wi th acute kidney failure, extremes of body mass or the acutely ill. [email or web address] eGFR 110 >=60 mL/min/1.73 m?? [facility] Comment: The eGFR was calculated using the CKD-EP I equation. As with all creatinine based estimates of kidney function, eGFR values calculated with the CKD-EPI equation are not accurate in patients wi th acute kidney failure, extremes of body mass or the acutely ill. [email or web address] Specimen Anatomical Collection Method Collection Time Receive d Time (Source) Location / / Volume Laterality Blood specimen 03/27/2020 2:13 AM 020 2:19 (specimen) EDT AM EDT Resulting Agency Comment Spec In Lab Jose Cruz Foster MD CHEMISTRY ORDERABLES Performing Organization Address City/State/ZIP Code Phon e Number [place] [id number] LAB[address] (ABNORMAL) Differential, Automated (03/26/2020 7:49 PM EDT) [facility] Method Time Signature Neutrophils % 70.0 % [facility]OR[facility]ORY Neutr Abs (ANC) 8.20 (H) 1.70 - [facility] 6.10 [facility] x10(3)/[facility] LABORATORY Lymphocytes % 18.8 % [facility]OR[facility]ORY Lymphocytes Abs 2.2 0.9 - 3.2 [facility] x10(3)/[facility] LABORATORY Monocytes % 9.2 % [facility]ORATORY Monocyte Abs 1.1 (H) 0.3 - 0.9 [facility] x10(3)/[facility] LABORATORY Eosinophils % 1.2 % [facility]ORATORY Eosinophils Abs 0.1 0.0 - 0.4 [facility] x10(3)/[facility] LABORATORY Basophils % 0.3 % [facility]ORATORY Basophils Abs 0.0 0.0 - 0.1 [facility] x10(3)/[facility] LABORATORY Immature Gran % 0.50 % [facility]ORATORY Comment: Immature granulocytes(IG's)percentage an d absolute count will include metamyelocytes, myelocytes, and promyelo cytes. Blood smears from CBCs yielding IG's will be scanned manually for concor dance. If this scan disagrees with the automated IG or if promyelocytes are not ed, a manual differential will be performed. Yudelka Gran Abs 0.06 (H) 0.00 - 0.04 x10(3)/[facility] LABORATORY Specimen Anatomical Collection Method Collection Time Receive d Time (Source) Location / / Volume Laterality Blood specimen 03/26/2020 7:49 PM 020 7:53 (specimen) EDT PM EDT Resulting Agency Comment Spec In Lab Mansa Mckay MD HEMATOLOGY ORDERABLES Performing Organization Address City/State/ZIP Code Phon e Number [place] [id number] (ABNORMAL) Hemogram (03/26/2020 7:49 PM EDT) Analysis Performed At Patho logist Time Signature WBC 11.7 (H) 4.0 - 9.5 [facility] x10(3)/[facility] LABORATORY RBC 3.82 (L) 4.58 - [facility] COLIN 5.54 [facility] x10(6)/[facility] LABORATORY Hemoglobin 11.2 (L) 13.7 - [facility]dL [facility] LABORATORY Hematocrit 34.0 (L) 40.5 - [facility] COLIN 48.5 % [facility] LABORATORY MCV 89.0 82.9 - [facility] COL[place] 93.1 fL [facility] LABORATORY MCH 29.3 27.5 - [place] 32.1 pg [facility] LABORATORY MCHC 32.9 32.0 - [facility] COL[place] 35.7 gm/dL [facility] LABORATORY Platelets 273 145 - 357 [facility] x10(3)/[facility] LABORATORY RDWSD 41.3 36.0 - [facility] 45.0 [facility] LABORATORY RDWCV 12.8 11.4 - [facility] 13.8 % [facility] LABORATORY MPV 9.0 7.6 - 12.9 [facility] LABORATORY nRBC % Auto 0.0 % [facility] LABORATORY nRBC Abs Auto 0.000 0.000 - [facility] 0.000 [facility] x10(3)/[facility] LABORATORY Specimen Anatomical Collection Method Collection Time Receive d Time (Source) Location / / Volume Laterality Blood specimen 03/26/2020 7:49 PM 020 7:53 (specimen) EDT PM EDT Resulting Agency Comment Spec In Lab Manas Mckay MD HEMATOLOGY ORDERABLES Performing Organization Address City/State/[place] [address] Basic Metabolic Panel (non-fasting) (03/26/2020 7:49 PM EDT) athologist Signature Glucose Lvl 138 65 - 199 [facility] mg/dL [facility] LABORATORY Comment: Diabetes: >=200 mg/dL plus symp toms BUN 12 10 - 20 mg/dL [facility] LABORATORY Creatinine 1.03 0.80 - 1.50 mg/dL [facility] LABORATORY Sodium 142 135 - 145 mmol/L [facility] LABORATORY Potassium 4.1 3.5 - 5.0 mmol/L [facility] LABORATORY Comment: Please note: ??Patients with WBC >100,00 0 may have falsely elevated Potassium levels. ??For accurate Potassium quantif ication in these patients send serum separator tube (gold top) for subsequent determinations. ??Contact the Clinical Chemistry Laboratory if there are any qu estions. Chloride 107 98 - 107 mmol/L [facility] LABORATORY CO2 26 22 - 31 mmol/L [facility] LABORATORY Anion Gap 9 5 - 15 mmol/L [facility] LABORATORY Calcium 8.9 8.5 - 10.5 mg/dL [facility] LABORATORY Estimated GFR 80 >=60 mL/min/1.73 m?? [facility] LABORATORY Comment: The eGFR was calculated using the CKD-EP I equation. As with all creatinine based estimates of kidney function, eGFR values calculated with the CKD-EPI equation are not accurate in patients wi th acute kidney failure, extremes of body mass or the acutely ill. [email or web address] eGFR 93 >=60 mL/min/1.73 m?? [facility] LABORATORY Comment: The eGFR was calculated using the CKD-EP I equation. As with all creatinine based estimates of kidney function, eGFR values calculated with the CKD-EPI equation are not accurate in patients wi th acute kidney failure, extremes of body mass or the acutely ill. [email or web address] Specimen Anatomical Collection Method Collection Time Receive d Time (Source) Location / / Volume Laterality Blood specimen 03/26/2020 7:49 PM 020 7:53 (specimen) EDT PM EDT Resulting Agency Comment Spec In Lab Manas Mckay MD CHEMISTRY ORDERABLES Performing Organization Address City/State/[place] [address] Troponin (03/26/2020 7:49 PM EDT) P athologist Signature Troponin-T <0.01 0.00 - 0.00 [facility] ng/mL [facility] LABORATORY Comment: The 99th percentile for Troponin T is le ss than 0.01 ng/mL, any detectable cTnT concentration using this assay should be considered elevated. According to the third universal definit ion of myocardial infarction the following criteria with a clinical prese ntation consistent with acute myocardial ischemia meets the diagnosis for a myocardial infarction ([place]). Detection of a rise and/or fall of cTnT, with at least one value greater than the 99th percentile (> or = 0.01) and wi th at least one of the following ?? Symptoms of ischemia ?? New or presumed new significant ST-se gment-T wave (ST-T) changes or new left bundle branch block (LBBB) ?? Development of pathologic Q waves in the ECG ?? Imaging evidence of new loss of viabl e myocardium or new regional wall motion abnormality ?? Identification of an intracoronary th rombus by angiography or autopsy Samples for cTnT testing should be obtai guanako serially upon first assessment and again 3 to 6 hours later. If the clinica l suspicion is high and previous samples have been negative an additional sample may be indicated. Reference: Third [place] Definition of Myocardial Infarction. Journal of the [place] [employer] 2012;60:1581-98 Specimen Anatomical Collection Method Collection Time Receive d Time (Source) Location / / Volume Laterality Blood specimen 03/26/2020 7:49 PM 020 7:53 (specimen) EDT PM EDT Resulting Agency Comment Spec In Lab Manas Mckay MD CHEMISTRY ORDERABLES Performing Organization Address City/[facility]/[place] [address] EKG 12 Lead (03/26/2020 7:45 PM EDT) Component Value Ref Range Test Analysis Performed Pathologis t Method Time At Signature Ventricular rate 51 BPM MUSE SYSTEM Atrial Rate 51 BPM MUSE SYSTEM P-R Interval 172 ms MUSE SYSTEM QRS Duration 80 ms MUSE SYSTEM Q-T Interval 440 ms MUSE SYSTEM QTC Calculated 405 ms MUSE SYSTEM (Bezet) Calculated P [place] 56 degrees MUSE SYSTEM Calculated R [place] 59 degrees MUSE SYSTEM Calculated T [place] 57 degrees MUSE SYSTEM INTERPRETATION Sinus bradycardia MUSE SY STEM Otherwise normal ECG When compared with ECG of 19-FEB-2020 12:56, No significant change was found Confirmed by MD Eber, Ender Posey ([id number]) on 03/27/2020 1 1:25:52 AM Specimen Anatomical Collection Method Collection Time Receive d Time (Source) Location / / Volume Laterality 03/26/2020 7:45 PM 0 EDT 11:25 AM EDT Manas Mckay MD ECG ORDERABLES Performing Organization Address City/State/ZIP Code Phon e Number MUSE SYSTEM XR Knee 1-2 Views Right (Generic) (03/26/2020 6:09 PM EDT) Anatomical Region Laterality Modality Knee Right Digital Radiography Specimen (Source) Anatomical Location Collection Method / Collectio n Time Received Time / Laterality Volume Impressions 03/26/2020 7:00 PM EDT Expected postoperative appearance Thank you for letting us participate in the care of this patient. For questions regarding this report, please contact e number below. ? Electronically signed by: Tiffany Fitzgerald, [facility] ([phone]), at 03/26/2020 7:00 PM Narrative 03/26/2020 7:00 PM EDT EXAMINATION: XR KNEE 1-2 VIEWS RIGHT (GENERIC) CLINICAL HISTORY: s/p revision R TKA. ?? Need AP and lateral. ??Thanks! TECHNIQUE: 2 views knee COMPARISON: 08/16/2019 FINDINGS: Since the prior study the RIGHT total kn ee arthroplasty has been removed and replaced with one with long stemmed tibi al and femoral components and interlocking bar. This is in appropriate position and alignment with no evidence of immediate periprocedural complication . Expected postoperative changes within the soft tissues. No large effusion Procedure Note Ching Rizvi MD - 03/26/2020Formattin g of this note might be different from the original. EXAMINATION: XR KNEE 1-2 VIEWS RIGHT (GE NERIC) CLINICAL HISTORY: s/p revision R TKA. Ne ed AP and lateral. Thanks! TECHNIQUE: 2 views knee COMPARISON: 08/16/2019 FINDINGS: Since the prior study the RIGHT total kn ee arthroplasty has been removed and replaced with one with long stemmed tibi al and femoral components and interlocking bar. This is in appropriate position and alignment with no evidence of immediate periprocedural complication . Expected postoperative changes within the soft tissues. No large effusion IMPRESSION Expected postoperative appearance Thank you for letting us participate in the care of this patient. For questions regarding this report, please contact e number below. Electronically signed by: Tiffany Fitzgerald, [facility] ([phone]), at 03/26/2020 7:00 PM Jose Cruz Foster MD IMG DX ORDERABLES POCT Glucose (03/26/2020 4:32 PM EDT) athologist Signature POC Glucose 94 65 - 199 [place] mg/dL [facility] LABORATORY Comment: Supplemental ranges: <140 mg/dL before meals <180 mg/dL all other times of the day Specimen Anatomical Collection Method Collection Time Receive d Time (Source) Location / / Volume Laterality Blood specimen 03/26/2020 4:32 PM 020 4:32 (specimen) EDT PM EDT Eddie Ortiz MD POINT OF CARE TEST ORDERABLE S Performing Organization Address City/State/ZIP Code Phon e Number [address] Anaerobic Culture (03/26/2020 12:45 PM EDT) Patholo gist Method Time Signature Anaerobic No anaerobic [facility] Culture organisms [facility] LABORATORY Specimen Anatomical Collection Method Collection Time Receive d Time (Source) Location / / Volume Laterality Joint fluid STRUCTURE OF RIGHT 03/26/2020 12:45 03/26 4:07 specimen KNEE REGION / PM EDT PM EDT (specimen) Unknown Comment: EXTENDED HOLD Resulting Agency Comment Spec In Lab Eddie Ortiz MD MICROBIOLOGY - GENERAL ORDER RADHA Performing Organization Address City/[facility]/[place] [address] Joint Culture (03/26/2020 12:45 PM EDT) Component Value Ref Test Analysis Performed At Patholo [employer] Range Method Time Signature Joint Culture No growth at 14 [place] days. [facility] LABORATORY Gram Stain Cytocentrifuge Gram Stain performed [facility] No Neutrophils seen. [place] No microorganisms seen. [facility] LABORATORY Specimen Anatomical Collection Method Collection Time Receive d Time (Source) Location / / Volume Laterality Joint fluid STRUCTURE OF RIGHT 03/26/2020 12:45 03/26 4:07 specimen KNEE REGION / PM EDT PM EDT (specimen) Unknown Comment: EXTENDED HOLD Resulting Agency Comment Spec In Lab Eddie Ortiz MD MICROBIOLOGY - GENERAL ORDER RADHA Performing Organization Address City/State/[place] [address] documented in this encounter Visit Diagnoses Diagnosis 03/26/2020 S/P revision of right total kn ee (Dr. 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 Postoperative anemia due to acute blood loss Acute posthemorrhagic anemia documented in this encounter Admitting Diagnoses Diagnosis Postoperative stiffness of total knee re placement Other complications due to internal join t prosthesis documented in this encounter Administered Medications Inactive Administered Medications - up to 3 most recent administrations Medication Order MAR Action Action Date Dose Rate Site acetaminophen (Tylenol) tablet Given 03/26/2020 9:55 AM EDT 1,00 0 mg 1,000 mg 1,000 mg, Oral, ONCE, 1 dose, On Sun03/26/20 at 1000, Administer with SIP of H2O only., Day of Surgery (Day of Procedure), Routine acetaminophen (Tylenol) tablet 1,000 mg Given 03/29/2020 1:43 PM EDT 1,000 mg 1,000 mg, Oral, EVERY 8 HOURS SCHEDULED, First dose on Sun03/26/20 at 1630, Until Discontinued, Maximum dose of acetaminophen is 4000 mg from all sources in 24 hours. When ordered for pain, acetaminophen should be given even when other ordered pain medications are indicated. , Routine Given 03/29/2020 5:52 AM EDT 1,000 mg Given 03/28/2020 10:26 PM EDT 1,000 mg aspirin EC tablet 81 mg Given 03/29/2020 9:30 AM EDT 81 mg 81 mg, Oral, 2 TIMES DAILY, First dose on Sun03/26/20 at 2315, Until Discontinued, Routine Given 03/28/2020 8:33 PM EDT 81 mg Given 03/28/2020 8:09 AM EDT 81 mg aspirin tablet 325 mg Given 03/26/2020 8:03 PM EDT 325 mg 325 mg, Oral, ONCE, 1 dose, On Sun03/26/20 at 2015, PACU Recovery, Routine atorvastatin (Lipitor) tablet 10 mg Given 03/28/2020 4:23 PM EDT 10 mg 10 mg, Oral, EVERY EVENING, First dose on Sun03/27/20 at 1700, Until Discontinued, Routine Given 03/27/2020 5:40 PM EDT 10 mg ceFAZolin (Ancef) 2 g in dextrose 5% 100 Given 03/27/2020 8: 47 AM EDT 2 g 200 mL/hr mL infusion 2 g, Intravenous, EVERY 8 HOURS, 3 doses, First dose on Sun03/26/20 at 1630, Last dose on Sun03/27/20 at 0830, Administer over 30 Minutes, Adjust to 4 hours from intraoperative dose. * Beta-lactam based antibiotics (eg. Ampicillin, Cefazolin, Aztreonam) should be administered within 4 hours of the preceding intraoperative dose. * Vancomycin, Fluoroquinolones, Clindamycin, Gentamicin, and Metronidazole should be administered within 8 hours of the preceding intraoperative dose., Recovery (Recovery-Hospital Unit), Indication for (Active or Suspected): Prophylaxis Given 03/26/2020 11:45 PM EDT 2 g 200 mL/hr Given 03/26/2020 4:20 PM EDT 2 g 200 mL/hr celecoxib (CeleBREX) capsule 200 mg Given 03/29/2020 9:28 AM EDT 200 mg 200 mg, Oral, 2 TIMES DAILY, First dose on Sun03/26/20 at 2315, Until Discontinued, Routine Given 03/28/2020 8:33 PM EDT 200 mg Given 03/28/2020 8:09 AM EDT 200 mg celecoxib (CeleBREX) capsule 400 mg Given 03/26/2020 11:30 AM EDT 400 mg 400 mg, Oral, ONCE, 1 dose, On Sun03/26/20 at 1130, Administer on arrival to Same Day Program, Day of Surgery (Day of Procedure), Routine enalapriL (Vasotec) tablet 20 mg Given 03/29/2020 9:30 AM EDT 20 mg 20 mg, Oral, DAILY, First dose on Sun03/27/20 at 0900, Until Discontinued, Hold for SBP<120, Routine Given 03/28/2020 8:09 AM EDT 20 mg gabapentin (Neurontin) capsule 300 mg Given 03/26/2020 9:54 AM EDT 300 mg 300 mg, Oral, ONCE, 1 dose, On Sun03/26/20 at 1000, Administer with SIP of H2O only., Day of Surgery (Day of Procedure), Routine gabapentin (Neurontin) capsule 300 mg Given 03/28/2020 8:33 PM EDT 300 mg 300 mg, Oral, NIGHTLY, First dose on Sun03/28/20 at 2100, Until Discontinued, Routine gabapentin (Neurontin) capsule 600 mg Given 03/27/2020 8:59 PM EDT 600 mg 600 mg, Oral, NIGHTLY, 2 doses, First dose on Sun03/26/20 at 2315, Last dose on Sun03/27/20 at 2100, Routine Given 03/26/2020 10:33 PM EDT 600 mg HYDROmorphone (Dilaudid) tablet 2-6 mg Given 03/26/2020 4:58 PM EDT 4 mg 2-6 mg, Oral, EVERY 4 HOURS PRN, Starting on Sun03/26/20 at 1612, Until Sun03/26/20 at 1814, Pain, Give 2 mg for mild pain (1-3), 4 mg for moderate pain (4-6) or 6 mg for severe pain (7-10) DO NOT exceed a total of 6 mg in 4 hours, Routine ketorolac (TORADOL) injection 15 mg Given 03/26/2020 10:30 PM EDT 15 mg 15 mg, Intravenous, EVERY 6 HOURS PRN, Starting on Sun03/26/20 at 1612, Until Sun03/28/20 at 1611, Pain, Routine Given 03/26/2020 4:20 PM EDT 15 mg lactated ringers infusion New Bag 03/26/2020 2:50 PM EDT 1,000 mL, at 100 mL/hr, Intravenous, CONTINUOUS, Starting on Sun03/26/20 at 1000, Until Sun03/26/20 at 2141, Day of Surgery (Day of Procedure) New Bag 03/26/2020 10:00 AM EDT 1,000 mLs 100 mL/hr lamoTRIgine (LaMICtal) tablet 200 mg Given 03/29/2020 9:30 AM EDT 200 mg 200 mg, Oral, DAILY, First dose on Sun03/27/20 at 0900, Until Discontinued, Routine Given 03/28/2020 8:09 AM EDT 200 mg Given 03/27/2020 8:45 AM EDT 200 mg methylphenidate (Ritalin) tablet 20 mg Given 03/29/2020 11:41 AM EDT 20 mg 20 mg, Oral, 3 TIMES DAILY WITH MEALS, First dose on Sun03/27/20 at 0800, Until Discontinued, Routine Given 03/29/2020 7:38 AM EDT 20 mg Given 03/28/2020 4:23 PM EDT 20 mg metoprolol succinate XL (Toprol-XL) tablet 50 Given 9:28 AM EDT 50 mg mg 50 mg, Oral, DAILY, First dose on 03/27/20 at 0900, Until Discontinued, DO NOT CRUSH OR OPEN Hold for SBP<105 and/or HR<55, Routine Given 03/28/2020 8:09 AM EDT 50 mg Given 03/27/2020 8:44 AM EDT 50 mg midazolam (PF) (VERSED) 1 mg/mL injectio n Given 03/26/2020 10:14 AM EDT 2 mg 1 dose, Starting on Sun03/26/20 at 1008, Until Sun03/26/20 at 1014, WENDY DONOHUE.: cabinet override midazolam (PF) (VERSED) injection 1 mg Given 03/26/2020 10:24 AM EDT 2 mg 1 mg, Intravenous, EVERY 5 MIN PRN, Starting on Sun03/26/20 at 1006, Until Sun03/26/20 at 2141, Sleep, or prior to injection of local anesthetic, Hold for delirium/agitation. (Maximum dose 5 mg)., Day of Surgery (Day of Procedure), Routine Given 03/26/2020 10:19 AM EDT 2 mg ondansetron (ZOFRAN) injection 4 mg 4 mg, Intravenous, EVERY 8 HOURS PRN, St arting on Sun03/26/20 at 1607, Until 03/29/20 at 1648, Nausea, May repeat time s one in 30 minutes if ineffective. If multiple antiemetics are ordered, use ondansetron firs t, Recovery (Recovery-Hospital Unit) ondansetron (Zofran) tablet 4 mg Given 03/29/2020 12:39 AM EDT 4 mg 4 mg, Oral, EVERY 8 HOURS PRN, Starting on Sun03/26/20 at 1607, Until 03/29/20 at 1648, Nausea, Vomiting, If multiple antiemetics are ordered, use ondansetron first. PO Preferred. If patient unable to take PO, may give IV if ordered. May repeat times one in 45 minutes if ineffective., Recovery (Recovery-Hospital Unit), Routine Given 03/27/2020 7:53 AM EDT 4 mg oxyCODONE (Roxicodone) tablet 15 mg Given 03/29/2020 1:43 PM EDT 15 mg 15 mg, Oral, EVERY 4 HOURS PRN, Starting on Sun03/26/20 at 1900, Until Sun03/29/20 at 1648, Pain, Routine Given 03/29/2020 9:37 AM EDT 15 mg Given 03/29/2020 4:39 AM EDT 15 mg pantoprazole EC (Protonix) tablet 40 mg Given 03/29/2020 9:28 AM EDT 40 mg 40 mg, Oral, DAILY, First dose on 03/27/20 at 0900, Until Discontinued, DO NOT CRUSH OR OPEN, Routine Given 03/28/2020 8:09 AM EDT 40 mg Given 03/27/2020 8:45 AM EDT 40 mg polyethylene glycoL (Miralax) packet 17 g Given 03/28/2020 8:33 PM EDT 17 g 17 g, Oral, 2 TIMES DAILY, First dose on Sun03/26/20 at 2315, Until Discontinued, Routine Given 03/28/2020 8:08 AM EDT 17 g Given 03/27/2020 8:59 PM EDT 17 g senna-docusate (Pericolace) 8.6-50 mg per Given 2019 8:33 PM EDT 2 tablets tablet 2 tablet 2 tablet, Oral, 2 TIMES DAILY, First dose on Sun03/26/20 at 2315, Until Discontinued, Routine Given 03/28/2020 8:09 AM EDT 2 tablets Given 03/27/2020 8:59 PM EDT 2 tablets sodium chloride 0.9 % (flush) flush 5 mL Given 03/29/2020 9:31 AM EDT 5 mLs 5 mL, Intravenous, 2 TIMES DAILY, First dose on Sun03/26/20 at 2100, Until Discontinued, Recovery (Recovery-Hospital Unit), Routine Given 03/28/2020 8:34 PM EDT 5 mLs Given 03/28/2020 8:08 AM EDT 5 mLs sodium chloride 0.9% infusion New Bag 03/27/2020 12:49 PM EDT 100 mL/hr 100 mL/hr 100 mL/hr, Intravenous, CONTINUOUS, Starting on Sun03/26/20 at 1630, Until 03/27/20 at 1614, Recovery (Recovery-Hospital Unit) New Bag 03/26/2020 4:21 PM EDT 100 mL/hr 100 mL/hr documented in this encounter Active and Recently Administered Medications Times are shown in EDT. Scheduled Medication Order 03/27/2020 03/28/2020 03/29/2020 acetaminophen (Tylenol) tablet 1,000 mg 0600 (Not Give n - Provider: Merlene Gant RN - Reason: Patient/family refused)1436 (Given - Provider: Chayito Rodriguez, SHANNON)2238 (Given - Provider: Diana Johnson, SHANNON) 0628 (Given - Provider: Diana Johnson RN)1444 (Given - Provider: Nena Mendieta, SHANNON)2226 (Given - Provider: Shaniqua Steel, SHANNON) 0552 (Given - Provider: Shaniqua Steel, SHANNON)1343 (Given - Provider: Diana Johnson RN) 1,000 mg, Oral, EVERY 8 HOURS SCHEDULED, First dose on Sun03/26/20 at 1630, Until Discontinued, Maximum dose of acetaminophen is 4000 mg from all sources in 24 hours. When ordered for pain, acetaminophe n should be given even when other ordere d pain medications are indicated. , Routine aspirin EC tablet 81 mg 0847 (Given - Provider: Divine Rodriguez, SHANNON)2058 (Given - Provider: Diana Johnson RN - Comment: throbbimg, R knee) 0809 (Given - Provider: Nena Mendieta, SHANNON)2032 (Given - Provider: Sonam Castañeda RN) 0930 (Given - Provider: Diana Johnson, SHANNON) 81 mg, Oral, 2 TIMES DAILY, First dose o n Sun03/26/20 at 2315, Until Discontinued, Routine atorvastatin (Lipitor) tablet 10 mg 1740 (Given - Prov ider: Chayito Rodriguez, SHANNON) 1623 (Given - Provider: Nena Mendieta RN) 10 mg, Oral, EVERY EVENING, First dose o n 03/27/20 at 1700, Until Discontinued, Routine ceFAZolin (Ancef) 2 g in dextrose 5% 100 mL infusion ( COMPLETED) 08 (Given - Provider: Chayito Rodirguez, SHANNON) 2 g, Intravenous, EVERY 8 HOURS, 3 doses , First dose on Sun03/26/20 at 1630, Last dose on 03/27/20 at 0830, Administer over 30 Minutes, Adjust to 4 hours from intraoperative dose. * Beta-lactam based antibiotics (eg. Ampicillin, Cefazolin, Aztreonam) should be administered within 4 hours of the preceding intraoperative dose. * Vancomycin, Fluoroquinolones, Clindamycin, Gentamicin, and Metronidazole should be administered within 8 hours o f the preceding intraoperative dose., Recovery (Recovery-Hospital Unit), Indication for (Active or Suspected): Prophylaxis celecoxib (CeleBREX) capsule 200 mg 0845 (Given - Prov ider: Chayito Rodriguez RN)2099 (Given - Provider: Diana Johnson RN) 808 (Given - Provider: Nena Mendieta RN)2032 (Given - Provider: Sonam Castañeda RN) 927 (Given - Provider: Diana Johnson RN) 200 mg, Oral, 2 TIMES DAILY, First dose on Sun03/26/20 at 2315, Until Discontinued, Routine enalapriL (Vasotec) tablet 20 mg 0841 (Not Given - Pro vider: Chayito Rodriguez RN - Reason: Order parameters not met) 808 (Given - Provider: Nena Mendieta RN) 929 (Given - Provider: Diana Johnson RN) 20 mg, Oral, DAILY, First dose on Sat at 0900, Until Discontinued, Hold for SBP<120, Routine gabapentin (Neurontin) capsule 300 mg 20 (Given - Provider: Soanm Castañeda RN) 300 mg, Oral, NIGHTLY, First dose on 03/28/20 at 2100, Until Discontinued, Routine gabapentin (Neurontin) capsule 600 mg (COMPLETED) 2058 (Given - Provider: Diana Johnson RN) 600 mg, Oral, NIGHTLY, 2 doses, First do se on Sun03/26/20 at 2315, Last dose on 03/27/20 at 2100, Routine lamoTRIgine (LaMICtal) tablet 200 mg 0845 (Given - Pro vider: Chayito Rodriguez RN) 08 (Given - Provider: Nena Mendieta RN) 929 (Given - Provider: Diana Johnson RN) 200 mg, Oral, DAILY, First dose on Sat at 0900, Until Discontinued, Routine methylphenidate (Ritalin) tablet 20 mg 0753 (Given - P rovider: Chayito Rodriguez RN)1249 (Given - Provider: Chayito Rodriguez, SHANNON)1740 (Given - Provider: Chayito Rodriguez RN) 0809 (Given - Provider: Wendie Spence N)1227 (Given - Provider: Nena Mendieta, RN)1623 (Given - Provider: Nena Mendieta, RN) 0738 (Given - Provider: Diana Johnson, SHANNON)1141 (Given - Provider: Diana Johnson RN) 20 mg, Oral, 3 TIMES DAILY WITH MEALS, F irst dose on 03/27/20 at 0800, Until Discontinued, Routine metoprolol succinate XL (Toprol-XL) tablet 50 mg 0844 (Given - Provider: Chayito Rodriguez RN) 08 (Given - Provider: Nena Mendieta RN) 09 (Given - Provider: Diana Johnson, SHANNON) 50 mg, Oral, DAILY, First dose on Sat at 0900, Until Discontinued, DO NOT CRUSH OR OPEN Hold for SBP<105 and/or HR<55, Routine pantoprazole EC (Protonix) tablet 40 mg 0845 (Given - Provider: Chayito Rodriguez RN) 08 (Given - Provider: Nena Mendieta RN) 09 (Given - Provider: Diana Johnson, SHANNON) 40 mg, Oral, DAILY, First dose on Sat at 0900, Until Discontinued, DO NOT CRUSH OR OPEN, Routine polyethylene glycoL (Miralax) packet 17 g 0847 (Given - Provider: Chayito Rodriguez RN)2058 (Given - Provider: Diana Johnson, SHANNON) 08 (Given - Provider: Nena Mendieta, SHANNON)2032 (Given - Provider: Sonam Castañeda RN) 09 (Not Given - Provider: Diana Johnson, SHANNON - Reason: Contraindicated) 17 g, Oral, 2 TIMES DAILY, First dose on 03/26/20 at 2315, Until Discontinued, Routine senna-docusate (Pericolace) 8.6-50 mg per tablet 2 tab let 08 (Given - Provider: Chayito Rodriguez RN)2058 (Given - Provider: Diana Johnson, SHANNON) 08 (Given - Provider: Nena Mendieta, RN)2032 (Given - Provider: Sonam Castañeda, RN) 0931 (Not Given - Provider: Diana coombs RN - Reason: Contraindicated) 2 tablet, Oral, 2 TIMES DAILY, First dos e on Sun03/26/20 at 2315, Until Discontinued, Routine sodium chloride 0.9 % (flush) flush 5 mL 0847 (Given - Provider: Chayito Rodriguez, SHANNON)2100 (Given - Provider: Diana Johnson, SHANNON) 08 (Given - Provider: Nena Mendieta, RN)2033 (Given - Provider: Sonam Castañeda, SHANNON) 0931 (Given - Provider: Diana Johnson RN) 5 mL, Intravenous, 2 TIMES DAILY, First dose on Sun03/26/20 at 2100, Until Discontinued, Recovery (Recovery-Hospital Unit), Routine Continuous Medication Order 03/27/2020 03/28/2020 03/29/2020 sodium chloride 0.9% infusion () 1249 (New Bag - Provider: Chayito Rodriguez RN)2200 (Stopped - Provider: Diana Johnson RN) 100 mL/hr, at 100 mL/hr, Intravenous, CO NTINUOUS, Starting Sun03/26/20 at 1630, Until Sun03/27/20 at 1614, Recovery (Recovery-Hospital Unit) PRN Medication Order 03/27/2020 03/28/2020 03/29/2020 bisacodyL (Dulcolax) suppository 10 mg 10 mg, Rectal, DAILY PRN, Starting Sun at 2215, Until Sun03/29/20 at 1648, Constipation, Administer if needed per patient's routine or if no bowel movement within 48 hours to achieve: (1) One letha wel movement every 48 hours, AND (2) wit hout straining. If multiple PRN bowel medications ordered, start with lactulose, then oral bisacodyl, then bisacodyl suppository. Multiple medications may be given concomitantly for constipation., Routine bisacodyl EC (Dulcolax) tablet 10 mg 10 mg, Oral, 2 TIMES DAILY PRN, Starting Sun03/26/20 at 2215, Until Sun03/29/20 at 1648, Constipation, DO NOT CRUSH OR OPEN Administer if needed per patient's routine or if no bowel movement within 48 hours to achieve: (1) One bowel movem ent every 48 hours, AND (2) without straining. If multiple PRN bowel medications ordered, start with lactulose, then oral bisacodyl, then bisacodyl suppository. M ultiple medications may be given concomitantly for constipation. , Routine lactulose (Chronulac) (0.67 gram/mL) oral liquid 10 g 10 g, Oral, DAILY PRN, Starting 03/26 at 2215, Until Sun03/29/20 at 1648, Constipation, Administer if needed per patient's routine or if no bowel movement within 48 hours to achieve: (1) One bowel movement every 48 hours, AND (2) withou t straining. If multiple PRN bowel medications ordered, start with lactulose, then oral bisacodyl, then bisacodyl suppository. Multiple medications may be given concomitantly for constipation., Routine lidocaine (XYLOCAINE) 10 mg/mL (1 %) injection 3 mg 3 mg (0.3 mL), Subcutaneous, ONCE PRN, 1 dose, Starting Sun03/26/20 at 1607, Until Sun03/29/20 at 1648, for discomfort with PIV insertion, Recovery (Recovery-Hospital Unit), Routine ondansetron (ZOFRAN) injection 4 mg(Linked Group 1) 07 53 (See Alternative - Provider: Chayito Rodriguez RN) 0039 (See Alternative - Provider: Shaniqua Steel RN) 4 mg, Intravenous, EVERY 8 HOURS PRN, St arting Sun03/26/20 at 1607, Until Sun03/29/20 at 1648, Nausea, May repeat times one in 30 minutes if ineffective. If multiple antiemetics are ordered, use onda nsetron first, Recovery (Recovery-Hospital Unit) ondansetron (Zofran) tablet 4 mg(Linked Group 1) 8423 (Given - Provider: Chayito Rodriguez RN) 0039 (Given - Provider: Keeley Steel RN) 4 mg, Oral, EVERY 8 HOURS PRN, Starting Sun03/26/20 at 1607, Until Sun03/29/20 at 1648, Nausea, Vomiting, If multiple antiemetics are ordered, use ondansetron first. PO Preferred. If patient unable to take PO, may give IV if ordered. May repeat times one in 45 minutes if ineffective., Recovery (Recovery-Hospital Unit), Routine oxyCODONE (Roxicodone) tablet 15 mg 0236 (Given - Prov ider: Jorden Torres, SHANNON)1034 (Given - Provider: Chayito Rodriguez, RN)1436 (Given - Provider: Chayito Rodriguez, RN)1900 (Given - Provider: Chayito Rodriguez, RN)2310 (Given - Provide r: Diana Johnson, SHANNON) 0301 (Given - Provider: Diana Johnson , SHANNON)0809 (Given - Provider: Nena Mendieta, SHANNON)1227 (Given - Provider: Nena Mendieta, SHANNON)1627 (Given - Provider: Nena Mendieta RN)2033 (Given - Provider: Sonam Castañeda, SHANNON) 0034 (Given - Provider: Shaniqua Steel , SHANNON)0439 (Given - Provider: Shaniqua Steel, SHANNON)0937 (Given - Provider: Diana Johnson, SHANNON)1343 (Given - Provider: Diana Johnson, SHANNON) 15 mg, Oral, EVERY 4 HOURS PRN, Starting Sun03/26/20 at 1900, Until Sun03/29/20 at 1648, Pain, Routine sodium chloride 0.9 % (flush) flush 5-20 mL 5-20 mL, Intravenous, EVERY 1 MIN PRN, S tarting Sun03/26/20 at 1607, Until Sun03/29/20 at 1648, flush, Flush pertains to all indwelling lines. Flush per protocol found in the job aid using the link prov ided on this medication record., Recovery (Recovery-Hospital Uni t), Routine Linked Groups Order Group 1: ondansetron (Zofran) tablet 4 mgJump to med 4 mg, Oral, EVERY 8 HOURS PRN, Starting Sun03/26/20 at 1607, Until 9/28/20 at 1648, Nausea, Vomiting
If multiple antiemetics are ordered, use ondansetron first. PO Preferred. If patient unable to take PO, may give IV if ordered. May repeat times one in 45 minutes if ineffective.
Recovery (Recovery-Hospital Unit), Routine Or ondansetron (ZOFRAN) injection 4 mgJump to med 4 mg, Intravenous, EVERY 8 HOURS PRN, St arting 03/26/20 at 1607, Until 03/29/20 at 1648, Nausea
May repeat times one in 30 minutes if ineffective. If multiple antiemetics are ordered, use ondansetron first
Joseph very (Recovery-Hospital Unit) documented in this encounter Care Teams Associate Professor Of Law Relationship Specialty Start Date End Date Jarad Thomas PA PCP - General Family Medicine 02/03/[address] [place] [address] documented as of this encounter
--- OUTSIDE RECORDS SUMMARY | 2022-02-05 03:44 | XMS_ITS | Encounter Summary ---
:[address] [facility] [place] [address] Care Team Providers Name Role Phone Florina Thomas Primary Care Provider Encounter Details Date Type Department Care Team Description 03/04/2019 Laboratory Appointment Lab 3L Chely Osullivan Pain due to total [facility] right knee [facility] replaceme nt, [place] [id number] Social History Tobacco Use Types Packs/Day Years Used Date Never Smoker Smokeless Tobacco: Never Used Alcohol Use Standard Drinks/Week Comments Yes 3 (1 standard drink = 0.6 oz pure alcoho l) Sex Assigned at Date Recorded Not on file documented as of this encounter Plan of Treatment Not on filedocumented as of this encounter Procedures Procedure Name Priority Date/Time Associated Diagnosis Comme nts HC C-REACTIVE Routine 03/04/2019 9:56 AM Pain due to total Res ults for this PROTEIN EDT right knee procedure are i n replacement, initial the res ults encounter section. HEMOGRAM Routine 03/04/2019 9:56 AM Pain due to total Resu lts for this EDT right knee procedure are i n replacement, initial the res ults encounter section. DIFFERENTIAL, Routine 03/04/2019 9:56 AM Pain due to total Res ults for this AUTOMATED EDT right knee procedure are i n replacement, initial the res ults encounter section. HC Routine 03/04/2019 9:56 AM Pain due to total Resu lts for this ESR-SEDIMENTATION EDT right knee procedure are in RATE, BLOOD replacement, initial the res ults encounter section. HC CBC,PLT & AUTO Routine 03/04/2019 9:56 AM Pain due to total DIFF EDT right knee replacement, initial encounter documented in this encounter Results Differential, Automated (03/04/2019 9:56 AM EDT) P athologist Signature Neutrophils % 60.7 % [facility] Neutr Abs (ANC) 4.60 1.70 - [facility] 6.10 [facility] x10(3)/[facility] LABORATORY Lymphocytes % 25.9 % [facility] Lymphocytes Abs 2.0 0.9 - 3.2 [facility] x10(3)/[facility] LABORATORY Monocytes % 10.4 % [facility] Monocyte Abs 0.8 0.3 - 0.9 [facility] x10(3)/[facility] LABORATORY Eosinophils % 2.2 % [facility] Eosinophils Abs 0.2 0.0 - 0.4 [facility] x10(3)/[facility] LABORATORY Basophils % 0.5 % [facility] Basophils Abs 0.0 0.0 - 0.1 [facility] x10(3)/[facility] LABORATORY Immature Gran % 0.30 % [facility] Comment: Immature granulocytes(IG's)percentage an d absolute count will include metamyelocytes, myelocytes, and promyelo cytes. Blood smears from CBCs yielding IG's will be scanned manually for concor dance. If this scan disagrees with the automated IG or if promyelocytes are not ed, a manual differential will be performed. Yudelka Gran Abs 0.02 0.00 - 0.04 x10(3)/[facility] Specimen Anatomical Collection Method Collection Time Receive d Time (Source) Location / / Volume Laterality Blood specimen 03/04/2019 9:56 AM 019 (specimen) EDT 10:20 AM EDT Resulting Agency Comment Spec In Lab Winnie MCKEON HEMATOLOGY ORDERABLES Performing Organization Address City/State/[place] [address] (ABNORMAL) Hemogram (03/04/2019 9:56 AM EDT) Analysis Performed At Patho logist Time Signature WBC 7.6 4.0 - 9.5 [facility] x10(3)/[facility] LABORATORY RBC 4.26 (L) 4.58 - [facility] 5.54 [facility] x10(6)/[facility] LABORATORY Hemoglobin 12.7 (L) 13.7 - [facility] 16.[facility] gm/dL [facility] Hematocrit 38.8 (L) 40.5 - [facility] % [facility] MCV 91.1 82.9 - [facility] 93.1 [facility] LABORATORY MCH 29.8 27.5 - [facility] 32.1 pg [facility] MCHC 32.7 32.0 - [facility] 35.7 gm/dL [facility] Platelets 318 145 - 357 [facility] x10(3)/[facility] LABORATORY RDWSD 42.6 36.0 - [facility] 45.0 [facility] LABORATORY RDWCV 12.9 11.4 - [facility] 13.8 % [facility] LABORATORY MPV 9.0 7.6 - 12.9 [facility] LABORATORY nRBC % Auto 0.0 % [facility] nRBC Abs Auto 0.000 0.000 - [facility] 0.000 [facility] x10(3)/[facility] LABORATORY Specimen Anatomical Collection Method Collection Time Receive d Time (Source) Location / / Volume Laterality Blood specimen 03/04/2019 9:56 AM 019 (specimen) EDT 10:20 AM EDT Resulting Agency Comment Spec In Lab Winnie MCKEON HEMATOLOGY ORDERABLES Performing Organization Address City/State/[place] [address] CRP, acute inflammation (03/04/2019 9:56 AM EDT) P athologist Signature CRP 1.1 <=4.9 mg/L [facility] Specimen Anatomical Collection Method Collection Time Receive d Time (Source) Location / / Volume Laterality Blood specimen 03/04/2019 9:56 AM 019 (specimen) EDT 10:20 AM EDT Resulting Agency Comment Spec In Lab Delfin Pisano MD CHEMISTRY ORDERABLES Performing Organization Address City/State/[place] [address] Sedimentation rate (03/04/2019 9:56 AM EDT) P athologist Signature Sed Rate 7 0 - 15 [facility] mm/hr [facility] Specimen Anatomical Collection Method Collection Time Receive d Time (Source) Location / / Volume Laterality Blood specimen 03/04/2019 9:56 AM 019 (specimen) EDT 10:20 AM EDT Resulting Agency Comment Spec In Lab Delfin Pisano MD HEMATOLOGY ORDERABLES Performing Organization Address City/[facility]/[place] [address] documented in this encounter Visit Diagnoses Diagnosis Pain due to total right knee replacement , initial encounter documented in this encounter Care Teams Floor Waxer Relationship Specialty Start Date End Date Florina Thomas PA PCP - General Family Medicine 02/03/[address] [place] [id number] documented as of this encounter
--- OUTSIDE RECORDS SUMMARY | 2022-02-05 03:44 | XMS_ITS | Encounter Summary ---
:1960 Author Organization [facility] [place] [address] Care Team Providers Name Role Phone Florina Thomas Primary Care Provider Reason for Visit Reason Onset Date Comments Pre Procedure Call 12/09/2019 Encounter Details Date Type Department Care Team Description 12/09/2019 Telephone Orthopaedics at [facility] [place] [facility] Delfin [place]ano [place] [address] [place]OPAEDIC [place] [id number] (Wo rk) Social History Tobacco Use Types Packs/Day Years Used Date Never Smoker Smokeless Tobacco: Never Used Alcohol Use Standard Drinks/Week Comments Yes 3 (1 standard drink = 0.6 oz pure alcoho l) Sex Assigned at Date Recorded Not on file documented as of this encounter Miscellaneous Notes Telephone Encounter - Yudi Candelario - 12/09/2019 12:24 PM EDT I called and left a message for patient to call [phone] directly and schedule surgery with Dr. Pisano in January. documented in this encounter Plan of Treatment Not on filedocumented as of this encounter Visit Diagnoses Not on filedocumented in this encounter Care Teams Mechanical Supervisor Relationship Specialty Start Date End Date Florina Thomas PA PCP - General Family Medicine 02/03/19 [address] [place], [place] [id number] documented as of this encounter
--- OUTSIDE RECORDS SUMMARY | 2022-02-05 03:44 | XMS_ITS | Encounter Summary ---
:1960 Author Organization [facility] Address [place] [id number] Care Team Providers Name Role Phone Florina Thomas Primary Care Provider Reason for Visit Reason Comments Pre-op Exam PREOP 03/26/20 REIMPLANT SOY T TKA - KWD PT Encounter Details Date Type Department Care Team Description 03/23/2020 Office Visit Orthopaedics at [facility] Eddie Ortiz Presence of right [facility] MD [place] [address] [place] [address] ORTHOPAEDICS [place] [address] Social History Tobacco Use Types Packs/Day Years Used Date Never Smoker Smokeless Tobacco: Never Used Alcohol Use Standard Drinks/Week Comments Yes 3 (1 standard drink = 0.6 oz pure alcoho l) Sex Assigned at Date Recorded Not on file documented as of this encounter Last Filed Vital Signs Vital Sign Reading Time Taken Comments Blood Pressure 141/76 03/23/2020 9:00 AM EDT Pulse 57 03/23/2020 9:00 AM EDT Temperature - - Respiratory Rate - - Oxygen Saturation - - Inhaled Oxygen Concentration - - Weight - - Height - - Body Mass Index - - documented in this encounter Progress Notes Eddie Ortiz MD - 03/23/2020 9:00 AM EDT Arthroplasty History/Previous Orthopaedic Surgery: 1. Right TKA 12/18/16 Dr. Alfonso This note is recorded by Anuradha Baker RN acting as a scribe for Dr. Terri Ortiz. PREOPERATIVE VISIT Interval History: Yg Leal is [...] of total knee replacement T84.89XA, M25.669, Z96.659 VITALS: BP Readings from Last 1 Encounters: 03/23/20 141/76 Pulse Readings from Last 1 Encounters: 03/23/20 57 There is no height or weight on file to calculate BMI. Relevant Lab Studies Lab Results Component Value Date WBC 5.6 02/19/2020 HGB 12.9 (L) 02/19/2020 HCT 39.3 (L) 02/19/2020 PLATELET 323 02/19/2020 CREATININE 0.90 02/19/2020 BUN 19 02/19/2020 NA 137 02/19/2020 K 4.5 02/19/2020 CRP 1.3 02/19/2020 SEDRATE 10 02/19/2020 INR 1.0 02/19/2020 No results for input(s): HA1C in the last 7068 hours. No results for input(s): ALBUMIN in the last 168 hours. CrCl cannot be calculated (Patient's most recent lab result is older than the maximum 30 days allowed.). TJA Clotting and Bleeding Assessment Genetic predisposition [...] agreement signed: Yes (see comment for prescriber information) Assessment and Plan: This is a pleasant [...] has a chronic opioid agreement signed with PCP, and post operative pain management plan has been discussed with the patient and prescriber. Patient's PCP would like orthopedics to provide the patient with 1 weeks worth of postoperative pain medication. At that time, the PCP will resume chronicpain care management. The Acute Opioid Therapy Informed Consent form has been completed and sent to medical records for scanning to chart. Opioid PDMP 03/23/2020 02/19/2020 [place] PDMP Query Date 03/23/2020 02/19/2020 [place] PDMP Query Date 03/23/2020 02/19/2020 [place] PDMP Query Date 03/23/2020 02/19/2020 In addition to this medication, non-opioid medications will be prescribed for adjunct treatment of their pain. Non-pharmacological treatment such as ice, elevation and activity modification was recommended as appropriate. Yg Santos Hinajasmyn was instructed to administer Mupirocin into the [...] where referrals are placed patient lives in [place], no preference on VNA. Prep for Surgery Advance Directive: Would like to complete at another time Recommend referral to Patient Financial Services: No Living arrangement: Apartment Home layout: Multi-level Number of stairs within home: 4 Who will provide post-op care and support: Radha Who will provide transportation home: [facility] Patient's desired discharge disposition: VNA then outpatient Top 3 nursing choice facilities: n/a VNA preference: n/a Outpatient PT preference: [place], [place] Discharge barriers and challenges: none identified The patient prefers crutches to help with post-operative ambulation. A DME order has been placed. Recommendations from Dr. Conde: Continue Oxycodone, Enalapril (Hold for SBP <120), Metoprolol (hold if SBP<105 or HR<55), Lamictal, Gabapentin, PPI, Statin, and Ritalin Post operative orthopaedic anti-coagulation plan: ASA 81 [...] with the above note as recorded by SHANNON Negrete MD 03/23/2020 documented in this encounter Plan of Treatment Not on filedocumented as of this encounter Visit Diagnoses Diagnosis Presence of right artificial knee joint Knee joint replacement by other means documented in this encounter Care Teams Machine Operator Farmworker Relationship Specialty Start Date End Date Florina Thomas PA PCP - General Family Medicine 02/03/[address] [place] [address] documented as of this encounter
--- OUTSIDE RECORDS SUMMARY | 2022-02-05 03:44 | XMS_ITS | Encounter Summary ---
:1960 Author Organization [facility] [place] [address] Care Team Providers Name Role Phone Florina Thomas Primary Care Provider Encounter Details Date Type Department Care Team Description 03/02/2020 Telephone Orthopaedics at [facility] [place] [address] Social History Tobacco Use Types Packs/Day Years Used Date Never Smoker Smokeless Tobacco: Never Used Alcohol Use Standard Drinks/Week Comments Yes 3 (1 standard drink = 0.6 oz pure alcoho l) Sex Assigned at Date Recorded Not on file documented as of this encounter Miscellaneous Notes Telephone Encounter - Joaquin Rousseau - 03/02/2020 1:25 PM EDT Nasreen calls from Florina Garza's office and confirms that [facility] [place] will have the first 7 days of pain management, after which they will assume coordination of pain management. P: [phone] Telephone Encounter - Natalia Castro - 03/02/2020 8:49 AM EDT I called Florina Thomas's office today to let them know Yg did not have surgery on 02/24 as he had poison jignesh and a cut on his surgical leg. He has been rescheduled to 03/26/2020. Called to confirm post op pain management plan. Ortho will manage first 7 days post op and then painmanagement will go back to Florina Thomas PA-C office after that. LMOM for call back to confirm. Plan: awaiting confirmation call. documented in this encounter Plan of Treatment Not on filedocumented as of this encounter Visit Diagnoses Not on filedocumented in this encounter Care Teams Loop Drier Operator Relationship Specialty Start Date End Date Florina Thomas PA PCP - General Family Medicine 02/03/[address] [place] [id number] documented as of this encounter
--- OUTSIDE RECORDS SUMMARY | 2022-02-05 03:44 | XMS_ITS | Encounter Summary ---
:1960 Author Organization [facility] [place] [address] Care Team Providers Name Role Phone Florina Thomas Primary Care Provider Encounter Details Date Type Department Care Team Description 08/16/2019 Ancillary Procedure Radiology Library at [place], Delfin Hernandez MD [facility] [place] [address] [place] [address] [phone] (Wo rk) Social History Tobacco Use Types [...] Name Priority Date/Time Associated Diagnosis Comme nts FILM LIBRARY Routine 08/16/2019 12:00 AM Results for this STORAGE ONLY DX EST procedure ar e in KNEE the results section. documented in this encounter Results Film Library- Storage Only DX Knee (08/16/2019 12:00 AM EST) Specimen (Source) Anatomical Location Collection Method / Collectio n Time Received Time / Laterality Volume Narrative ATUL - 08/25/2019 7:34 PM EST This exam is auto-finalizing. It's purpo se is for storage only. Delfin Pisano MD Radha FILM LIBRARY ORDERABLES Performing Organization Address City/State/ZIP Code Phon e Number [place], [place] documented in this encounter Visit Diagnoses Not on filedocumented in this encounter Care Teams Architectural Engineering Teacher Relationship Specialty Start Date End Date Florina Thomas PA PCP - General Family Medicine 02/03/19 [address] [place] [address] documented as of this encounter
--- OUTSIDE RECORDS SUMMARY | 2022-02-05 03:44 | XMS_ITS | Encounter Summary ---
:1960 Author Organization [facility] Address [address] [place] [address] Care Team Providers Name Role Phone Florina Thomas Primary Care Provider Encounter Details Date Type Department Care Team Description 02/19/2020 Orders [address] [place] [facility] [place]elf[place] Pisano, Postoperative stiffness [facility] MD of total knee Drive [facility], [place] [address] encounter [phone] ORTHOPAEDIC SURGERY [place] [id number] Social History Tobacco Use Types Packs/Day Years Used Date Never Smoker Smokeless Tobacco: Never Used Alcohol Use Standard Drinks/Week Comments Yes 3 (1 standard drink = 0.6 oz pure alcoho l) Sex Assigned at Date Recorded Not on file documented as of this encounter Plan of Treatment Not on filedocumented as of this encounter Results EKG 12 Lead (02/19/2020 12:56 PM EDT) Component Value Ref Range Test Analysis Performed Pathologis t Method Time At Signature Ventricular rate 44 BPM MUSE SYSTEM Atrial Rate 44 BPM MUSE SYSTEM P-R Interval 192 ms MUSE SYSTEM QRS Duration 90 ms MUSE SYSTEM Q-T Interval 442 ms MUSE SYSTEM QTC Calculated 377 ms MUSE SYSTEM (Bezet) Calculated P [place] 34 degrees MUSE SYSTEM Calculated R [place] 34 degrees MUSE SYSTEM Calculated T [place] 46 degrees MUSE SYSTEM INTERPRETATION Marked sinus bradycardia MUSE SYSTEM Abnormal ECG When compared with ECG of 31-MAR-2004 19:40, Vent. rate has decreased BY ??24 BPM Confirmed by MD MURPHY ARMIN ([id number]) on 02/19/2020 3:39:38 PM Specimen Anatomical Collection Method Collection Time Receive d Time (Source) Location / / Volume Laterality 02/19/2020 12:56 02/19/2020 3:39 PM EDT PM EDT Delfin Pisano MD ECG ORDERABLES Performing Organization Address City/State/ZIP Code Phon e Number MUSE SYSTEM documented in this encounter Visit Diagnoses Diagnosis Postoperative stiffness of total knee re placement, initial encounter documented in this encounter Care Teams [employer] Relationship Specialty Start Date End Date Florina Thomas PA PCP - General Family Medicine 02/03/[address] [place] [id number] documented as of this encounter
--- OUTSIDE RECORDS SUMMARY | 2022-02-05 03:44 | XMS_ITS | Encounter Summary ---
:1960 [place] [address] Care Team Providers Name Role Phone Florina [...] Expiration Date Visits Requ ested Visits Authorized [id number] 1 1 Encounter Details Date Type Department Care Team Description 03/26/2020 Anesthesia Event Main Operating Room Estevan Parker MD [facility] [place] [address] [facility] Joanna Rivera MD [facility] [place] [address] [place] [address] Anesthesia Record Procedure Summary Procedure Name Responsible Anesthesia Start Anesthesia Stop Time Anesthesiologist Time @TOTAL KNEE Estevan Contreras MD 03/26/20 1200 03/26/20 1542 REVISION ARTHROPLASTY, COMPLETE (WRVU 27.11) (Right Knee) Events Date Time Event Comment 03/26/2020 1141 1155 Spinal 1200 AN Verify 1200 Start 1200 An Start Data 1208 Anesthesia Ready 1232 Procedure Start 1233 An Tourn Inflated 1541 an stop data 1541 Recovery or ICU Handoff Patient care was transferred to the destination unit staff after review of the patient's medica l history, current anesthetic/surgi fara status and plan, according to the Provider Handoff Checklist. 1542 Stop Name Total BUpivacaine 0.5% 20 mL Propofol 40 mg Propofol INF 728.18 mg ceFAZolin (Ancef) 2 g in dextrose 5% 100 mL infusion 2 g tranexamic acid (CYKLOKAPRON) 1,122 mg in sodium chlor layne 0.9% 111.22 mL 1,122 mg ePHEDrine 25 mg Glycopyrrolate 0.3 mg PHENYLephrine 80 mcg EPINEPHrine 1mg/mL 100 mcg BUpivacaine 0.75% with Dextrose 15 mg PHENYLephrine INF 3,340 mcg lactated ringers infusion 1,100 mL Agents Name O2 Air N2O Sevoflurane (et) O2 Auxiliary Flowmeter 1 Blood No blood administrations on file. Lines, Drains, and Airways Type Details Placement Removal Incision 03/26/20; knee 03/26/20 0000 by Siomara Pandey RN PIV 02/25/20; 0920; cephalic 02/25/20 0920 by 1650 by vein (lateral side of KinstonBrian RN Fergus on, Jorden melton), right; sapy-tic-rzxpdo catheter system; 20 gauge, 1 in length (eladio molina); distraction, intradermal injection, tolerated well, appears comfortable; 04/06/21 (LDA Cleanup utility RA#[id number]); 1650 (LDA Cleanup utility RA#[id number]) PIV 03/26/20; 0958; median 03/26/20 0958 by 04/06/21 1650 by cubital vein (antecubital Mindy Salazar RN Ferguson, Andrea fossa), right; glgh-fgg-cgsfti catheter system; 18 gauge, 1 in length; Bhavesh Carlni RN ; distraction, intradermal injection; 04/06/21 (LDA Cleanup utility RA#[id number]); 1650 (LDA Cleanup utility RA#[id number]) Urethral Catheter 03/26/20; 1220; Physician 03/26/20 1220 by 1537 by order; indwelling double Nicole Cazares RN Hunter, [place] K, RN lumen catheter; latex; 14; inserted at this facility; 1; 10; 10; none; leg bag to dependent drainage; 03/26/20; 1537 documented in this encounter Social History Tobacco Use Types Packs/Day Years Used Date Never Smoker Smokeless Tobacco: Never Used Alcohol Use Standard Drinks/Week Comments Yes 3 (1 standard drink = 0.6 oz pure alcoho l) Sex Assigned at Date Recorded Not on file documented as of this encounter OR Notes Anesthesia Postprocedure Evaluation - Joanna Rivera MD - 03/26/2020 7:57 PM EDT Department of Anesthesiology Post-procedure Note Patient: Yg Leal Procedure Summary Date: 03/26/20 Room / Location: [facility] OR [address] [place] [address] MAIN OR Anesthesia Start: 1200 Anesthesia Stop: 154 Procedures: @TOTAL KNEE REVISION ARTHROPLASTY, COMPLETE (WRVU 27.11) (Right Knee) MODIFIER,GMK REVISION KNEE,MEDACTA (N/A ) Diagnosis: Postoperative stiffness of total knee replacement, initial encounter (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 Patient Location: PACU/[facility] Level of Consciousness: Awake and Alert Pain Management: Satisfactory Analgesia PONV: None Cardiovascular Status: At Baseline Respiratory Status: At Baseline Postoperative Fluid Status: Intravascular EUvolemia Possible Anesthetic Complications: NONE apparent at time of evaluation Final Primary Anesthesia Type: Spinal (The anesthetic type performed was the same as planned.) Comments: Anesthesia Procedure Notes - Joanna Rivera MD - 03/26/2020 12:52 PM EDT Associated Order(s): Neuraxial Block Procedure: Neuraxial Block Primary Anesthetic Type: Spinal The patient was greeted. The sedation plan, its benefits, risks and alternatives were discussed withthe patient. The patient has consented to the procedure. The medical history and chart were reviewed. The timeout was performed. Start time: 03/26/2020 11:40 AM End time: 03/26/2020 11:55 AM Patient Location: Block Room Patient Prep Position: Sitting Prep: Hand Hygiene, Hat, Mask, Sterile Gloves, Chlorhexidine and Patient Draped Injection technique: single-shot Skin Anesthetic Lidocaine 1% 3 ml Procedure Technique Level of needle insertion: L3-4 Needle approach: midline Needle Type: [employer] Gauge: 25 Needle length: 5 in Needle insertion depth when KARRI achieved: 4 cm Number of attempts: 1 Medications: BUpivacaine 0.75% with Dextrose, 15 mg EPINEPHrine 1mg/mL, 100 mcg Events/Notes Events: None Resident/[employer]: Joanna Rivera MD Second Resident/[employer]: Fellow: Attending Physician: Jose Cruz Osorio MD ~~~~~~~~~~~~~~~~~~~~~~~~~~~~~~~~~~~~~~~~~~~~~~~~~~~~~~~~~~~~ Anesthesia Procedure Notes - Yoli Tinsley MD - 03/26/2020 10:28 AM EDT Associated Order(s): Anesthesia Block Anesthesia Block Date/Time: 03/26/2020 10:25 AM Performed by: Yoli Tinsley MD Authorized by: Manas Canchola MD Performed by [facility] Start Time: 03/26/2020 10:20 AM End Time: 03/26/2020 10:25 AM Patient Location: Block Room The patient was greeted; the risks and benefits of the procedure were reviewed. Indication: Post-op Pain Control Post-op pain management at the request of surgeon. Block Type: Adductor canal block Laterality: Right Position: Supine Prep: Chlorhexidine, patient draped and mask, cap, sterile gloves, hand hygeine Skin Anesthetic: Lidocaine 1% dose: 3 [id number]-brhil 21 10 cm Ultrasound Guided: YES and in-plane. Ultrasound Image(s) were saved. Ultrasound guidance was used to identify the targeted neuronal structure. Ultrasound was also used to identify needle position and to identify tissue (bone, muscle, and blood vessels) to prevent inadvertent intraneural or intravascular needle placement and injection. The spread of local anesthetic was confirmed with live ultrasound imaging. Single-Shot: Single-shot BUpivacaine 0.5%, 20 mL no complications Fellow:: Yoli Tinsley MD Attending Physician:: Manas Canchola MD Anesthesia Preprocedure Evaluation - Yoli Tinsley MD - 03/25/2020 7:23 PM EDT Pre-Anesthesia Evaluation for: Yg Leal a 59 y.o. male. Procedure(s): @TOTAL KNEE REVISION ARTHROPLASTY, COMPLETE (WRVU 27.11) MODIFIER,GMK REVISION KNEE,MEDACTA Patient Active Problem List Diagnosis ??? Postoperative stiffness of total knee replacement ??? Type 2 diabetes mellitus, without long-term [...] home medications have been reviewed. Physical Exam: No data found. There is no height or weight on file to calculate BMI. Airway Assessment: Mallampati: I TM distance: >3 FB Neck ROM: full Cardiovascular Assessment: cardiovascular exam normal Pulmonary Assessment: breath sounds clear to auscultation Dental Assessment: - normal exam Misc Assessment: Patient is wearing No contact(s). IV access: Peripheral line Anesthesia Plan: ASA 3 spinal, with a(n) intravenous induction *Preliminary note* 59 y.o. male scheduled for right total knee revision arthroplasty Medical History: NIDDM, HTN, GERD well controlled, bipolar disorder, hx of motion sickness Surgical History: total knee arthroplasty Anesthetic History: Allergies reviewed Labs reviewed NPO Status: --- Appropriately NPO Anesthetic Plan: Spinal vs GA w/ ETT Lower extremity nerve block: Radductor canal block Standard ASA monitoring PIV access Joanna Rivera MD 03/25/2020 Region - Other Informed Consent: Anesthetic plan and risks discussed with patient. Use of blood products discussed with patient who consented to blood products. Plan discussed with attending. PAT Clinic Note documented in this encounter Plan of Treatment Not on filedocumented as of this encounter Procedures Procedure Name Priority Date/Time Associated Comments Diagnosis ANE NEURAXIAL APS Routine 03/26/2020 12:52 PM Res ults for this USE EDT procedure are i n the results section. ANESTHESIA BLOCK Routine 03/26/2020 10:28 AM Resu lts for this EDT procedure are i n the results section. documented in this encounter Results Neuraxial Block (03/26/2020 12:52 PM EDT) Narrative Estevan Contreras MD - 03/26/2020 12:52 PM Joanna Villar MD ? 03/26/2020 12:55 PM Procedure: ?? Neuraxial Block Primary Anesthetic Type: Spinal The patient was greeted. The sedation pl an, its benefits, risks and alternatives were discussed with the pat ient. ??The patient has consented to the procedure. ??The medical history and chart were reviewed. ??The timeout was performed. Start time: 03/26/2020 11:40 AM End time: 03/26/2020 11:55 AM Patient Location: Block Room Patient Prep Position: Sitting Prep: Hand Hygiene, Hat, Mask, Sterile G loves, Chlorhexidine and Patient Draped Injection technique: single-shot Skin Anesthetic Lidocaine 1% ??3 ml Procedure Technique Level of needle insertion: L3-4 Needle approach: midline Needle Type: [employer] Gauge: 25 Needle length: 5 in Needle insertion depth when KARRI achieved : 4 cm Number of attempts: 1 Medications: BUpivacaine 0.75% with Dextrose, 15 mg EPINEPHrine 1mg/mL, 100 mcg Events/Notes Events: ??None Resident/[employer]: ?Sa tyler Rivera MD Second Resident/[employer]: Fellow: ? Attending Physician: ? Koby Osorio MD ~~~~~~~~~~~~~~~~~~~~~~~~~~~~~~~~~~~~~~~~ ~~~~~~~~~~~~~~~~~~~~ Estevan Contreras MD [employer] [facility] Anesthesia Block (03/26/2020 10:28 AM EDT) Narrative Manas Canchola MD - 03/26/2020 10:28 A M EDT Yoli Tinsley MD ? 03/26/2020 10:30 AM Anesthesia Block Date/Time: 03/26/2020 10:25 AM Performed by: Yoli Tinsley MD Authorized by: Manas Canchola MD Performed by [facility] ?? Start Time: ??03/26/2020 10:20 AM End Time: ??03/26/2020 10:25 AM Patient Location: ??Block Room The patient was greeted; the risks and b enefits of the procedure were reviewed. ?? Indication: ??Post-op Pain Control Post-op pain management at the request o f surgeon. ?? Block Type: ??Adductor canal block Laterality: ??Right Position: ??Supine Prep: ??Chlorhexidine, patient draped an d mask, cap, sterile gloves, hand hygeine Skin Anesthetic: ??Lidocaine 1% dose: ??3 D-dqhji-fqnvs 21 10 cm Ultrasound Guided: ??YES and in-plane. ? ?Ultrasound Image(s) were saved. Ultrasound guidance was used to identify the targeted neuronal structure. Ultrasound was also used to identify nee dle position and to identify tissue (bone, muscle, and blood vessels) to prevent inadvertent intraneural or intravascular needle plac ement and injection. The spread of local anesthetic was confirmed with live ultrasound imaging. ?? Single-Shot: ??Single-shot BUpivacaine 0.5%, 20 mL no complications ?? Fellow:: ??Yoli Tinsley MD Attending Physician:: ??Manas Canchola MD Manas Canchola MD M[employer]ER [facility] documented in this encounter Visit Diagnoses Not on filedocumented in this encounter Administered Medications Inactive Administered Medications - up to 3 most recent administrations Medication Order MAR Action Action Date Dose Rate Site BUpivacaine (PF) (MARCAINE) 0.5 % Given 03/26/2020 10:25 AM EDT 20 mLs (5 mg/mL) injection Starting on Sun03/26/20 at 1025, Until Sun03/26/20 at 1025, Anesthesia Intra-op, Routine BUpivacaine 0.75% in dextrose 8.25% Given 03/26/2020 12:52 PM ED T 15 mg (intrathecal) (Sensorcaine) 0.75 % (7.5 mg/mL) injection Intrathecal, Starting on Sun03/26/20 at 1252, Until Sun03/26/20 at 1252, Anesthesia Intra-op, Routine ceFAZolin (Ancef) 2 g in dextrose 5% 100 mL Given 03/26/2020 12: 22 PM EDT 2 g infusion 2 g, Intravenous, EVERY 3 HOURS, 1 dose, First dose on Sun03/26/20 at 1145, Administer over 30 Minutes, Redose after 3 hours., Intra-Operative (Intra-Procedure), Indication for (Active or Suspected): Prophylaxis ePHEDrine 5 mg/mL multi-dose injection Given 03/26/2020 12:48 PM EDT 10 mg PRN, Starting on Sun03/26/20 at 1239, Until Sun03/26/20 at 1542, Anesthesia Intra-op, Routine Given 03/26/2020 12:45 PM EDT 5 mg Given 03/26/2020 12:42 PM EDT 5 mg EPINEPHrine (Adrenalin) injection Given 03/26/2020 12:52 PM EDT 100 mcg Starting on Sun03/26/20 at 1252, Until Sun03/26/20 at 1252, Anesthesia Intra-op, Routine glycopyrrolate (ROBINUL) multi-dose Given 03/26/2020 12:48 PM ED T 0.3 mg injection PRN, Starting on Sun03/26/20 at 1248, Until Sun03/26/20 at 1542, Anesthesia Intra-op, Routine lactated ringers infusion New Bag 03/26/2020 2:50 PM EDT 1,000 mL, at 100 mL/hr, Intravenous, CONTINUOUS, Starting on Sun03/26/20 at 1000, Until Sun03/26/20 at 2141, Day of Surgery (Day of Procedure) New Bag 03/26/2020 10:00 AM EDT 1,000 mLs 100 mL/hr PHENYLephrine Rate/Dose Change 03/26/2020 1:24 PM 20 mcg/min 15 mL/hr (DAYAN-SYNEPHRINE) 20 mg in EDT sodium chloride 250 mL (standard ADULT & Pedi greater than 20kg) infusion CONTINUOUS PRN, Starting on Sun03/26/20 at 1300, Until Sun03/26/20 at 1542, Anesthesia Intra-op, Routine New Bag 03/26/2020 1:00 PM EDT 30 mcg/min 22.5 mL/hr PHENYLephrine in NS (PF) (DAYAN-SYNEPHRINE) Given 03/26/2020 12:46 PM EDT 80 mcg 0.8 mg/10 mL (80 mcg/mL) multi-dose injection Syrg PRN, Starting on Sun03/26/20 at 1246, Until Sun03/26/20 at 1542, Anesthesia Intra-op, Routine propofoL (Diprivan) 10 mg/mL bolus injection Given 12:16 PM EDT 20 mg (Anesthesia) Intravenous, PRN, Starting on Sun03/26/20 at 1214, Until Sun03/26/20 at 1542, Anesthesia Intra-op Given 03/26/2020 12:14 PM EDT 20 mg propofoL (Diprivan) infusion Rate/Dose Change 03/26/2020 3:11 20 mcg/kg/min 9 mL/hr Intravenous, CONTINUOUS PRN, PM EDT Starting on Sun03/26/20 at 1212, Until Sun03/26/20 at 1542, Anesthesia Intra-op, Routine Rate/Dose Change 03/26/2020 2:27 PM EDT 40 mcg/kg/min 18 mL/hr Rate/Dose Change 03/26/2020 12:45 PM EDT 50 mcg/kg/min 22.4 mL/hr tranexamic acid (CYKLOKAPRON) 1,122 mg New Bag 03/26/2020 12:0 6 PM EDT 1,122 mg in sodium chloride 0.9% 111.22 mL 1,122 mg (15 mg/kg/dose ? 74.8 kg), Intravenous, ONCE, 1 dose, On Sun03/26/20 at 1130, Administer over 30 Minutes, Day of Surgery (Day of Procedure) documented in this encounter Care Teams Hamper Maker Machine Relationship Specialty Start Date End Date Florina Thomas PA PCP - General Family Medicine 02/03/[address] [place] [id number] documented as of this encounter
--- OUTSIDE RECORDS SUMMARY | 2022-02-05 03:44 | XMS_ITS | Encounter Summary ---
:1960 Author Organization [facility] Address [place] [address] Care Team Providers Name Role Phone Florina Thomas Primary Care Provider Encounter Details Date Type Department Care Team Description 02/19/2020 Office Visit Orthopaedics at [facility] Amaya, Preop examination; [facility] Melchor Pressley MD Presence of right artificial knee joint; [facility] [place] [address] [facility]ENTER [phone] ORTHOPAEDIC SURGERY [place] [id number] Social History Tobacco Use Types Packs/Day Years Used Date Never Smoker Smokeless Tobacco: Never Used Alcohol Use Standard Drinks/Week Comments Yes 3 (1 standard drink = 0.6 oz pure alcoho l) Sex Assigned at Date Recorded Not on file documented as of this encounter Last Filed Vital Signs Vital Sign Reading Time Taken Comments Blood Pressure 144/79 02/19/2020 2:10 PM EDT Pulse 61 02/19/2020 2:10 PM EDT Temperature - - Respiratory Rate - - Oxygen Saturation 96% 02/19/2020 2:10 PM EDT Inhaled Oxygen Concentration - - Weight 74.8 kg (165 lb) 02/19/2020 2:10 PM EDT Height 170.2 cm (5' 7.01) 02/19/2020 2:10 PM EDT Body Mass Index 25.84 02/19/2020 2:10 PM EDT documented in this encounter Progress Notes Alonso Lazaro PA - 02/19/2020 1:20 PM EDT Images from the original note were not included. CC: Yg Leal is a 59 y.o. male with the following problems and medications that is being seen in the clinic for consultation at the request of his surgeon Dr. Delfin Pisano for preoperative risk stratification and management recommendations in anticipation of right total knee arthroplasty revi judy for symptomatic aseptic loosening s/p fall at work. HPI - Pain: Location - right knee; Quality - aching and sharp; Onset - after fall on 08/15/19; Duration - Since falling; Intensity - moderate to severe; Aggravating factors - standing, walking, steps; Alleviating factors - NSAIDs, APAP, opiate, rest; Associated - ROM issues as well as pain that radiates up and down leg. Patient Active Problem List Diagnosis Code ??? [...] Presence of right artificial knee joint Z96.651 Current Outpatient Medications Medication Sig Dispense Refill ??? lamoTRIgine (LaMICtal) 200 mg Tablet Take [...] every 8 hours as needed. 4 ??? methylphenidate HCl (RITALIN) 20 mg Tablet take 1 tablet by mouth three times a day 0 ??? metoprolol succinate (TOPROL-XL) 50 mg Tablet Sustained Release 24 hr take 1 tablet by mouth once daily 0 ??? oxyCODONE (ROXICODONE) 10 mg Tablet Take by mouth 4 times daily as needed. ??? pantoprazole (PROTONIX) 40 mg Tablet, Delayed Release (E.C.) Take 40 mg by mouth Daily. No current facility-administered medications for this visit. Social History Occupational History ??? Not on file Tobacco Use ??? Smoking status: Never Smoker ??? Smokeless tobacco: Never Used Substance and Sexual Activity ??? Alcohol use: Yes Alcohol/week: 3.0 standard drinks Types: 3 Cans of beer per week ??? Drug use: Yes Types: Opioids ??? Sexual activity: Not on file History reviewed. No pertinent family history. Review of Systems Constitutional: Negative for chills, diaphoresis, fever, lightheadedness, or IBRAHIM. Respiratory: Negative for cough, shortness of breath and wheezing. Cardiovascular: Reports heart murmur since without known change. Negative for chest pain, palpitations and leg swelling. Gastrointestinal: GERD controlled with protonix. Negative for abdominal pain, anal bleeding and blood in stool. Endocrine: Negative for polydipsia and polyphagia. Genitourinary: Negative for dysuria, flank pain and hematuria. Skin: Negative for pallor and rash. Allergic/Immunologic: Negative for environmental allergies and immunocompromised state. Neurological: Negative for syncope and speech difficulty. Hematological: Negative for adenopathy. Does not bruise/bleed easily. Psychiatric/Behavioral: Some depression controlled with medications. Negative for confusion, decreased concentration. Allergies: No Known Allergies Physical Exam: Last Set of Vitals and Range over past 24 hours: Last value Range last 24 hrs Heart Rate Heart Rate: 61 Heart Rate: [61] Blood Pressure BP: 144/79 BP: (144)/(79) SpO2 SpO2: 96 % SpO2: [96 %] HR 56 when checked during exam. Estimated body mass index is 25.84 kg/m?? as calculated from the following: Height as of this encounter: 170.2 cm (5' 7.01). Weight as of this encounter: 74.8 kg (165 lb). Physical Exam Constitutional: He is oriented to person, place, and time. He appears well- developed. No distress. HENT: Head: Normocephalic and atraumatic. Eyes: Right eye exhibits no discharge. Left eye exhibits no discharge. No scleral icterus. Neck: Neck supple. No JVD present. Cardiovascular: Bradycardic, regular rhythm. Exam reveals no gallop and no friction rub. Systolic 2/6 murmur heard. Pulmonary/Chest: Effort normal and breath sounds normal. No stridor. No respiratory distress. He hasno wheezes, no rales. He exhibits no tenderness. Abdominal: Soft. Bowel sounds are normal. No HSM percussed or palpated. There is no tenderness. There is no rebound and no guarding. Musculoskeletal: He exhibits no edema in Carl Bilaterally. RLE: Sensation to light touch intact with some blunting lateral to prior TKA; Knee ROM from ~ 10 degrees from full extension to ~ 85 degrees flexion; DF/PF 5/5; DP pulse 2+. Neurological: He is alert and oriented to person, place, and time. He exhibits no resting or intentional tremors, dystonia or dysmetria. Skin: Skin is warm and dry. He is not diaphoretic. No pallor. Psychiatric: He has a normal mood and affect. His behavior is normal. Judgment and thought content normal. Lab Results Component Value Date WBC 5.6 02/19/2020 RBC 4.40 (L) 02/19/2020 HGB 12.9 (L) 02/19/2020 HCT 39.3 (L) 02/19/2020 MCV 89.3 02/19/2020 MCH 29.3 02/19/2020 MCHC 32.8 02/19/2020 PLATELET 323 02/19/2020 RDWCV 12.0 02/19/2020 Lab Results Component Value Date NA 137 02/19/2020 K 4.5 02/19/2020 CL 100 02/19/2020 CO2 27 02/19/2020 BUN 19 02/19/2020 CREATININE 0.90 02/19/2020 GLUCOSE 129 02/19/2020 CALCIUM 9.6 02/19/2020 Lab Results Component Value Date PT 11.1 02/19/2020 INR 1.0 02/19/2020 PTT 34 02/19/2020 Lab Results Component Value Date CRP 1.3 02/19/2020 SEDRATE 10 02/19/2020 Estimated Creatinine Clearance: 84.7 mL/min (based on SCr of 0.9 mg/dL). EKG 02/19/2020: Marked sinus bradycardia Abnormal ECG When compared with ECG of 31-MAR-2004 19:40, Vent. rate has decreased BY ??24 BPM NM Bone scan 02/26/2019: IMPRESSION Abnormal study with above findings highly suggestive of infection or possibly loosening of the right knee prosthesis. ?? Preliminary report signed by: Alex Conner at 02/26/2019 2:57 PM ?? I have personally reviewed the image(s) and the residents interpretation and agree with the findings, Silviano Negrete at 02/26/2019 3:51 PM ?? Thank you for letting us participate in the care of this patient. For questions regarding this report, please contact the number below. Electronically signed by: Silviano Negrete [facility] ([phone]), at 02/26/2019 3:51 PM A/P: Diagnosis: 1. Preop examination 2. Presence of right artificial knee joint 3. Chronic prescription opiate use Yg Leal is a 59 y.o. male who presents to clinic for preoperative surgical risk evaluation and planning. The patient's girlfriend and son will be at home to help with recovery. The patient elects to proceed with planned surgery. Major Risk Factor per the Revised Cardiac Risk Index (Bold if present) - There is no history of CAD,CHF, CVA or TIA, DM2 on insulin, or a Creatinine >2. Risk diagnosis for MACE (major adverse cardiovascular event = Myocardial infarction, pulmonary edema, ventricular fibrillation, primary cardiac arrest, or complete heart block.) : Low <1%. Activity is limited by right knee pain yet continues to do some yard work like mowing lawn and otheractivities such as shooting basketball hoops. Based on the ACC/AHA 2014 guideline no further cardiovascular testing is indicated. ARISCAT/CANET Score - estimates the risk of postoperative pulmonary complications as being low ~3.5%. Per the ACS NSQIP calculator I estimated the following: Patient instructions: Patient will trial weaning off Oxycodone; currently taking 10mg 4 times daily. Continue Lamictal, Lipitor, Gabapentin, Metoprolol, Oxycodone, Pantoprazole Last dose of Enalapril in the morning of day before surgery Don't take Ritalin on day of surgery Last dose of Ibuprofen 5 days before surgery RECOMMENDATION: Continue Oxycodone, Enalapril (Hold for SBP <120), Metoprolol (hold if SBP<105 or HR<55), Lamictal, Gabapentin, PPI, Statin, and Ritalin Other orders per Dr. Delfin Pisano documented in this encounter Plan of Treatment Not on filedocumented as of this encounter Visit Diagnoses Diagnosis Preop examination Preoperative examination, unspecified Presence of right artificial knee joint Knee joint replacement by other means Chronic prescription opiate use documented in this encounter Care Teams Mid Wife Relationship Specialty Start Date End Date Florina Thomas PA PCP - General Family Medicine 02/03/[address] [place] [id number] documented as of this encounter
--- OUTSIDE RECORDS SUMMARY | 2022-02-05 03:44 | XMS_ITS | Encounter Summary ---
:1960 Author Organization [facility] [place] [address] Care Team Providers Name Role Phone Florina Thomas Primary Care Provider Encounter Details Date Type Department Care Team Description 02/19/2020 Clinical Support Same Day at [facility] Postoperative stiffness [facility] Department of total knee Drive replacement, [place] [address] encounter [phone] Social History Tobacco Use Types Packs/Day Years Used Date Never Smoker Smokeless Tobacco: Never Used Alcohol Use Standard Drinks/Week Comments Yes 3 (1 standard drink = 0.6 oz pure alcoho l) Sex Assigned at Date Recorded Not on file documented as of this encounter Last Filed Vital Signs Vital Sign Reading Time Taken Comments Blood Pressure 144/79 02/19/2020 11:50 AM EDT Pulse 61 02/19/2020 11:50 AM EDT Temperature - - Respiratory Rate - - Oxygen Saturation 96% 02/19/2020 11:50 AM EDT Inhaled Oxygen Concentration - - Weight 74.8 kg (165 lb) 02/19/2020 11:50 AM EDT Height 170.2 cm (5' 7) 02/19/2020 11:50 AM EDT Body Mass Index 25.84 02/19/2020 11:50 AM EDT documented in this encounter Progress Notes Dolores Mohamud RN - 02/19/2020 12:00 PM EDT PAT questionnaire reviewed with patient while in Pre Admission testing. Patient reports no problems with anesthesia in the past. Pre-operative instruction booklet reviewed. Patient verbalizes a good understanding of all information. clearfast provided. Patient has concerns regarding post op pain management - he will discuss with Dr. Pisano at appt thisafternoon. I spoke with Mindy Cruz re: APS post op. PLAN Testing: Labs and EKG done Special medication instructions: n/a Procedure date: 02/24 - Dr. Pisano documented in this encounter Plan of Treatment Not on filedocumented as of this encounter Procedures Procedure Name Priority Date/Time Associated Diagnosis Comme nts EKG 12-LEAD Routine 02/19/2020 12:56 PM Postoperative stiffne ss Results for this EDT of total knee procedure are in replacement, initial the res ults encounter section. documented in this encounter Results EKG 12 Lead (02/19/2020 12:56 PM EDT) Component Value Ref Range Test Analysis Performed Pathologis t Method Time At Signature Ventricular rate 44 BPM MUSE SYSTEM Atrial Rate 44 BPM MUSE SYSTEM P-R Interval 192 ms MUSE SYSTEM QRS Duration 90 ms MUSE SYSTEM Q-T Interval 442 ms MUSE SYSTEM QTC Calculated 377 ms MUSE SYSTEM (Bezet) Calculated P Ell[place] 34 degrees MUSE SYSTEM Calculated R [place] 34 degrees MUSE SYSTEM Calculated T [place] 46 degrees MUSE SYSTEM INTERPRETATION Marked sinus bradycardia MUSE SYSTEM Abnormal ECG When compared with ECG of 31-MAR-2004 19:40, Vent. rate has decreased BY ??24 BPM Confirmed by MD JEFFREY, ADRIENNE ([id number]) on 02/19/2020 3:39:38 PM Specimen Anatomical [...] encounter documented in this encounter Care Teams Pick Up Man Relationship Specialty Start Date End Date Florina Thomas PA PCP - General Family Medicine 02/03/19 [address] [place] [address] documented as of this encounter
--- OUTSIDE RECORDS SUMMARY | 2022-02-05 03:44 | XMS_ITS | Encounter Summary ---
:1960 Author Organization [facility] Address [place] [id number] Care Team Providers Name Role Phone Florina [...] Expiration Date Visits Requ ested Visits Authorized [id number] 1 1 Encounter Details Date Type Department Care Team Description 02/25/2020 Surgery Main Operating Room [facility]TE [facility] ORTHOPAEDIC S URGERY ([facility] [address]11) [place] [address] [place] [address] [phone] Social History Tobacco Use Types Packs/Day Years Used Date Never Smoker Smokeless Tobacco: Never Used Alcohol Use Standard Drinks/Week Comments Yes 3 (1 standard drink = 0.6 oz pure alcoho l) Sex Assigned at Date Recorded Not on file documented as of this encounter Medications at Time of Discharge Medication Sig Dispensed Refills Start Date End Date lamoTRIgine (LaMICtal) 200 Take 200 mg by [...] 0 mg Tablet, Delayed Release Daily. (E.C.) gabapentin (NEURONTIN) 300 TAKE 1 TO 3 0 01/30/20 19 03/10/2021 mg Capsule CAPSULES BY MOUTH AT BEDTIME NEEDED ibuprofen (ADVIL;MOTRIN) Take 600 mg by 4 019 03/29/2020 600 mg Tablet mouth every 8 hours as needed. oxyCODONE (ROXICODONE) 10 Take by mouth 4 0 01/3003/29/2020 mg Tablet times daily as needed. documented as of this encounter Plan of Treatment Not on filedocumented as of this encounter Visit Diagnoses Diagnosis Postoperative stiffness of total knee re placement, initial encounter documented in this encounter Administered Medications Inactive Administered Medications - up to 3 most recent administrations Medication Order MAR Action Action Date Dose Rate Site lactated ringers infusion New Bag 02/25/2020 9:22 AM EDT 1,000 mLs 100 mL/hr 1,000 mL, at 100 mL/hr, Intravenous, CONTINUOUS, Starting on Sun02/25/20 at 0915, Until Sun02/25/20 at 1211, Day of Surgery (Day of Procedure) lidocaine (XYLOCAINE) 10 mg/mL (1 %) inj ection 3 mg 3 mg (0.3 mL), Subcutaneous, ONCE PRN, 1 dose, Startin g on Sun02/25/20 at 0846, Until Sun02/25/20 at 1211, for discomfor t with PIV insertion, Day of Surgery (Day of Procedure), Routine scopolamine (TRANSDERM-SCOP) 1 mg patch Patch Removal Transdermal, EVERY 24 HOURS, 1 dose, First dose on Sun02/25/20 at 1615, Remove scopolamine 1.5 mg patch, Recovery (Recovery-Hospital Unit) scopolamine (TRANSDERM-SCOP) 1 mg patch Patch Verification Transdermal, 2 TIMES DAILY, First dose o n 8/26/20 at 0915, Until Discontinued, Verify scopolamine 1.5 mg patch., Recovery (Recovery-H ospital Unit) sodium chloride 0.9 % (flush) flush 5-20 mL 5-20 mL, Intravenous, EVERY 1 MIN PRN, S tarting on Sun02/25/20 at 0846, Until Sun02/25/20 at 1211, flush, Flush pertains t o all indwelling lines. Flush per protocol found in the job aid using the link provided on this m edication record., Day of Surgery (Day of Procedure), Routine documented in this encounter Active and Recently Administered Medications Times are shown in EDT. Scheduled Medication Order 02/23/2020 02/24/2020 02/25/2020 acetaminophen (Tylenol) tablet 1,000 mg (COMPLETED) 911 (Given - Provider: Brian Chanel RN) 1,000 mg, Oral, ONCE, 1 dose, Sun 0 at 0915, Administer on arrival in Same Day Program, Day of Surgery (Day of Procedure), Routine ceFAZolin (Ancef) 2 g in dextrose 5% 100 mL infusion 914 (Due) 2 g, Intravenous, EVERY 3 HOURS, 1 dose, First dose on Sun02/25/20 at 0915, Administer over 30 Minutes, Redose after 3 hours., Intra-Operative (Intra- Procedure), Indication for (Active or Suspected): Prophylaxis celecoxib (CeleBREX) capsule 400 mg (COMPLETED) 911 (Given - Provider: Brian Chanel, RN) 400 mg, Oral, ONCE, 1 dose, Sun02/25/20 at 0915, Administer on arrival to Same Day Program, Day of Surgery (Day of Procedure), Routine gabapentin (Neurontin) capsule 300 mg (COMPLETED) 912 (Given - Provider: Brian Chanel, RN) 300 mg, Oral, ONCE, 1 dose, Sun02/25/20 at 0915, Administer on arrival in Same Day Program, Day of Surgery (Day of Procedure), Routine scopolamine (TRANSDERM-SCOP) 1 mg over 3 days patch 1 patch (COM PLETED) 913 (Patch Applied - Provider: Brian Chanel, RN) 1 patch, Transdermal, ONCE, 1 dose, Sun02/25/20 at 0915, Day of Surgery (Day of Procedure), Routine scopolamine (TRANSDERM-SCOP) 1 mg patch Patch Removal Transdermal, EVERY 24 HOURS, 1 dose, Fir st dose on Sun02/25/20 at 1615, Remove scopolamine 1.5 mg patch, Recovery (Recovery-Hospital Unit) scopolamine (TRANSDERM-SCOP) 1 mg patch Patch Verification 0915 (Due) Transdermal, 2 TIMES DAILY, First dose o n Sun02/25/20 at 0915, Until Discontinued, Verify scopolamine 1.5 mg patch., Recovery (Recovery-Hospital Unit) Continuous Medication Order 02/23/2020 02/24/2020 02/25/2020 lactated ringers infusion 0922 ( New Bag - Provider: Brian Chanel RN) 1,000 mL, at 100 mL/hr, Intravenous, CON TINUOUS, Starting Sun02/25/20 at 0915, Until Sun02/25/20 at 1211, Day of Surgery (Day of Procedure) PRN Medication Order 02/23/2020 02/24/2020 02/25/2020 lidocaine (XYLOCAINE) 10 mg/mL (1 %) injection 3 mg 3 mg (0.3 mL), Subcutaneous, ONCE PRN, 1 dose, Starting Sun02/25/20 at 0846, Until Sun02/25/20 at 1211, for discomfort with PIV insertion, Day of Surgery (Day of Procedure), Routine sodium chloride 0.9 % (flush) flush 5-20 mL 5-20 mL, Intravenous, EVERY 1 MIN PRN, S tarting Sun02/25/20 at 0846, Until Sun02/25/20 at 1211, flush, Flush pertains to all indwelling lines. 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
--- OUTSIDE RECORDS SUMMARY | 2022-02-05 03:44 | XMS_ITS | Encounter Summary ---
:1960 Author Organization [place] [address] Care Team Providers Name Role Phone Florina Thomas Primary Care Provider Reason for Visit Reason Onset Date Comments Results 03/21/2019 Encounter Details Date Type Department Care Team Description 03/21/2019 Telephone Orthopaedics at [facility] Delfin Pisano MD Results [facility] [place] [address] ORTHOPAEDIC SURGERY [phone] [place] [id number] (Wo rk) Social History Tobacco Use Types Packs/Day Years Used Date Never Smoker Smokeless Tobacco: Never Used Alcohol Use Standard Drinks/Week Comments Yes 3 (1 standard drink = 0.6 oz pure alcoho l) Sex Assigned at Date Recorded Not on file documented as of this encounter Miscellaneous Notes Telephone Encounter - Miriam Red - 03/21/2019 10:20 AM EDT Who is calling?Yg Best call back number: [phone] Best time to call back between 8:00 am & 5:00 pm: anytime Can we leave a message? yes What study is patient calling about? All cultures/blood work completed on 03/04/19 Per [facility] the study was done: 03/04/19 Per [facility] the results are final: yes Your message will be forwarded to the clinical care team for review. (Please forward this message to the ordering provider.) documented in this encounter Plan of Treatment Not on filedocumented as of this encounter Visit Diagnoses Not on filedocumented in this encounter Care Teams Electrical Control Assembler Relationship Specialty Start Date End Date Florina Thomas PA PCP - General Family Medicine 02/03/19 [address] [place] [address] documented as of this encounter
--- OUTSIDE RECORDS SUMMARY | 2022-02-05 03:44 | XMS_ITS | Encounter Summary ---
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 (WRVU 27.11) [facility] [address] [place] [address] [place], [place] [id number] [phone] (Wo rk) Social History Tobacco Use Types Packs/Day Years Used Date Never Smoker Smokeless Tobacco: Never Used Alcohol Use Standard Drinks/Week Comments Yes 3 (1 standard drink = 0.6 oz pure alcoho l) Sex Assigned at Date Recorded Not on file documented as of this encounter Last Filed Vital Signs Vital Sign Reading Time Taken Comments Blood Pressure 126/76 03/26/2020 11:30 AM EDT Pulse 55 03/26/2020 11:30 AM EDT Temperature 36.5 ??C (97.7 ??F) 03/26/2020 9:46 AM EDT Respiratory Rate 18 03/26/2020 11:30 AM EDT Oxygen Saturation 99% 03/26/2020 11:30 AM EDT Inhaled Oxygen Concentration - - Weight 74.8 kg (165 lb) 03/26/2020 9:46 AM EDT Height 170.2 cm (5' 7) 03/26/2020 9:46 AM EDT Body Mass Index 25.84 03/26/2020 9:46 AM EDT documented in this encounter Discharge Summaries Diana Jerome P, DIRECTOR EHS - 03/26/2020 3:58 PM EDT Discharge Summary Patient Name: Yg Leal Patient Age: 59 y.o. Language: Comoran Race: White Ethnicity: Not nor Admit date: 03/26/2020 Discharge date and time: 03/29/2020 Attending Physician: Eddie Ortiz MD Discharge Physician: Eddie Ortiz MD Follow-up Recommendations for Providers: 1. Has an appointment with his PCP for 03/31/2020 for a post-hospital check. See discharge instructions for additional details. Future Appointments Date Time Provider Department Center 04/22/2020 12:00 PM [facility] DX ROOM 1 Xray [facility] Rad 04/22/2020 1:00 PM Rudy, MIKE Dee [facility] Inpatient Provider Contact Information: Eddie Ortiz MD Orthopedics: [phone] After hours and weekends, call [facility] Colors Custodian, , and have the Orthopedic resident paged. [...] without chronotropic depression. Clinton Payton DO Pager [phone] 03/27/2020 4:53 PM Assessment: Mr. Leal is [...] 4.1 4.1 CL 100 106 105 CO2 25 BUN 12 14 15 CREATININE 0.84 0.89 0.90 Last 3 LFTs No results for input(s): AST, ALT, ALKPHOS, BILITOT, BILIDIR in the last 7068 hours. Last Ca, Mg, Phos Recent Labs 03/29/20 0519 CALCIUM 9.4 Important Lab Data: Last 3 [...] bowel movement. You can also take an bsrb-bmi-waxuunf medication, Miralax if needed to combat constipation. [...] as much as possible. Call your doctor ([phone]) if you develop: 1. Fever greater than [...] 3. You will have follow-up appointments at [facility] as indicated below in Future Appointment and Orders. 4 You will need to have x-rays prior to your follow-up appointment on 04/22/2020. Please come to Radiology, desk 3T, 1 hour BEFORE that appointment for those x-rays. Future Appointments Date Time Provider Department Center 04/22/2020 12:00 PM [facility] DX ROOM 1 MH Xray [facility] Rad 04/22/2020 1:00 PM RudyJoanna PA [facility] If you have questions or concerns: Sunday [...] Provider Department Dept Phone 04/22/2020 12:00 PM [facility] DX ROOM 1 XRay at [facility] Arrive at: [facility] [phone] Please go to [facility] ([place] Location). 04/22/2020 1:00 PM RudyJoanna PA Orthopaedics at [facility] Arrive at: [facility] [phone] Future Orders Complete By Expires Referral to Home Health - at DISCHARGE [DOU7347 CPT(R)] As directed Process Instructions: Scheduling Instructions: Comments: DOCUMENTATION FOR VNA SERVICES (INCLUDING THOSE PATIENTS WITH MEDICARE COVERAGE REQUIRING HOME VNA SERVICES AND/OR HOSPICE SERVICES) PATIENT'S LOCATION: Yg Santos Hinajasmyn [address] [address] (home) Cell: Telephone Information: Imaging Engineer's Name: Self In discussion with the attending physician, it is certified that this patient is under their care and that they, or a Nurse Practitioner,Clinical Nurse specialist or Physician Lawyer Criminal who is working directly with them, had [...] for managing ADL's. HOME HEALTH CARE AGENCY: [facility] PHONE: [phone] FAX: [phone] Start of care: 24-48 hours In discussion [...] be obtained from this patient'sPCP: MIKE Vargas [address] [place] [address] / [facility] [address] All VNA agencies which cover the area of patient's residence have been reviewed, either verbally or in writing, and patient/family have chosen the home health care agency noted Questions: Agency name and contact information: [facility] Patient location post discharge: Home What services are requested: Physical Therapy Occupational Therapy Start date: 03/30/2020 Responsible MD post discharge contact info: PCP Primary Care Provider: MIKE Vargas [phone] Discharge References/Attachments None documented in this encounter Discharge Instructions Patient InstructionsSaDiana cota, DIRECTOR EHS - 03/26/2020 3:59 PM EDT Activity: 1. [...] bowel movement. You can also take an cmxg-bau-reagzzm medication, Miralax if needed to combat constipation. [...] as much as possible. Call your doctor ([phone]) if you develop: 1. Fever greater than [...] follow-up with your Primary Care Provider, Jarad Tohmas, for ongoing pain management. 3. You will have follow-up appointments at [facility] as indicated below in Future Appointment and Orders. 4 You will need to have x-rays prior to your follow-up appointment on 04/22/2020. Please come to Radiology, desk 3T, 1 hour BEFORE that appointment for those x-rays. Future Appointments Date Time Provider Department Center 04/22/2020 12:00 PM [facility] DX ROOM 1 Xray [facility] Rad 04/22/2020 1:00 PM Rudy, MIKE Dee [facility] If you have questions or concerns: Sunday [...] answered, pt stated understanding. PIV removed by VISUAL DESIGNER Scot. Summaryfaxed to VNA, pt d/c Home with services. Pt escorted via w/c by [facility] to [facility] to meet personal transportation, pt stated he [...] capsule 600 mg FOLLOWED BY gabapentin (Neurontin) clhnqxo918 mg ??? celecoxib (CeleBREX) capsule 200 mg [...] will continue to monitor. Activity: WBAT Closure: [place] (remove 14-21days) Dressing: Mepilex Ag x 7 days Anticoagulation: ASA 81 mg BID for 30 days Antibiotics: Periop ancef Consults: PT/OT Dispo: Home vs rehab per PT Follow-up: as scheduled Jose Cruz Foster MD 03/29/2020 Future Appointments Date Time Provider Department Center 04/22/2020 12:00 PM [facility] DX ROOM 1 MH Xray [facility] Rad 04/22/2020 1:00 PM Rudy, MIKE Dee [facility] Nereida Pace MD - 03/28/2020 9:31 AM [...] bpm -- -- -- 97 % -- 03/27/20 2349 37.1 ??C (98.8 ??F) 75 bpm -- [...] lesions, no petechiae Labs: Recent Labs 03/28/20 05003/27/2021203/26/201948 WBC 6.7 6.4 11.7* HGB 9.4* 10.0* 11.2* HCT 29.0* 29.8* 34.0* PLATELET 202 215 273 Recent Labs 03/28/20 05003/27/2021203/26/201948 NA 140 140 142 K 4.1 4.1 4.1 CL 106 105 107 CO2 28 25 26 BUN 14 15 12 CREATININE 0.89 0.90 1.03 No results for input(s): AST, ALT, ALKPHOS, BILITOT, BILIDIR in the last 168 hours. Recent Labs 03/28/20 05003/27/2021203/26/201948 CALCIUM 8.7 8.6 8.9 No results for input(s): INR, PT, PTT in the last 168 hours. Recent Labs 03/27/20 0828 09/26/20 0213 09/25/20 1949 TROPONINT <0.01 <0.01 <0.01 Recent Labs 03/26/20 1632 POCGLU 94 Microbiology: Microbiology Results (Last 30 days) Procedure Component Value Units Date/Time Prosthetic Joint Culture, Extended Hold Joint Fluid; Knee, Right [[id number]] Collected: 03/26/20 1245 Lab Status: Preliminary result Specimen: Joint Fluid from Knee, Right Updated: 03/27/20 1438 Joint Culture [[id number]] Collected: 03/26/20 124 Lab Status: Preliminary result Specimen: Joint Fluid from Knee, Right Updated: 03/27/20 0735 Joint Culture -- No growth to date. Incubation time extended to 14 days. Gram Stain -- Cytocentrifuge Gram Stain performed No Neutrophils seen. No microorganisms seen. Anaerobic Culture [[id number]] Collected: 03/26/20 124 Lab Status: Preliminary result Specimen: Joint Fluid from Knee, Right Updated: 03/27/20 1438 Anaerobic Culture No anaerobic organisms isolated to date COVID-19 PCR [[id number]] Collected: 03/23/20 1336 Lab Status: Final result [...] on the instructions for use provided by [employer] and additional guidance provided by CDC and FDA. Testing is performed in the [facility] Laboratory within the Department of Pathology and Laboratory Medicine at [facility], certified under the Clinical Laboratory Improvement Amendments [...] fact sheets at the following FDA website: https://www.fda.gov/medical-devices/ufahqvgxlea-tiivvmr-7183-vcxjq-95-kgrtmkyca- nsf-ltwyfoubcbszwi-rpcwfis-devices/fwkld-iqgakeniudn-rtvp SARS-Cov-2 RNA Source DIRECTOR PROCESS Swab Diagnostic Studies: EKG Sinus bradycardia Inpatient [...] MD Internal Medicine - PGY3 Medicine Consults #[phone] Recommendations discussed with primary treating team. Medicine Consult service will continue to follow. X Recommendations are above. Medicine Consult service will sign off. If clinical changes occur or new questions arise, page [phone]. Case discussed with Dr. Dr. Payton Associated [...] capsule 600 mg FOLLOWED BY gabapentin (Neurontin) ciwxuor147 mg ??? ketorolac (TORADOL) injection 15 mg [...] dc. PT/OT. dispo planning. Activity: WBAT Closure: [place] (remove 14-21days) Dressing: Mepilex Ag x 7 days Anticoagulation: ASA 81 mg BID for 30 days Antibiotics: Periop ancef Consults: PT/OT Dispo: Home vs rehab per PT Follow-up: as scheduled Lopez Rainey MD 03/28/2020 Future Appointments Date Time Provider Department Center 04/22/2020 12:30 PM [facility] DX ROOM 3 MH Xray [facility] Rad 04/22/2020 1:30 PM Delfin Pisano MD [facility] Chayito Rodriguez RN - 03/27/2020 5:37 PM [...] bpm 62 -- 133/64 99 % -- 03/26/209 36.8 ??C (98.2 ??F) 67 bpm -- [...] K 4.1 4.1 CL 105 107 CO2 BUN 15 12 CREATININE 0.90 1.03 No [...] Culture, Extended Hold Joint Fluid; Knee, Right [[id number]] Collected: 03/26/20 1245 Lab Status: Preliminary result Specimen: Joint Fluid from Knee, Right Updated: 03/27/20 1438 Joint Culture [[id number]] Collected: 03/26/20 1245 Lab Status: Preliminary result Specimen: Joint Fluid from Knee, Right Updated: 03/27/20 0735 Joint Culture -- No growth to date. Incubation time extended to 14 days. Gram Stain -- Cytocentrifuge Gram Stain performed No Neutrophils seen. No microorganisms seen. Anaerobic Culture [[id number]] Collected: 03/26/20 1245 Lab Status: Preliminary result Specimen: Joint Fluid from Knee, Right Updated: 03/27/20 1438 Anaerobic Culture No anaerobic organisms isolated to date COVID-19 PCR [[id number]] Collected: 03/23/20 1336 Lab Status: Final result [...] diagnosis of COVID-19 is performed using the [employer] RealTime SARS-CoV-2 Assay as authorized by the FDA Emergency Use Authorization (EUA). This EUA assay is intended for In-vitro Diagnostic (IVD) use with respiratory specimens such as nasopharyngeal swabs collected from individuals during the acute phase of infection. This assay is performed based on the instructions for use provided by [employer] and additional guidance provided by CDC and FDA. Testing is performed in the [facility] Laboratory within the Department of Pathology and Laboratory Medicine at [facility], certified under the Clinical Laboratory Improvement Amendments [...] fact sheets at the following FDA website: https://www.fda.gov/medical-devices/okdzrlckhoo-rdzdrmt-9851-tqlfy-06-hyaizxwqt- msk-medpeytykwbczu-cnschsm-devices/cyxfv-bezyvuhmaxd-ntmf SARS-Cov-2 RNA Source DIRECTOR PROCESS Swab Diagnostic Studies: EKG Sinus bradycardia Inpatient [...] clinical changes occur or newquestions arise, page [phone]. Case discussed with Dr. Dr. Payton Associated [...] Payton DO Pager [phone] 03/27/2020 4:53 PM Jose Cruz Morel - 03/27/2020 3:13 PM EDT Retail Property Manager Encounter Note Patient Name: Yg Leal : [id number] MR#: [id number] Admit Date: 03/26/2020 9:18 AM Hospital Day 1 day Narrative: Visited to introduce and assess acceptance of Retail Property Manager services. Pt was not available for visit [...] (03/26/20 1621) OBJECTIVE: Temp: [36.3 ??C (97.3 ??F)-36.9 ??C [...] OOB w/ PT today. Activity: WBAT Closure: [place] (remove 14-21days) Dressing: Mepilex Ag x 7 days Anticoagulation: ASA 81 mg BID for 30 days Antibiotics: Periop ancef Consults: PT/OT Dispo: Home vs rehab per PT Follow-up: as scheduled Lopez Rainey MD 03/27/2020 Future Appointments Date Time Provider Department Center 04/22/2020 12:30 PM [facility] DX ROOM 3 MH Xray [facility] Rad 04/22/2020 1:30 PM Delfin Pisano MD [facility] Thomas Bonilla MD - 03/26/2020 8:04 PM [...] back to baseline and feeling much better. KOT Marielle Solorio RN - 03/26/2020 7:40 PM EDT Patient reports pain is adequately controlled. Denies nausea, chest pressure, and dizziness. Small amount of drainage on R knee mepilex. Cold cuff in use. Report called to SHANNON Leonardo. Patient transported to [facility] by 2RNs. Shelley Martinez [...] dilaudid isn't as helpful. Activity: WBAT Closure: [place] (remove 14-21days) Dressing: Mepilex Ag x 7 days Anticoagulation: ASA 81 mg BID for 30 days Antibiotics: Periop ancef Consults: PT/OT Dispo: Home vs rehab per PT Follow-up: as scheduled Shelley Martinez MD 03/26/2020 Future Appointments Date Time Provider Department Center 04/22/2020 12:30 PM [facility] DX ROOM 3 MH Xray [facility] Rad 04/22/2020 1:30 PM Delfin Pisano MD [facility] documented in this encounter H&P Notes Jose [...] file Gets together: Not on file Attends sabianist service: Not on file Active member of [...] in this encounter Miscellaneous Notes Plan of Marybeth - Alonso Erickson, PT - 03/29/2020 2:48 PM EDT Physical Therapy Note Treatment Number PT: 3 Patient profile: Per Ortho MD: Yg Leal [...] plan as stated. Time IN / OUT: 5765-2317 Total Evaluation Minutes, Physical Therapy: 25(2 TA) Alonso Erickson PT Pager: [phone] Physical Therapy Inpatient Rehabilitation Department Plan of [...] been completed then surrogate decision maker per [place] would be surrogate decision making law. Any patient receiving care at [facility] must abide by [place] law. The hierarchy for surrogate decision making [...] (i) The agent with financial power of dividing machine operator or a conservator appointed in accordance with [...] Insurance: N/A Prescription Coverage: Yes Preferred Pharmacy: [facility] [place] Other: N/A Primary Care Provider: MIKE Vargas [phone] Patient/Caregiver Goals of Treatment: To have improved mobility, return to work when able. Potential Needs for Transition of Care: Rehab/SNF: N/A Home Health: [facility] DME: FWW, crutches - patient has own Dialysis: N/A Community [...] preferred geographic area. Patient requests referral to [facility] Expected date of discharge: 03/29/20. Referral routed to the Electronic Train Control Technician for matching with agency/vendor and to provide any required information. A member of the Care Management team will continue to monitor progress, follow for continuity of care and assist with transition of care planning. Maggie Calvo RN Pager: [phone] Plan of Care - Tatum Yen PTA - 03/28/2020 10:05 AM EDT Physical Therapy [...] without an AD. Was working (now on [email or web address]). Drives. Equipment at home: FWW (from prior [...] his self care, RN aware. Assessment: Yg Santos Hinajasmyn was seen today for physical therapy treatment. [...] plan as stated. 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 Independent with mobility without a device and [...] been seen for occupational therapy evaluation. Yg B Chenard presents with thefollowing performance skill deficits and [...] and measurable assessment of functional outcome. Pager: [phone] RANDY TEJADA OT 03/27/2020 Occupational Therapy Rehabilitation [...] in this evaluation. Time IN / OUT: 8278-2102 Total Evaluation Minutes, Physical Therapy: 30(duke, gt) Yvette Whitman, PT Pager: [phone] Physical Therapy Inpatient Rehabilitation Department Consult Note - Deborah Rinku E - 03/26/2020 8:50 PM EDT Images [...] and it was around this time that ELECTRICAL INSTRUMENT TECHNICIANstaff internist office based only laid pt back in trendelenburg and administered [...] symptoms prior. He denies family history fo [place] or early cardiac . He further notes never having seen a gas maker helper, just his PCP obtaining routine echo'sto track [...] Culture, Extended Hold Joint Fluid; Knee, Right [[id number]] Collected: 03/26/20 124 Lab Status: In process Specimen: Joint Fluid from Knee, Right Updated: 03/26/201708 Joint Culture [[id number]] Collected: 03/26/20 124 Lab Status: Preliminary result Specimen: Joint Fluid from Knee, Right Updated: 03/26/201708 Gram Stain -- Cytocentrifuge Gram Stain performed No Neutrophils seen. No microorganisms seen. COVID-19 PCR [[id number]] Collected: 03/23/20 1336 Lab Status: Final result [...] on the instructions for use provided by [employer] and additional guidance provided by CDC and FDA. Testing is performed in the [facility]omics [facility] Technology Laboratory within the Department of Pathology and Laboratory Medicine at [facility], certified under the Clinical Laboratory Improvement Amendments [...] fact sheets at the following FDA website: https://www.fda.gov/medical-devices/mvuemokqoba-fvebums-2640-utjeg-07-gjkkmxlzo- qvz-nmbylkbcbffzds-yqhcqwx-devices/ljoqk-ybbqxwqdccy-iuie SARS-Cov-2 RNA Source DIRECTOR PROCESS Swab Diagnostic Studies: EKG (03/26): Assessment: Pt [...] to this theory. He was in sinus liest at the time of event, and took [...] time users manifests as depression given primary QUALITY ASSURANCE INTERN stimulant effect. Recommendations: - Maintain hydration post op as relative hypovolemia likely augmented vasovagal episode - Monitor on telemetry through discharge - Trend trop x 3 Case was discussed with medicine consult attending, Dr. Herrera. X Consult service will continue to follow patient. Recommendations are above, please page if further consultation required. 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 Drains: * No [...] was screwedin using the torque limiting screw regional otr company driver The tibia was then reduced under [...] Implant Name Type Inv. Item Serial No. Tunnel Kiln Repairer Lot No. LRB No. Used Action CEMEN,GENTA,VISC,MED ([id number]) (AUTOREQ) - [id number] IMPLANTS CEMEN,GENTA,VISC,MED ([id number]) (AutoReq) [facility] [id number] Right 2 Implanted TRAY,TIBIAL,RVSN,RIGHT,S4 ([id number]) (AUTOREQ) - [id number] IMPLANTS TRAY,TIBIAL,RVSN,RIGHT,S4 ([id number]) (AutoReq) [employer] [place] [employer] [id number] Right 1 Implanted CONNECTOR,OFFSET,5MM ([id number]) (AUTOREQ) - [id number] IMPLANTS CONNECTOR,OFFSET,5MM (5441606) (AutoReq) [employer] [place] - [employer] [place] [id number] Right 1 Implanted STEM,EXT,CMNTLESS,,??22MM-L065M (8922327) (AUTOREQ) - [id number] IMPLANTS STEM,EXT,CMNTLESS,,??22mM-L065m (5848676) (AutoReq) [employer] [place] - [employer] [place] [id number] Right 1 Implanted STEM,EXT,CMNTLESS,,??16MM-L065M (1834582) (AUTOREQ) - [id number] IMPLANTS STEM,EXT,CMNTLESS,,??16mM-L065m (6847747) (AutoReq) [employer] [place] [employer] [place] [id number] Right 1 Implanted CONNECTOR,OFFSET,3MM ([id number]) (AUTOREQ) - [id number] IMPLANTS CONNECTOR,OFFSET,3MM (9651555) (AutoReq) [employer] [place] - [employer] [place] [id number] Right 1 Implanted FEMUR,REVSN,POST,STAB,CMNT,RT, (7265173) (AUTOREQ) - [id number] IMPLANTS FEMUR,REVSN,POST,STAB,CMNT,RT, (7081150) (AutoReq) [employer] [place] - [employer] [place] [id number] Right 1 Implanted CONE,TIB,3D,MTL,CTR,RVSN,SM,H2 (6966387) (AUTOREQ) - [id number] IMPLANTS CONE,TIB,3D,MTL,CTR,RVSN,SM,H2 (2254708) (AutoReq) [employer] [place] - [employer] [place] [id number] Right 1 Implanted INSERT,SEMICNSTRND,RVSN,12MM,S (1540064) (AUTOREQ) - [id number] IMPLANTS INSERT,SEMICNSTRND,RVSN,12MM,S ([id number]) (AutoReq) [employer] [place] - [employer] [place] [id number] Right 1 Implanted Infection Bundle used? N/A Jose Cruz Foster MD 03/26/2020 Brief Op Note - Jose Cruz Foster MD - 03/26/2020 4:00 PM EDT Brief Operative Note Patient Name: Yg Leal : [id number] MR#: [id number] Case Date: 03/26/2020 Surgeon: Surgeon(s) and Role: [...] polyethylene components removed and sent to the [place] lab for evaluation Disposition: awakened from anesthesia, [...] ?NOE Santos ?(Age): 1960(59y) Med Rec#: ? [id number] ?Sex: ?M ? Site Loc: ? [facility] ?Ht / Wt: ??170(cm)/75(kg) Pt. Loc: ?Adult Floor ? BSA: ?1.86 Study Date: ?? 03/29/2020 ?Pt. Type: Inpatient Tape: ? Referring: JARAD THOMAS Referring: Eddie Ortiz Reading: Lyle Foreman ([id number]) Firefighting Equipment Specialist: Lala Miller Diagnosis: *Syncope and collapse (R55) [...] Vmax ?0.93 ? m/sec ? MV deceleration ygzq801 ?msec ? MV A-wave Vmax ?0.69 ? [...] ? Mid-Inferior ?Normal ? Mid-Inferoseptal ?Normal ? [place]-Septal ? Normal ? [place]-Anterior ? Normal ? [place]-Lateral ?Normal ? [place]-Inferior ? Normal ? [place]-Tip ?Normal ? This report has been electronically sign ed by: _ Lyle Foreman MD ? 03/29/2020 11:35:55 Images reviewed and interpretation verif ied [facility] Cardiac Ultrasound Laboratory Procedure Note Lyle Foreman MD - 03/29/2020Forma tting of this note might be different from the original. Procedure: Transthoracic Echocardiogram Patient: NOE Santos (Age): 10/1960(59y) Med Rec#: [id number] Sex: M [place] [facility] [facility] [place]t / Wt: 170(cm)/75(kg) Pt. Loc: Adult Floor BSA: 1.86 Study Date: 03/29/2020 Pt. Type: Inpatie nt Tape: Referring: JARAD THOMAS Referring: Eddie Ortiz Reading: Lyle Foreman ([id number]) Firefighting Equipment Specialist: Lala Miller Diagnosis: *Syncope and collapse (R55) [...] MV E-wave Vmax 0.93 m/sec MV deceleration [id number] msec MV A-wave Vmax 0.69 m/sec MV [...] Normal Mid-Posterolateral Normal Mid-Inferior Normal Mid-Inferoseptal Normal [place]-Septal Normal [place]-Anterior Normal [place]-Lateral Normal [place]-Inferior Normal [place]-Tip Normal This report has been electronically sign ed by: _ Lyle Foreman MD 03/29/2020 11:35: 55 Images reviewed and interpretation verif ied [facility] Cardiac Ultrasound Laboratory Eddie Ortiz MD ECHO ORDERABLES Performing Organization Address City/State/ZIP Code Phon e Number [facility] Differential, Automated (03/29/2020 5:19 AM EDT) athologist Signature Neutrophils % 66.7 % [facility] Neutr Abs (ANC) 4.75 1.70 - [facility] 6.10 [facility] x10(3)/[facility] LABORATORY Lymphocytes % 17.9 % [facility] Lymphocytes Abs 1.3 0.9 - 3.2 [facility] x10(3)/[facility] LABORATORY Monocytes % 12.0 % [facility] Monocyte Abs 0.8 0.3 - 0.9 [facility] x10(3)/[facility] LABORATORY Eosinophils % 2.7 % [facility] Eosinophils Abs 0.2 0.0 - 0.4 [facility] x10(3)/[facility] LABORATORY Basophils % 0.3 % [facility] Basophils Abs 0.0 0.0 - 0.1 [facility] x10(3)/[facility] LABORATORY Immature Gran % 0.40 % [facility] Comment: Immature granulocytes(IG's)percentage an d absolute count will include metamyelocytes, myelocytes, and promyelo cytes. Blood smears from CBCs yielding IG's will be scanned manually for concor danmarci. If this scan disagrees with the automated IG or if promyelocytes are not ed, a manual differential will be performed. Yudelka Gran Abs 0.03 0.00 - 0.04 x10(3)/[facility] LABORATORY Specimen Anatomical Collection Method Collection Time Receive d Time (Source) Location / / Volume Laterality Blood specimen 03/29/2020 5:19 AM 020 5:35 (specimen) EDT AM EDT Resulting Agency Comment Spec In Lab Jose Cruz Foster MD HEMATOLOGY ORDERABLES Performing Organization Address City/State/[place] [address] (ABNORMAL) Hemogram (03/29/2020 5:19 AM EDT) Analysis Performed At Patho logist Time Signature WBC 7.1 4.0 - 9.5 [facility] x10(3)/[facility] LABORATORY RBC 3.20 (L) 4.58 - [facility] 5.54 [facility] x10(6)/[facility] LABORATORY Hemoglobin 9.2 (L) 13.7 - [facility] 16.5 gm/dL [facility] LAB[facility]ATORY Hematocrit 28.0 (L) 40.5 - [facility] [place] 48.5 % [facility] MCV 87.5 82.9 - [facility] 93.1 [facility] LABORATORY MCH 28.8 27.5 - [facility] 32.1 pg [facility] MCHC 32.9 32.0 - [facility] 35.7 gm/dL [facility]ORY Platelets 208 145 - 357 [facility] x10(3)/[facility] LABORATORY RDWSD 40.9 36.0 - [facility] [place] 45.0 [facility] LABORATORY RDWCV 12.8 11.4 - [facility] [place] 13.8 % [facility] LABORATORY MPV 9.2 7.6 - 12.9 [facility] LABORATORY nRBC % Auto 0.0 % [facility] nRBC Abs Auto 0.000 0.000 - [facility] 0.000 [facility] x10(3)/[facility] LABORATORY Specimen Anatomical Collection Method Collection Time Receive d Time (Source) Location / / Volume Laterality Blood specimen 03/29/2020 5:19 AM 020 5:35 (specimen) EDT AM EDT Resulting Agency Comment Spec In Lab Jose Cruz Foster MD HEMATOLOGY ORDERABLES Performing Organization Address City/State/[place] [address] Basic Metabolic Panel (non-fasting) (03/29/2020 5:19 AM EDT) P athologist Signature Glucose Lvl 166 65 - 199 [facility] mg/dL [facility] Comment: Diabetes: >=200 mg/dL plus symp toms BUN 12 10 - 20 mg/dL [facility] LABORATORY Creatinine 0.84 0.80 - 1.50 mg/dL [facility] Sodium 137 135 - 145 mmol/L [facility] Potassium 4.9 3.5 - 5.0 mmol/L [facility] Comment: Please note: ??Patients with WBC >100,00 0 may have falsely elevated Potassium levels. ??For accurate Potassium quantif ication in these patients send serum separator tube (gold top) for subsequent determinations. ??Contact the Clinical Chemistry Laboratory if there are any qu estions. Chloride 100 98 - 107 mmol/L [facility] CO2 28 22 - 31 mmol/L [facility] Anion Gap 9 5 - 15 mmol/L [facility]OR[facility]ORY Calcium 9.4 8.5 - 10.5 mg/dL [facility] Estimated GFR 97 >=60 mL/min/1.73 m?? [facility] Comment: The eGFR was calculated using the CKD-EP I equation. As with all creatinine based estimates of kidney function, eGFR values calculated with the CKD-EPI equation are not accurate in patients wi th acute kidney failure, extremes of body mass or the acutely ill. [email or web address] eGFR 113 >=60 mL/min/1.73 m?? [facility] Comment: The eGFR was calculated using the CKD-EP I equation. As with all creatinine based estimates of kidney function, eGFR values calculated with the CKD-EPI equation are not accurate in patients wi th acute kidney failure, extremes of body mass or the acutely ill. [email or web address] Specimen Anatomical Collection Method Collection Time Receive d Time (Source) Location / / Volume Laterality Blood specimen 03/29/2020 5:19 AM 020 5:35 (specimen) EDT AM EDT Resulting Agency Comment Spec In Lab Jose Cruz Foster MD CHEMISTRY ORDERABLES Performing Organization Address City/State/[place] [address] Differential, Automated (03/28/2020 5:02 AM EDT) athologist Signature Neutrophils % 63.4 % [facility] Neutr Abs (ANC) 4.23 1.70 - [facility] 6.10 [facility] x10(3)/[facility] LABORATORY Lymphocytes % 18.6 % [facility] Lymphocytes Abs 1.2 0.9 - 3.2 [facility] x10(3)/[facility] LABORATORY Monocytes % 13.8 % [facility] Monocyte Abs 0.9 0.3 - 0.9 [facility] x10(3)/[facility] LABORATORY Eosinophils % 3.6 % [facility] Eosinophils Abs 0.2 0.0 - 0.4 [facility] x10(3)/[facility] LABORATORY Basophils % 0.3 % [facility] Basophils Abs 0.0 0.0 - 0.1 [facility] x10(3)/[facility] LABORATORY Immature Gran % 0.30 % [facility] Comment: Immature granulocytes(IG's)percentage an d absolute count will include metamyelocytes, myelocytes, and promyelo cytes. Blood smears from CBCs yielding IG's will be scanned manually for concor dance. If this scan disagrees with the automated IG or if promyelocytes are not ed, a manual differential will be performed. Yudelka Gran Abs 0.02 0.00 - 0.04 x10(3)/[facility] LABORATORY Specimen Anatomical Collection Method Collection Time Receive d Time (Source) Location / / Volume Laterality Blood specimen 03/28/2020 5:02 AM 020 5:14 (specimen) EDT AM EDT Resulting Agency Comment Spec In Lab Jose Cruz Foster MD HEMATOLOGY ORDERABLES Performing Organization Address City/State/[place] [address] (ABNORMAL) Hemogram (03/28/2020 5:02 AM EDT) Analysis Performed At Patho logist Time Signature WBC 6.7 4.0 - 9.5 [facility] x10(3)/[facility] LABORATORY RBC 3.24 (L) 4.58 - [facility] 5.54 [facility] x10(6)/[facility] LABORATORY Hemoglobin 9.4 (L) 13.7 - [facility] gm/dL [facility]ORY Hematocrit 29.0 (L) 40.5 - [facility] 48.5 % [facility] LABORATORY MCV 89.5 82.9 - [facility] 93.1 [facility] LABORATORY MCH 29.0 27.5 - [facility] 32.1 pg [facility] LABORATORY MCHC 32.4 32.0 - [facility] 35.7 gm/dL [facility]ORATORY Platelets 202 145 - 357 [facility] x10(3)/[facility] LABORATORY RDWSD 41.6 36.0 - [facility] [place] 45.0 [facility] LABORATORY RDWCV 12.7 11.4 - [facility] 13.8 % [facility] LABORATORY MPV 9.0 7.6 - 12.9 [facility] LABORATORY nRBC % Auto 0.0 % [facility] nRBC Abs Auto 0.000 0.000 - [facility] [place] 0.000 [facility] x10(3)/[facility] LABORATORY Specimen Anatomical Collection Method Collection Time Receive d Time (Source) Location / / Volume Laterality Blood specimen 03/28/2020 5:02 AM 020 5:14 (specimen) EDT AM EDT Resulting Agency Comment Spec In Lab Jose Cruz Foster MD HEMATOLOGY ORDERABLES Performing Organization Address City/State/[place] [address] Basic Metabolic Panel (non-fasting) (03/28/2020 5:02 AM EDT) P athologist Signature Glucose Lvl 164 65 - 199 [facility] mg/dL [facility]ORY Comment: Diabetes: >=200 mg/dL plus symp toms BUN 14 10 - 20 mg/dL [facility] LABORATORY Creatinine 0.89 0.80 - 1.50 mg/dL [facility] Sodium 140 135 - 145 mmol/L [facility] Potassium 4.1 3.5 - 5.0 mmol/L [facility] Comment: Please note: ??Patients with WBC >100,00 0 may have falsely elevated Potassium levels. ??For accurate Potassium quantif ication in these patients send serum separator tube (gold top) for subsequent determinations. ??Contact the Clinical Chemistry Laboratory if there are any qu estions. Chloride 106 98 - 107 mmol/L [facility] CO2 28 22 - 31 mmol/L [facility] Anion Gap 6 5 - 15 mmol/L [facility]OR[facility]ORY Calcium 8.7 8.5 - 10.5 mg/dL [facility] Estimated GFR 95 >=60 mL/min/1.73 m?? [facility] Comment: The eGFR was calculated using the CKD-EP I equation. As with all creatinine based estimates of kidney function, eGFR values calculated with the CKD-EPI equation are not accurate in patients wi th acute kidney failure, extremes of body mass or the acutely ill. [email or web address] eGFR 110 >=60 mL/min/1.73 m?? [facility] Comment: The eGFR was calculated using the CKD-EP I equation. As with all creatinine based estimates of kidney function, eGFR values calculated with the CKD-EPI equation are not accurate in patients wi th acute kidney failure, extremes of body mass or the acutely ill. [email or web address] Specimen Anatomical Collection Method Collection Time Receive d Time (Source) Location / / Volume Laterality Blood specimen 03/28/2020 5:02 AM 020 5:14 (specimen) EDT AM EDT Resulting Agency Comment Spec In Lab Jose Cruz Foster MD CHEMISTRY ORDERABLES Performing Organization Address City/State/[place] [address] Troponin (03/27/2020 8:28 AM EDT) athologist Signature Troponin-T <0.01 0.00 - 0.00 [facility] ng/mL [facility]ORY Comment: The 99th percentile for Troponin T is le ss than 0.01 ng/mL, any detectable cTnT concentration using this assay should be considered elevated. According to the third universal definit ion of myocardial infarction the following criteria with a clinical prese ntation consistent with acute myocardial ischemia meets the diagnosis for a myocardial infarction ([place]). Detection of a rise and/or fall of [...] additional sample may be indicated. Reference: Third Mellen Definition of Myocardial Infarction. Journal of the [place] [employer] 2012;60:1581-98 Specimen Anatomical Collection Method Collection Time Receive d Time (Source) Location / / Volume Laterality Blood specimen 03/27/2020 8:28 AM 020 8:43 (specimen) EDT AM EDT Resulting Agency Comment Spec In Lab Eddie Ortiz MD CHEMISTRY ORDERABLES Performing Organization Address City/State/ZIP Code Phon e Number [address] Differential, Automated (03/27/2020 2:13 AM EDT) athologist Signature Neutrophils % 66.0 % [facility] Neutr Abs (ANC) 4.20 1.70 - [facility] 6.10 [facility] x10(3)/[facility] LABORATORY Lymphocytes % 20.4 % [facility] Lymphocytes Abs 1.3 0.9 - 3.2 [facility] x10(3)/[facility] LABORATORY Monocytes % 11.3 % [facility] Monocyte Abs 0.7 0.3 - 0.9 [facility] x10(3)/[facility] LABORATORY Eosinophils % 1.7 % [facility] Eosinophils Abs 0.1 0.0 - 0.4 [facility] x10(3)/[facility] LABORATORY Basophils % 0.3 % [facility] Basophils Abs 0.0 0.0 - 0.1 [facility] x10(3)/[facility] LABORATORY Immature Gran % 0.30 % [facility] Comment: Immature granulocytes(IG's)percentage an d absolute count will include metamyelocytes, myelocytes, and promyelo cytes. Blood smears from CBCs yielding IG's will be scanned manually for concor dance. If this scan disagrees with the automated IG or if promyelocytes are not ed, a manual differential will be performed. Yudelka Gran Abs 0.02 0.00 - 0.04 x10(3)/[facility] LABORATORY Specimen Anatomical Collection Method Collection Time Receive d Time (Source) Location / / Volume Laterality Blood specimen 03/27/2020 2:13 AM 020 2:19 (specimen) EDT AM EDT Resulting Agency Comment Spec In Lab Jose Cruz Foster MD HEMATOLOGY ORDERABLES Performing Organization Address City/State/[place] [address] (ABNORMAL) Hemogram (03/27/2020 2:13 AM EDT) Analysis Performed At Patho logist Time Signature WBC 6.4 4.0 - 9.5 [facility] x10(3)/[facility] LABORATORY RBC 3.39 (L) 4.58 - [facility] 5.54 [facility] x10(6)/[facility] LABORATORY Hemoglobin 10.0 (L) 13.7 - [facility] 16.5 gm/dL [facility] LABORATORY Hematocrit 29.8 (L) 40.5 - [facility] 48.5 % [facility] LABORATORY MCV 87.9 82.9 - [facility] 93.1 [facility] LABORATORY MCH 29.5 27.5 - [facility] 32.1 pg [facility] LABORATORY MCHC 33.6 32.0 - [facility] 35.7 gm/dL [facility] LABORATORY Platelets 215 145 - 357 [facility] x10(3)/[facility] LABORATORY RDWSD 40.7 36.0 - [facility] 45.0 [facility] LABORATORY RDWCV 12.8 11.4 - [facility] 13.8 % [facility] LABORATORY MPV 8.8 7.6 - 12.9 [facility] LABORATORY nRBC % Auto 0.0 % [facility] nRBC Abs Auto 0.000 0.000 - [facility] HARRISONCK 0.000 [facility] x10(3)/[facility] LABORATORY Specimen Anatomical Collection Method Collection Time Receive d Time (Source) Location / / Volume Laterality Blood specimen 03/27/2020 2:13 AM 020 2:19 (specimen) EDT AM EDT Resulting Agency Comment Spec In Lab Jose Cruz Foster MD HEMATOLOGY ORDERABLES Performing Organization Address City/State/[place] [address] Troponin (03/27/2020 2:13 AM EDT) P athologist Signature Troponin-T <0.01 0.00 - 0.00 [facility] ng/mL [facility]ORY Comment: The 99th percentile for Troponin T is le ss than 0.01 ng/mL, any detectable cTnT concentration using this assay should be considered elevated. According to the third universal definit ion of myocardial infarction the following criteria with a clinical prese ntation consistent with acute myocardial ischemia meets the diagnosis for a myocardial infarction ([place]). Detection of a rise and/or fall of [...] additional sample may be indicated. Reference: Third Mellen Definition of Myocardial Infarction. Journal of the [place] [employer] 2012;60:1581-98 Specimen Anatomical Collection Method Collection Time Receive d Time (Source) Location / / Volume Laterality Blood specimen 03/27/2020 2:13 AM 020 2:19 (specimen) EDT AM EDT Resulting Agency Comment Spec In Lab Eddie Ortiz MD CHEMISTRY ORDERABLES Performing Organization Address City/State/[place] [address] Basic Metabolic Panel (non-fasting) (03/27/2020 2:13 AM EDT) athologist Signature Glucose Lvl 115 65 - 199 [facility] mg/dL [facility] LABOR[facility]ORY Comment: Diabetes: >=200 mg/dL plus symp toms BUN 15 10 - 20 mg/dL [facility] LABORATORY Creatinine 0.90 0.80 - 1.50 mg/dL [facility] Sodium 140 135 - 145 mmol/L [facility] Potassium 4.1 3.5 - 5.0 mmol/L [facility] Comment: Please note: ??Patients with WBC >100,00 0 may have falsely elevated Potassium levels. ??For accurate Potassium quantif ication in these patients send serum separator tube (gold top) for subsequent determinations. ??Contact the Clinical Chemistry Laboratory if there are any qu estions. Chloride 105 98 - 107 mmol/L [facility] CO2 25 22 - 31 mmol/L [facility] Anion Gap 10 5 - 15 mmol/L [facility]ORY Calcium 8.6 8.5 - 10.5 mg/dL [facility] Estimated GFR 94 >=60 mL/min/1.73 m?? [facility] Comment: The eGFR was calculated using the CKD-EP I equation. As with all creatinine based estimates of kidney function, eGFR values calculated with the CKD-EPI equation are not accurate in patients wi th acute kidney failure, extremes of body mass or the acutely ill. [email or web address] eGFR 110 >=60 mL/min/1.73 m?? [facility] Comment: The eGFR was calculated using the CKD-EP I equation. As with all creatinine based estimates of kidney function, eGFR values calculated with the CKD-EPI equation are not accurate in patients wi th acute kidney failure, extremes of body mass or the acutely ill. [email or web address] Specimen Anatomical Collection Method Collection Time Receive d Time (Source) Location / / Volume Laterality Blood specimen 03/27/2020 2:13 AM 020 2:19 (specimen) EDT AM EDT Resulting Agency Comment Spec In Lab Jose Cruz Foster MD CHEMISTRY ORDERABLES Performing Organization Address City/State/ZIP Code Phon e Number [place] [phone]OS[address] LAB[address] (ABNORMAL) Differential, Automated (03/26/2020 7:49 PM EDT) [facility] Method Time Signature Neutrophils % 70.0 % [facility] Neutr Abs (ANC) 8.20 (H) 1.70 - [facility] 6.10 [facility] x10(3)/[facility] LABORATORY Lymphocytes % 18.8 % [facility] Lymphocytes Abs 2.2 0.9 - 3.2 [facility] x10(3)/[facility] LABORATORY Monocytes % 9.2 % [facility] Monocyte Abs 1.1 (H) 0.3 - 0.9 [facility] x10(3)/[facility] LABORATORY Eosinophils % 1.2 % [facility] Eosinophils Abs 0.1 0.0 - 0.4 [facility] x10(3)/[facility] LABORATORY Basophils % 0.3 % [facility] Basophils Abs 0.0 0.0 - 0.1 [facility] x10(3)/[facility] LABORATORY Immature Gran % 0.50 % [facility] Comment: Immature granulocytes(IG's)percentage an d absolute count will include metamyelocytes, myelocytes, and promyelo cytes. Blood smears from CBCs yielding IG's will be scanned manually for concor dance. If this scan disagrees with the automated IG or if promyelocytes are not ed, a manual differential will be performed. Yudelka Gran Abs 0.06 (H) 0.00 - 0.04 x10(3)/[facility] LABORATORY Specimen Anatomical Collection Method Collection Time Receive d Time (Source) Location / / Volume Laterality Blood specimen 03/26/2020 7:49 PM 020 7:53 (specimen) EDT PM EDT Resulting Agency Comment Spec In Lab [facility] HEMATOLOGY ORDERABLES Performing Organization Address City/State/ZIP Code Phon e Number [place] [phone]OS[address] LAB[address] Drive (ABNORMAL) Hemogram (03/26/2020 7:49 PM EDT) Analysis Performed At Patho logist Time Signature WBC 11.7 (H) 4.0 - 9.5 [facility] x10(3)/[facility] LABORATORY RBC 3.82 (L) 4.58 - [facility] 5.54 [facility] x10(6)/[facility] LABORATORY Hemoglobin 11.2 (L) 13.7 - [facility] 16.5 gm/dL [facility] LABORATORY Hematocrit 34.0 (L) 40.5 - [facility] 48.[facility] % [facility] LABORATORY MCV 89.0 82.9 - [facility] 93.1 [facility] LABORATORY MCH 29.3 27.5 - [facility] 32.1 pg [facility] LABORATORY MCHC 32.9 32.0 - [facility] 35.7 gm/dL [facility] LABORATORY Platelets 273 145 - 357 [facility] x10(3)/[facility] LABORATORY RDWSD 41.3 36.0 - [facility] 45.0 [facility] LABORATORY RDWCV 12.8 11.4 - [facility] 13.8 % [facility] LABORATORY MPV 9.0 7.6 - 12.9 [facility] LABORATORY nRBC % Auto 0.0 % [facility] nRBC Abs Auto 0.000 0.000 - [facility] 0.000 [facility] x10(3)/[facility] LABORATORY Specimen Anatomical Collection Method Collection Time Receive d Time (Source) Location / / Volume Laterality Blood specimen 03/26/2020 7:49 PM 020 7:53 (specimen) EDT PM EDT Resulting Agency Comment Spec In Lab Manas Mckay MD HEMATOLOGY ORDERABLES Performing Organization Address City/State/[place] [address] Basic Metabolic Panel (non-fasting) (03/26/2020 7:49 PM EDT) P athologist Signature Glucose Lvl 138 65 - 199 [facility] mg/dL [facility] Comment: Diabetes: >=200 mg/dL plus symp toms BUN 12 10 - 20 mg/dL [facility] Creatinine 1.03 0.80 - 1.50 mg/dL [facility] Sodium 142 135 - 145 mmol/L [facility] Potassium 4.1 3.5 - 5.0 mmol/L [facility] Comment: Please note: ??Patients with WBC >100,00 0 may have falsely elevated Potassium levels. ??For accurate Potassium quantif ication in these patients send serum separator tube (gold top) for subsequent determinations. ??Contact the Clinical Chemistry Laboratory if there are any qu estions. Chloride 107 98 - 107 mmol/L [facility] CO2 26 22 - 31 mmol/L [facility] Anion Gap 9 5 - 15 mmol/L [facility] Calcium 8.9 8.5 - 10.5 mg/dL [facility] Estimated GFR 80 >=60 mL/min/1.73 m?? [facility] Comment: The eGFR was calculated using the CKD-EP I equation. As with all creatinine based estimates of kidney function, eGFR values calculated with the CKD-EPI equation are not accurate in patients wi th acute kidney failure, extremes of body mass or the acutely ill. [email or web address]/[email or web address] eGFR 93 >=60 mL/min/1.73 m?? [facility] Comment: The eGFR was calculated using the CKD-EP I equation. As with all creatinine based estimates of kidney function, eGFR values calculated with the CKD-EPI equation are not accurate in patients wi th acute kidney failure, extremes of body mass or the acutely ill. http://[email or web address]/[email or web address] Specimen Anatomical Collection Method Collection Time Receive d Time (Source) Location / / Volume Laterality Blood specimen 03/26/2020 7:49 PM 020 7:53 (specimen) EDT PM EDT Resulting Agency Comment Spec In Lab Manas Mckay MD CHEMISTRY ORDERABLES Performing Organization Address City/State/[place] [address] Troponin (03/26/2020 7:49 PM EDT) P athologist Signature Troponin-T <0.01 0.00 - 0.00 [facility] ng/mL [facility] Comment: The 99th percentile for Troponin T is le ss than 0.01 ng/mL, any detectable cTnT concentration using this assay should be considered elevated. According to the third universal definit ion of myocardial infarction the following criteria with a clinical prese ntation consistent with acute myocardial ischemia meets the diagnosis for a myocardial infarction ([place]). Detection of a rise and/or fall of [...] additional sample may be indicated. Reference: Third Mellen Definition of Myocardial Infarction. Journal of the [place] [employer] 2012;60:1581-98 Specimen Anatomical Collection Method Collection Time Receive d Time (Source) Location / / Volume Laterality Blood specimen 03/26/2020 7:49 PM 020 7:53 (specimen) EDT PM EDT Resulting Agency Comment Spec In Lab Manas Mckay MD CHEMISTRY ORDERABLES Performing Organization Address City/State/ZIP Code Phon e Number [place] [phone] EKG 12 Lead (03/26/2020 7:45 PM EDT) Component Value Ref Range Test Analysis Performed Pathologis t Method Time At Signature Ventricular rate 51 BPM MUSE SYSTEM Atrial Rate 51 BPM MUSE SYSTEM P-R Interval 172 ms MUSE SYSTEM QRS Duration 80 ms MUSE SYSTEM Q-T Interval 440 ms MUSE SYSTEM QTC Calculated 405 ms MUSE SYSTEM (Bezet) Calculated P Topping 56 degrees MUSE SYSTEM Calculated R Topping 59 degrees MUSE SYSTEM Calculated T Topping 57 degrees MUSE SYSTEM INTERPRETATION Sinus bradycardia MUSE SY STEM Otherwise normal ECG When compared with ECG of 19-FEB-2020 12:56, No significant change was found Confirmed by MD Eber, Ender Posey ([id number]) on 03/27/2020 1 1:25:52 AM Specimen Anatomical [...] below. ? Electronically signed by: Tiffany Fitzgerald, [facility] ([phone]), at 03/26/2020 7:00 PM Narrative 03/26/2020 7:00 [...] number below. Electronically signed by: Tiffany Fitzgerald, [facility] ([phone]), at 03/26/2020 7:00 PM Jose Cruz Foster MD IMG DX ORDERABLES POCT Glucose (03/26/2020 4:32 PM EDT) athologist Signature POC Glucose 94 65 - 199 [facility] mg/dL [facility] Comment: Supplemental ranges: <140 mg/dL before meals <180 mg/dL all other times of the day Specimen Anatomical Collection Method Collection Time Receive d Time (Source) Location / / Volume Laterality Blood specimen 03/26/2020 4:32 PM 020 4:32 (specimen) EDT PM EDT Eddie Ortiz MD POINT OF CARE TEST ORDERABLE S Performing Organization Address City/[facility]/ZIP Code Phon e Number [address] Anaerobic Culture (03/26/2020 12:45 PM EDT) [place] Method Time Signature Anaerobic No anaerobic [facility] Culture organisms [facility] Specimen Anatomical Collection Method Collection Time Receive d Time (Source) Location / / Volume Laterality Joint fluid STRUCTURE OF RIGHT 03/26/2020 12:45 03/26 4:07 specimen [facility] / PM EDT PM EDT (specimen) Unknown Comment: EXTENDED HOLD Resulting Agency Comment Spec In Lab Eddie Ortiz MD MICROBIOLOGY - GENERAL ORDER RADHA Performing Organization Address City/[facility]/[place] [address] Joint Culture (03/26/2020 12:45 PM EDT) Component Value Ref Test Analysis Performed At [place] Range Method Time Signature Joint Culture No growth at 14 GABRIELLA days. [facility] Gram Stain Cytocentrifuge Gram Stain performed [facility] No Neutrophils seen. [place] No microorganisms seen. [facility] Specimen Anatomical Collection Method Collection Time Receive d Time (Source) Location / / Volume Laterality Joint fluid STRUCTURE OF RIGHT 03/26/2020 12:45 03/26 4:07 specimen [facility] / PM EDT PM EDT (specimen) Unknown Comment: EXTENDED HOLD Resulting Agency Comment Spec In Lab Eddie Ortiz MD MICROBIOLOGY - GENERAL ORDER RADHA Performing Organization Address City/[facility]/ZIP Code Phon e Number [address] documented in this encounter Visit Diagnoses Diagnosis 03/26/2020 S/P revision of right total kn ee (Dr. 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 documented in this encounter Administered Medications Inactive Administered Medications - up to 3 most recent administrations Medication Order MAR Action Action Date Dose Rate Site acetaminophen (Tylenol) tablet Given 03/29/2020 1:43 PM EDT 1,00 0 mg 1,000 mg 1,000 mg, Oral, EVERY 8 [...] Given 03/28/2020 8:09 AM EDT 81 mg atorvastatin (Lipitor) tablet 10 mg Given 03/28/2020 4:23 PM EDT 10 mg 10 mg, Oral, EVERY EVENING, First dose on 03/27/20 at 1700, Until Discontinued, Routine Given 03/27/2020 5:40 PM EDT 10 mg BUpivacaine (PF) (MARCAINE) 0.25 % (2.5 Given 03/26/2020 3:24 PM EDT 30 mLs mg/mL) injection ONCE PRN, Starting on Sun03/26/20 at 1524, Until Sun03/29/20 at 1648, Intra-Operative (Intra-Procedure), Routine celecoxib (CeleBREX) capsule 200 mg Given 03/29/2020 9:28 AM EDT 200 mg 200 mg, Oral, 2 TIMES DAILY, First dose on Sun03/26/20 at 2315, Until Discontinued, Routine Given 03/28/2020 8:33 PM EDT 200 mg Given 03/28/2020 8:09 AM EDT 200 mg enalapriL (Vasotec) tablet 20 mg Given 03/29/2020 9:30 AM EDT 20 mg 20 mg, Oral, DAILY, First dose on 03/27/20 at 0900, Until Discontinued, Hold for SBP<120, Routine Given 03/28/2020 8:09 AM EDT 20 mg gabapentin (Neurontin) capsule 300 mg Given 03/28/2020 8:33 PM EDT 300 mg 300 mg, Oral, NIGHTLY, First dose on 03/28/20 at 2100, Until Discontinued, Routine lamoTRIgine (LaMICtal) tablet 200 mg Given 03/29/2020 9:30 AM EDT 200 mg 200 mg, Oral, DAILY, First dose on 03/27/20 at 0900, Until Discontinued, Routine Given 03/28/2020 8:09 AM EDT 200 mg Given 03/27/2020 8:45 AM EDT 200 mg methylphenidate (Ritalin) tablet 20 mg Given 03/29/2020 11:41 AM EDT 20 mg 20 mg, Oral, 3 TIMES DAILY WITH MEALS, First dose on 03/27/20 at 0800, Until Discontinued, Routine Given 03/29/2020 [...] Given 03/27/2020 8:44 AM EDT 50 mg ondansetron (ZOFRAN) injection 4 mg 4 mg, Intravenous, EVERY 8 HOURS PRN, St arting on Sun03/26/20 at 1607, Until Sun03/29/20 at 1648, Nausea, May repeat time s one in 30 minutes if ineffective. If multiple antiemetics are ordered, use ondansetron firs t, Recovery (Recovery-Hospital Unit) ondansetron (Zofran) tablet 4 mg Given 03/29/2020 12:39 AM EDT 4 mg 4 mg, Oral, EVERY 8 HOURS PRN, Starting on Sun03/26/20 at 1607, Until Sun03/29/20 at 1648, [...] 40 mg, Oral, DAILY, First dose on Sun03/27/20 at 0900, Until Discontinued, DO NOT CRUSH [...] Given 03/28/2020 8:08 AM EDT 5 mLs documented in this encounter Active and Recently [...] - Provider: Diana Johnson RN - Comment: theresabbimbob, R knee) 0809 (Given - Provider: Nena Mendieta RN)2032 (Given - Provider: Sonam Castañeda RN) 0930 (Given - Provider: Diana Johnson, SHANNON) 81 mg, Oral, 2 TIMES DAILY, First dose o n Sun03/26/20 at 2315, Until Discontinued, Routine atorvastatin (Lipitor) tablet 10 mg 1740 (Given - Prov ider: Chayito Rodriguez RN) 1623 (Given - Provider: Nena Mendieta RN) 10 mg, Oral, EVERY EVENING, First dose o n 03/27/20 at 1700, Until Discontinued, Routine ceFAZolin (Ancef) 2 g in dextrose 5% 100 mL infusion ( COMPLETED) 0847 (Given - Provider: Chayito Rodriguez RN) 2 g, Intravenous, EVERY 8 HOURS, 3 [...] Johnson RN) 808 (Given - Provider: Nena Mendieta, RN)2032 (Given - Provider: Sonam Castañeda RN) 927 (Given - Provider: Diana Johnson RN) 200 mg, Oral, 2 TIMES DAILY, First dose on Sun03/26/20 at 2315, Until Discontinued, Routine enalapriL (Vasotec) tablet 20 mg 08 (Not Given - Pro vider: Chayito Rodriguez RN - Reason: Order parameters not met) 808 (Given - Provider: Nena Mendieta RN) 929 (Given - Provider: Diana Johnson , SHANNON) 20 mg, Oral, DAILY, First dose on Sat at 0900, Until Discontinued, Hold for SBP<120, Routine gabapentin (Neurontin) capsule 300 mg (Given - Provider: Sonam Castañeda RN) 300 mg, Oral, NIGHTLY, First dose on Sun03/28/20 at 2100, Until Discontinued, Routine gabapentin (Neurontin) capsule 600 mg (COMPLETED) 2058 (Given - Provider: Diana Johnson RN) 600 mg, Oral, NIGHTLY, 2 doses, First do se on Sun03/26/20 at 2315, Last dose on 03/27/20 at 2100, Routine lamoTRIgine (LaMICtal) tablet 200 mg 0845 (Given - Pro vider: Chayito Rodriguez RN) 808 (Given - Provider: Nena Mendieta RN) 929 (Given - Provider: Diana Johnson RN) 200 mg, Oral, DAILY, First dose on Sat at 0900, Until Discontinued, Routine methylphenidate (Ritalin) tablet 20 mg 0753 (Given - P rovider: Chayito Rodriguez, SHANNON)1249 (Given - Provider: Chayito Rodriguez RN)1740 (Given - Provider: Chayito Rodriguez RN) 0809 (Given - Provider: Wendie Spence N)1227 (Given - Provider: Nena Mendieta, RN)1623 (Given - Provider: Nena Mendieta, RN) 0738 (Given - Provider: Diana Johnson, SHANNON)1141 (Given - Provider: Diana Johnson, SHANNNO) 20 mg, Oral, 3 TIMES DAILY WITH MEALS, F irst dose on 03/27/20 at 0800, Until Discontinued, Routine metoprolol succinate XL (Toprol-XL) tablet 50 mg 0844 (Given - Provider: Chayito Rodriguez RN) 08 (Given - Provider: Nena Mendieta, SHANNON) 0928 (Given - Provider: Diana Johnson, SHANNON) 50 mg, Oral, DAILY, First dose on Sat at 0900, Until Discontinued, DO NOT CRUSH OR OPEN Hold for SBP<105 and/or HR<55, Routine pantoprazole EC (Protonix) tablet 40 mg 0845 (Given - Provider: Chayito Rodriguez RN) 08 (Given - Provider: Nena Mendieta RN) 0928 (Given - Provider: Diana Johnson, SHANNON) 40 mg, Oral, DAILY, First dose on Sat at 0900, Until Discontinued, DO NOT CRUSH OR OPEN, Routine polyethylene glycoL (Miralax) packet 17 g 0847 (Given - Provider: Chayito Rodriguez, SHANNON)2058 (Given - Provider: Diana Johnson, SHANNON) 08 (Given - Provider: Nena Mendieta, SHANNON)2032 (Given - Provider: Sonam Castañeda RN) 09 (Not Given - Provider: Diana Johnson, SHANNON - Reason: Contraindicated) 17 g, Oral, 2 TIMES DAILY, First dose on Sun03/26/20 at 2315, Until Discontinued, Routine senna-docusate (Pericolace) 8.6-50 mg per tablet 2 tab let 0846 (Given - Provider: Chayito Rodriguez, RN)2058 (Given - Provider: Diana Johnson, RN) 08 (Given - Provider: Nena Mendieta, RN)2032 (Given - Provider: Sonam Castañeda, SHANNON) 0931 (Not Given - Provider: Diana coombs RN - Reason: Contraindicated) 2 tablet, Oral, 2 TIMES DAILY, First dos e on Sun03/26/20 at 2315, Until Discontinued, Routine sodium chloride 0.9 % (flush) flush 5 mL 0847 (Given - Provider: Chayito Rodriguez, RN)2099 (Given - Provider: Diana Johnson, SHANNON) 08 (Given - Provider: Nena Mendieta, RN)2033 (Given - Provider: Sonam Castañeda, SHANNON) 0931 (Given - Provider: Diana Johnson, SHANNON) 5 mL, Intravenous, 2 TIMES DAILY, First dose on Sun03/26/20 at 2100, Until Discontinued, Recovery (Recovery-Hospital Unit), Routine Continuous Medication Order 03/27/2020 03/28/2020 03/29/2020 sodium chloride 0.9% infusion () 1249 (New Bag - Provider: Chayito Rodriguez, SHANNON)2200 (Stopped - Provider: Diana Johnson RN) 100 mL/hr, at 100 mL/hr, Intravenous, CO NTINUOUS, Starting Sun03/26/20 at 1630, Until 03/27/20 at 1614, Recovery (Recovery-Hospital Unit) PRN Medication [...] ondansetron (Zofran) tablet 4 mg(Linked Group 1) 0753 (Given - Provider: Chayito Rodriguez RN) 0039 [...] Torres, SHANNON)1034 (Given - Provider: Chayito Rodriguez, SHANNON)1436 (Given - Provider: Chayito Rodriguez, SHANNON)1900 (Given - Provider: Chayito Rodriguez RN)2310 (Given - Provide r: Diana Johnson, SHANNON) 0301 (Given - Provider: Diana Johnson , SHANNON)0809 (Given - Provider: Nena Mendieta RN)1227 (Given - Provider: Nena Mendieta RN)1627 (Given - Provider: Nena Mendieta RN)2033 (Given - Provider: Sonam Castañeda RN) 0034 (Given - Provider: Shaniqua Steel , SHANNON)0439 (Given - Provider: Shaniqua Steel RN)0937 (Given - Provider: Diana Johnson RN)1343 (Given - Provider: Diana Johnson RN) 15 mg, Oral, EVERY 4 HOURS PRN, [...] at 1607, Until Sun03/29/20 at 1648, Nausea, Vomiting
If multiple antiemetics are ordered, use ondansetron first. PO Preferred. If patient unable to take PO, may give IV if ordered. May repeat times one in 45 minutes if ineffective.
Recovery (Recovery-Hospital Unit), Routine Or ondansetron (ZOFRAN) injection 4 mgJump to med 4 mg, Intravenous, EVERY 8 HOURS PRN, [facility] 03/26/20 at 1607, Until 03/29/20 at 1648, Nausea
May repeat times one in 30 minutes if ineffective. If multiple antiemetics are ordered, use ondansetron first
Joseph very (Recovery-Hospital Unit) documented in this encounter Care Teams Corporate Legal Intern Relationship Specialty Start Date End Date Jarad Thomas PA PCP - General Family Medicine 02/03/[address] [place] [id number] documented as of this encounter
--- OUTSIDE RECORDS SUMMARY | 2022-02-05 03:44 | XMS_ITS | Encounter Summary ---
:1960 Author Organization [facility] [place] [address] Care Team Providers Name Role Phone Florina Thomas Primary Care Provider Encounter Details Date Type Department Care Team Description 03/23/2020 Telephone Orthopaedics at [facility] [place] [address] Social History Tobacco Use Types Packs/Day Years Used Date Never Smoker Smokeless Tobacco: Never Used Alcohol Use Standard Drinks/Week Comments Yes 3 (1 standard drink = 0.6 oz pure alcoho l) Sex Assigned at Date Recorded Not on file documented as of this encounter Miscellaneous Notes Telephone Encounter - Praful Osorio - 03/23/2020 3:09 PM EDT Patient's PCP office return call to our clinic regarding postoperative pain management prescriptions. Patient's PCP would like orthopedics to provide the patient with 1 weeks worth of postoperative painmedication. At that time, the PCP will resume chronic pain care management. All questions and concerns were answered at this time Telephone Encounter - Anuradha Baker RN - 03/23/2020 8:33 AM EDT Range Technician called and left a message on PCP's nurse voicemail regarding pain management for post operative period. Patient is taking oxycodone now that is prescribed by pcp and creative writer left a message with callback number to discuss. documented in this encounter Plan of Treatment Not on filedocumented as of this encounter Visit Diagnoses Not on filedocumented in this encounter Care Teams Manager Surgical Relationship Specialty Start Date End Date Florina Thomas PA PCP - General Family Medicine 02/03/[address] [place] [address] documented as of this encounter
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
--- OUTSIDE RECORDS SUMMARY | 2022-02-05 03:45 | XMS_ITS | Encounter Summary ---
:1960 Author Organization [facility] [place] [address] Care Team Providers Name Role Phone Florina Thomas Primary Care Provider Encounter Details Date Type Department Care Team Description 02/05/2019 Orders Only Orthopaedics at [facility] Delfin Pisano MD [facility] [place] [address] ORTHOPAEDIC SURGERY [phone] [place] [id number] (Wo rk) Social History Tobacco Use Types Packs/Day Years Used Date Never Assessed Sex Assigned at Date Recorded Not on file documented as of this encounter Plan of Treatment Not on filedocumented as of this encounter Visit Diagnoses Not on filedocumented in this encounter Care Teams Optometric Technologist Relationship Specialty Start Date End Date Florina Thomas PA PCP - General Family Medicine 02/03/19 [address] [place], [place] [address] documented as of this encounter
--- OUTSIDE RECORDS SUMMARY | 2022-02-05 03:45 | XMS_ITS | Encounter Summary ---
:1960 Author Organization [facility] [place] [address] Care Team Providers Name Role Phone Eddie Hills MD Primary Care Provider Encounter Details Date Type Department Care Team Description 01/30/2012 Ancillary Procedure Radiology Library at Delfin Pisano MD [facility] [place] [address] [place] [address] [phone] (Wo rk) Social History Tobacco Use Types Packs/Day Years Used Date Never Assessed Sex Assigned at Date Recorded Not on file documented as of this encounter Plan of Treatment Not on filedocumented as of this encounter Procedures Procedure Name Priority Date/Time Associated Diagnosis Comme nts FILM LIBRARY Routine 01/30/2012 12:00 AM Results for this STORAGE ONLY DX EDT procedure ar e in [facility] the results section. documented in this encounter Results Film Library- Storage Only DX Knee (01/30/2012 12:00 AM EDT) Specimen (Source) Anatomical Location Collection Method / Collectio n Time Received Time / Laterality Volume Narrative RAD - 08/25/2019 7:32 PM EST This exam is auto-finalizing. It's purpo se is for storage only. Delfin Pisano MD IMG FILM LIBRARY ORDERABLES Performing Organization Address City/State/ZIP Code Phon e Number RAD [place], [place] documented in this encounter Visit Diagnoses Not on filedocumented in this encounter Care Teams Mold Car Pusher Relationship Specialty Start Date End Date Eddie Hills MD PCP - General 05/24/10 02/02/19 [address] [place] [address] documented as of this encounter
--- OUTSIDE RECORDS SUMMARY | 2022-02-05 03:45 | XMS_ITS | Encounter Summary ---
:1960 Author Organization [facility] [place] [address] Care Team Providers Name Role Phone Florina Thomas Primary Care Provider Reason for Visit Diagnostic Test (Routine) - Closed Specialty Diagnoses / Procedures Referred By Contact Refer red To Contact Radiology Diagnoses Postoperative stiffness of total knee replacement, initial encounter Pain due to total right knee replacement, initial encounter Winnie Sanchez PA [facility] Rad Nuclear Med Procedures NM Bone Scan 3 [facility] [place] [address] [place] [address] Referral ID Status Reason Start Date Expiration Date Visits V isits Requested Authorized [id number] Closed Specialty 02/13/2019 02/13/2020 1 1 Service Requested Encounter Details Date Type Department Care Team Description 02/26/2019 Hospital Encounter Nuclear Medicine at Varghese Pisano MD [facility] [place] [address] [place] [address] [phone] (Wo rk) Social History Tobacco Use Types Packs/Day Years Used Date Never Smoker Smokeless Tobacco: Never Used Alcohol Use Standard Drinks/Week Comments Yes 3 (1 standard drink = 0.6 oz pure alcoho l) Sex Assigned at Date Recorded Not on file documented as of this encounter Medications at Time of Discharge Medication Sig Dispensed Refills Start Date End Date atorvastatin (LIPITOR) 10 take 1 tablet by 0 07/2 09/2018 mg Tablet mouth once daily enalapril [...] Tablet mouth every 8 hours as needed. lamoTRIgine (LAMICTAL) 100 Take 100 mg by 0 02/19/2020 mg Tablet mouth Daily. oxyCODONE (ROXICODONE) 10 Take by mouth 4 0 01/3003/29/2020 mg Tablet times daily as needed. FLUoxetine (PROZAC) 20 mg 20mg, PO, QD 0 04/15/20 04 03/04/2019 capsule documented as of this encounter Plan of Treatment Not on filedocumented as of this encounter Procedures Procedure Name Priority Date/Time Associated Diagnosis Comme nts NM BONE SCAN 3 Routine 02/26/2019 1:00 PM Postoperative Result s for this PHASE EDT stiffness of total procedure are in knee replacement, the result s initial encounte r section. Pain due to total right knee replacement, initial encounter documented in this encounter Results NM Bone Scan 3 Phase (02/26/2019 1:00 PM EDT) Anatomical Region Laterality Modality Nuclear Medicine Specimen (Source) Anatomical Location Collection Method / Collectio n Time Received Time / Laterality Volume Impressions 02/26/2019 3:51 PM EDT Abnormal study with above findings highly suggestive of infection or possibly loosening of the right knee prosthesis. Preliminary report signed by: Alex schmidt at 02/26/2019 2:57 PM I have personally reviewed the image(s) and the residents interpretation and agree with the findings, Silviano Negrete at 02/26/2019 3:51 PM Thank you for letting us participate in the care of this patient. For questions regarding this report, please contact e number below. ? Narrative 02/26/2019 3:51 PM EDT EXAMINATION: NM BONE SCAN 3 PHASE CLINICAL HISTORY: s/p R TKA (2016). Jd calvo, stiffness. Please eval for evidence of infection. TECHNIQUE: Immediately following the intravenous ad ministration of 24.1 mCi of Tc-99m MDP, sequential images of perfusion to the bi lateral knees were obtained at 2 second intervals for 60 seconds in the anterior and posterior projections. Five minutes later, blood pool images we re obtained of the bilateral knees in the anterior, posterior, and lateral pro jections. Three hours later, a bone scan of the bi lateral knees was performed with images obtained in the anterior, posterior, and lateral projections. COMPARISON: Knee radiograph 02/13/2019. FINDINGS: Flow and blood pool phases: There is dif fusely increased tracer uptake within the right knee circumferentially around the femoral component and to a lesser extent the tibial component. Normal bloo d pool images of the left knee. Delayed bone phase images: Diffusely inc reased activity around the femoral and tibial components of the right knee pros thesis. No abnormal activity in the left knee. Procedure Note Silviano Negrete MD - 02/26/2019Formatti ng of this note might be different from the original. EXAMINATION: NM BONE SCAN 3 PHASE CLINICAL HISTORY: s/p R TKA (2017). Jd calvo, stiffness. Please eval for evidence of infection. TECHNIQUE: Immediately following the intravenous ad ministration of 24.1 mCi of Tc-99m MDP, sequential images of perfusion to the bi lateral knees were obtained at 2 second intervals for 60 seconds in the anterior and posterior projections. Five minutes later, blood pool images we re obtained of the bilateral knees in the anterior, posterior, and lateral pro jections. Three hours later, a bone scan of the bi lateral knees was performed with images obtained in the anterior, posterior, and lateral projections. COMPARISON: Knee radiograph 02/13/2019. FINDINGS: Flow and blood pool phases: There is dif fusely increased tracer uptake within the right knee circumferentially around the femoral component and to a lesser extent the tibial component. Normal bloo d pool images of the left knee. Delayed bone phase images: Diffusely inc reased activity around the femoral and tibial components of the right knee pros thesis. No abnormal activity in the left knee. IMPRESSION Abnormal study with above findings highl y suggestive of infection or possibly loosening of the right knee prosthesis. Preliminary report signed by: Alex schmidt at 02/26/2019 2:57 PM I have personally reviewed the image(s) and the residents interpretation and agree with the findings, Silviano Negrete at 02/26/2019 3:51 PM Thank you for letting us participate in the care of this patient. For questions regarding this report, please contact e number below. Delfin Pisano MD [facility] [place] ORDERABLES documented in this encounter Visit Diagnoses Not on filedocumented in this encounter Care Teams Concrete Rubber Relationship Specialty Start Date End Date Florina Thomas PA PCP - General Family Medicine 02/03/[address] [place] [address] documented as of this encounter
--- OUTSIDE RECORDS SUMMARY | 2022-02-05 03:45 | XMS_ITS | Encounter Summary ---
:1960 Author Organization [facility] [place] [address] Care Team Providers Name Role Phone Florina Thomas Primary Care Provider Encounter Details Date Type Department Care Team Description 02/13/2019 Telephone [place]ed[place] [facility] [place]elf[place] [facility] [place] [address] ORTHOPAEDIC SURGERY [phone] [place] [id number] (Wo rk) Social History Tobacco Use Types Packs/Day Years Used Date Never Smoker Smokeless Tobacco: Never Used Alcohol Use Standard Drinks/Week Comments Yes 3 (1 standard drink = 0.6 oz pure alcoho l) Sex Assigned at Date Recorded Not on file documented as of this encounter Miscellaneous Notes Telephone Encounter - Anastasiia Beltran - 02/13/2019 2:34 PM EDT Lab work requested form [facility] per Dr. Pisano's request [place], [place] PH: [phone] FAX: [phone] [facility] PH: [phone] FAX: [phone] IMG PUSH NUCLEUS/ICA documented in this encounter Plan of Treatment Not on filedocumented as of this encounter Visit Diagnoses Not on filedocumented in this encounter Care Teams Package Collector Relationship Specialty Start Date End Date Florina Thomas PA PCP - General Family Medicine 02/03/19 [address] [place] [address] documented as of this encounter
--- OUTSIDE RECORDS SUMMARY | 2022-02-05 03:45 | XMS_ITS | Encounter Summary ---
:1960 Author Organization [facility] [place] [address] Care Team Providers Name Role Phone Florina Thomas Primary Care Provider Encounter Details Date Type Department Care Team Description 02/27/2019 Telephone Orth[place]edics at [facility] Delfin Pisano MD [facility] [place] [address] ORTHOPAEDIC SURGERY [phone] [place], [place] [address] (Wo rk) Social History Tobacco Use Types Packs/Day Years Used Date Never Smoker Smokeless Tobacco: Never Used Alcohol Use Standard Drinks/Week Comments Yes 3 (1 standard drink = 0.6 oz pure alcoho l) Sex Assigned at Date Recorded Not on file documented as of this encounter Miscellaneous Notes Telephone Encounter - Natalia Castro - 02/28/2019 12:27 PM EDT Patient called today wondering when he was going to hear from Dr. Pisano. I stated we scheduled an appointment for him on Sunday to discuss with lab work prior. Yg Leal verbalized understanding. No further questions or concerns at this time. Telephone Encounter - Nereida Aden RMA - 02/27/2019 3:51 PM EDT Triage Note Subjective: Results Juares questions/Assessment: Yg called and would like a call from Dr Pisano to review the Bone Scan. He can be best reached on his cell - [phone]. documented in this encounter Plan of Treatment Not on filedocumented as of this encounter Visit Diagnoses Not on filedocumented in this encounter Care Teams Spring Tester Relationship Specialty Start Date End Date Florina Thomas PA PCP - General Family Medicine 02/03/[address] [place] [address] documented as of this encounter
--- OUTSIDE RECORDS SUMMARY | 2022-02-05 03:45 | XMS_ITS | Encounter Summary ---
:1960 Author Organization [facility] Address [address] [facility] [place] [address] Care Team Providers Name Role Phone Florina Thomas Primary Care Provider Encounter Details Date Type Department Care Team Description 02/13/2019 Hospital Encounter XRay at [facility] Delfin Pisano, Presence of right [address] [place] artificial knee [place], [place] [facility] [address] [place] [phone] [place] [address] Social History Tobacco Use Types Packs/Day Years [...] ibuprofen (ADVIL;MOTRIN) Take 600 mg by 4 11/07/2 019 03/29/2020 600 mg Tablet mouth every [...] Diagnosis Comme nts XR KNEE STANDING Routine 02/13/2019 1:35 PM Presence of right Results for this ALIGNMENT AP LAT EDT artificial knee procedur e are in [place] joint the result s RIGHT section. documented in this encounter Results XR Knee Standing Alignment AP Lat [place] Right (02/13/2019 1:35 PM EDT) Anatomical Region Laterality Modality Right Digital Radiography Specimen (Source) Anatomical Location Collection Method / Collectio n Time Received Time / Laterality Volume Impressions 02/13/2019 4:12 PM EDT 1. ??Right knee prosthesis without complication. 2. ??Osteoarthritis of the left knee. 3. ??Findings suggest a fracture of the left patella of indeterminate age. Thank you for letting us participate in the care of this patient. For questions regarding this report, please contact th e number below. ? Narrative 02/13/2019 4:12 PM EDT EXAMINATION: XR KNEE STANDING ALIGNMENT AP LAT [place] RIGHT CLINICAL HISTORY: R TKA DOS: 11/2016 TECHNIQUE: Separate images of the pelvis , knees and feet were acquired in the AP projection with the patient standing. Th sabra images were stitched together to form a composite image of the pelvis and legs allowing for evaluation of lower extremity alignment in the weight bearin g position. Four additional views were obtained. COMPARISON: None FINDINGS: Right knee A total right knee prosthesis is present . The prosthesis is well-positioned without periprosthetic lucency or fractu re. A joint effusion is noted. Left knee There is very mild narrowing of the medi al joint compartment. There is a vertical linear lucency through the spear lla. Standing alignment The legs and normally aligned. Note is made of osteoarthritis of the ri ght hip. Procedure Note Carl Aden MD - 02/13/2019 EXAMINATION: XR KNEE STANDING ALIGNMENT AP LAT [place] RIGHT CLINICAL HISTORY: R TKA DOS: 11/2016 TECHNIQUE: Separate images of the pelvis , knees and feet were acquired in the AP projection with the patient standing. Th sabra images were stitched together to form a composite image of the pelvis and legs allowing for evaluation of lower extremity alignment in the weight bearin g position. Four additional views were obtained. COMPARISON: None FINDINGS: Right knee A total right knee prosthesis is present . The prosthesis is well-positioned without periprosthetic lucency or fractu re. A joint effusion is noted. Left knee There is very mild narrowing of the medi al joint compartment. There is a vertical linear lucency through the spear lla. Standing alignment The legs and normally aligned. Note is made of osteoarthritis of the ri ght hip. IMPRESSION 1. Right knee prosthesis without complic ation. 2. Osteoarthritis of the left knee. 3. Findings suggest a fracture of the le ft patella of indeterminate age. Thank you for letting us participate in the care of this patient. For questions regarding this report, please contact e number below. Delfin Pisano MD IMG DX ORDERABLES documented in this encounter Visit Diagnoses Diagnosis Presence of right artificial knee joint Knee joint replacement by other means documented in this encounter Care Teams Agricultural Economics Professor Relationship Specialty Start Date End Date Florina Thomas PA PCP - General Family Medicine 02/03/19 [address] [place] [address] documented as of this encounter
--- OUTSIDE RECORDS SUMMARY | 2022-02-05 03:45 | XMS_ITS | Encounter Summary ---
:1960 Author Organization [facility] Address [facility] [place] [address] Care Team Providers Name Role Phone Florina Thomas Primary Care Provider Encounter Details Date Type Department Care Team Description 02/27/2019 Orders Only Orthopaedics at [facility] Winnie Sanchez, Pain due to total [facility] [place] right knee Drive [facility] replacement, [place] [address] [address] encounter [phone] ORTHOPAEDIC SURGERY [place] [address] Social History Tobacco Use Types Packs/Day Years Used Date Never Smoker Smokeless Tobacco: Never Used Alcohol Use Standard Drinks/Week Comments Yes 3 (1 standard drink = 0.6 oz pure alcoho l) Sex Assigned at Date Recorded Not on file documented as of this encounter Plan of Treatment Not on filedocumented as of this encounter Results Sedimentation rate (03/04/2019 9:56 AM EDT) athologist Signature Sed Rate 7 0 - 15 [facility] mm/hr [facility] Specimen Anatomical Collection Method Collection Time Receive d Time (Source) Location / / Volume Laterality Blood specimen 03/04/2019 9:56 AM 019 (specimen) EDT 10:20 AM EDT Resulting Agency Comment Spec In Lab Delfin Pisano MD HEMATOLOGY ORDERABLES Performing Organization Address City/State/[place] [address] CRP, acute inflammation (03/04/2019 9:56 AM EDT) P athologist Signature CRP 1.1 <=4.9 mg/L [facility] Specimen Anatomical Collection Method Collection Time Receive d Time (Source) Location / / Volume Laterality Blood specimen 03/04/2019 9:56 AM 019 (specimen) EDT 10:20 AM EDT Resulting Agency Comment Spec In Lab Delfin Pisano MD CHEMISTRY ORDERABLES Performing Organization Address City/State/[place] [address] documented in this encounter Visit Diagnoses Diagnosis Pain due to total right knee replacement , initial encounter documented in this encounter Care Teams Surgical Services Manager Relationship Specialty Start Date End Date Florina Thomas PA PCP - General Family Medicine 02/03/[address] [place] [address] documented as of this encounter
--- OUTSIDE RECORDS SUMMARY | 2022-02-05 03:45 | XMS_ITS | Encounter Summary ---
:1960 Author Organization [facility] Address [facility] [place] [address] Care Team Providers Name Role Phone Florina Thomas Primary Care Provider Encounter Details Date Type Department Care Team Description 02/07/2019 Orders Only Orthopaedics at [facility] Delfin Pisano MD Presence of right [facility] art ificial knee [place] [address] ORTHOPAEDIC [phone] SURGERY [place], [place] [address] Social History Tobacco Use Types Packs/Day Years Used Date Never Assessed Sex Assigned at Date Recorded Not on file documented as of this encounter Plan of Treatment Not on filedocumented as of this encounter Results XR Knee Standing Alignment AP Lat [place] Right (02/13/2019 1:35 PM EDT) Anatomical Region [...] e number below. ? Electronically signed by: Austyn Frank [facility] ([phone]), at 02/13/2019 4:12 PM Narrative 02/13/2019 4:12 PM EDT EXAMINATION: XR [...] th e number below. Electronically signed by: Austyn Frank [facility] ([phone]), at 02/13/2019 4:12 PM Delfin Pisano MD IMG DX ORDERABLES documented in this encounter Visit Diagnoses Diagnosis Presence of right artificial knee joint Knee joint replacement by other means Presence of right artificial knee joint Knee joint replacement by other means documented in this encounter Care Teams Cork Painter And Grader Relationship Specialty Start Date End Date Florina Thomas PA PCP - General Family Medicine 02/03/[address] [place] [address] documented as of this encounter
--- OUTSIDE RECORDS SUMMARY | 2022-02-05 03:45 | XMS_ITS | Encounter Summary ---
:1960 Author Organization [facility] [place] [address] Care Team Providers Name Role Phone Eddie Hills MD Primary Care Provider Encounter Details Date Type Department Care Team Description 07/06/2011 Ancillary Procedure Radiology Library at Delfin Pisano MD [facility] [place] [address] [place] [address] [phone] (Wo rk) Social History Tobacco Use Types Packs/Day Years Used Date Never Assessed Sex Assigned at Date Recorded Not on file documented as of this encounter Plan of Treatment Not on filedocumented as of this encounter Procedures Procedure Name Priority Date/Time Associated Diagnosis Comme nts FILM LIBRARY Routine 07/06/2011 12:00 AM Results for this STORAGE ONLY DX EST procedure ar e in KNEE the results section. documented in this encounter Results Film Library- Storage Only DX Knee (07/06/2011 12:00 AM EST) Specimen (Source) Anatomical Location Collection Method / Collectio n Time Received Time / Laterality Volume Narrative [facility] - 08/25/2019 7:28 PM EST This exam is auto-finalizing. It's purpo se is for storage only. Delfin Pisano MD IMG FILM LIBRARY ORDERABLES Performing Organization Address City/State/ZIP Code Phon e Number [place], [place] documented in this encounter Visit Diagnoses Not on filedocumented in this encounter Care Teams Machinist 2Nd Shift Relationship Specialty Start Date End Date Eddie Hills MD PCP - General 05/24/10 02/02/[address] [place] [address] documented as of this encounter
--- OUTSIDE RECORDS SUMMARY | 2022-02-05 03:45 | XMS_ITS | Encounter Summary ---
:1960 Author Organization [facility] [place] [address] Care Team Providers Name Role Phone Florina Thomas Primary Care Provider Reason for Visit Reason Onset Date Comments Appointment 02/27/2019 Encounter Details Date Type Department Care Team Description 02/27/2019 Telephone [place] [facility] [place]elfin Pisano MD Appointment [facility] [place] [address] ORTHOPAEDIC SURGERY [phone] [place] [phone] (Wo rk) Social History Tobacco Use Types Packs/Day Years Used Date Never Smoker Smokeless Tobacco: Never Used Alcohol Use Standard Drinks/Week Comments Yes 3 (1 standard drink = 0.6 oz pure alcoho l) Sex Assigned at Date Recorded Not on file documented as of this encounter Miscellaneous Notes Telephone Encounter - Nereida Aden RMA - 02/27/2019 4:00 PM EDT Pt call and we schd an appt on with Dr Pisano. He will go to the Lab first. Telephone Encounter - Toshia Blanchard - 02/27/2019 2:54 PM EDT Per My message below, LM #1 to call to schedule a follow-up in Dr. Pisano's clinic with labs prior: orders for labs have been placed. FUV: NXR-Lab @ - TKA Right DOS: 11/2016, discuss lab results, ? Schedule bone scan documented in this encounter Plan of Treatment Not on filedocumented as of this encounter Visit Diagnoses Not on filedocumented in this encounter Care Teams Information Technology Data Analyst Relationship Specialty Start Date End Date Florina Thomas PA PCP - General Family Medicine 02/03/[address] [place] [address] documented as of this encounter
--- OUTSIDE RECORDS SUMMARY | 2022-02-05 03:45 | XMS_ITS | Encounter Summary ---
:1960 Author Organization [facility] [place] [address] Care Team Providers Name Role Phone Eddie Hills MD Primary Care Provider Encounter Details Date Type Department Care Team Description 10/12/2011 Ancillary Procedure Radiology Library at Delfin Pisano MD [facility] [place] [address] [place] [address] [phone] (Wo rk) Social History Tobacco Use Types Packs/Day Years Used Date Never Assessed Sex Assigned at Date Recorded Not on file documented as of this encounter Plan of Treatment Not on filedocumented as of this encounter Procedures Procedure Name Priority Date/Time Associated Diagnosis Comme nts FILM LIBRARY Routine 10/12/2011 12:00 AM Results for this STORAGE ONLY MR EDT procedure ar e in KNEE the results section. documented in this encounter Results Film Library- Storage Only MR Knee (10/12/2011 12:00 AM EDT) Specimen (Source) Anatomical Location Collection Method / Collectio n Time Received Time / Laterality Volume Narrative RAD - 08/25/2019 7:30 PM EST This exam is auto-finalizing. It's purpo se is for storage only. Delfin Pisano MD IMG FILM LIBRARY ORDERABLES Performing Organization Address City/State/ZIP Code Phon e Number RAD [place], [place] documented in this encounter Visit Diagnoses Not on filedocumented in this encounter Care Teams Marketing Account Manager Relationship Specialty Start Date End Date Eddie Hills MD PCP - General 05/24/10 02/02/19 [address] [place] [address] documented as of this encounter
--- OUTSIDE RECORDS SUMMARY | 2022-02-05 03:45 | XMS_ITS | Encounter Summary ---
:1960 Author Organization [facility] [place] [address] Care Team Providers Name Role Phone Eddie Hills MD Primary Care Provider Encounter Details Date Type Department Care Team Description 10/10/2011 Ancillary Procedure Radiology Library at Delfin Pisano MD [facility] [place] [address] [place] [address] [phone] (Wo rk) Social History Tobacco Use Types Packs/Day Years Used Date Never Assessed Sex Assigned at Date Recorded Not on file documented as of this encounter Plan of Treatment Not on filedocumented as of this encounter Procedures Procedure Name Priority Date/Time Associated Diagnosis Comme nts FILM LIBRARY Routine 10/10/2011 12:00 AM Results for this STORAGE ONLY DX EDT procedure ar e in KNEE the results section. documented in this encounter Results Film Library- Storage Only DX Knee (10/10/2011 12:00 AM EDT) Specimen (Source) Anatomical Location Collection Method / Collectio n Time Received Time / Laterality Volume Narrative RAD - 08/25/2019 7:29 PM EST This exam is auto-finalizing. It's purpo se is for storage only. Delfin Pisano MD IMG FILM LIBRARY ORDERABLES Performing Organization Address City/State/ZIP Code Phon e Number RAD [place], [place] documented in this encounter Visit Diagnoses Not on filedocumented in this encounter Care Teams Marine Structural Welder Relationship Specialty Start Date End Date Eddie Hills MD PCP - General 05/24/10 02/02/19 [address] [place] [address] documented as of this encounter
--- OUTSIDE RECORDS SUMMARY | 2022-02-05 03:49 | XMS_ITS | Encounter Summary ---
:1960 Author Organization [facility] Address [address] [place] [address] Care Team Providers Name Role Phone Eddie Hills MD Primary Care Provider Encounter Details Date Type Department Care Team Description 12/13/2009 Hospital Encounter [facility] - Loyda Salazar Tilley PA-C [address] [place], [place] [address] [place] [address], [place] [address] (Wo rk) Social History Tobacco Use Types Packs/Day Years Used Date Never Assessed Sex Assigned at Date Recorded Not on file documented as of this encounter Medications at Time of Discharge Medication Sig Dispensed Refills Start Date End Date lamotrigine (LAMICTAL) 100 Take 100 mg by mouth 0 mg tablet daily. pantoprazole (PROTONIX) 40 Take 40 mg by mouth 0 mg tablet daily. rosuvastatin (CRESTOR) 20 Take 20 mg by mouth 0 mg tablet daily. documented as of this encounter Discharge Disposition Disposition Code Departure Means Destination Home or Self [facility] documented in this encounter Plan of Treatment Upcoming Encounters Date Type Specialty Care Team Description 05/17/2022 Office Visit Orthopedic Surgery Tiffany Mcgill MD [address] [place] [address] (Wo rk) documented as of this encounter Visit Diagnoses Not on filedocumented in this encounter Care Teams Director Of Real Estate Relationship Specialty Start Date End Date Eddie Hills MD PCP - General 11/30/[address] [place] [address] documented as of this encounter
--- OUTSIDE RECORDS SUMMARY | 2022-02-05 03:49 | XMS_ITS | Encounter Summary ---
:1960 Author Organization [facility] Address [address] [place] [address] Care Team Providers Name Role Phone Unavailable Primary Care Provider Unavailable Encounter Details Date Type Department Care Team Description 08/21/2006 Hospital Encounter [facility], [facility] [address] [facility] [address] [place] [address] [place] [address] (Colt dumont) Social History Tobacco Use Types Packs/Day Years Used Date Never Assessed Sex Assigned at Date Recorded Not on file documented as of this encounter Discharge Disposition Disposition Code Departure Means Destination Auto Discharge documented in this encounter Plan of Treatment Upcoming Encounters Date Type Specialty Care Team Description 05/17/2022 Office Visit Orthopedic Surgery Tiffany Mcgill MD [address] [place] [phone] (Wo julia) documented as of this encounter Visit Diagnoses Not on filedocumented in this encounter
--- OUTSIDE RECORDS SUMMARY | 2022-02-05 03:49 | XMS_ITS | Encounter Summary ---
:1960 Author Organization [facility] Address [address] [place] [address] Care Team Providers Name Role Phone Eddie Hills MD Primary Care Provider Reason for Visit (Routine/Next Available) - Receiving Office to Obtain Authorization Specialty Diagnoses / Procedures Referred By Contact Refer red To Contact Procedures Unknown, Provider, XR OUTSIDE IMAGES MSK Phone: Referral ID Status Reason Start Expiration Visits Visits Date Date Requested Authorized [id number] Receiving Office 01/17/2022 1 1 to Obtain Authorization Encounter Details Date Type Department Care Team Description 04/22/2020 Hospital Encounter [facility] Secondary Reads [place] Social History Tobacco Use Types Packs/Day Years Used Date Never Assessed Sex Assigned at Date Recorded Not on file documented as of this encounter Medications at Time of Discharge Medication Sig Dispensed Refills Start Date End Date DOCOSAHEXANOIC ACID/EPA Take by mouth. 0 (FISH OIL ORAL) lamotrigine (LAMICTAL) 100 Take 100 mg by 0 mg tablet mouth daily. MULTI-VITAMIN ORAL Take by mouth. 0 pantoprazole (PROTONIX) 40 Take 40 mg by mouth 0 mg tablet daily. rosuvastatin (CRESTOR) 20 mg Take 20 mg by mouth 0 tablet daily. documented as of this encounter Discharge Disposition Disposition Code Departure Means Destination Home or Self Care documented in this encounter Plan of Treatment Upcoming Encounters Date Type Specialty Care Team Description 05/17/2022 Office Visit Orthopedic Surgery Tiffany Mcgill MD [address] [place] [address] (Wo rk) documented as of this encounter Procedures Procedure Name Priority Date/Time Associated Diagnosis Comme nts XR OUTSIDE IMAGES Routine 01/17/2022 15:17 Result s for this MSK EDT procedure are i n the results section. documented in this encounter Results XR OUTSIDE IMAGES MSK (01/17/2022 15:17 EDT) Specimen Narrative 01/17/2022 15:17 EDT This is a non-reportable exam. documented in this encounter Visit Diagnoses Not on filedocumented in this encounter Care Teams Project Controls Scheduler Relationship Specialty Start Date End Date Eddie Hills MD PCP - General 11/30/[address] [place] [address] documented as of this encounter
--- OUTSIDE RECORDS SUMMARY | 2022-02-05 03:49 | XMS_ITS | Clinical Summary ---
:1960 Author Organization [facility] Address [address] [place] [address] Care Team Providers Name Role Phone Eddie Hills MD Primary Care Provider Allergies No known active allergies Medications Medication Sig Dispensed Refills Start Date End Date Status lamotrigine (LAMICTAL) Take 100 mg by 0 Active 100 mg tablet mouth daily. pantoprazole (PROTONIX) Take 40 mg by 0 Active 40 mg tablet mouth daily. rosuvastatin (CRESTOR) 20 Take 20 mg by 0 Active mg tablet mouth daily. MULTI-VITAMIN ORAL Take by mouth. 0 Active DOCOSAHEXANOIC ACID/EPA Take by mouth. 0 Active (FISH OIL ORAL) Active Problems Problem Noted Date De Quervain's disease (tenosynovitis) 02/07/2010 Closed fracture of distal phalanx of finger 02/07/2010 Encounters Date Type Specialty Care Team Description 12/19/2021 Hospital Encounter 11/09/2021 Hospital Encounter from Last 3 Months Social History Tobacco Use Types Packs/Day Years Used Date Never Assessed Sex Assigned at Date Recorded Not on file Last Filed Vital Signs Vital Sign Reading Time Taken Comments Blood Pressure - - Pulse - - Temperature - - Respiratory Rate - - Oxygen Saturation - - Inhaled Oxygen Concentration - - Weight 82.6 kg (182 lb) 02/07/2010 1105 EDT Height 170.2 cm (5' 7) 02/07/2010 1105 EDT Body Mass Index 28.51 02/07/2010 1105 EDT Plan of Treatment Upcoming Encounters Date Type Specialty Care Team Description 05/17/2022 Office Visit Orthopedic Surgery Tiffany Mcgill MD [address] [place] [phone] (Wo rk) Health Maintenance Due Date Last Done Comments Hepatitis C Screen 1960 COVID-19 Vaccine (#1) 04/05/1961 Procedures Procedure Name Priority Date/Time Associated Diagnosis Comme nts XR OUTSIDE IMAGES Routine 01/17/2022 15:22 Result s for this MSK EDT procedure are i n the results section. NM OUTSIDE IMAGES Routine 01/17/2022 15:22 Result s for this EDT procedure are i n the results section. XR OUTSIDE IMAGES Routine 01/17/2022 15:20 Result s for this MSK EDT procedure are i n the results section. XR OUTSIDE IMAGES Routine 01/17/2022 15:20 Result s for this MSK EDT procedure are i n the results section. XR OUTSIDE IMAGES Routine 01/17/2022 15:18 Result s for this MSK EDT procedure are i n the results section. XR OUTSIDE IMAGES Routine 01/17/2022 15:17 Result s for this MSK EDT procedure are i n the results section. XR OUTSIDE IMAGES Routine 01/17/2022 15:17 Result s for this MSK EDT procedure are i n the results section. NM OUTSIDE IMAGES Routine 01/17/2022 15:16 Result s for this EDT procedure are i n the results section. XR OUTSIDE IMAGES Routine 01/17/2022 15:15 Result s for this MSK EDT procedure are i n the results section. from Last 3 Months Results XR OUTSIDE IMAGES MSK (01/17/2022 15:22 EDT) Specimen Narrative 01/17/2022 15:22 EDT This is a non-reportable exam. NM OUTSIDE IMAGES (01/17/2022 15:22 EDT) Specimen Narrative 01/17/2022 15:22 EDT This is a non-reportable exam. XR OUTSIDE IMAGES MSK (01/17/2022 15:20 EDT) Specimen Narrative 01/17/2022 15:20 EDT This is a non-reportable exam. XR OUTSIDE IMAGES MSK (01/17/2022 15:20 EDT) Specimen Narrative 01/17/2022 15:20 EDT This is a non-reportable exam. XR OUTSIDE IMAGES MSK (01/17/2022 15:18 EDT) Specimen Narrative 01/17/2022 15:18 EDT This is a non-reportable exam. XR OUTSIDE IMAGES MSK (01/17/2022 15:17 EDT) Specimen Narrative 01/17/2022 15:17 EDT This is a non-reportable exam. XR OUTSIDE IMAGES MSK (01/17/2022 15:17 EDT) Specimen Narrative 01/17/2022 15:17 EDT This is a non-reportable exam. NM OUTSIDE IMAGES (01/17/2022 15:16 EDT) Specimen Narrative 01/17/2022 15:16 EDT This is a non-reportable exam. XR OUTSIDE IMAGES MSK (01/17/2022 15:15 EDT) Specimen Narrative 01/17/2022 15:15 EDT This is a non-reportable exam. from Last 3 Months Insurance Payer Benefit Plan Subscriber ID Effective Phone Address Typ e / Group Dates MEDICAID ACO MEDICAID ACO [id number] 2019-Pres [phone] [address] Medicaid [place] ent [address] [facility] [id number] Advance Directives For more information, please contact: [phone] Documents on File Type Date Recorded Patient Legal Aid Explanati on Advance Directives and Living Will Care Teams Moshgiach Relationship Specialty Start Date End Date Eddie Hills MD PCP - General 11/30/09 [address] [place], [place] [phone]
--- OUTSIDE RECORDS SUMMARY | 2022-02-05 03:49 | XMS_ITS | Encounter Summary ---
:1960 Author Organization [facility] Address [address] [place] [address] Care Team Providers Name Role Phone Eddie Hills MD Primary Care Provider Reason for Visit (Routine/Next Available) - Receiving Office to Obtain Authorization Specialty Diagnoses / Procedures Referred By Contact Refer red To Contact Procedures Unknown, Provider, XR OUTSIDE IMAGES MSK Phone: Referral ID Status Reason Start Expiration Visits Visits Date Date Requested Authorized [id number] Receiving Office 01/17/2022 1 1 to Obtain Authorization Encounter Details Date Type Department Care Team Description 12/19/2021 Hospital Encounter [facility] Secondary Reads [place] Social History [...] Visit Orthopedic Surgery Tiffany Mcgill MD [address] [place] [address] (Wo rk) documented as of this encounter Procedures Procedure Name Priority Date/Time Associated Diagnosis Comme nts XR OUTSIDE IMAGES Routine 01/17/2022 15:22 Result s for this MSK EDT procedure are i n the results section. documented in this encounter Results XR OUTSIDE IMAGES MSK (01/17/2022 15:22 EDT) Specimen Narrative 01/17/2022 15:22 EDT This is a non-reportable exam. documented in this encounter Visit Diagnoses Not on filedocumented in this encounter Care Teams Tanker Serviceman Relationship Specialty Start Date End Date Eddie Hills MD PCP - General 11/30/[address] [place] [address] documented as of this encounter
--- OUTSIDE RECORDS SUMMARY | 2022-02-05 03:49 | XMS_ITS | Encounter Summary ---
:1960 Author Organization [facility] Address [address] [place] [address] Care Team Providers Name Role Phone Eddie Hills MD Primary Care Provider Encounter Details Date Type Department Care Team Description 02/03/2010 Orders Only [facility] Martin Irasema, Hand pain (Primary Dx) Hand & Upper Extremity PA-C Program - [address] [place], [facility] [address] [facility] [phone] Social History Tobacco Use Types Packs/Day Years Used Date Never Assessed Sex Assigned at Date Recorded Not on file documented as of this encounter Plan of Treatment Upcoming Encounters Date Type Specialty Care Team Description 05/17/2022 Office Visit Orthopedic Surgery Tiffany Mcgill MD [address] [place] [address] (Wo rk) documented as of this encounter Procedures Procedure Name Priority Date/Time Associated Diagnosis Comme nts FINGER 2 OR MORE Routine 02/07/2010 11:02 Hand pain Results for this VIEWS EDT procedure are i n the results section. documented in this encounter Results FINGER 2 OR MORE VIEWS (02/07/2010 11:02 EDT) Anatomical Region Laterality Modality Other Specimen Narrative [facility] - 03/2010 16:48 EDT FINGER 2 OR MORE VIEWS ??Feb 07, 2010 11 :02:00 AM Signs and Symptoms/Comments: ??729.5-SINGH D PAIN-I9 left third finger bony mallet finger Comparison: January 10, 2010. Findings: There has been interval progre ssive but incomplete healing of the dorsal and volar fractures of the proximal aspect of the distal phalanx. The distal interphalange al joint is congruent. The soft tissue swelling around the distal i nterphalangeal joint has improved. I have personally reviewed the images an d the above interpretation and agree with the findings. Procedure Note Ceasar Limon MD - 02/07/2010 FINGER 2 OR MORE VIEWS Feb 07, 2010 11:0 2:00 AM Signs and Symptoms/Comments: 729.5-HAND PAIN-I9 left third finger bony mallet finger Comparison: January 10, 2010. Findings: There has been interval progre ssive but incomplete healing of the dorsal and volar fractures of the proximal aspect of the distal phalanx. The distal interphalange al joint is congruent. The soft tissue swelling around the distal i nterphalangeal joint has improved. I have personally reviewed the images an d the above interpretation and agree with the findings. Performing Organization Address City/State/ZIP Code Phon e Number [facility] documented in this encounter Visit Diagnoses Diagnosis Hand pain - Primary Pain in limb documented in this encounter Care Teams Software Quality Assurance Engineer Relationship Specialty Start Date End Date Eddie Hills MD PCP - General 11/30/09 [address] [place] [address] documented as of this encounter
--- OUTSIDE RECORDS SUMMARY | 2022-02-05 03:49 | XMS_ITS | Encounter Summary ---
:1960 Author Organization [facility] Address [address] [place] [address] Care Team Providers Name Role Phone Unavailable Primary Care Provider Unavailable Encounter Details Date Type Department Care Team Description 10/24/[address] [facility] Graham Del Castillo MD [address] [place] [phone] [facility] [address] [place] [phone] [place], [place] [phone] Social History Tobacco Use Types Packs/Day Years Used Date Never Assessed Sex Assigned at Date Recorded Not on file documented as of this encounter Discharge Disposition Disposition Code Departure Means Destination Auto Discharge documented in this encounter Plan of Treatment Upcoming Encounters Date Type Specialty Care Team Description 05/17/2022 Office Visit Orthopedic Surgery Tiffany Mcgill MD [address] [place] [phone] (Wo rk) documented as of this encounter Procedures Procedure Name Priority Date/Time Associated Diagnosis Comme nts CERVICAL SPINE 1 10/24/2006 10:11 Results for this VIEW EDT procedure are i n the results section. documented in this encounter Results CERVICAL SPINE (10/24/2006 10:11 EDT) Anatomical Region Laterality Modality Other Specimen Narrative [facility] - 12/30/2008 10 :48 EDT neck pain; s/p c5-6 acd CERVICAL SPINE ??Oct 24, 2006 10:11:58 A M Signs and Symptoms:: ??neck pain; s/p c5 -6 acd. Impression: 1. Anterior fusion at C5-C6, stable in a ppearance. Comparison: Compared to September 26, 2006 jaxson lucero anterior plate bridging the C5-C6 disc appears well applied with the interbody graft in anatomic position and alignment in the s zelalem lateral view obtained today Procedure Note Ghulam Hopkins MD - 12/30/2008 neck pain; s/p c5-6 acd CERVICAL SPINE Oct 24, 2006 10:11:58 AM Signs and Symptoms:: neck pain; s/p c5-6 acd. Impression: 1. Anterior fusion at C5-C6, stable in a ppearance. Comparison: Compared to September 26, 2006 jaxson lucero anterior plate bridging the C5-C6 disc appears well applied with the interbody graft in anatomic position and alignment in the s zelalem lateral view obtained today Performing Organization Address City/State/ZIP Code Phon e Number [facility] [address] [facility] [place] [address] [facility] [address] [place], [place] [address] documented in this encounter Visit Diagnoses Not on filedocumented in this encounter
--- OUTSIDE RECORDS SUMMARY | 2022-02-05 03:49 | XMS_ITS | Encounter Summary ---
:1960 Author Organization [facility] Address [address] [place] [address] Care Team Providers Name Role Phone Eddie Hills MD Primary Care Provider Encounter Details Date Type Department Care Team Description 08/17/2021 Lab Requisition [facility] Outr Resulting Lab, Pathology & Laboratory Provider [facility] [address] [place] [address] Social History Tobacco Use Types Packs/Day Years Used Date Never Assessed Sex Assigned at Date Recorded Not on file documented as of this encounter Plan of Treatment Upcoming Encounters Date Type Specialty Care Team Description 05/17/2022 Office Visit Orthopedic Surgery Tiffany Mcgill MD [address] [place] [phone] (Wo rk) documented as of this encounter Procedures Procedure Name Priority Date/Time Associated Diagnosis Comme nts MEASLES IGG AB Routine 08/16/2021 14:57 Results f or this EST procedure are i n the results section. RUBELLA IGG Routine 08/16/2021 14:57 Results for this ANTIBODY EST procedure are i n the results section. HEPATITIS B SURFACE Routine 08/16/2021 14:57 Resu lts for this ANTIBODY EST procedure are i n the results section. MUMPS ANTIBODY IGG Routine 08/16/2021 14:57 Resul ts for this EST procedure are i n the results section. documented in this encounter Results HEPATITIS B SURFACE ANTIBODY (08/16/2021 14:57 EST) Hep B Surface Ab, <3.1 See Note [facility] Quantitative Comment: mIU/mL [facility] Reference Range for Hep B Surface Ab, Quant: SERVICES Positive: >= 10.0 mIU/mL Negative: ??< 10.0 mIU/mL Patient is presumed to not be immune to infection with Hepatitis B Virus. Hep B Surface Ab, Negative See Note [facility] Comment: [facility] Reference Range for Hep B Surface Ab, Qual: SERVICES Unvaccinated: ??Negative Vaccinated: ??Positive Specimen Blood - Venous blood (substance) Performing Organization Address City/[facility]/ZIP Code Phon e Number [facility] [address] [place] [address] SERVICES MEASLES IGG AB (08/16/2021 14:57 EST) Measles IgG Ab PositiveComment: See Note [facility] Presence of LABORATORY SERVICES detectable measles virus IgG antibodies. Specimen Blood - Venous blood (substance) Performing Organization Address City/[facility]/ZIP Code Phon e Number [facility] [address] [place] [address] SERVICES MUMPS ANTIBODY IGG (08/16/2021 14:57 EST) Mumps Antibody IgG PositiveComment: See Note [facility] Presence of LABORATORY SERVICES detectable mumps virus IgG antibodies. Specimen Blood - Venous blood (substance) Performing Organization Address City/[facility]/ZIP Code Phon e Number [facility] [address] [place] [address] SERVICES RUBELLA IGG ANTIBODY (08/16/2021 14:57 EST) Rubella IgG Ab PositiveComment: See Note [facility] Positive for IgG LABORATORY SERVICES antibodies to Rubella virus. Specimen Blood - Venous blood (substance) Performing Organization Address [facility]/ZIP [facility] Phon e Number [facility] [address] [place] [address] SERVICES documented in this encounter Visit Diagnoses Not on filedocumented in this encounter Care Teams Machine Packer Relationship Specialty Start Date End Date Eddie Hills MD PCP - General 11/30/[address] [place] [address] documented as of this encounter
--- OUTSIDE RECORDS SUMMARY | 2022-02-05 03:49 | XMS_ITS | Encounter Summary ---
:1960 Author Organization [facility] Address [address] [place] [address] Care Team Providers Name Role Phone Unavailable Primary Care Provider Unavailable Encounter Details Date Type Department Care Team Description 10/24/2006 Before [facility] - Yudi Dejesus, Converted Visit Maple conversion PA (Maple) [address] [facility] [address] [place] [address] [place] [address] (Wo rk) Social History Tobacco Use Types Packs/Day Years Used Date Never Assessed Sex Assigned at Date Recorded Not on file documented as of this encounter Progress Notes Yudi Dejesus. - 05/07/2009 2017 EST DIVISION OF NEUROSURGERY PROGRESS/FOLLOWUP NOTE - 10/24/2006 Eddie Hills MD [address] [id number] Hills: It was a pleasure to see Yg Leal today in neurosurgical followup. He underwent anterior cervical diskectomy and fusion at C5-[address] Infante on September 26, 2006. Postoperatively, he notes significant fatigue and increased shortness of breath with climbing stairs. He denies any chest pain. He denies any wheezing or cough. He has had no fevers, no continued pain of his cervical spine or upper extremities. 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 He continues to take Percocet as needed. He also is taking Prozac, Lamictal and Protonix. Review of Systems: The patient denies any dizziness, lightheadedness, headaches, no calf pain or legpain. He denies any specific weakness, no dysuria. Physical Exam: Vitals were 142/74, 76, 16. General: Patient in no apparent distress. He is independently ambulatory without cane or walker. His is here with him today. He is a pleasant gentleman with full range of motion of his cervical spine. He has 5/5 strength of bilateral upper extremities. Lung exam reveals the patient with good breath sounds in all lobes, both anterior and posterior. His calves are not exquisitely tender to palpation. He does have good pedal pulses bilaterally and no pedal edema. He has good peripheral pulses in the upper extremities as well. His incision is well healed without erythema or edema. The patient does have musculoskeletal exam tenderness of bilateral/superolateral trapezius muscles. He has quite a stocky build and muscular with a short neck. Impression: Cervical degenerative disk disease status post ACDF C5-6 on September 26, 2006, with good postoperative results, now with postop fatigue and shortness of breath with climbing stairs. Recommendations: I thoroughly discussed the patient with Dr. Infante. There is the remote chance thepatient is suffering from a PE or pneumonia and anemia would be another possibility. I would like the patient to be fully evaluated in the emergency department to rule out these possibilities. I believe the patient has become severely deconditioned due to his preop discomfort and now his postop restrictions. I therefore would like, if no contraindications are determined, for the patient to begin a work-hardening program. 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 The patient is in full agreement. He is going to present to his local emergency room and we will speak tomorrow with the findings. Thank you for allowing me to participate in his care. Addendum: The patient and I spoke over the phone on October 25, 2006. The emergency room evaluation was negative for any postop pathology. The patient will begin physical therapy as directed. He may be seen here on a p.r.n. basis. Sincerely, Signed by Cain Infante MD 11/10/2006 12:01 Tlyer Dejesus, Delphine Funes MD Dictated by: MIKE Jerome Cain Infante MD - MIKE Smith P - bb Job ID: [id number] Document ID: [id number] cc: Eddie Hills MD documented in this encounter Plan of Treatment Upcoming Encounters Date Type Specialty Care Team Description 05/17/2022 Office Visit Orthopedic Surgery Tiffany Mcgill MD [address] [place] [phone] (Wo rk) documented as of this encounter Visit Diagnoses Not on filedocumented in this encounter
--- OUTSIDE RECORDS SUMMARY | 2022-02-05 03:49 | XMS_ITS | Encounter Summary ---
:1960 Author Organization [facility] Address [address] [place] [address] Care Team Providers Name Role Phone Eddie Hills MD Primary Care Provider Reason for Visit (Routine/Next Available) - Receiving Office to Obtain Authorization Specialty Diagnoses / Procedures Referred By Contact Refer red To Contact Procedures Unknown, Provider, XR OUTSIDE IMAGES MSK Phone: Referral ID Status Reason Start Expiration Visits Visits Date Date Requested Authorized [id number] Receiving Office 01/17/2022 1 1 to Obtain Authorization Encounter Details Date Type Department Care Team Description 03/10/2021 Hospital Encounter [facility] Secondary Read[place] Social History [...] Visit Orthopedic Surgery Tiffany Mcgill MD [address] [place] [address] (Wo rk) documented as of this encounter Procedures Procedure Name Priority Date/Time Associated Diagnosis Comme nts XR OUTSIDE IMAGES Routine 01/17/2022 15:20 Result s for this MSK EDT procedure are i n the results section. documented in this encounter Results XR OUTSIDE IMAGES MSK (01/17/2022 15:20 EDT) Specimen Narrative 01/17/2022 15:20 EDT This is a non-reportable exam. documented in this encounter Visit Diagnoses Not on filedocumented in this encounter Care Teams Services Executive Relationship Specialty Start Date End Date Eddie Hills MD PCP - General 11/30/[address] [place] [address] documented as of this encounter
--- OUTSIDE RECORDS SUMMARY | 2022-02-05 03:49 | XMS_ITS | Encounter Summary ---
:1960 Author Organization [facility] Address [address] [place] [address] Care Team Providers Name Role Phone Eddie Hills MD Primary Care Provider Encounter Details Date Type Department Care Team Description 01/10/2010 Hospital Encounter [facility] - Loyda Salazar Tilley PA-C [address] [place], [place] [address] [place] [phone] (Wo rk) Social History Tobacco Use [...] Code Departure Means Destination Home or Self Group Home documented in this encounter Plan of Treatment Upcoming Encounters Date Type Specialty Care Team Description 05/17/2022 Office Visit Orthopedic Surgery Tiffany Mcgill MD [address] [place] [address] (Wo rk) documented as of this encounter Visit Diagnoses Not on filedocumented in this encounter Care Teams Marketing Analyst Relationship Specialty Start Date End Date Eddie Hills MD PCP - General 11/30/09 [address] [place] [address] documented as of this encounter
--- OUTSIDE RECORDS SUMMARY | 2022-02-05 03:49 | XMS_ITS | Encounter Summary ---
:1960 Author Organization [facility] Address [address] [place] [address] Care Team Providers Name Role Phone Eddie Hills MD Primary Care Provider Reason for Visit (Routine/Next Available) - Receiving Office to Obtain Authorization Specialty Diagnoses / Procedures Referred By Contact Refer red To Contact Procedures Unknown, Provider, NM OUTSIDE IMAGES Referral ID Status Reason Start Expiration Visits Visits Date Date Requested Authorized [id number] Receiving Office 01/17/2022 1 1 to Obtain Authorization Encounter Details Date Type Department Care Team Description 11/09/2021 Hospital Encounter [facility] Secondary Read[place] Social History Tobacco [...] Visit Orthopedic Surgery Tiffany Mcgill MD [address] [place] [phone] (Wo rk) documented as of this encounter Procedures Procedure Name Priority Date/Time Associated Diagnosis Comme nts NM OUTSIDE IMAGES Routine 01/17/2022 15:22 Result s for this EDT procedure are i n the results section. documented in this encounter Results NM OUTSIDE IMAGES (01/17/2022 15:22 EDT) Specimen Narrative 01/17/2022 15:22 EDT This is a non-reportable exam. documented in this encounter Visit Diagnoses Not on filedocumented in this encounter Care Teams International Accountant Relationship Specialty Start Date End Date Eddie Hills MD PCP - General 11/30/[address] [place] [phone] documented as of this encounter
--- OUTSIDE RECORDS SUMMARY | 2022-02-05 03:49 | XMS_ITS | Encounter Summary ---
:1960 Author Organization [facility] Address [address] [place] [address] Care Team Providers Name Role Phone Eddie Hills MD Primary Care Provider Reason for Visit (Routine/Next Available) - Receiving Office to Obtain Authorization Specialty Diagnoses / Procedures Referred By Contact Refer red To Contact Procedures Unknown, Provider, XR OUTSIDE IMAGES MSK Phone: Referral ID Status Reason Start Expiration Visits Visits Date Date Requested Authorized [id number] Receiving Office 01/17/2022 1 1 to Obtain Authorization Encounter Details Date Type Department Care Team Description 06/17/2020 Hospital Encounter [facility] Secondary Read[place] Social History Tobacco [...] Visit Orthopedic Surgery Tiffany Mcgill MD [address] [place] [address] (Wo rk) documented as of this encounter Procedures Procedure Name Priority Date/Time Associated Diagnosis Comme nts XR OUTSIDE IMAGES Routine 01/17/2022 15:18 Result s for this MSK EDT procedure are i n the results section. documented in this encounter Results XR OUTSIDE IMAGES MSK (01/17/2022 15:18 EDT) Specimen Narrative 01/17/2022 15:18 EDT This is a non-reportable exam. documented in this encounter Visit Diagnoses Not on filedocumented in this encounter Care Teams Livestock Buyer Relationship Specialty Start Date End Date Eddie Hills MD PCP - General 11/30/[address] [place] [address] documented as of this encounter
--- OUTSIDE RECORDS SUMMARY | 2022-02-05 03:49 | XMS_ITS | Encounter Summary ---
:1960 Author Organization [facility] Address [address] [place] [address] Care Team Providers Name Role Phone Eddie Hills MD Primary Care Provider Encounter Details Date Type Department Care Team Description 08/17/2021 Lab Requisition [facility] Outr Resulting Lab, Pathology & Laboratory Provider [facility] [address] [place] [address] Social History Tobacco Use Types Packs/Day Years Used Date Never Assessed Sex Assigned at Date Recorded Not on file documented as of this encounter Plan of Treatment Upcoming Encounters Date Type Specialty Care Team Description 05/17/2022 Office Visit Orthopedic Surgery Tiffany Mcgill MD [address] [place] [phone] (Wo rk) documented as of this encounter Procedures Procedure Name Priority Date/Time Associated Comments Diagnosis QUANTIFERON MITOGEN Today 08/16/2021 14:57 (PERFORMABLE) EST QUANTIFERON TB2 Today 08/16/2021 14:57 (PERFORMABLE) EST QUANTIFERON TB1 Today 08/16/2021 14:57 (PERFORMABLE) EST QUANTIFERON NIL Today 08/16/2021 14:57 (PERFORMABLE) EST QUANTIFERON Today 08/16/2021 14:57 Results for this INTERPRETATION EST procedure are in (PERFORMABLE) the results section. QUANTIFERON TB GOLD Routine 08/16/2021 14:57 Resu lts for this PLUS EST procedure are i n the results section. documented in this encounter Results QUANTIFERON INTERPRETATION (PERFORMABLE) (08/16/2021 14:57 EST) Quantiferon NegativeComment: No Negative [facility] Interpretation interferon-gamma [facility] response to [facility] tuberculosis antigens was detected. ??Infection with M. tuberculosis is unlikely. A single negative result does not exclude infection with M. tuberculosis. ??In patients at high risk for M. tuberculosis infection, a second test should be considered. TB1 Ag minus Nil 0.01 IU/ml [facility] TB2 Ag minus Nil 0.03 IU/mL [facility] Specimen Blood - Venous blood (substance) Narrative [facility] - 08/18/2021 14:16 EST Results were obtained with the Qiagen QuantiFERON-TB Gold Plus CLIA. New platform in use 03/09/2021 Performing Organization Address [facility] Code Phon e Number [facility] [address] [place] [phone] SERVICES QUANTIFERON MITOGEN (PERFORMABLE) (08/16/2021 14:57 EST) Specimen Blood - Venous blood (substance) Performing Organization Address City/[facility]/ZIP Code Phon e Number [facility] [address] [place] [phone] SERVICES QUANTIFERON TB2 (PERFORMABLE) (08/16/2021 14:57 EST) Specimen Blood - Venous blood (substance) Performing Organization Address City/[facility]/ZIP Code Phon e Number [facility] [address] [place] [phone] SERVICES QUANTIFERON TB1 (PERFORMABLE) (08/16/2021 14:57 EST) Specimen Blood - Venous blood (substance) Performing Organization Address [facility]/ZIP Code Phon e Number [facility] [address] [place] [address] SERVICES QUANTIFERON NIL (PERFORMABLE) (08/16/2021 14:57 EST) Specimen Blood - Venous blood (substance) Performing Organization Address [facility]/ZIP [facility] Phon e Number [facility] [address] [place] [phone] SERVICES documented in this encounter Visit Diagnoses Not on filedocumented in this encounter Care Teams Small Business Banking Officer Relationship Specialty Start Date End Date Eddie Hills MD PCP - General 11/30/[address] [place] [phone] documented as of this encounter
--- OUTSIDE RECORDS SUMMARY | 2022-02-05 03:49 | XMS_ITS | Encounter Summary ---
:1960 Author Organization [facility] Address [address] [place] [address] Care Team Providers Name Role Phone Eddie Hills MD Primary Care Provider Reason for Visit (Routine/Next Available) - Receiving Office to Obtain Authorization Specialty Diagnoses / Procedures Referred By Contact Refer red To Contact Procedures Unknown, Provider, XR OUTSIDE IMAGES MSK Phone: Referral ID Status Reason Start Expiration Visits Visits Date Date Requested Authorized [id number] Receiving Office 01/17/2022 1 1 to Obtain Authorization Encounter Details Date Type Department Care Team Description 03/26/2020 Hospital Encounter [facility] Secondary [place] Social History Tobacco [...] Visit Orthopedic Surgery Tiffany Mcgill MD [address] [place] [address] (Wo rk) documented as of [...] on filedocumented in this encounter Care Teams Varnishing Machine Operator Relationship Specialty Start Date End Date Eddie Hills MD PCP - General 11/30/[address] [place] [address] documented as of this encounter
--- OUTSIDE RECORDS SUMMARY | 2022-02-05 03:49 | XMS_ITS | Encounter Summary ---
:1960 Author Organization [facility] Address [address] [place] [address] Care Team Providers Name Role Phone Eddie Hills MD Primary Care Provider Reason for Visit Reason Comments Wrist Injury left wrist doi 4.30.10 Encounter Details Date Type Department Care Team Description 02/07/2010 Office Visit [facility] Irasema Salazar DeQue rvain's disease (tenosynovitis); Hand & Upper Extremity ASHLEE Closed fracture of distal phalanx of fin ruma Program - [place] [address] [place], [facility] [phone] [phone] Social History Tobacco Use Types Packs/Day Years [...] Body Mass Index 28.51 02/07/2010 1105 EDT documented in this encounter Progress Notes Irasema Salazar PA-C - 03/03/2010 1049 EDT 03/03/10: I spoke with Mr. Leal over the phone today. He reports that the symptoms from the dequervains have completely resolved after an injection and he is very happy with this. He also has h/o a left 3rd bony mallet finger with continued extension lag. He does find this irritating at times and has broken coffee cups because the finger gets caught. At this time he would like to wait and see if he gets used to it but he is aware to contact me if he wants further evaluation and treatment regarding it. He will also contact me if he re-develops symptoms of dequervains tenosynovitis. He may benefitfrom another shot or may require surgical consultation. Irasema nicolas PA-C - 02/10/2010 1007 EDT ORTHOPAEDICS AND REHABIL[facility]ATION SERVICES PROGRESS/FOLLOWUP NOTE - 02/07/2010 PROBLEM: Followup left wrist pain and left third bony mallet finger. SUBJECTIVE: Mr Leal is here today for a scheduled followup visit. In regards to his left third bony mallet finger he is now approximately five weeks out from the time of the injury. He states he hascontinued to wear his extension splint, although he does not admit that. By the end of the day his tape has usually stretched, which leaves him in a flexed position. He did not have any pain associatedwith this injury. In regards to the left wrist, he is continuing to report some pain. He has continued therapy and has undergone modalities, which initially were providing some relief but he feels thathe has plateaued. He finds that his symptoms increase with use and especially with working with his left hand such as using a hammer exacerbates his symptoms. He is unable to wear his hard splints while at work. OBJECTIVE: On physical exam Mr Leal does not appear to be in any significant distress. He appearsto be alert and oriented x3. On examination of his left third finger he does have some mild swellingat the DIP joint. There is no ecchymosis. There is no tenderness to palpation. He does have approximately 10 to 15 degree extension lag. He is able to make a complete fist. On evaluation of his left wrist he does continue to have tenderness to palpation along the first dorsal compartment. He also has a positive Kedar's maneuver. He continues to have a mildly positive Tinel's sign in this area. He is neurovascularly intact. Radiographs of his left third finger were taken in the office today and reviewed by me. There does appear to be healing of the distal phalanx base fracture. ASSESSMENT AND PLAN: In regards to the left third bony mallet finger, I suspect that Mr Mel cardona have a mild extension lag at this joint. At this point, he does not feel that this would interfere with his function. He can begin to use his hand with light activity and progress over time as tolerated. In regard to the left wrist pain, this continues to be consistent with de Quervain tenosynovitis. We did discuss further treatment options including corticosteroid injections. After reviewing the risks and benefits, he did elect to proceed today. His left wrist was prepped in standard sterilefashion and 40 mg of Depo-Medrol along with an anesthetic was injected into the first dorsal compartment without difficulty. He tolerated the procedure well. I did advise him to try to avoid any strenuous activity for the next one to two weeks. I suspect that if his symptoms persist or return it may be difficult to treat this. 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 I will follow up with him in a few weeks to assess for improvement following the injection. Electronically Signed by MIKE Harden 02/10/2010 10:06 Dictated by: MIKE Harden - MIKE Harden P - CB Job ID: Doc ID: [id number] Ext Doc ID: [id number] cc: Irasema Munoz PA-C - 02/07/2010 1220 EDT This office note has been dictated. Radha Duque - 02/07/2010 1133 EDT Xylocaine lot# [id number] [facility]# [id number] Depo- Medrol 40mg lot # [id number] [facility]# [id number] Radha Ospina documented in this encounter Plan of Treatment Upcoming Encounters Date Type Specialty Care Team Description 05/17/2022 Office Visit Orthopedic Surgery Tiffany Mcgill MD [address] [place] [phone] (Wo rk) documented as of this encounter Visit Diagnoses Diagnosis DeQuervain's disease (tenosynovitis) Radial styloid tenosynovitis Closed fracture of distal phalanx of fin ruma Closed fracture of distal phalanx or pha langes of hand documented in this encounter Care Teams Political Science Professor Relationship Specialty Start Date End Date Eddie Hills MD PCP - General 11/30/[address] [place] [id number] documented as of this encounter
--- OUTSIDE RECORDS SUMMARY | 2022-02-05 03:49 | XMS_ITS | Encounter Summary ---
:1960 Author Organization [facility] Address [address] [place] [address] Care Team Providers Name Role Phone Unavailable Primary Care Provider Unavailable Encounter Details Date Type Department Care Team Description 08/21/2006 Before [facility] - Yudi Dejesus, Converted Visit Maple conversion PA (Maple) [address] [facility] [address] [place] [address] [place] [address] (Wo rk) Social History Tobacco Use Types Packs/Day Years Used Date Never Assessed Sex Assigned at Date Recorded Not on file documented as of this encounter Consult Notes Yudi Dejesus. - 07/08/2009 0608 EST DIVISION OF NEUROSURGERY CONSULTATION - Eddie Hills MD [address] [id number] Hills: It was a pleasure to see Yg Leal today in neurosurgical consultation. He is, as you know, a 45gentleman who is complaining of six months of severe neck pain, which is improving over the last twomonths. He has pain particularly on the right side of his neck down into his right shoulder blade and right deltoid. He states he has a constant headache, which is quite significant and forces him to lie down at times. The headache will be bilateral occiput into bilateral ears and temples. He also hasnumbness in his left worse than right hand, which is intermittent. It will wake him up at night or it will be when he is sitting watching TV at the end of a day. 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 He denies any tremors, no difficulty with ambulation or balance. He does report difficulty with shortness of breath and is a nonsmoker. He states it is worse on exertion. He also reports dizziness associated with it and some tachycardia. He states that you are awareof this situation and are currently working him up further.The patient has also been seen by Dr. Arriola, a neurologist, who has asked him to undergo the MRI of his neck as well as performed EMGs of both upper extremities, diagnosing him with carpal tunnel syndrome. The patients past medical history is significant also for reflux, high blood pressure, high cholesterol. He also has a significant history of depression, strong family history of depression and did require hospitalization in 2004. The patient has no known drug allergies. Current medications include: 1. Protonix 40 mg daily. 2. Vytorin 10/40 mg daily. 3. Prozac 40 mg daily. 4. Lamictal 150 mg daily. 5. Methylprednisolone 8 mg daily, recently started by Dr. Arriola. The patient has undergone physical therapy and this coincides with the time of his improvement. He has changed his pillows and changed multiple habits in attemptsof relieving his symptoms. Fifty percent of his discomfort is in his neck, 50% in his arms, which includes his upper back. His best day is 2/10 pain, worst day 9/10. He has a sharp, stabbing, achy, dull quality to his head, neck and shoulder. Social History: The patient is the father of two sons. He lives with his girlfriend and his one son.He has never smoked cigarettes, drinks alcohol socially, and enjoyshunting, fishing and softball. 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 Family History: Significant for depression and heart disease. Full review of systems was conducted and is detailed on the patients intake sheet. Other than those symptoms discussed, he also admits to sinus headaches, wearing glasses, chest pain, heart murmur, legpain while walking, memory loss, disorientation, numb sensation, inability to concentrate and blurryand double vision. Again, this is all being worked up by his primary care. Exam: Vitals were 130/76 blood pressure, 52 heart rate, 18 respirations. General: The patient appears the stated age of 45. He is 5 feet 7 inches, 185 pounds. He is in no apparent distress, independently ambulatory without cane or walker, is not wearing a collar or a brace. He is here alone today and provides all of his own history. He does not exaggerate his symptoms and presents the facts in a clear and concise manner. HEENT, cardiovascular, pulmonary and abdominal exams were all unremarkable. Thepatient has no carotid bruits. Neurologically the only pertinent finding was an absent right triceps reflex. Otherwise, the patients strength is bilaterally symmetrical, intact. The patient is quite muscular and the remainder of hisdeep tendon reflex exam was quite hyperreflexic but bilaterally symmetrical. No pathologic reflexes were elicited, no Hoffmans, no clonus, no Babinski The patient has a non-antalgic gait with good coordination. Cranial nerves, cerebellar exam, mental status exam all within normal limits. Musculoskeletal exam reveals reasonable range of motion of cervical spine in all directions, bilateral, superior lateral trapezius muscle tone, no atrophy noted of hands or thenar eminence. The patienthas no difficulty moving bilateral upper extremities or lower extremities, no winging of his scapulars. Radiographic Evidence: The patient underwent an MRI at [facility]. This was dated July 25, 2006. It was interpreted with advanced cervical degenerative disk disease with a very large disk herniation right paracentrally, seen at C5-6, causing moderate to severe spinal stenosis. There isalso a broad- based disk osteophyte complex at C6-7, causing moderate spinal canal narrowing, no evidence of myelopathy or increased signal in the cord. Plain x-rays were also obtained and show degenerative disk disease; otherwise, spine in good alignment with no evidence of spondylolisthesis. Films were thoroughly reviewed with Dr. Infante. The patient was thoroughly discussed. Dr. Infante met with the patient. Also taken into consideration was the patientEMG results done by Dr. Arriola. These were dated August 14, 2006, and were performed of bilateral upper extremities. There was evidence of moderate left and mild right carpal tunnel compression. There is also a possible right C6-7 radiculopathy with recent or ongoing denervation in this myotome. Impression: Cervical spinal stenosis, cervical degenerative disk disease. Recommendation: Dr. Infante met with the patient and discussed his symptoms thoroughly and examined the patient. It was Dr. Nair thoughts that the patient would benefit froan anterior cervical diskectomy and fusion for decompression of his spinal cord from this very large C5-6 disk herniation. Neur ologically he is intact aside from his absent right triceps reflex. The patient does have significant symptoms of occipital headaches and he could expect these to improve following surgery. Dr. Ifnanteexplained to the patient the inherent risks and benefits. The patient gave fully informed consent. The patient has chosen to use cadaver bone as opposed to autograft. Arrangements will be made for the patient to be placed on the surgical schedule in the very near future. Thank you for allowing us to participate in his care and we will keep you posted on his progress. fully discussed and/or examined the patient with MIKE Sebastian. I agree with the HPI, exam findings and plan of care as outlined above. I have documented any additions/changes in the body of thenote. Sincerely, Signed by Cain Infante MD 08/22/2006 14:39 Bailee Rainey PABruce I Tranmer, MD Dictated by: MIKE Jerome Cain Infante MD - MIKE Smith P - bb Job ID: [id number] Document ID: [id number] cc: MD Florina Gifford PA Rizwan-Ul Haq, MD documented in this encounter Plan of Treatment Upcoming Encounters Date Type Specialty Care Team Description 05/17/2022 Office Visit Orthopedic Surgery Tiffany Mcgill MD [address] [place] [phone] (Wo rk) documented as of this encounter Visit Diagnoses Not on filedocumented in this encounter
[2022-02-05] MEDS: Amoxicillin 875/Clav. 125 TAB PO (04:02)
[2022-02-05] MEDS: Amox. 875/Clav. 125, 2 TABS/BTL 1 TAB PO (04:10)
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
== END 2022-02-05 04:20 | disposition home or self-care (01) ==
PROVIDERS: Emergency Provider Physician Assistant; PCP Family Medicine
DX: S61.402A Unspecified open wound of left hand, initial encounter (principal); L03.114 Cellulitis of left upper limb; E11.9 Type 2 diabetes mellitus without complications; Z23 Encounter for immunization; W50.0XXA Accidental hit or strike by another person, initial encounter
CPT/HCPCS: 90471; 99283; 73130; 99284